=== PATIENT | female | born 1950 | race Caucasian/White ===

== ENCOUNTER 2023-05-11 21:28 | Inpatient (IN) | payer OTHER, SELFPAY ==
[2023-05-11 21:35] VITALS: BP 150/76; PULSE 66; RESP 18; TEMP 36.2; O2SAT 93
[2023-05-11 22:53] VITALS: BMI 29.7
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
[2023-05-12 07:27] LABS: Cholesterol 153 mg/dL (<200); HDL Cholesterol 25 mg/dL (>40); LDL Cholesterol Calculated 105 mg/dL (<100); Triglycerides 115 mg/dL (<150)
[2023-05-12 07:51] LABS: Estimated Average Glucose 123 mg/dL; Hemoglobin A1c % 5.9 % (<6.0)
[2023-05-12 10:25] VITALS: RESP 18
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
--- NOTE | 2023-05-12 14:37 | PC.NURSE ---
Desi declined to have her VS taken and to take scheduled morning Haldol. That medicine makes me hallucinate. Dr. Hoang notified that Desi declined to have her VS taken and declined Haldol.
[2023-05-12 17:00] LABS: Appearance Urine Clear; Color Urine Yellow; Glucose Urine UA Negative (Negative); Leukocyte Esterase Urine Moderate (2+) (Negative); Nitrite Urine Negative (Negative); Specific Gravity - Urine 1.015 (1.005-1.025); UMIC TRIGGER UACC YES; Urine Blood Negative (Negative); Urine Ketones Negative (Negative); Urine Protein Negative (Neg-Trace)
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
[2023-05-12 18:00] VITALS: RESP 18
[2023-05-12] MEDS: Clotrimazole 1 % Cream 15 GM TUBE 1 APPL TOPICAL (20:45)
[2023-05-12 21:42] LABS: Bacteria Urine None Seen (None Seen); Hyaline Casts Urine 0-2 /LPF (0-2); RBC Urine 0-2 /HPF (0-2); UACC Culture Trigger YES
[2023-05-13 08:33] VITALS: RESP 16
--- NOTE | 2023-05-13 14:06 | PC.NURSE ---
Desi declined morning medications and to have her VS taken, Dr. Hoang notified.
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
[2023-05-13 18:00] VITALS: BP 133/58; PULSE 73; RESP 18; TEMP 36.9; O2SAT 92
[2023-05-14 06:00] VITALS: BP 126/60; PULSE 65; RESP 20; TEMP 36.1; O2SAT 92
--- NOTE | 2023-05-14 10:45 | PC.NURSE ---
Guarditulio Barrios phone number: [phone]. [facility] [employer] Dipper: Mehdi Isidro phone number [phone].
--- NOTE | 2023-05-14 14:49 | HO.PSYCHPN ---
Subjective Subjective Date of Service: 05/14/23 Reason For Visit: Schizophrenia Subjective Notes: [facility] Order and Conditional Voluntary Interim History: The nursing staff reported the patient had being disorganized, stating that she had been poison it here. Today we received the role years order and we are going to put her on the back up IM if she does not compliance with her Haldol. On interview the patient remains guarded and psychotic and she is fully aware that she has a role years order. Mental Status Exam Mental Status Exam Patient Appearance: Appropriate Patient Orientation: Person and Situation Level of Consciousness: Awake and Appropriate Patient Behavior: Guarded and Passive Mood Description: Calm Affect Description: Withdrawn Patient Cognition Impaired: Yes Ability to Follow Directions: Good Speech Pattern: Impoverished Hallucinations: Auditory Delusions: Paranoid Ideation and Ideas of Reference Thought Process: Illogical, Distracted and Slowed Thinking Thought Content: positive for [place] and positive for Poverty of Content Judgement: Poor Diagnostics Vital Signs (24Hr): Vital Signs - 24 hr 05/13/23 18:00 05/14/23 06:00 Temperature 98.4 F 97.0 F Pulse Rate 73 65 Respiratory Rate 18 20 Blood Pressure 133/58 L 126/60 Pulse Oximetry 92 92 Oxygen Delivery Method Room Air Room Air BMI result Body Mass Index 29.7 Labs Labs: Laboratory Results - last 48 hr 05/12/23 16:46 Urine Color Yellow Urine Appearance Clear Urine pH 7.0 Ur Specific [place] 1.015 Urine Protein Negative Urine Glucose (UA) Negative Urine Ketones Negative Urine Blood Negative Urine Nitrite Negative Ur Leukocyte Esterase Moderate (2+) H Urine RBC 0-2 Urine WBC 6-10 H Ur Squamous Epith Cells 3-5 Urine Bacteria None Seen Hyaline Casts 0-2 Medications Medications Current Medications Acetaminophen (Acetaminophen 325 Mg Tablet) 650 mg PO Q6H PRN PRN Reason: Headache/Pain Mild Scale (1-3) Al Hydroxide/Mg Hydroxide (Magnesium Hydrox/Alum Hydrox 30 Ml Oral.Susp) 30 ml PO Q6H PRN PRN Reason: Heartburn/Nausea Clotrimazole (Clotrimazole 1 % Cream 15 Gm Tube) 1 appl TOPICAL BID JOSE GUADALUPE; Protocol Last Admin: 05/14/23 09:03 Dose: Not Given Haloperidol (Haloperidol 5 Mg Tablet) 5 mg PO Q4H PRN PRN Reason: agitation Haloperidol (Haloperidol 5 Mg Tablet) 5 mg PO BID [facility] Last Admin: 05/14/23 09:03 Dose: Not Given Hydrocortisone (Hydrocortisone 1 % Cream 28.35 Gm Tube) 1 appl TOPICAL BID PRN; Protocol PRN Reason: Rash Magnesium Hydroxide (Milk Of Magnesia 30 Ml Oral.Susp) 30 ml PO DAILY PRN PRN Reason: Constipation Trazodone HCl (Trazodone Hcl 25 Mg Halftab) 25 mg PO BEDTIME MRX1 PRN PRN Reason: Insomnia Allergies Allergies Allergy/AdvReac Type Severity Reaction Status Date / Time onion Allergy Unknown Unknown Verified 05/11/23 22:53 Assessment & Plan Assessment & Plan (1) Schizophrenia, chronic condition: Status: Acute Code(s): F20.9 - Schizophrenia, unspecified Plan Pt is a 72-year-old female with a PMH significant for?HTN, GERD, and schizophrenia who is admitted to [facility] for increased aggression after a non compliant her psychiatric medications. Patient lives at a assisted but has recently become disorganized with delusions and increased aggression after refusing to take her medications despite a [facility]ins order. Medical consult for admission H&P. Mood disorder Plan as per psychiatry Seborrheic dermatitis Patient with significant beefy red rash on chest and under breasts with scaly plaques, of unclear duration Patient states she has prescription for antifungal, but not on her med list Will start her on hydrocortisone 1% cream and clotrimazole 1% cream which should be applied to affected areas twice daily until symptoms resolve UTI UA from [facility] positive for UTI, though apparently not treated with antibiotics Pt not complaining of polyuria or dysuria Will get new UA Will hold off on antibiotics pending UA results If positive, start with Bactrim DS 1 tab bid x5 days, then follow cultures HTN Continue amlodipine GERD Continue PPI Plan 1. Gather collateral information. 2. We received a treatment over objection court order and we are going to put p.r.n. IM if the patient refused Haldol p.o.. 3. Reassessment results Reason for continued inpatient stay Substantial Risk for: inability to function, rapid decompensation and med/psych decompensation Time Spent With Patient Time: Total time managing care of this patient today ___20_ minutes.
[2023-05-14 18:00] VITALS: BP 141/66; PULSE 68; RESP 18; O2SAT 92
[2023-05-14] MEDS: Haloperidol Lactate 5 MG/ML VIAL IM (20:17)
[2023-05-15] MEDS: Haloperidol Lactate 5 MG/ML VIAL IM ×2 (08:39→21:36)
[2023-05-15 10:45] VITALS: BP 123/56; PULSE 56; RESP 18; TEMP 36.2; O2SAT 93
--- NOTE | 2023-05-15 16:21 | HO.PSYCHPN ---
Subjective Subjective Date of Service: 05/15/23 Reason For Visit: Schizophrenia Subjective Notes: Conditional Voluntary Interim History: The nursing staff reported the patient refused to take her Haldol and she needed to have IM backup as per court order. She had been flat not attend to groups poor hygiene. On interview the patient refused to engage she is aware that she has to be compliant with treatment as per court order. We will going to try to contact her ancillary staff. Mental Status Exam Mental Status Exam Patient Appearance: Unkempt Patient Orientation: Person Level of Consciousness: Awake Patient Behavior: Guarded and Passive Mood Description: Withdrawn Affect Description: Constricted Patient Cognition Impaired: Yes Ability to Follow Directions: Good Speech Pattern: Clear Hallucinations: Auditory Delusions: Paranoid Ideation Thought Process: Distracted Thought Content: positive for [place] and positive for Poverty of Content Judgement: Poor Diagnostics Vital Signs (24Hr): Vital Signs - 24 hr 05/14/23 18:00 05/15/23 10:45 Temperature 97.2 F Pulse Rate 68 56 Respiratory Rate 18 18 Blood Pressure 141/66 H 123/56 L Pulse Oximetry 92 93 Oxygen Delivery Method Room Air Room Air BMI result Body Mass Index 29.7 Medications Medications Current Medications Acetaminophen (Acetaminophen 325 Mg Tablet) 650 mg PO Q6H PRN PRN Reason: Headache/Pain Mild Scale (1-3) Al Hydroxide/Mg Hydroxide (Magnesium Hydrox/Alum Hydrox 30 Ml Oral.Susp) 30 ml PO Q6H PRN PRN Reason: Heartburn/Nausea Clotrimazole (Clotrimazole 1 % Cream 15 Gm Tube) 1 appl TOPICAL BID JOSE GUADALUPE; Protocol Last Admin: 05/15/23 08:14 Dose: Not Given Haloperidol (Haloperidol 5 Mg Tablet) 5 mg PO Q4H PRN PRN Reason: agitation Haloperidol (Haloperidol 5 Mg Tablet) 5 mg PO BID JOSE GUADALUPE Last Admin: 05/15/23 08:14 Dose: Not Given Haloperidol Lactate (Haloperidol Lactate 5 Mg/Ml Vial) 5 mg IM BID PRN PRN Reason: REFUSAL OF PO Last Admin: 05/15/23 08:39 Dose: 5 mg Hydrocortisone (Hydrocortisone 1 % Cream 28.35 Gm Tube) 1 appl TOPICAL BID PRN; Protocol PRN Reason: Rash Magnesium Hydroxide (Milk Of Magnesia 30 Ml Oral.Susp) 30 ml PO DAILY PRN PRN Reason: Constipation Trazodone HCl (Trazodone Hcl 25 Mg Halftab) 25 mg PO BEDTIME MRX1 PRN PRN Reason: Insomnia Allergies Allergies Allergy/AdvReac Type Severity Reaction Status Date / Time onion Allergy Unknown Unknown Verified 05/11/23 22:53 Assessment & Plan Assessment & Plan (1) Schizophrenia, chronic condition: Status: Acute Code(s): F20.9 - Schizophrenia, unspecified Plan Pt is a 72-year-old female with a PMH significant for?HTN, GERD, and schizophrenia who is admitted to [facility] for increased aggression after a non compliant her psychiatric medications. Patient lives at a residential but has recently become disorganized with delusions and increased aggression after refusing to take her medications despite a Riggins order. Medical consult for admission H&P. Mood disorder Plan as per psychiatry Seborrheic dermatitis Patient with significant beefy red rash on chest and under breasts with scaly plaques, of unclear duration Patient states she has prescription for antifungal, but not on her med list Will start her on hydrocortisone 1% cream and clotrimazole 1% cream which should be applied to affected areas twice daily until symptoms resolve UTI UA from [facility] positive for UTI, though apparently not treated with antibiotics Pt not complaining of polyuria or dysuria Will get new UA Will hold off on antibiotics pending UA results If positive, start with Bactrim DS 1 tab bid x5 days, then follow cultures HTN Continue amlodipine GERD Continue PPI Plan 1. Gather collateral information. 2. We received a treatment over objection court order and we are going to put p.r.n. IM if the patient refused Haldol p.o.. 3. Reassessment results Reason for continued inpatient stay Substantial Risk for: inability to function, rapid decompensation and med/psych decompensation Time Spent With Patient Time: Total time managing care of this patient today __20__ minutes.
[2023-05-15 18:00] VITALS: BP 139/75; PULSE 69; RESP 16; TEMP 35.7; O2SAT 94
[2023-05-16 08:03] VITALS: BP 121/56; PULSE 69; RESP 18; TEMP 36.3; O2SAT 98
[2023-05-16] MEDS: Haloperidol Lactate 5 MG/ML VIAL IM (09:09)
[2023-05-16] MEDS: Clotrimazole 1 % Cream 15 GM TUBE 1 APPL TOPICAL (09:11)
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
[2023-05-16 20:15] VITALS: BP 119/60; PULSE 60; RESP 16; TEMP 36.1; O2SAT 98
[2023-05-16] MEDS: HaloperidoL 5 MG TABLET PO (20:41)
[2023-05-17 07:00] VITALS: BMI 29.3
[2023-05-17 08:10] VITALS: PULSE 71; RESP 18; TEMP 35.9; O2SAT 93
[2023-05-17] MEDS: HaloperidoL 5 MG TABLET PO ×2 (08:35→20:03)
[2023-05-17] MEDS: Clotrimazole 1 % Cream 15 GM TUBE 1 APPL TOPICAL ×2 (08:35→20:03)
--- NOTE | 2023-05-17 11:24 | P.PNPSI_ITS ---
Subjective Subjective Date of Service: 05/17/23 Reason For Visit: Schizophrenia Subjective Notes: [facility] Order and Conditional Voluntary Interim History: The nursing staff reported the patient had been alert oriented x2, isolative she was compliant with medications and she slept well last night. On interview the patient denies new symptoms she states that she is going to continue taking her medication. Mental Status Exam Mental Status Exam Patient Appearance: Disheveled and Unkempt Patient Orientation: Person and Situation Level of Consciousness: Awake and Appropriate Patient Behavior: Guarded and Passive Mood Description: Withdrawn Affect Description: Constricted Patient Cognition Impaired: Yes Ability to Follow Directions: Good Speech Pattern: Clear Hallucinations: None Delusions: Paranoid Ideation Thought Process: Illogical and Distracted Thought Content: positive for [place] and positive for Circumstantial Judgement: Fair Diagnostics Vital Signs (24Hr): Vital Signs - 24 hr 05/16/23 20:15 05/17/23 08:10 Temperature 97 F 96.6 F L Pulse Rate 60 71 Respiratory Rate 16 18 Blood Pressure 119/60 Pulse Oximetry 98 93 Oxygen Delivery Method Room Air Room Air BMI result Body Mass Index 29.3 Medications Medications Current Medications Acetaminophen (Acetaminophen 325 Mg Tablet) 650 mg PO Q6H PRN PRN Reason: Headache/Pain Mild Scale (1-3) Al Hydroxide/Mg Hydroxide (Magnesium Hydrox/Alum Hydrox 30 Ml Oral.Susp) 30 ml PO Q6H PRN PRN Reason: Heartburn/Nausea Clotrimazole (Clotrimazole 1 % Cream 15 Gm Tube) 1 appl TOPICAL BID JOSE GUADALUPE; Protocol Last Admin: 05/17/23 08:35 Dose: 1 appl Haloperidol (Haloperidol 5 Mg Tablet) 5 mg PO Q4H PRN PRN Reason: agitation Haloperidol (Haloperidol 5 Mg Tablet) 5 mg PO BID JOSE GUADALUPE Last Admin: 05/17/23 08:35 Dose: 5 mg Haloperidol Lactate (Haloperidol Lactate 5 Mg/Ml Vial) 5 mg IM BID PRN PRN Reason: REFUSAL OF PO Last Admin: 05/16/23 09:09 Dose: 5 mg Hydrocortisone (Hydrocortisone 1 % Cream 28.35 Gm Tube) 1 appl TOPICAL BID PRN; Protocol PRN Reason: Rash Magnesium Hydroxide (Milk Of Magnesia 30 Ml Oral.Susp) 30 ml PO DAILY PRN PRN Reason: Constipation Trazodone HCl (Trazodone Hcl 25 Mg Halftab) 25 mg PO BEDTIME MRX1 PRN PRN Reason: Insomnia Allergies Allergies Allergy/AdvReac Type Severity Reaction Status Date / Time onion Allergy Unknown Unknown Verified 05/11/23 22:53 Assessment & Plan Assessment & Plan (1) Schizophrenia, chronic condition: Status: Acute Code(s): F20.9 - Schizophrenia, unspecified Plan Pt is a 72-year-old female with a PMH significant for?HTN, GERD, and schizophrenia who is admitted to [facility] for increased aggression after a non compliant her psychiatric medications. Patient lives at a long term but has recently become disorganized with delusions and increased aggression after refusing to take her medications despite a [facility]iggins order. Medical consult for admission H&P. Mood disorder Plan as per psychiatry Seborrheic dermatitis Patient with significant beefy red rash on chest and under breasts with scaly plaques, of unclear duration Patient states she has prescription for antifungal, but not on her med list Will start her on hydrocortisone 1% cream and clotrimazole 1% cream which should be applied to affected areas twice daily until symptoms resolve UTI UA from [facility] positive for UTI, though apparently not treated with antibiotics Pt not complaining of polyuria or dysuria Will get new UA Will hold off on antibiotics pending UA results If positive, start with Bactrim DS 1 tab bid x5 days, then follow cultures HTN Continue amlodipine GERD Continue PPI Plan 1. Gather collateral information. 2. We received a treatment over objection court order and we are going to put p.r.n. IM if the patient refused Haldol p.o.. 3. Reassessment results . 4. Latuda was offered but she refused it. We will continue with Haldol as prescribed Reason for continued inpatient stay Substantial Risk for: inability to function, rapid decompensation and med/psych decompensation Time Spent With Patient Time: Total time managing care of this patient today __20__ minutes.
[2023-05-17 19:35] VITALS: BP 144/70; PULSE 67; RESP 16; TEMP 36.2; O2SAT 95
[2023-05-18 07:53] VITALS: BP 108/56; PULSE 63; RESP 18; TEMP 36.1; O2SAT 95
[2023-05-18] MEDS: HaloperidoL 5 MG TABLET PO (08:49)
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
[2023-05-18 18:00] VITALS: RESP 16
[2023-05-18] MEDS: Haloperidol Lactate 5 MG/ML VIAL IM (21:55)
[2023-05-19 07:55] VITALS: BP 114/61; PULSE 51; RESP 16; TEMP 36.2; O2SAT 92
[2023-05-19] MEDS: Haloperidol Lactate 5 MG/ML VIAL IM ×2 (09:19→21:02)
[2023-05-19] MEDS: Hydrocortisone 1 % Cream 28.35 GM TUBE 1 APPL TOPICAL (11:58)
--- NOTE | 2023-05-19 14:40 | P.PNPSI_ITS ---
Subjective Subjective Date of Service: 05/19/23 Reason For Visit: Schizophrenia Subjective Notes: Conditional Voluntary Interim History: Pt in the room. She reports she is good. She denies SI/HI. She is guarded and asks this physician underwriter to leave her alone. Per nursing, pt at times irritable, yelling at staff and other pts. She is on gomes, taking haldol. Medication Compliance: Yes Review of Systems Review of Systems Red rash with scaly plaques on chest and under breasts Patient denies has no acute medical complaints at this time Mental Status Exam Mental Status Exam Narrative: General appearance: casual dress.. Fair hygiene.? Eye contact: poor. Musculoskeletal: Laying in bed. No PMA/PMR Manner/behavior: uncooperative and guarded irritable Speech:? Fluent, with normal rate, tone and volume. Language: No receptive or expressive language impairment? Mood: Angry Affect:Irritable Thought process/associations: Linear with no flight of ideas or loose associations.?? Thought content: Paranoid Hallucinations: No overt auditory, visual or other hallucinations Suicidality/self-destructive behavior: none reported? ? Homicidally/violence: none. reported. Prior history of physical aggression? Reliability: poor.? ? Judgment: poor.? ? Insight: poor Cognition: Alert and oriented to time, place and person.? Diagnostics Vital Signs (24Hr): Vital Signs - 24 hr 05/18/23 18:00 05/19/23 07:55 Temperature 97.2 F Pulse Rate 51 Respiratory Rate 16 16 Blood Pressure 114/61 Pulse Oximetry 92 Oxygen Delivery Method Room Air BMI result Body Mass Index 29.3 Medications Medications Current Medications Acetaminophen (Acetaminophen 325 Mg Tablet) 650 mg PO Q6H PRN PRN Reason: Headache/Pain Mild Scale (1-3) Al Hydroxide/Mg Hydroxide (Magnesium Hydrox/Alum Hydrox 30 Ml Oral.Susp) 30 ml PO Q6H PRN PRN Reason: Heartburn/Nausea Clotrimazole (Clotrimazole 1 % Cream 15 Gm Tube) 1 appl TOPICAL BID JOSE GUADALUPE; Protocol Last Admin: 05/19/23 09:31 Dose: Not Given Haloperidol (Haloperidol 5 Mg Tablet) 5 mg PO Q4H PRN PRN Reason: agitation Haloperidol (Haloperidol 5 Mg Tablet) 5 mg PO BID [facility] Last Admin: 05/19/23 10:59 Dose: Not Given Haloperidol Lactate (Haloperidol Lactate 5 Mg/Ml Vial) 5 mg IM BID PRN PRN Reason: REFUSAL OF PO Last Admin: 05/19/23 09:19 Dose: 5 mg Hydrocortisone (Hydrocortisone 1 % Cream 28.35 Gm Tube) 1 appl TOPICAL BID PRN; Protocol PRN Reason: Rash Last Admin: 05/19/23 11:58 Dose: 1 appl Magnesium Hydroxide (Milk Of Magnesia 30 Ml Oral.Susp) 30 ml PO DAILY PRN PRN Reason: Constipation Trazodone HCl (Trazodone Hcl 25 Mg Halftab) 25 mg PO BEDTIME MRX1 PRN PRN Reason: Insomnia Allergies Allergies Allergy/AdvReac Type Severity Reaction Status Date / Time onion Allergy Unknown Unknown Verified 05/11/23 22:53 Assessment & Plan Assessment & Plan (1) Schizophrenia, chronic condition: Status: Acute Code(s): F20.9 - Schizophrenia, unspecified Plan Pt is a 72-year-old female with a PMH significant for?HTN, GERD, and schizophrenia who is admitted to [facility] for increased aggression after a non compliant her psychiatric medications. Patient lives at a halfway but has recently become disorganized with delusions and increased aggression after refusing to take her medications despite a Gomes order. Medical consult for admission H&P. Mood disorder Plan as per psychiatry Seborrheic dermatitis Patient with significant beefy red rash on chest and under breasts with scaly plaques, of unclear duration Patient states she has prescription for antifungal, but not on her med list Will start her on hydrocortisone 1% cream and clotrimazole 1% cream which should be applied to affected areas twice daily until symptoms resolve UTI UA from [facility] positive for UTI, though apparently not treated with antibiotics Pt not complaining of polyuria or dysuria Will get new UA Will hold off on antibiotics pending UA results If positive, start with Bactrim DS 1 tab bid x5 days, then follow cultures HTN Continue amlodipine GERD Continue PPI Plan 05/19 continue tx. eliseo- sharonal, back up IM. Reason for continued inpatient stay Substantial Risk for: inability to function Time Spent With Patient Time: Total time managing care of this patient today ____ minutes.
[2023-05-19 19:54] VITALS: BP 109/54; PULSE 94; RESP 22; TEMP 36.1; O2SAT 92
[2023-05-20 07:40] VITALS: BP 165/79; PULSE 92; RESP 18; TEMP 36.1; O2SAT 95
[2023-05-20] MEDS: Haloperidol Lactate 5 MG/ML VIAL IM (08:43)
[2023-05-20] MEDS: Clotrimazole 1 % Cream 15 GM TUBE 1 APPL TOPICAL (08:44)
[2023-05-20] MEDS: Hydrocortisone 1 % Cream 28.35 GM TUBE 1 APPL TOPICAL (08:45)
--- NOTE | 2023-05-20 15:35 | P.PNPSI_ITS ---
Subjective Subjective Date of Service: 05/20/23 Reason For Visit: Schizophrenia Subjective Notes: Conditional Voluntary Interim History: Pt mostly in her room, not interacting with peers, and guarded with staff. She denies SI/HI. She is guarded again today and asks this remote mortgage underwriter to leave her alone. Per nursing, pt at times irritable, yelling at staff and other pts. She is on gomes, taking haldol. VS with SBP elavated 165 today. continue to monitor. Review of Systems Review of Systems Red rash with scaly plaques on chest and under breasts Patient denies has no acute medical complaints at this time Mental Status Exam Mental Status Exam Narrative: General appearance: casual dress.. Fair hygiene.? Eye contact: poor. Musculoskeletal: Laying in bed. No PMA/PMR Manner/behavior: uncooperative and guarded irritable Speech:? Fluent, with normal rate, tone and volume. Language: No receptive or expressive language impairment? Mood: Angry Affect:Irritable Thought process/associations: Linear with no flight of ideas or loose associations.?? Thought content: Paranoid Hallucinations: No overt auditory, visual or other hallucinations Suicidality/self-destructive behavior: none reported? ? Homicidally/violence: none. reported. Prior history of physical aggression? Reliability: poor.? ? Judgment: poor.? ? Insight: poor Cognition: Alert and oriented to time, place and person.? Diagnostics Vital Signs (24Hr): Vital Signs - 24 hr 05/19/23 19:54 05/20/23 07:40 Temperature 97.0 F 97 F Pulse Rate 94 92 Respiratory Rate 22 H 18 Blood Pressure 109/54 L 165/79 H Pulse Oximetry 92 95 Oxygen Delivery Method Room Air Room Air BMI result Body Mass Index 29.3 Medications Medications Current Medications Acetaminophen (Acetaminophen 325 Mg Tablet) 650 mg PO Q6H PRN PRN Reason: Headache/Pain Mild Scale (1-3) Al Hydroxide/Mg Hydroxide (Magnesium Hydrox/Alum Hydrox 30 Ml Oral.Susp) 30 ml PO Q6H PRN PRN Reason: Heartburn/Nausea Clotrimazole (Clotrimazole 1 % Cream 15 Gm Tube) 1 appl TOPICAL BID JOSE GUADALUPE; Protocol Last Admin: 05/20/23 08:44 Dose: 1 appl Haloperidol (Haloperidol 5 Mg Tablet) 5 mg PO Q4H PRN PRN Reason: agitation Haloperidol (Haloperidol 5 Mg Tablet) 5 mg PO BID JOSE GUADALUPE Last Admin: 05/20/23 10:33 Dose: Not Given Haloperidol Lactate (Haloperidol Lactate 5 Mg/Ml Vial) 5 mg IM BID PRN PRN Reason: REFUSAL OF PO Last Admin: 05/20/23 08:43 Dose: 5 mg Hydrocortisone (Hydrocortisone 1 % Cream 28.35 Gm Tube) 1 appl TOPICAL BID PRN; Protocol PRN Reason: Rash Last Admin: 05/20/23 08:45 Dose: 1 appl Magnesium Hydroxide (Milk Of Magnesia 30 Ml Oral.Susp) 30 ml PO DAILY PRN PRN Reason: Constipation Trazodone HCl (Trazodone Hcl 25 Mg Halftab) 25 mg PO BEDTIME MRX1 PRN PRN Reason: Insomnia Allergies Allergies Allergy/AdvReac Type Severity Reaction Status Date / Time onion Allergy Unknown Unknown Verified 05/11/23 22:53 Assessment & Plan Assessment & Plan (1) Schizophrenia, chronic condition: Status: Acute Code(s): F20.9 - Schizophrenia, unspecified Plan Pt is a 72-year-old female with a PMH significant for?HTN, GERD, and schizophrenia who is admitted to [facility] for increased aggression after a non compliant her psychiatric medications. Patient lives at a senior care but has recently become disorganized with delusions and increased aggression after refusing to take her medications despite a Gomes order. Medical consult for a dmission H&P. Mood disorder Plan as per psychiatry Seborrheic dermatitis Patient with significant beefy red rash on chest and under breasts with scaly plaques, of unclear duration Patient states she has prescription for antifungal, but not on her med list Will start her on hydrocortisone 1% cream and clotrimazole 1% cream which should be applied to affected areas twice daily until symptoms resolve UTI UA from [facility] positive for UTI, though apparently not treated with antibiotics Pt not complaining of polyuria or dysuria Will get new UA Will hold off on antibiotics pending UA results If positive, start with Bactrim DS 1 tab bid x5 days, then follow cultures HTN Continue amlodipine GERD Continue PPI Plan 05/19 continue tx. gomes- haldol, back up IM. 05/20 continue tx. Reason for continued inpatient stay Substantial Risk for: inability to function Time Spent With Patient Time: Total time managing care of this patient today ____ minutes.
[2023-05-20 20:00] VITALS: BP 134/61; PULSE 65; RESP 18; TEMP 36.3; O2SAT 95
[2023-05-20] MEDS: HaloperidoL 5 MG TABLET PO (20:12)
[2023-05-21 07:42] VITALS: BP 144/77; PULSE 81; RESP 18; TEMP 36.5; O2SAT 95
[2023-05-21] MEDS: HaloperidoL 5 MG TABLET PO (08:50)
[2023-05-21] MEDS: Hydrocortisone 1 % Cream 28.35 GM TUBE 1 APPL TOPICAL (08:50)
--- NOTE | 2023-05-21 14:00 | P.PNPSI_ITS ---
Subjective Subjective Date of Service: 05/21/23 Reason For Visit: Schizophrenia Subjective Notes: Conditional Voluntary Interim History: The nursing staff reported the patient refused her Haldol the last morning and he she receive an IM as per court order. She remains most of the time in her room, isolative, no recurrent disturbances. On interview the patient denies new symptoms she was minimally directive. Today I tried to contact Dr. Ace, her psychiatris,t and left a message. We will try to gather collateral information for prison, we need to know when she got her last Haldol Decanoate shot. Mental Status Exam Mental Status Exam Patient Appearance: Appropriate Patient Orientation: Person and Situation Level of Consciousness: Awake Patient Behavior: Guarded and Passive Mood Description: Withdrawn Affect Description: Constricted Patient Cognition Impaired: Yes Ability to Follow Directions: Good Speech Pattern: Clear Hallucinations: None Delusions: Paranoid Ideation Thought Process: Distracted Thought Content: positive for Art Judgement: Fair Diagnostics Vital Signs (24Hr): Vital Signs - 24 hr 05/20/23 20:00 05/21/23 07:42 Temperature 97.3 F 97.7 F Pulse Rate 65 81 Respiratory Rate 18 18 Blood Pressure 134/61 144/77 H Pulse Oximetry 95 95 Oxygen Delivery Method Room Air BMI result Body Mass Index 29.3 Medications Medications Current Medications Acetaminophen (Acetaminophen 325 Mg Tablet) 650 mg PO Q6H PRN PRN Reason: Headache/Pain Mild Scale (1-3) Al Hydroxide/Mg Hydroxide (Magnesium Hydrox/Alum Hydrox 30 Ml Oral.Susp) 30 ml PO Q6H PRN PRN Reason: Heartburn/Nausea Clotrimazole (Clotrimazole 1 % Cream 15 Gm Tube) 1 appl TOPICAL BID JOSE GUADALUPE; Protocol Last Admin: 05/21/23 08:51 Dose: Not Given Haloperidol (Haloperidol 5 Mg Tablet) 5 mg PO Q4H PRN PRN Reason: agitation Haloperidol (Haloperidol 5 Mg Tablet) 5 mg PO BID JOSE GUADALUPE Last Admin: 05/21/23 08:50 Dose: 5 mg Haloperidol Lactate (Haloperidol Lactate 5 Mg/Ml Vial) 5 mg IM BID PRN PRN Reason: REFUSAL OF PO Last Admin: 05/20/23 08:43 Dose: 5 mg Hydrocortisone (Hydrocortisone 1 % Cream 28.35 Gm Tube) 1 appl TOPICAL BID PRN; Protocol PRN Reason: Rash Last Admin: 05/21/23 08:50 Dose: 1 appl Magnesium Hydroxide (Milk Of Magnesia 30 Ml Oral.Susp) 30 ml PO DAILY PRN PRN Reason: Constipation Trazodone HCl (Trazodone Hcl 25 Mg Halftab) 25 mg PO BEDTIME MRX1 PRN PRN Reason: Insomnia Allergies Allergies Allergy/AdvReac Type Severity Reaction Status Date / Time onion Allergy Unknown Unknown Verified 05/11/23 22:53 Assessment & Plan Assessment & Plan (1) Schizophrenia, chronic condition: Status: Acute Code(s): F20.9 - Schizophrenia, unspecified Plan Pt is a 72-year-old female with a PMH significant for?HTN, GERD, and schizophrenia who is admitted to [facility] for increased aggression after a non compliant her psychiatric medications. Patient lives at a prison but has recently become disorganized with delusions and increased aggression after refusing to take her medications despite a Riggins order. Medical consult for admission H&P. Mood disorder Plan as per psychiatry Seborrheic dermatitis Patient with significant beefy red rash on chest and under breasts with scaly plaques, of unclear duration Patient states she has prescription for antifungal, but not on her med list Will start her on hydrocortisone 1% cream and clotrimazole 1% cream which should be applied to affected areas twice daily until symptoms resolve UTI UA from [facility] positive for UTI, though apparently not treated with antibiotics Pt not complaining of polyuria or dysuria Will get new UA Will hold off on antibiotics pending UA results If positive, start with Bactrim DS 1 tab bid x5 days, then follow cultures HTN Continue amlodipine GERD Continue PPI Plan 1. Gather collateral information, will try to contact the staff on the prison for further details on the last Haldol Decanoate. 2. Continue with medications as per court order. Reason for continued inpatient stay Substantial Risk for: inability to function, rapid decompensation and med/psych decompensation Time Spent With Patient Time: Total time managing care of this patient today __20__ minutes.
--- NOTE | 2023-05-21 14:49 | MHC.CLN ---
NUTRITION CONSULT FOR POOR PO. STAFF REPORTS THAT PATIENT TAKES MEALS TO ROOM BUT DOES NOT EAT. VISITED WITH PATIENT IN HER ROOM. WAS AWAKE BUT DID NOT ENGAGE IN CONVERSATION. ADDING ENSURE MAX TID (450 KCALS, 90 G PROTEIN) TO INCREASE NUTRITIONAL INTAKE. RD TO FOLLOW UP WEEKLY.
[2023-05-21 22:12] VITALS: BP 123/60; PULSE 62; RESP 18; TEMP 36.2; O2SAT 92
[2023-05-22] MEDS: HaloperidoL 5 MG TABLET PO ×3 (00:14→21:33)
[2023-05-22 10:30] VITALS: BP 153/70; PULSE 77; RESP 16; TEMP 36.3; O2SAT 95
--- NOTE | 2023-05-22 12:58 | HO.PSYCHPN ---
Subjective Subjective Date of Service: 05/22/23 Reason For Visit: Schizophrenia Subjective Notes: Conditional Voluntary Interim History: The nursing staff reported the patient had been on her bed most of the time. Yesterday the criminal justice social worker contact the [facility] and we are going to have a meeting with providers soon. He apparently she has her Haldol Decanoate on the 11/02 of every month and probably the last shot was on February 19. On interview the patient was minimally engageable in her bed. We ordered Haldol 100 mg IM Decanoate today Mental Status Exam Mental Status Exam Patient Appearance: Well Grooomed and Appropriate Patient Orientation: Person and Situation Level of Consciousness: Awake and Appropriate Patient Behavior: Guarded and Passive Mood Description: Withdrawn Affect Description: Constricted Patient Cognition Impaired: Yes Ability to Follow Directions: Good Speech Pattern: Clear Hallucinations: None Delusions: Paranoid Ideation and Ideas of Reference Thought Process: Distracted and Word Salad Thought Content: positive for [place], positive for Circumstantial and positive for Poverty of Content Judgement: Poor Diagnostics Vital Signs (24Hr): Vital Signs - 24 hr 05/21/23 22:12 05/22/23 10:30 Temperature 97.1 F 97.3 F Pulse Rate 62 77 Respiratory Rate 18 16 Blood Pressure 123/60 153/70 H Pulse Oximetry 92 95 Oxygen Delivery Method Room Air Room Air BMI result Body Mass Index 29.3 Medications Medications Current Medications Acetaminophen (Acetaminophen 325 Mg Tablet) 650 mg PO Q6H PRN PRN Reason: Headache/Pain Mild Scale (1-3) Al Hydroxide/Mg Hydroxide (Magnesium Hydrox/Alum Hydrox 30 Ml Oral.Susp) 30 ml PO Q6H PRN PRN Reason: Heartburn/Nausea Clotrimazole (Clotrimazole 1 % Cream 15 Gm Tube) 1 appl TOPICAL BID JOSE GUADALUPE; Protocol Last Admin: 05/22/23 08:49 Dose: Not Given Haloperidol (Haloperidol 5 Mg Tablet) 5 mg PO Q4H PRN PRN Reason: agitation Haloperidol (Haloperidol 5 Mg Tablet) 5 mg PO BID JOSE GUADALUPE Last Admin: 05/22/23 08:47 Dose: 5 mg Haloperidol Lactate (Haloperidol Lactate 5 Mg/Ml Vial) 5 mg IM BID PRN PRN Reason: REFUSAL OF PO Last Admin: 05/20/23 08:43 Dose: 5 mg Hydrocortisone (Hydrocortisone 1 % Cream 28.35 Gm Tube) 1 appl TOPICAL BID PRN; Protocol PRN Reason: Rash Last Admin: 05/21/23 08:50 Dose: 1 appl Magnesium Hydroxide (Milk Of Magnesia 30 Ml Oral.Susp) 30 ml PO DAILY PRN PRN Reason: Constipation Trazodone HCl (Trazodone Hcl 25 Mg Halftab) 25 mg PO BEDTIME MRX1 PRN PRN Reason: Insomnia Allergies Allergies Allergy/AdvReac Type Severity Reaction Status Date / Time onion Allergy Unknown Unknown Verified 05/11/23 22:53 Assessment & Plan Assessment & Plan (1) Schizophrenia, chronic condition: Status: Acute Code(s): F20.9 - Schizophrenia, unspecified Plan Pt is a 72-year-old female with a PMH significant for?HTN, GERD, and schizophrenia who is admitted to [facility] for increased aggression after a non compliant her psychiatric medications. Patient lives at a fdc but has recently become disorganized with delusions and increased aggression after refusing to take her medications despite a Riggins order. Medical consult for admission H&P. Mood disorder Plan as per psychiatry Seborrheic dermatitis Patient with significant beefy red rash on chest and under breasts with scaly plaques, of unclear duration Patient states she has prescription for antifungal, but not on her med list Will start her on hydrocortisone 1% cream and clotrimazole 1% cream which should be applied to affected areas twice daily until symptoms resolve UTI UA from [facility] positive for UTI, though apparently not treated with antibiotics Pt not complaining of polyuria or dysuria Will get new UA Will hold off on antibiotics pending UA results If positive, start with Bactrim DS 1 tab bid x5 days, then follow cultures HTN Continue amlodipine GERD Continue PPI Plan 1. Gather collateral information, will try to contact the staff on the fdc for further details on the last Haldol Decanoate. 2. Continue with medications as per court order. 3. Haldol Decanoate 100 mg on May 22 Reason for continued inpatient stay Substantial Risk for: inability to function, rapid decompensation and med/psych decompensation Time Spent With Patient Time: Total time managing care of this patient today __20__ minutes.
[2023-05-22 18:00] VITALS: BP 127/70; PULSE 68; RESP 18; TEMP 36.4; O2SAT 94
[2023-05-23] MEDS: HaloperidoL 5 MG TABLET PO ×2 (08:06→20:28)
[2023-05-23] MEDS: Clotrimazole 1 % Cream 15 GM TUBE 1 APPL TOPICAL ×2 (08:07→20:30)
--- NOTE | 2023-05-23 13:34 | P.PNPSI_ITS ---
Subjective Subjective Date of Service: 05/16/23 Reason For Visit: Schizophrenia Subjective Notes: Conditional Voluntary Interim History: The nursing staff reported the patient showered yesterday after a lot of encouragement. She had been isolative, most of the time in her room refused to engage in groups. She was agitated around her foot. On interview the patient was minimally interactive denies side effects. I encouraged her to trial a to the back again since the staff of care skilled nursing stated that she did very well with that. Mental Status Exam Mental Status Exam Patient Appearance: Appropriate Patient Orientation: Person and Situation Level of Consciousness: Awake Patient Behavior: Guarded and Passive Mood Description: Withdrawn Affect Description: Constricted Patient Cognition Impaired: Yes Ability to Follow Directions: Good Speech Pattern: Clear Hallucinations: None Delusions: Paranoid Ideation Thought Process: Distracted and Slowed Thinking Thought Content: positive for [place] and positive for Poverty of Content Judgement: Fair Diagnostics Vital Signs (24Hr): Vital Signs - 24 hr 05/22/23 18:00 Temperature 97.5 F Pulse Rate 68 Respiratory Rate 18 Blood Pressure 127/70 Pulse Oximetry 94 Oxygen Delivery Method Room Air BMI result Body Mass Index 29.3 Medications Medications Current Medications Acetaminophen (Acetaminophen 325 Mg Tablet) 650 mg PO Q6H PRN PRN Reason: Headache/Pain Mild Scale (1-3) Al Hydroxide/Mg Hydroxide (Magnesium Hydrox/Alum Hydrox 30 Ml Oral.Susp) 30 ml PO Q6H PRN PRN Reason: Heartburn/Nausea Clotrimazole (Clotrimazole 1 % Cream 15 Gm Tube) 1 appl TOPICAL BID JOSE GUADALUPE; Protocol Last Admin: 05/23/23 08:07 Dose: 1 appl Haloperidol (Haloperidol 5 Mg Tablet) 5 mg PO Q4H PRN PRN Reason: agitation Haloperidol (Haloperidol 5 Mg Tablet) 5 mg PO BID JOSE GUADALUPE Last Admin: 05/23/23 08:06 Dose: 5 mg Haloperidol Lactate (Haloperidol Lactate 5 Mg/Ml Vial) 5 mg IM BID PRN PRN Reason: REFUSAL OF PO Last Admin: 05/20/23 08:43 Dose: 5 mg Hydrocortisone (Hydrocortisone 1 % Cream 28.35 Gm Tube) 1 appl TOPICAL BID PRN; Protocol PRN Reason: Rash Last Admin: 05/21/23 08:50 Dose: 1 appl Magnesium Hydroxide (Milk Of Magnesia 30 Ml Oral.Susp) 30 ml PO DAILY PRN PRN Reason: Constipation Trazodone HCl (Trazodone Hcl 25 Mg Halftab) 25 mg PO BEDTIME MRX1 PRN PRN Reason: Insomnia Allergies Allergies Allergy/AdvReac Type Severity Reaction Status Date / Time onion Allergy Unknown Unknown Verified 05/11/23 22:53 Assessment & Plan Assessment & Plan (1) Schizophrenia, chronic condition: Status: Acute Code(s): F20.9 - Schizophrenia, unspecified Plan Pt is a 72-year-old female with a PMH significant for?HTN, GERD, and schizophrenia who is admitted to [facility] for increased aggression after a non compliant her psychiatric medications. Patient lives at a skilled nursing but has recently become disorganized with delusions and increased aggression after refusing to take her medications despite a Riggins order. Medical consult for admission H&P. Mood disorder Plan as per psychiatry Seborrheic dermatitis Patient with significant beefy red rash on chest and under breasts with scaly p laques, of unclear duration Patient states she has prescription for antifungal, but not on her med list Will start her on hydrocortisone 1% cream and clotrimazole 1% cream which should be applied to affected areas twice daily until symptoms resolve UTI UA from [facility] positive for UTI, though apparently not treated with antibiotics Pt not complaining of polyuria or dysuria Will get new UA Will hold off on antibiotics pending UA results If positive, start with Bactrim DS 1 tab bid x5 days, then follow cultures HTN Continue amlodipine GERD Continue PPI Plan 1. Gather collateral information, will try to contact the staff on the skilled nursing for further details on the last Haldol Decanoate. 2. Continue with medications as per court order. 3. Haldol Decanoate 100 mg on May 22 Reason for continued inpatient stay Substantial Risk for: inability to function, rapid decompensation and med/psych decompensation Time Spent With Patient Time: Total time managing care of this patient today _20___ minutes.
[2023-05-23 18:00] VITALS: BP 144/64; PULSE 63; RESP 18; TEMP 36.4; O2SAT 92
[2023-05-24 09:00] VITALS: BP 190/83; PULSE 87; RESP 20; TEMP 36.2; O2SAT 95
[2023-05-24] MEDS: HaloperidoL 5 MG TABLET PO ×2 (09:10→20:02)
[2023-05-24 10:00] VITALS: BP 167/83
--- NOTE | 2023-05-24 12:55 | P.PNPSI_ITS ---
Subjective Subjective Date of Service: 05/24/23 Reason For Visit: Schizophrenia Subjective Notes: Conditional Voluntary Interim History: The nursing staff reported the patient had been flat, guarded stating most of the time in her room. She has refused vital signs and she slept 5 hours. The staff has noticed that she had been self dialogue in her bed. The social science research assistant reported that we are going to schedule an appointment with his her caregivers of the jail next Sunday. On interview the patient denies new symptoms we are going to start Latuda 20 mg p.o. q.h.s. to target psychosis Mental Status Exam Mental Status Exam Patient Appearance: Appropriate Patient Orientation: Person and Situation Level of Consciousness: Awake Patient Behavior: Guarded and Passive Mood Description: Withdrawn Affect Description: Constricted Patient Cognition Impaired: Yes Ability to Follow Directions: Good Speech Pattern: Clear Hallucinations: None Delusions: Paranoid Ideation Thought Process: Distracted and Slowed Thinking Thought Content: positive for [place] and positive for Poverty of Content Judgement: Poor Diagnostics Vital Signs (24Hr): Vital Signs - 24 hr 05/23/23 18:00 05/24/23 09:00 Temperature 97.5 F 97.2 F Pulse Rate 63 87 Respiratory Rate 18 20 Blood Pressure 144/64 H 190/83 H Pulse Oximetry 92 95 Oxygen Delivery Method Room Air Room Air BMI result Body Mass Index 29.3 Medications Medications Current Medications Acetaminophen (Acetaminophen 325 Mg Tablet) 650 mg PO Q6H PRN PRN Reason: Headache/Pain Mild Scale (1-3) Al Hydroxide/Mg Hydroxide (Magnesium Hydrox/Alum Hydrox 30 Ml Oral.Susp) 30 ml PO Q6H PRN PRN Reason: Heartburn/Nausea Clotrimazole (Clotrimazole 1 % Cream 15 Gm Tube) 1 appl TOPICAL BID JOSE GUADALUPE; Protocol Last Admin: 05/24/23 09:10 Dose: 1 appl Haloperidol (Haloperidol 5 Mg Tablet) 5 mg PO Q4H PRN PRN Reason: agitation Haloperidol (Haloperidol 5 Mg Tablet) 5 mg PO BID JOSE GUADALUPE Last Admin: 05/24/23 09:10 Dose: 5 mg Haloperidol Lactate (Haloperidol Lactate 5 Mg/Ml Vial) 5 mg IM BID PRN PRN Reason: REFUSAL OF PO Last Admin: 05/20/23 08:43 Dose: 5 mg Hydrocortisone (Hydrocortisone 1 % Cream 28.35 Gm Tube) 1 appl TOPICAL BID PRN; Protocol PRN Reason: Rash Last Admin: 05/21/23 08:50 Dose: 1 appl Lurasidone HCl (Lurasidone Hcl 20 Mg Tablet) 20 mg PO BEDTIME JOSE GUADALUPE Magnesium Hydroxide (Milk Of Magnesia 30 Ml Oral.Susp) 30 ml PO DAILY PRN PRN Reason: Constipation Trazodone HCl (Trazodone Hcl 25 Mg Halftab) 25 mg PO BEDTIME MRX1 PRN PRN Reason: Insomnia Allergies Allergies Allergy/AdvReac Type Severity Reaction Status Date / Time onion Allergy Unknown Unknown Verified 05/11/23 22:53 Assessment & Plan Assessment & Plan (1) Schizophrenia, chronic condition: Status: Acute Code(s): F20.9 - Schizophrenia, unspecified Plan Pt is a 72-year-old female with a PMH significant for?HTN, GERD, and schizophrenia who is admitted to [facility] for increased aggression after a non compliant her psychiatric medications. Patient lives at a jail but has recently become disorganized with delusions and increased aggression after refusing to take her medications despite a Riggins order. Medical consult for admission H&P. Mood disorder Plan as per psychiatry Seborrheic dermatitis Patient with significant beefy red rash on chest and under breasts with scaly plaques, of unclear duration Patient states she has prescription for antifungal, but not on her med list Will start her on hydrocortisone 1% cream and clotrimazole 1% cream which should be applied to affected areas twice daily until symptoms resolve UTI UA from [facility] positive for UTI, though apparently not treated with antibiotics Pt not complaining of polyuria or dysuria Will get new UA Will hold off on antibiotics pending UA results If positive, start with Bactrim DS 1 tab bid x5 days, then follow cultures HTN Continue amlodipine GERD Continue PPI Plan 1. Gather collateral information, will try to contact the staff on the jail for further details on the last Haldol Decanoate. 2. Continue with medications as per court order. 3. Haldol Decanoate 100 mg on May 22 4. Latuda 20 mg p.o. q.h.s. on May 24 Reason for continued inpatient stay Substantial Risk for: inability to function, rapid decompensation and med/psych decompensation Time Spent With Patient Time: Total time managing care of this patient today _20___ minutes.
[2023-05-24] MEDS: Lurasidone HCl 20 MG TABLET PO (20:02)
[2023-05-25 07:55] VITALS: BP 138/67; PULSE 60; RESP 18; TEMP 35.7; O2SAT 93
[2023-05-25] MEDS: HaloperidoL 5 MG TABLET PO ×2 (09:27→20:17)
[2023-05-25] MEDS: Clotrimazole 1 % Cream 15 GM TUBE 1 APPL TOPICAL (09:28)
--- NOTE | 2023-05-25 13:00 | HO.PSYCHPN ---
Subjective Subjective Date of Service: 05/25/23 Reason For Visit: Schizophrenia Subjective Notes: Conditional Voluntary Interim History: The nursing staff reported the patient had been withdrawn, flat guarded most of the time in her room. He had been more irritable in the evening. She has not attended to any groups. On interview the patient denies new symptoms she looks blunted. Mental Status Exam Mental Status Exam Patient Appearance: Unkempt Patient Orientation: Person Level of Consciousness: Awake Patient Behavior: Guarded and Passive Mood Description: Withdrawn Affect Description: Blunted Patient Cognition Impaired: Yes Ability to Follow Directions: Fair Speech Pattern: Impoverished and Monotone Hallucinations: None Delusions: Paranoid Ideation Thought Process: Distracted Thought Content: positive for [place] and positive for Poverty of Content Judgement: Poor Diagnostics Vital Signs (24Hr): Vital Signs - 24 hr 05/25/23 07:55 Temperature 96.2 F L Pulse Rate 60 Respiratory Rate 18 Blood Pressure 138/67 Pulse Oximetry 93 Oxygen Delivery Method Room Air BMI result Body Mass Index 29.3 Medications Medications Current Medications Acetaminophen (Acetaminophen 325 Mg Tablet) 650 mg PO Q6H PRN PRN Reason: Headache/Pain Mild Scale (1-3) Al Hydroxide/Mg Hydroxide (Magnesium Hydrox/Alum Hydrox 30 Ml Oral.Susp) 30 ml PO Q6H PRN PRN Reason: Heartburn/Nausea Clotrimazole (Clotrimazole 1 % Cream 15 Gm Tube) 1 appl TOPICAL BID JOSE GUADALUPE; Protocol Last Admin: 05/25/23 09:28 Dose: 1 appl Haloperidol (Haloperidol 5 Mg Tablet) 5 mg PO Q4H PRN PRN Reason: agitation Haloperidol (Haloperidol 5 Mg Tablet) 5 mg PO BID JOSE GUADALUPE Last Admin: 05/25/23 09:27 Dose: 5 mg Haloperidol Lactate (Haloperidol Lactate 5 Mg/Ml Vial) 5 mg IM BID PRN PRN Reason: REFUSAL OF PO Last Admin: 05/20/23 08:43 Dose: 5 mg Hydrocortisone (Hydrocortisone 1 % Cream 28.35 Gm Tube) 1 appl TOPICAL BID PRN; Protocol PRN Reason: Rash Last Admin: 05/21/23 08:50 Dose: 1 appl Lurasidone HCl (Lurasidone Hcl 40 Mg Tablet) 40 mg PO BEDTIME JOSE GUADALUPE Magnesium Hydroxide (Milk Of Magnesia 30 Ml Oral.Susp) 30 ml PO DAILY PRN PRN Reason: Constipation Trazodone HCl (Trazodone Hcl 25 Mg Halftab) 25 mg PO BEDTIME MRX1 PRN PRN Reason: Insomnia Allergies Allergies Allergy/AdvReac Type Severity Reaction Status Date / Time onion Allergy Unknown Unknown Verified 05/11/23 22:53 Assessment & Plan Assessment & Plan (1) Schizophrenia, chronic condition: Status: Acute Code(s): F20.9 - Schizophrenia, unspecified Plan Pt is a 72-year-old female with a PMH significant for?HTN, GERD, and schizophrenia who is admitted to [facility] for increased aggression after a non compliant her psychiatric medications. Patient lives at a long term but has recently become disorganized with delusions and increased aggression after refusing to take her medications despite a [facility] order. Medical consult for admission H&P. Mood disorder Plan as per psychiatry Seborrheic dermatitis Patient with significant beefy red rash on chest and under breasts with scaly plaques, of unclear duration Patient states she has prescription for antifungal, but not on her med list Will start her on hydrocortisone 1% cream and clotrimazole 1% cream which should be applied to affected areas twice daily until symptoms resolve UTI UA from [facility] positive for UTI, though apparently not treated with antibiotics Pt not complaining of polyuria or dysuria Will get new UA Will hold off on antibiotics pending UA results If positive, start with Bactrim DS 1 tab bid x5 days, then follow cultures HTN Continue amlodipine GERD Continue PPI Plan 1. Gather collateral information, will try to contact the staff on the long term for further details on the last Haldol Decanoate. 2. Continue with medications as per court order. 3. Haldol Decanoate 100 mg on May 22 4. Latuda 20 mg p.o. q.h.s. on May 24. On May 25 we are increasing up to 40 mg p.o. q.h.s. Reason for continued inpatient stay Substantial Risk for: inability to function, rapid decompensation and med/psych decompensation Time Spent With Patient Time: Total time managing care of this patient today ____ minutes.
[2023-05-25 19:40] VITALS: BP 128/64; PULSE 70; RESP 18; TEMP 36.3; O2SAT 94
[2023-05-25] MEDS: Lurasidone HCl 40 MG TABLET PO (20:17)
[2023-05-26] MEDS: HaloperidoL 5 MG TABLET PO ×2 (08:40→20:43)
--- NOTE | 2023-05-26 08:49 | P.PNPSI_ITS ---
Subjective Subjective Date of Service: 05/26/23 Reason For Visit: Schizophrenia Interim History: Pt seen, discussed with the team. Pt, when approached, states that she is too exhaused to discuss her situation. If you go to the computer, it is all there and it is accurate. Read it and do what is needed to make my life better. Medication Compliance: Yes Side effects from medications: No Attending Groups: Intermittent Review of Systems Acute medical concerns: No Medical Review of Systems: unchanged Review of Systems Review of Systems Yes Unobtainable due to mental status Mental Status Exam Mental Status Exam Patient Appearance: Unkempt Patient Orientation: Person Level of Consciousness: Awake Patient Behavior: Guarded and Passive Mood Description: Withdrawn Affect Description: Blunted Patient Cognition Impaired: Yes Ability to Follow Directions: Fair Speech Pattern: Impoverished and Monotone Hallucinations: None Delusions: Paranoid Ideation Thought Process: Distracted Thought Content: positive for [place] and positive for Poverty of Content Judgement: Poor Diagnostics Vital Signs (24Hr): Vital Signs - 24 hr 05/25/23 19:40 Temperature 97.4 F Pulse Rate 70 Respiratory Rate 18 Blood Pressure 128/64 Pulse Oximetry 94 Oxygen Delivery Method Room Air BMI result Body Mass Index 29.3 Medications Medications Current Medications Acetaminophen (Acetaminophen 325 Mg Tablet) 650 mg PO Q6H PRN PRN Reason: Headache/Pain Mild Scale (1-3) Al Hydroxide/Mg Hydroxide (Magnesium Hydrox/Alum Hydrox 30 Ml Oral.Susp) 30 ml PO Q6H PRN PRN Reason: Heartburn/Nausea Clotrimazole (Clotrimazole 1 % Cream 15 Gm Tube) 1 appl TOPICAL BID JOSE GUADALUPE; Protocol Last Admin: 05/25/23 20:18 Dose: Not Given Haloperidol (Haloperidol 5 Mg Tablet) 5 mg PO Q4H PRN PRN Reason: agitation Haloperidol (Haloperidol 5 Mg Tablet) 5 mg PO BID JOSE GUADALUPE Last Admin: 05/26/23 08:40 Dose: 5 mg Haloperidol Lactate (Haloperidol Lactate 5 Mg/Ml Vial) 5 mg IM BID PRN PRN Reason: REFUSAL OF PO Last Admin: 05/20/23 08:43 Dose: 5 mg Hydrocortisone (Hydrocortisone 1 % Cream 28.35 Gm Tube) 1 appl TOPICAL BID PRN; Protocol PRN Reason: Rash Last Admin: 05/21/23 08:50 Dose: 1 appl Lurasidone HCl (Lurasidone Hcl 40 Mg Tablet) 40 mg PO BEDTIME JOSE GUADALUPE Last Admin: 05/25/23 20:17 Dose: 40 mg Magnesium Hydroxide (Milk Of Magnesia 30 Ml Oral.Susp) 30 ml PO DAILY PRN PRN Reason: Constipation Trazodone HCl (Trazodone Hcl 25 Mg Halftab) 25 mg PO BEDTIME MRX1 PRN PRN Reason: Insomnia Allergies Allergies Allergy/AdvReac Type Severity Reaction Status Date / Time onion Allergy Unknown Unknown Verified 05/11/23 22:53 Assessment & Plan Assessment & Plan (1) Schizophrenia, chronic condition: Status: Acute Code(s): F20.9 - Schizophrenia, unspecified Plan Pt is a 72-year-old female with a PMH significant for?HTN, GERD, and schizophrenia who is admitted to [facility] for increased aggression after a non compliant her psychiatric medications. Patient lives at a skilled nursing but has recently become disorganized with delusions and increased aggression after refusing to take her medications despite a [facility] order. Medical consult for admission H&P. Mood disorder Plan as per psychiatry Seborrheic dermatitis Patient with significant beefy red rash on chest and under breasts with scaly plaques, of unclear duration Patient states she has prescription for antifungal, but not on her med list Will start her on hydrocortisone 1% cream and clotrimazole 1% cream which should be applied to affected areas twice daily until symptoms resolve UTI UA from [facility] positive for UTI, though apparently not treated with antibiotics Pt not complaining of polyuria or dysuria Will get new UA Will hold off on antibiotics pending UA results If positive, start with Bactrim DS 1 tab bid x5 days, then follow cultures HTN Continue amlodipine GERD Continue PPI Plan 1. Gather collateral information, will try to contact the staff on the skilled nursing for further details on the last Haldol Decanoate. 2. Continue with medications as per court order. 3. Haldol Decanoate 100 mg on May 22 4. Latuda 20 mg p.o. q.h.s. on May 24. On May 25 we are increasing up to 40 mg p.o. q.h.s. 05/26/23 Continue current regime and plan of care. Informed Consent: does not understand Reason for continued inpatient stay Substantial Risk for: med/psych decompensation Time Spent With Patient Time: Total time managing care of this patient today ____ minutes.
[2023-05-26 19:35] VITALS: BP 138/65; PULSE 69; RESP 18; TEMP 36.7; O2SAT 98
[2023-05-26] MEDS: Lurasidone HCl 40 MG TABLET PO (20:43)
[2023-05-27 08:00] VITALS: BP 116/53; PULSE 66; TEMP 36.8; O2SAT 93
[2023-05-27] MEDS: HaloperidoL 5 MG TABLET PO ×2 (08:26→20:55)
--- NOTE | 2023-05-27 14:29 | HO.PSYCHPN ---
Subjective Subjective Date of Service: 05/27/23 Reason For Visit: Schizophrenia Interim History: Pt seen, reviewed with the team. Delusional in presentation today. Asks if we are at a library, pending a conference/meeting/dinner. Reality orientation attempted. Refers tw to the computer as she did yesterday. It will tell you all you need to know. Medication Compliance: Yes Side effects from medications: No Attending Groups: Intermittent Review of Systems Acute medical concerns: No Medical Review of Systems: unchanged Review of Systems Review of Systems Yes Unobtainable due to mental status Mental Status Exam Mental Status Exam Patient Appearance: Unkempt Patient Orientation: Person Level of Consciousness: Awake Patient Behavior: Guarded and Passive Mood Description: Withdrawn Affect Description: Blunted Patient Cognition Impaired: Yes Ability to Follow Directions: Fair Speech Pattern: Impoverished and Monotone Hallucinations: None Delusions: Paranoid Ideation Thought Process: Distracted Thought Content: positive for [place] and positive for Poverty of Content Judgement: Poor Diagnostics Vital Signs (24Hr): Vital Signs - 24 hr 05/26/23 19:35 05/27/23 08:00 Temperature 98.1 F 98.2 F Pulse Rate 69 66 Respiratory Rate 18 Blood Pressure 138/65 116/53 L Pulse Oximetry 98 93 Oxygen Delivery Method Room Air Room Air BMI result Body Mass Index 29.3 Medications Medications Current Medications Acetaminophen (Acetaminophen 325 Mg Tablet) 650 mg PO Q6H PRN PRN Reason: Headache/Pain Mild Scale (1-3) Al Hydroxide/Mg Hydroxide (Magnesium Hydrox/Alum Hydrox 30 Ml Oral.Susp) 30 ml PO Q6H PRN PRN Reason: Heartburn/Nausea Clotrimazole (Clotrimazole 1 % Cream 15 Gm Tube) 1 appl TOPICAL BID JOSE GUADALUPE; Protocol Last Admin: 05/27/23 12:08 Dose: Not Given Haloperidol (Haloperidol 5 Mg Tablet) 5 mg PO Q4H PRN PRN Reason: agitation Haloperidol (Haloperidol 5 Mg Tablet) 5 mg PO BID JOSE GUADALUPE Last Admin: 05/27/23 08:26 Dose: 5 mg Haloperidol Lactate (Haloperidol Lactate 5 Mg/Ml Vial) 5 mg IM BID PRN PRN Reason: REFUSAL OF PO Last Admin: 05/20/23 08:43 Dose: 5 mg Hydrocortisone (Hydrocortisone 1 % Cream 28.35 Gm Tube) 1 appl TOPICAL BID PRN; Protocol PRN Reason: Rash Last Admin: 05/21/23 08:50 Dose: 1 appl Lurasidone HCl (Lurasidone Hcl 40 Mg Tablet) 40 mg PO BEDTIME JOSE GUADALUPE Last Admin: 05/26/23 20:43 Dose: 40 mg Magnesium Hydroxide (Milk Of Magnesia 30 Ml Oral.Susp) 30 ml PO DAILY PRN PRN Reason: Constipation Trazodone HCl (Trazodone Hcl 25 Mg Halftab) 25 mg PO BEDTIME MRX1 PRN PRN Reason: Insomnia Allergies Allergies Allergy/AdvReac Type Severity Reaction Status Date / Time onion Allergy Unknown Unknown Verified 05/11/23 22:53 Assessment & Plan Assessment & Plan (1) Schizophrenia, chronic condition: Status: Acute Code(s): F20.9 - Schizophrenia, unspecified Plan Pt is a 72-year-old female with a PMH significant for?HTN, GERD, and schizophrenia who is admitted to [facility] for increased aggression after a non compliant her psychiatric medications. Patient lives [place] [facility] but has recently become disorganized with delusions and increased aggression after refusing to take her medications despite a [facility] order. Medical consult for admission H&P. Mood disorder Plan as per psychiatry Seborrheic dermatitis Patient with significant beefy red rash on chest and under breasts with scaly plaques, of unclear duration Patient states she has prescription for antifungal, but not on her med list Will start her on hydrocortisone 1% cream and clotrimazole 1% cream which should be applied to affected areas twice daily until symptoms resolve UTI UA from [facility] positive for UTI, though apparently not treated with antibiotics Pt not complaining of polyuria or dysuria Will get new UA Will hold off on antibiotics pending UA results If positive, start with Bactrim DS 1 tab bid x5 days, then follow cultures HTN Continue amlodipine GERD Continue PPI Plan 1. Gather collateral information, will try to [place] [facility] for further details on the last Haldol Decanoate. 2. Continue with medications as per court order. 3. Haldol Decanoate 100 mg on May 22 4. Latuda 20 mg p.o. q.h.s. on May 24. On May 25 we are increasing up to 40 mg p.o. q.h.s. 05/26/23 Continue current regime and plan of care. 05/27/23 Continue current regime and plan of care. Informed Consent: does not understand Reason for continued inpatient stay Substantial Risk for: rapid decompensation Time Spent With Patient Time: Total time managing care of this patient today ____ minutes.
[2023-05-27 18:00] VITALS: BP 185/68; PULSE 62; RESP 16; TEMP 35.9; O2SAT 94
[2023-05-28 08:10] VITALS: BP 130/59; PULSE 64; RESP 18; TEMP 36.4; O2SAT 93
[2023-05-28] MEDS: HaloperidoL 5 MG TABLET PO ×2 (08:49→21:55)
--- NOTE | 2023-05-28 12:35 | MHC.CLN ---
F/U CONTINUE ENSURE MAX TID. STAFF REPORTED THAT PATIENT LIKES TO HAVE SUPPLEMENT ON TRAY. OBSERVED AT LUNCH. LEFT LUNCH TABLE, THEN RETURNED AND DRANK SOME OF SUPPLEMENT. OVERALL APPEARS TO BE EATING BETTER. CONTINUE TO FOLLOW UP WEEKLY.
--- NOTE | 2023-05-28 13:39 | P.PNPSI_ITS ---
Subjective Subjective Date of Service: 05/28/23 Reason For Visit: Schizophrenia Subjective Notes: Conditional Voluntary Interim History: The nursing staff reported the patient slept overnight, she has refused Latuda last night. She remains most of the time on her bed, denies auditory hallucinations on interview but looks internally preoccupied. Today we had a family meeting over soon with the staff and apparently she did very well will add to the 60 mg. We are going to increase it up to 60 and encouraged to take it. Mental Status Exam Mental Status Exam Patient Appearance: Appropriate Patient Orientation: Person Level of Consciousness: Awake Patient Behavior: Guarded Mood Description: Withdrawn Affect Description: Constricted Patient Cognition Impaired: Yes Ability to Follow Directions: Good Speech Pattern: Clear Hallucinations: None Delusions: Paranoid Ideation and Ideas of Reference Thought Process: Evasive and Slowed Thinking Thought Content: positive for [place] and positive for Poverty of Content Judgement: Poor Diagnostics Vital Signs (24Hr): Vital Signs - 24 hr 05/27/23 18:00 05/28/23 08:10 Temperature 96.6 F L 97.5 F Pulse Rate 62 64 Respiratory Rate 16 18 Blood Pressure 185/68 H 130/59 L Pulse Oximetry 94 93 Oxygen Delivery Method Room Air Room Air BMI result Body Mass Index 29.3 Medications Medications Current Medications Acetaminophen (Acetaminophen 325 Mg Tablet) 650 mg PO Q6H PRN PRN Reason: Headache/Pain Mild Scale (1-3) Al Hydroxide/Mg Hydroxide (Magnesium Hydrox/Alum Hydrox 30 Ml Oral.Susp) 30 ml PO Q6H PRN PRN Reason: Heartburn/Nausea Clotrimazole (Clotrimazole 1 % Cream 15 Gm Tube) 1 appl TOPICAL BID JOSE GUADALUPE; Protocol Last Admin: 05/28/23 08:49 Dose: Not Given Haloperidol (Haloperidol 5 Mg Tablet) 5 mg PO Q4H PRN PRN Reason: agitation Haloperidol (Haloperidol 5 Mg Tablet) 5 mg PO BID JOSE GUADALUPE Last Admin: 05/28/23 08:49 Dose: 5 mg Haloperidol Lactate (Haloperidol Lactate 5 Mg/Ml Vial) 5 mg IM BID PRN PRN Reason: REFUSAL OF PO Last Admin: 05/20/23 08:43 Dose: 5 mg Hydrocortisone (Hydrocortisone 1 % Cream 28.35 Gm Tube) 1 appl TOPICAL BID PRN; Protocol PRN Reason: Rash Last Admin: 05/21/23 08:50 Dose: 1 appl Lurasidone HCl (Lurasidone Hcl 40 Mg Tablet) 40 mg PO BEDTIME JOSE GUADALUPE Last Admin: 05/27/23 20:56 Dose: Not Given Magnesium Hydroxide (Milk Of Magnesia 30 Ml Oral.Susp) 30 ml PO DAILY PRN PRN Reason: Constipation Trazodone HCl (Trazodone Hcl 25 Mg Halftab) 25 mg PO BEDTIME MRX1 PRN PRN Reason: Insomnia Allergies Allergies Allergy/AdvReac Type Severity Reaction Status Date / Time onion Allergy Unknown Unknown Verified 05/11/23 22:53 Assessment & Plan Assessment & Plan (1) Schizophrenia, chronic condition: Status: Acute Code(s): F20.9 - Schizophrenia, unspecified Plan Pt is a 72-year-old female with a PMH significant for?HTN, GERD, and schizophrenia who is admitted to [facility] for increased aggression after a non compliant her psychiatric medications. [facility] but has recently become disorganized with delusions and increased aggression after refusing to take her medications despite a [facility] order. Medical consult for admission H&P. Mood disorder Plan as per psychiatry Seborrheic dermatitis Patient with significant beefy red rash on chest and under breasts with scaly plaques, of unclear duration Patient states she has prescription for antifungal, but not on her med list Will start her on hydrocortisone 1% cream and clotrimazole 1% cream which should be applied to affected areas twice daily until symptoms resolve UTI UA from [facility] positive for UTI, though apparently not treated with antibiotics Pt not complaining of polyuria or dysuria Will get new UA Will hold off on antibiotics pending UA results If positive, start with Bactrim DS 1 tab bid x5 days, then follow cultures HTN Continue amlodipine GERD Continue PPI Plan 1. Gather collateral information, will try to contact the staff on the jail for further details on the last Haldol Decanoate. 2. Continue with medications as per court order. 3. Haldol Decanoate 100 mg on May 22 4. Latuda 20 mg p.o. q.h.s. on May 24. On May 25 we are increasing up to 40 mg p.o. q.h.s. on May 28 we are increasing up to 60 mg p.o. q.h.s. and encourage compliance. Reason for continued inpatient stay Substantial Risk for: inability to function, rapid decompensation and med/psych decompensation Time Spent With Patient Time: Total time managing care of this patient today __20__ minutes.
[2023-05-28 21:50] VITALS: BP 138/62; PULSE 60; RESP 16; TEMP 36.6
[2023-05-29 08:00] VITALS: BP 140/65; PULSE 56; RESP 16; TEMP 36; O2SAT 92
[2023-05-29] MEDS: Clotrimazole 1 % Cream 15 GM TUBE 1 APPL TOPICAL (08:53)
[2023-05-29] MEDS: HaloperidoL 5 MG TABLET PO ×2 (08:53→20:37)
--- NOTE | 2023-05-29 13:33 | P.PNPSI_ITS ---
Subjective Subjective Date of Service: 05/29/23 Reason For Visit: Schizophrenia Subjective Notes: [facility] Order and Conditional Voluntary Interim History: The nursing staff reported the patient had been in her room most of the time with poor appetite. She refused Latuda last night and she slept 8 hours. On interview the patient denies new symptoms still on her bed, we are going to try to convince her to take Latuda since historically has worked for her. Mental Status Exam Mental Status Exam Patient Appearance: Appropriate Patient Orientation: Person Level of Consciousness: Awake Patient Behavior: Guarded and Passive Mood Description: Withdrawn Affect Description: Blunted Patient Cognition Impaired: Yes Ability to Follow Directions: Good Speech Pattern: Clear Hallucinations: None Delusions: Paranoid Ideation Thought Process: Distracted and Evasive Thought Content: positive for [place] and positive for Thought Blocking Judgement: Poor Diagnostics Vital Signs (24Hr): Vital Signs - 24 hr 05/28/23 21:50 05/29/23 08:00 Temperature 97.9 F 96.8 F Pulse Rate 60 56 Respiratory Rate 16 16 Blood Pressure 138/62 140/65 H Pulse Oximetry 92 Oxygen Delivery Method Room Air BMI result Body Mass Index 29.3 Medications Medications Current Medications Acetaminophen (Acetaminophen 325 Mg Tablet) 650 mg PO Q6H PRN PRN Reason: Headache/Pain Mild Scale (1-3) Al Hydroxide/Mg Hydroxide (Magnesium Hydrox/Alum Hydrox 30 Ml Oral.Susp) 30 ml PO Q6H PRN PRN Reason: Heartburn/Nausea Clotrimazole (Clotrimazole 1 % Cream 15 Gm Tube) 1 appl TOPICAL BID JOSE GUADALUPE; Protocol Last Admin: 05/29/23 08:53 Dose: 1 appl Haloperidol (Haloperidol 5 Mg Tablet) 5 mg PO Q4H PRN PRN Reason: agitation Haloperidol (Haloperidol 5 Mg Tablet) 5 mg PO BID JOSE GUADALUPE Last Admin: 05/29/23 08:53 Dose: 5 mg Haloperidol Lactate (Haloperidol Lactate 5 Mg/Ml Vial) 5 mg IM BID PRN PRN Reason: REFUSAL OF PO Last Admin: 05/20/23 08:43 Dose: 5 mg Hydrocortisone (Hydrocortisone 1 % Cream 28.35 Gm Tube) 1 appl TOPICAL BID PRN; Protocol PRN Reason: Rash Last Admin: 05/21/23 08:50 Dose: 1 appl Lurasidone HCl (Lurasidone Hcl 20 Mg Tablet) 60 mg PO BEDTIME JSOE GUADALUPE Last Admin: 05/28/23 21:56 Dose: Not Given Magnesium Hydroxide (Milk Of Magnesia 30 Ml Oral.Susp) 30 ml PO DAILY PRN PRN Reason: Constipation Trazodone HCl (Trazodone Hcl 25 Mg Halftab) 25 mg PO BEDTIME MRX1 PRN PRN Reason: Insomnia Allergies Allergies Allergy/AdvReac Type Severity Reaction Status Date / Time onion Allergy Unknown Unknown Verified 05/11/23 22:53 Assessment & Plan Assessment & Plan (1) Schizophrenia, chronic condition: Status: Acute Code(s): F20.9 - Schizophrenia, unspecified Plan Pt is a 72-year-old female with a PMH significant for?HTN, GERD, and schizophrenia who is admitted to [facility] for increased aggression after a non compliant her psychiatric medications. Patient lives at a retirement but has recently become disorganized with delusions and increased aggression after refusing to take her medications despite a [facility] order. Medical consult for admission H&P. Mood disorder Plan as per psychiatry Seborrheic dermatitis Patient with significant beefy red rash on chest and under breasts with scaly plaques, of unclear duration Patient states she has prescription for antifungal, but not on her med list Will start her on hydrocortisone 1% cream and clotrimazole 1% cream which should be applied to affected areas twice daily until symptoms resolve UTI UA from [facility] positive for UTI, though apparently not treated with antibiotics Pt not complaining of polyuria or dysuria Will get new UA Will hold off on antibiotics pending UA results If positive, start with Bactrim DS 1 tab bid x5 days, then follow cultures HTN Continue amlodipine GERD Continue PPI Plan 1. Gather collateral information, will try to contact the staff on the retirement for further details on the last Haldol Decanoate. 2. Continue with medications as per court order. 3. Haldol Decanoate 100 mg on May 22 4. Latuda 20 mg p.o. q.h.s. on May 24. On May 25 we are increasing up to 40 mg p.o. q.h.s. on May 28 we are increasing up to 60 mg p.o. q.h.s. and encourage compliance. Reason for continued inpatient stay Substantial Risk for: inability to function, rapid decompensation and med/psych decompensation Time Spent With Patient Time: Total time managing care of this patient today __20__ minutes.
[2023-05-29 20:30] VITALS: BP 144/67; PULSE 56; RESP 18; TEMP 36.8; O2SAT 98
[2023-05-29] MEDS: Hydrocortisone 1 % Cream 28.35 GM TUBE 1 APPL TOPICAL (20:39)
[2023-05-30 08:00] VITALS: BP 113/57; PULSE 62; RESP 18; TEMP 35.7; O2SAT 91
[2023-05-30] MEDS: Clotrimazole 1 % Cream 15 GM TUBE 1 APPL TOPICAL (08:46)
[2023-05-30] MEDS: HaloperidoL 5 MG TABLET PO ×2 (08:47→21:15)
--- NOTE | 2023-05-30 10:59 | PC.NURSE ---
his sign writer hand asked the patient if I could leave a hat in the restroom so i could collect a clean catch urine.The patient looked at me and stated if she didn't have any burning on urination or frequency why did she need a test? I told her the doctor ordered it because she was sleeping more and agitated at times. She siad if I wanted to know why she was sleeping more, I should look in her chart and she named off a long list of diagnoses and told me to, Get out!
--- NOTE | 2023-05-30 11:55 | P.PNPSI_ITS ---
Subjective Subjective Date of Service: 05/30/23 Reason For Visit: Schizophrenia Subjective Notes: Riggins Order and Conditional Voluntary Interim History: The nursing staff reported the patient had been medication compliant but she has refused slept to the p.o.. She is remains most of the time in the room, no evidence of violent behavior. The social worker school reported that yesterday the staff from the longterm came and she refused to go and meet with her. The staff reported that she had been unpredictable and violent without any warning in the past. On interview the patient denies new symptoms, withdrawn, I encouraged her to continue taking but also at [facility] since historically has worked very well for her. Mental Status Exam Mental Status Exam Patient Appearance: Appropriate Patient Orientation: Person and Situation Level of Consciousness: Awake and Appropriate Patient Behavior: Guarded and Passive Mood Description: Withdrawn Affect Description: Constricted Patient Cognition Impaired: Yes Ability to Follow Directions: Good Speech Pattern: Clear Hallucinations: None Delusions: Paranoid Ideation Thought Process: Distracted and Evasive Thought Content: positive for [place] Judgement: Poor Diagnostics Vital Signs (24Hr): Vital Signs - 24 hr 05/29/23 20:30 05/30/23 08:00 Temperature 98.3 F 96.3 F L Pulse Rate 56 62 Respiratory Rate 18 18 Blood Pressure 144/67 H 113/57 L Pulse Oximetry 98 91 L Oxygen Delivery Method Room Air Room Air BMI result Body Mass Index 29.3 Medications Medications Current Medications Acetaminophen (Acetaminophen 325 Mg Tablet) 650 mg PO Q6H PRN PRN Reason: Headache/Pain Mild Scale (1-3) Al Hydroxide/Mg Hydroxide (Magnesium Hydrox/Alum Hydrox 30 Ml Oral.Susp) 30 ml PO Q6H PRN PRN Reason: Heartburn/Nausea Clotrimazole (Clotrimazole 1 % Cream 15 Gm Tube) 1 appl TOPICAL BID JOSE GUADALUPE; Protocol Last Admin: 05/30/23 08:46 Dose: 1 appl Haloperidol (Haloperidol 5 Mg Tablet) 5 mg PO Q4H PRN PRN Reason: agitation Haloperidol (Haloperidol 5 Mg Tablet) 5 mg PO BID JOSE GUADALUPE Last Admin: 05/30/23 08:47 Dose: 5 mg Haloperidol Lactate (Haloperidol Lactate 5 Mg/Ml Vial) 5 mg IM BID PRN PRN Reason: REFUSAL OF PO Last Admin: 05/20/23 08:43 Dose: 5 mg Hydrocortisone (Hydrocortisone 1 % Cream 28.35 Gm Tube) 1 appl TOPICAL BID PRN; Protocol PRN Reason: Rash Last Admin: 05/29/23 20:39 Dose: 1 appl Lurasidone HCl (Lurasidone Hcl 20 Mg Tablet) 60 mg PO BEDTIME JOSE GUADALUPE Last Admin: 05/29/23 20:37 Dose: Not Given Magnesium Hydroxide (Milk Of Magnesia 30 Ml Oral.Susp) 30 ml PO DAILY PRN PRN Reason: Constipation Trazodone HCl (Trazodone Hcl 25 Mg Halftab) 25 mg PO BEDTIME MRX1 PRN PRN Reason: Insomnia Allergies Allergies Allergy/AdvReac Type Severity Reaction Status Date / Time onion Allergy Unknown Unknown Verified 05/11/23 22:53 Assessment & Plan Assessment & Plan (1) Schizophrenia, chronic condition: Status: Acute Code(s): F20.9 - Schizophrenia, unspecified Plan Pt is a 72-year-old female with a PMH significant for?HTN, GERD, and schizophrenia who is admitted to [facility] for increased aggression after a non compliant her psychiatric medications. Patient lives at a longterm but has recently become disorganized with delusions and increased aggression after refusing to take her medications despite a Riggins order. Medical consult for admission H&P. Mood disorder Plan as per psychiatry Seborrheic dermatitis Patient with significant beefy red rash on chest and under breasts with scaly plaques, of unclear duration Patient states she has prescription for antifungal, but not on her med list Will start her on hydrocortisone 1% cream and clotrimazole 1% cream which should be applied to affected areas twice daily until symptoms resolve UTI UA from [facility] positive for UTI, though apparently not treated with antibiotics Pt not complaining of polyuria or dysuria Will get new UA Will hold off on antibiotics pending UA results If positive, start with Bactrim DS 1 tab bid x5 days, then follow cultures HTN Continue amlodipine GERD Continue PPI Plan 1. Gather collateral information, will try to contact the staff on the longterm for further details on the last Haldol Decanoate. 2. Continue with medications as per court order. 3. Haldol Decanoate 100 mg on May 22 4. Latuda 20 mg p.o. q.h.s. on May 24. On May 25 we are increasing up to 40 mg p.o. q.h.s. on May 28 we are increasing up to 60 mg p.o. q.h.s. and encourage compliance. Reason for continued inpatient stay Substantial Risk for: inability to function, rapid decompensation and med/psych decompensation Time Spent With Patient Time: Total time managing care of this patient today __20__ minutes.
--- NOTE | 2023-05-30 12:28 | PC.NURSE ---
The patient changed her mind about collecting the urine for U?A and C+S today. 60 cc clear yellow urine obtained via clean catch at 1225 and specimens sent to lab for testing.
[2023-05-30 12:39] LABS: Appearance Urine Clear; Color Urine Yellow; Glucose Urine UA Negative (Negative); Leukocyte Esterase Urine Moderate (2+) (Negative); Nitrite Urine Negative (Negative); PH 5.5 (5.0-9.0); Specific Gravity - Urine >= 1.030 (1.005-1.025); UMIC TRIGGER UACC YES; Urine Blood Negative (Negative); Urine Ketones Negative (Negative); Urine Protein Negative (Neg-Trace)
[2023-05-30 12:42] LABS: Bacteria Urine None Seen (None Seen); Hyaline Casts Urine 0-2 /LPF (0-2); RBC Urine 0-2 /HPF (0-2); UACC Culture Trigger YES
[2023-05-30 18:00] VITALS: BP 135/75; PULSE 61; RESP 18; TEMP 36.7; O2SAT 95
[2023-05-31 07:00] VITALS: BMI 29.2
[2023-05-31] MEDS: HaloperidoL 5 MG TABLET PO ×2 (09:03→21:22)
[2023-05-31 10:12] VITALS: RESP 16
--- NOTE | 2023-05-31 10:13 | PC.NURSE ---
Refused VS, Padilla aware.
--- NOTE | 2023-05-31 13:45 | P.PNPSI_ITS ---
Subjective Subjective Date of Service: 05/31/23 Reason For Visit: Schizophrenia Subjective Notes: Conditional Voluntary Interim History: The nursing staff reported the patient had been on her room most of the time, not participating in groups. Yesterday we order UA any came up positive waiting for the culture. She has taking only Haldol refused to take any other medications. On interview the patient refused to engage in conversations in her bed most of the time. Mental Status Exam Mental Status Exam Patient Appearance: Appropriate and Unkempt Patient Orientation: Person Level of Consciousness: Awake Patient Behavior: Guarded and Passive Mood Description: Withdrawn Affect Description: Blunted Patient Cognition Impaired: Yes Ability to Follow Directions: Good Speech Pattern: Clear Hallucinations: None Delusions: Paranoid Ideation Thought Process: Distracted, Evasive and Slowed Thinking Thought Content: positive for [place], positive for [place] and positive for Poverty of Content Judgement: Fair Diagnostics Vital Signs (24Hr): Vital Signs - 24 hr 05/30/23 18:00 05/31/23 10:12 Temperature 98.1 F Pulse Rate 61 Respiratory Rate 18 16 Blood Pressure 135/75 Pulse Oximetry 95 Oxygen Delivery Method Room Air BMI result Body Mass Index 29.2 Labs Labs: Laboratory Results - last 48 hr 05/30/23 12:25 Urine Color Yellow Urine Appearance Clear Urine pH 5.5 Ur Specific [place] >= 1.030 H Urine Protein Negative Urine Glucose (UA) Negative Urine Ketones Negative Urine Blood Negative Urine Nitrite Negative Ur Leukocyte Esterase Moderate (2+) H Urine RBC 0-2 Urine WBC 6-10 H Ur Squamous Epith Cells 3-5 Urine Bacteria None Seen Hyaline Casts 0-2 Medications Medications Current Medications Acetaminophen (Acetaminophen 325 Mg Tablet) 650 mg PO Q6H PRN PRN Reason: Headache/Pain Mild Scale (1-3) Al Hydroxide/Mg Hydroxide (Magnesium Hydrox/Alum Hydrox 30 Ml Oral.Susp) 30 ml PO Q6H PRN PRN Reason: Heartburn/Nausea Clotrimazole (Clotrimazole 1 % Cream 15 Gm Tube) 1 appl TOPICAL BID JOSE GUADALUPE; Protocol Last Admin: 05/31/23 09:03 Dose: Not Given Haloperidol (Haloperidol 5 Mg Tablet) 5 mg PO Q4H PRN PRN Reason: agitation Haloperidol (Haloperidol 5 Mg Tablet) 5 mg PO BID [facility] Last Admin: 05/31/23 09:03 Dose: 5 mg Haloperidol Lactate (Haloperidol Lactate 5 Mg/Ml Vial) 5 mg IM BID PRN PRN Reason: REFUSAL OF PO Last Admin: 05/20/23 08:43 Dose: 5 mg Hydrocortisone (Hydrocortisone 1 % Cream 28.35 Gm Tube) 1 appl TOPICAL BID PRN; Protocol PRN Reason: Rash Last Admin: 05/29/23 20:39 Dose: 1 appl Lurasidone HCl (Lurasidone Hcl 20 Mg Tablet) 60 mg PO BEDTIME JOSE GUADALUPE Last Admin: 05/30/23 21:16 Dose: Not Given Magnesium Hydroxide (Milk Of Magnesia 30 Ml Oral.Susp) 30 ml PO DAILY PRN PRN Reason: Constipation Trazodone HCl (Trazodone Hcl 25 Mg Halftab) 25 mg PO BEDTIME MRX1 PRN PRN Reason: Insomnia Allergies Allergies Allergy/AdvReac Type Severity Reaction Status Date / Time onion Allergy Unknown Unknown Verified 05/11/23 22:53 Assessment & Plan Assessment & Plan (1) Schizophrenia, chronic condition: Status: Acute Code(s): F20.9 - Schizophrenia, unspecified Plan Pt is a 72-year-old female with a PMH significant for?HTN, GERD, and schizophrenia who is admitted to [facility] for increased aggression after a non compliant her psychiatric medications. Patient lives at a detention but has recently become disorganized with delusions and increased aggression after refusing to take her medications despite a Riggins order. Medical consult for admission H&P. Mood disorder Plan as per psychiatry Seborrheic dermatitis Patient with significant beefy red rash on chest and under breasts with scaly plaques, of unclear duration Patient states she has prescription for antifungal, but not on her med list Will start her on hydrocortisone 1% cream and clotrimazole 1% cream which should be applied to affected areas twice daily until symptoms resolve UTI UA from [facility] positive for UTI, though apparently not treated with antibiotics Pt not complaining of polyuria or dysuria Will get new UA Will hold off on antibiotics pending UA results If positive, start with Bactrim DS 1 tab bid x5 days, then follow cultures HTN Continue amlodipine GERD Continue PPI Plan 1. Gather collateral information, will try to contact the staff on the detention for further details on the last Haldol Decanoate. 2. Continue with medications as per court order. 3. Haldol Decanoate 100 mg on May 22 4. Latuda 20 mg p.o. q.h.s. on May 24. On May 25 we are increasing up to 40 mg p.o. q.h.s. on May 28 we are increasing up to 60 mg p.o. q.h.s. and encourage compliance. Reason for continued inpatient stay Substantial Risk for: inability to function, rapid decompensation and med/psych decompensation Time Spent With Patient Time: Total time managing care of this patient today __20__ minutes.
[2023-05-31 18:00] VITALS: BP 130/62; PULSE 54; RESP 16; TEMP 36.4; O2SAT 92
[2023-06-01 06:00] VITALS: BP 123/62; PULSE 63; RESP 16; TEMP 35.9; O2SAT 98
--- NOTE | 2023-06-01 09:33 | P.PNPSI_ITS ---
Subjective Subjective Date of Service: 06/01/23 Reason For Visit: Schizophrenia Subjective Notes: Riggins Order and Conditional Voluntary Interim History: The nursing staff reported the patient slept 7 hours he has been isolative. She is medication compliant but she is refusing Latuda. Today I tried to expect about the use of Latuda but she does not want to take it. Mental Status Exam Mental Status Exam Patient Appearance: Unkempt Patient Orientation: Person and Situation Level of Consciousness: Awake and Appropriate Patient Behavior: Guarded and Passive Mood Description: Withdrawn Affect Description: Constricted Patient Cognition Impaired: Yes Ability to Follow Directions: Good Speech Pattern: Clear Hallucinations: None Delusions: Paranoid Ideation Thought Process: Distracted and Slowed Thinking Thought Content: positive for [place] and positive for Poverty of Content Judgement: Fair Diagnostics Vital Signs (24Hr): Vital Signs - 24 hr 05/31/23 10:12 05/31/23 18:00 06/01/23 06:00 Temperature 97.5 F 96.6 F L Pulse Rate 54 63 Respiratory Rate 16 16 16 Blood Pressure 130/62 123/62 Pulse Oximetry 92 98 Oxygen Delivery Method Room Air Room Air BMI result Body Mass Index 29.2 Labs Labs: Laboratory Results - last 48 hr 05/30/23 12:25 Urine Color Yellow Urine Appearance Clear Urine pH 5.5 Ur Specific [place] >= 1.030 H Urine Protein Negative Urine Glucose (UA) Negative Urine Ketones Negative Urine Blood Negative Urine Nitrite Negative Ur Leukocyte Esterase Moderate (2+) H Urine RBC 0-2 Urine WBC 6-10 H Ur Squamous Epith Cells 3-5 Urine Bacteria None Seen Hyaline Casts 0-2 Medications Medications Current Medications Acetaminophen (Acetaminophen 325 Mg Tablet) 650 mg PO Q6H PRN PRN Reason: Headache/Pain Mild Scale (1-3) Al Hydroxide/Mg Hydroxide (Magnesium Hydrox/Alum Hydrox 30 Ml Oral.Susp) 30 ml PO Q6H PRN PRN Reason: Heartburn/Nausea Clotrimazole (Clotrimazole 1 % Cream 15 Gm Tube) 1 appl TOPICAL BID [facility]; Protocol Last Admin: 05/31/23 22:20 Dose: Not Given Haloperidol (Haloperidol 5 Mg Tablet) 5 mg PO Q4H PRN PRN Reason: agitation Haloperidol (Haloperidol 5 Mg Tablet) 5 mg PO BID [facility] Last Admin: 05/31/23 21:22 Dose: 5 mg Haloperidol Lactate (Haloperidol Lactate 5 Mg/Ml Vial) 5 mg IM BID PRN PRN Reason: REFUSAL OF PO Last Admin: 05/20/23 08:43 Dose: 5 mg Hydrocortisone (Hydrocortisone 1 % Cream 28.35 Gm Tube) 1 appl TOPICAL BID PRN; Protocol PRN Reason: Rash Last Admin: 05/29/23 20:39 Dose: 1 appl Lurasidone HCl (Lurasidone Hcl 20 Mg Tablet) 60 mg PO BEDTIME JOSE GUADALUPE Last Admin: 05/31/23 22:20 Dose: Not Given Magnesium Hydroxide (Milk Of Magnesia 30 Ml Oral.Susp) 30 ml PO DAILY PRN PRN Reason: Constipation Trazodone HCl (Trazodone Hcl 25 Mg Halftab) 25 mg PO BEDTIME MRX1 PRN PRN Reason: Insomnia Allergies Allergies Allergy/AdvReac Type Severity Reaction Status Date / Time onion Allergy Unknown Unknown Verified 05/11/23 22:53 Assessment & Plan Assessment & Plan (1) Schizophrenia, chronic condition: Status: Acute Code(s): F20.9 - Schizophrenia, unspecified Plan Pt is a 72-year-old female with a PMH significant for?HTN, GERD, and schizophrenia who is admitted to [facility] for increased aggression after a non compliant her psychiatric medications. Patient lives at a snf but has recently become disorganized with delusions and increased aggression after refusing to take her medications despite a Riggins order. Medical consult for admission H&P. Mood disorder Plan as per psychiatry Seborrheic dermatitis Patient with significant beefy red rash on chest and under breasts with scaly plaques, of unclear duration Patient states she has prescription for antifungal, but not on her med list Will start her on hydrocortisone 1% cream and clotrimazole 1% cream which should be applied to affected areas twice daily until symptoms resolve UTI UA from [facility] positive for UTI, though apparently not treated with antibiotics Pt not complaining of polyuria or dysuria Will get new UA Will hold off on antibiotics pending UA results If positive, start with Bactrim DS 1 tab bid x5 days, then follow cultures HTN Continue amlodipine GERD Continue PPI Plan 1. Gather collateral information, will try to contact the staff on the snf for further details on the last Haldol Decanoate. 2. Continue with medications as per court order. 3. Haldol Decanoate 100 mg on May 22 4. Latuda 20 mg p.o. q.h.s. on May 24. On May 25 we are increasing up to 40 mg p.o. q.h.s. on May 28 we are increasing up to 60 mg p.o. q.h.s. and encourage compliance. Reason for continued inpatient stay Substantial Risk for: inability to function, rapid decompensation and med/psych decompensation Time Spent With Patient Time: Total time managing care of this patient today __20__ minutes.
[2023-06-01] MEDS: Clotrimazole 1 % Cream 15 GM TUBE 1 APPL TOPICAL (09:36)
[2023-06-01] MEDS: HaloperidoL 5 MG TABLET PO ×2 (09:36→20:59)
[2023-06-01 18:00] VITALS: BP 131/62; PULSE 54; RESP 16; TEMP 36.4; O2SAT 96
[2023-06-02 08:15] VITALS: BP 150/70; PULSE 59; RESP 18; TEMP 35.9; O2SAT 97
[2023-06-02] MEDS: Clotrimazole 1 % Cream 15 GM TUBE 1 APPL TOPICAL (09:01)
[2023-06-02] MEDS: HaloperidoL 5 MG TABLET PO ×2 (09:21→20:25)
--- NOTE | 2023-06-02 11:25 | HO.PSYCHPN ---
Subjective Subjective Date of Service: 06/02/23 Reason For Visit: Schizophrenia Subjective Notes: Conditional Voluntary Interim History: The nursing staff reported the patient has been isolative most of the time in her room. She had been out for meals. Today she was more talkative with me in denies new symptoms and she does not want to take any medications. Besides, the court order HIDA Mental Status Exam Mental Status Exam Patient Appearance: Well Grooomed and Appropriate Patient Orientation: Person and Situation Level of Consciousness: Awake and Appropriate Patient Behavior: Guarded and Passive Mood Description: Withdrawn Affect Description: Constricted Patient Cognition Impaired: Yes Ability to Follow Directions: Good Speech Pattern: Clear Hallucinations: None Delusions: Not Present Thought Process: Distracted Thought Content: positive for [place] and positive for Poverty of Content Judgement: Fair Diagnostics Vital Signs (24Hr): Vital Signs - 24 hr 06/01/23 18:00 06/02/23 08:15 Temperature 97.5 F 96.7 F L Pulse Rate 54 59 Respiratory Rate 16 18 Blood Pressure 131/62 150/70 H Pulse Oximetry 96 97 Oxygen Delivery Method Room Air Room Air BMI result Body Mass Index 29.2 Medications Medications Current Medications Acetaminophen (Acetaminophen 325 Mg Tablet) 650 mg PO Q6H PRN PRN Reason: Headache/Pain Mild Scale (1-3) Al Hydroxide/Mg Hydroxide (Magnesium Hydrox/Alum Hydrox 30 Ml Oral.Susp) 30 ml PO Q6H PRN PRN Reason: Heartburn/Nausea Clotrimazole (Clotrimazole 1 % Cream 15 Gm Tube) 1 appl TOPICAL BID JOSE GUADALUPE; Protocol Last Admin: 06/02/23 09:01 Dose: 1 appl Haloperidol (Haloperidol 5 Mg Tablet) 5 mg PO Q4H PRN PRN Reason: agitation Haloperidol (Haloperidol 5 Mg Tablet) 5 mg PO BID JOSE GUADALUPE Last Admin: 06/02/23 09:21 Dose: 5 mg Haloperidol Lactate (Haloperidol Lactate 5 Mg/Ml Vial) 5 mg IM BID PRN PRN Reason: REFUSAL OF PO Last Admin: 05/20/23 08:43 Dose: 5 mg Hydrocortisone (Hydrocortisone 1 % Cream 28.35 Gm Tube) 1 appl TOPICAL BID PRN; Protocol PRN Reason: Rash Last Admin: 05/29/23 20:39 Dose: 1 appl Lurasidone HCl (Lurasidone Hcl 20 Mg Tablet) 60 mg PO BEDTIME JOSE GUADALUPE Last Admin: 06/01/23 21:07 Dose: Not Given Magnesium Hydroxide (Milk Of Magnesia 30 Ml Oral.Susp) 30 ml PO DAILY PRN PRN Reason: Constipation Trazodone HCl (Trazodone Hcl 25 Mg Halftab) 25 mg PO BEDTIME MRX1 PRN PRN Reason: Insomnia Allergies Allergies Allergy/AdvReac Type Severity Reaction Status Date / Time onion Allergy Unknown Unknown Verified 05/11/23 22:53 Assessment & Plan Assessment & Plan (1) Schizophrenia, chronic condition: Status: Acute Code(s): F20.9 - Schizophrenia, unspecified Plan Pt is a 72-year-old female with a PMH significant for?HTN, GERD, and schizophrenia who is admitted to [facility] for increased aggression after a non compliant her psychiatric medications. Patient lives [place] [facility] [place] but has recently become disorganized with delusions and increased aggression after refusing to take her medications despite a Riggins order. Medical consult for admission H&P. Mood disorder Plan as per psychiatry Seborrheic dermatitis Patient with significant beefy red rash on chest and under breasts with scaly plaques, of unclear duration Patient states she has prescription for antifungal, but not on her med list Will start her on hydrocortisone 1% cream and clotrimazole 1% cream which should be applied to affected areas twice daily until symptoms resolve UTI UA from [facility] positive for UTI, though apparently not treated with antibiotics Pt not complaining of polyuria or dysuria Will get new UA Will hold off on antibiotics pending UA results If positive, start with Bactrim DS 1 tab bid x5 days, then follow cultures HTN Continue amlodipine GERD Continue PPI Plan 1. Gather collateral information, will try to contact [place] [facility] [place] for further details on the last Haldol Decanoate. 2. Continue with medications as per court order. 3. Haldol Decanoate 100 mg on May 22 4. Latuda 20 mg p.o. q.h.s. on May 24. On May 25 we are increasing up to 40 mg p.o. q.h.s. on May 28 we are increasing up to 60 mg p.o. q.h.s. and encourage compliance. Reason for continued inpatient stay Substantial Risk for: inability to function, rapid decompensation and med/psych decompensation Time Spent With Patient Time: Total time managing care of this patient today __20__ minutes.
[2023-06-02 18:00] VITALS: BP 119/54; PULSE 60; RESP 16; TEMP 36.1; O2SAT 96
[2023-06-03 08:10] VITALS: BP 108/56; PULSE 59; RESP 16; TEMP 36.2; O2SAT 90
[2023-06-03] MEDS: HaloperidoL 5 MG TABLET PO ×2 (08:42→21:06)
--- NOTE | 2023-06-03 11:11 | HO.PSYCHPN ---
Subjective Subjective Date of Service: 06/03/23 Reason For Visit: Schizophrenia Subjective Notes: Conditional Voluntary Interim History: The nursing staff reported the patient has been isolative, she to the Haldol p.o. after some encouragement last night. On interview the patient denies new symptoms looks slightly sedated after p.o. Haldol Mental Status Exam Mental Status Exam Patient Appearance: Well Grooomed and Appropriate Patient Orientation: Person and Situation Level of Consciousness: Awake and Appropriate Patient Behavior: Guarded and Passive Mood Description: Withdrawn Affect Description: Constricted Patient Cognition Impaired: Yes Ability to Follow Directions: Good Speech Pattern: Clear Hallucinations: None Delusions: Not Present Thought Process: Distracted and Evasive Thought Content: positive for [place] and positive for Poverty of Content Judgement: Poor Diagnostics Vital Signs (24Hr): Vital Signs - 24 hr 06/02/23 18:00 06/03/23 08:10 Temperature 97 F 97.1 F Pulse Rate 60 59 Respiratory Rate 16 16 Blood Pressure 119/54 L 108/56 L Pulse Oximetry 96 90 L Oxygen Delivery Method Room Air Room Air BMI result Body Mass Index 29.2 Medications Medications Current Medications Acetaminophen (Acetaminophen 325 Mg Tablet) 650 mg PO Q6H PRN PRN Reason: Headache/Pain Mild Scale (1-3) Al Hydroxide/Mg Hydroxide (Magnesium Hydrox/Alum Hydrox 30 Ml Oral.Susp) 30 ml PO Q6H PRN PRN Reason: Heartburn/Nausea Clotrimazole (Clotrimazole 1 % Cream 15 Gm Tube) 1 appl TOPICAL BID JOSE GUADALUPE; Protocol Last Admin: 06/03/23 09:06 Dose: Not Given Haloperidol (Haloperidol 5 Mg Tablet) 5 mg PO Q4H PRN PRN Reason: agitation Haloperidol (Haloperidol 5 Mg Tablet) 5 mg PO BID JOSE GUADALUPE Last Admin: 06/03/23 08:42 Dose: 5 mg Haloperidol Lactate (Haloperidol Lactate 5 Mg/Ml Vial) 5 mg IM BID PRN PRN Reason: REFUSAL OF PO Last Admin: 05/20/23 08:43 Dose: 5 mg Hydrocortisone (Hydrocortisone 1 % Cream 28.35 Gm Tube) 1 appl TOPICAL BID PRN; Protocol PRN Reason: Rash Last Admin: 05/29/23 20:39 Dose: 1 appl Lurasidone HCl (Lurasidone Hcl 20 Mg Tablet) 60 mg PO BEDTIME [facility] Last Admin: 06/02/23 20:28 Dose: Not Given Magnesium Hydroxide (Milk Of Magnesia 30 Ml Oral.Susp) 30 ml PO DAILY PRN PRN Reason: Constipation Trazodone HCl (Trazodone Hcl 25 Mg Halftab) 25 mg PO BEDTIME MRX1 PRN PRN Reason: Insomnia Allergies Allergies Allergy/AdvReac Type Severity Reaction Status Date / Time onion Allergy Unknown Unknown Verified 05/11/23 22:53 Assessment & Plan Assessment & Plan (1) Schizophrenia, chronic condition: Status: Acute Code(s): F20.9 - Schizophrenia, unspecified Plan Pt is a 72-year-old female with a PMH significant for?HTN, GERD, and schizophrenia who is admitted to [facility] for increased aggression after a non compliant her psychiatric medications. Patient lives at a intermediate but has recently become disorganized with delusions and increased aggression after refusing to take her medications despite a Riggins order. Medical consult for admission H&P. Mood disorder Plan as per psychiatry Seborrheic dermatitis Patient with significant beefy red rash on chest and under breasts with scaly plaques, of unclear duration Patient states she has prescription for antifungal, but not on her med list Will start her on hydrocortisone 1% cream and clotrimazole 1% cream which should be applied to affected areas twice daily until symptoms resolve UTI UA from [facility] positive for UTI, though apparently not treated with antibiotics Pt not complaining of polyuria or dysuria Will get new UA Will hold off on antibiotics pending UA results If positive, start with Bactrim DS 1 tab bid x5 days, then follow cultures HTN Continue amlodipine GERD Continue PPI Plan 1. Gather collateral information, will try to contact the staff on the intermediate for further details on the last Haldol Decanoate. 2. Continue with medications as per court order. 3. Haldol Decanoate 100 mg on May 22 4. Latuda 20 mg p.o. q.h.s. on May 24. On May 25 we are increasing up to 40 mg p.o. q.h.s. on May 28 we are increasing up to 60 mg p.o. q.h.s. and encourage compliance. Reason for continued inpatient stay Substantial Risk for: inability to function, rapid decompensation and med/psych decompensation Time Spent With Patient Time: Total time managing care of this patient today _20___ minutes.
[2023-06-04 08:00] VITALS: BP 148/67; PULSE 57; RESP 16; TEMP 36.1; O2SAT 92
[2023-06-04] MEDS: HaloperidoL 5 MG TABLET PO (08:53)
--- NOTE | 2023-06-04 14:59 | P.PNPSI_ITS ---
Subjective Subjective Date of Service: 06/04/23 Reason For Visit: Schizophrenia Subjective Notes: Riggins Order and Conditional Voluntary Interim History: The nursing staff reported the patient have outburst to oversew another peer. She had been flat withdrawn most of the time on her bed, she has not attend to any groups. On interview the patient refused to engage in stated that she is doing fine. We are going to increase the Haldol. Mental Status Exam Mental Status Exam Patient Appearance: Appropriate Patient Orientation: Person and Situation Level of Consciousness: Awake and Appropriate Patient Behavior: Appropriate and Cooperative Mood Description: Suspicious Affect Description: Constricted Patient Cognition Impaired: Yes Ability to Follow Directions: Good Speech Pattern: Clear Hallucinations: Auditory Delusions: Paranoid Ideation and Ideas of Reference Thought Process: Distracted and Slowed Thinking Thought Content: positive for [place] and positive for Poverty of Content Judgement: Poor Diagnostics Vital Signs (24Hr): Vital Signs - 24 hr 06/04/23 08:00 Temperature 97 F Pulse Rate 57 Respiratory Rate 16 Blood Pressure 148/67 H Pulse Oximetry 92 Oxygen Delivery Method Room Air BMI result Body Mass Index 29.2 Medications Medications Current Medications Acetaminophen (Acetaminophen 325 Mg Tablet) 650 mg PO Q6H PRN PRN Reason: Headache/Pain Mild Scale (1-3) Al Hydroxide/Mg Hydroxide (Magnesium Hydrox/Alum Hydrox 30 Ml Oral.Susp) 30 ml PO Q6H PRN PRN Reason: Heartburn/Nausea Clotrimazole (Clotrimazole 1 % Cream 15 Gm Tube) 1 appl TOPICAL BID JOSE GUADALUPE; Protocol Last Admin: 06/04/23 10:36 Dose: Not Given Haloperidol (Haloperidol 5 Mg Tablet) 5 mg PO Q4H PRN PRN Reason: agitation Haloperidol (Haloperidol 5 Mg Tablet) 10 mg PO BID JOSE GUADALUPE Haloperidol Lactate (Haloperidol Lactate 5 Mg/Ml Vial) 5 mg IM BID PRN PRN Reason: REFUSAL OF PO Last Admin: 05/20/23 08:43 Dose: 5 mg Hydrocortisone (Hydrocortisone 1 % Cream 28.35 Gm Tube) 1 appl TOPICAL BID PRN; Protocol PRN Reason: Rash Last Admin: 05/29/23 20:39 Dose: 1 appl Lurasidone HCl (Lurasidone Hcl 20 Mg Tablet) 60 mg PO BEDTIME JOSE GUADALUPE Last Admin: 06/03/23 21:07 Dose: Not Given Magnesium Hydroxide (Milk Of Magnesia 30 Ml Oral.Susp) 30 ml PO DAILY PRN PRN Reason: Constipation Trazodone HCl (Trazodone Hcl 25 Mg Halftab) 25 mg PO BEDTIME MRX1 PRN PRN Reason: Insomnia Allergies Allergies Allergy/AdvReac Type Severity Reaction Status Date / Time onion Allergy Unknown Unknown Verified 05/11/23 22:53 Assessment & Plan Assessment & Plan (1) Schizophrenia, chronic condition: Status: Acute Code(s): F20.9 - Schizophrenia, unspecified Plan Pt is a 72-year-old female with a PMH significant for?HTN, GERD, and schizophrenia who is admitted to [facility] for increased aggression after a non compliant her psychiatric medications. Patient lives at a halfway but has recently become disorganized with delusions and increased aggression after refusing to take her medications despite a Riggins order. Medical consult for admission H&P. Mood disorder Plan as per psychiatry Seborrheic dermatitis Patient with significant beefy red rash on chest and under breasts with scaly plaques, of unclear duration Patient states she has prescription for antifungal, but not on her med list Will start her on hydrocortisone 1% cream and clotrimazole 1% cream which should be applied to affected areas twice daily until symptoms resolve UTI UA from [facility] positive for UTI, though apparently not treated with antibiotics Pt not complaining of polyuria or dysuria Will get new UA Will hold off on antibiotics pending UA results If positive, start with Bactrim DS 1 tab bid x5 days, then follow cultures HTN Continue amlodipine GERD Continue PPI Plan 1. Gather collateral information, will try to contact the staff on the halfway for further details on the last Haldol Decanoate. 2. Continue with medications as per court order. 3. Haldol Decanoate 100 mg on May 22 4. Latuda 20 mg p.o. q.h.s. on May 24. On May 25 we are increasing up to 40 mg p.o. q.h.s. on May 28 we are increasing up to 60 mg p.o. q.h.s. and encourage compliance. 5. Increase Haldol up to 10 mg p.o. b.i.d. Reason for continued inpatient stay Substantial Risk for: inability to function, rapid decompensation and med/psych decompensation Time Spent With Patient Time: Total time managing care of this patient today __20__ minutes.
[2023-06-04 19:40] VITALS: BP 101/52; PULSE 66; RESP 18; O2SAT 97
[2023-06-04] MEDS: HaloperidoL 5 MG TABLET 10 MG PO (20:44)
[2023-06-05 06:00] VITALS: BP 119/66; PULSE 61; RESP 16; TEMP 36.1; O2SAT 93
[2023-06-05] MEDS: HaloperidoL 5 MG TABLET 10 MG PO ×2 (09:39→21:44)
--- NOTE | 2023-06-05 12:05 | HO.PSYCHPN ---
Subjective Subjective Date of Service: 06/05/23 Reason For Visit: Schizophrenia Subjective Notes: Riggins Order and Conditional Voluntary Interim History: The nursing staff reports the patient remains withdrawn, flat paranoid most of the time in her bed. She slept and she was seen responding to internal stimuli. On interview the patient refused to engage in stated that she is doing fine but looks internally preoccupied. Yesterday we crank up the dose of Haldol. She does not want to take Latuda Mental Status Exam Mental Status Exam Patient Appearance: Appropriate Patient Orientation: Person Level of Consciousness: Awake Patient Behavior: Guarded and Passive Mood Description: Withdrawn Affect Description: Blunted Patient Cognition Impaired: Yes Ability to Follow Directions: Fair Speech Pattern: Clear Hallucinations: Auditory Delusions: Paranoid Ideation Thought Process: Distracted Thought Content: positive for [place] and positive for Poverty of Content Judgement: Poor Diagnostics Vital Signs (24Hr): Vital Signs - 24 hr 06/04/23 19:40 06/05/23 06:00 Temperature 97 F Pulse Rate 66 61 Respiratory Rate 18 16 Blood Pressure 101/52 L 119/66 Pulse Oximetry 97 93 Oxygen Delivery Method Room Air Room Air BMI result Body Mass Index 29.2 Medications Medications Current Medications Acetaminophen (Acetaminophen 325 Mg Tablet) 650 mg PO Q6H PRN PRN Reason: Headache/Pain Mild Scale (1-3) Al Hydroxide/Mg Hydroxide (Magnesium Hydrox/Alum Hydrox 30 Ml Oral.Susp) 30 ml PO Q6H PRN PRN Reason: Heartburn/Nausea Clotrimazole (Clotrimazole 1 % Cream 15 Gm Tube) 1 appl TOPICAL BID JOSE GUADALUPE; Protocol Last Admin: 06/05/23 10:03 Dose: Not Given Haloperidol (Haloperidol 5 Mg Tablet) 5 mg PO Q4H PRN PRN Reason: agitation Haloperidol (Haloperidol 5 Mg Tablet) 10 mg PO BID JOSE GUADALUPE Last Admin: 06/05/23 09:39 Dose: 10 mg Haloperidol Lactate (Haloperidol Lactate 5 Mg/Ml Vial) 5 mg IM BID PRN PRN Reason: REFUSAL OF PO Last Admin: 05/20/23 08:43 Dose: 5 mg Hydrocortisone (Hydrocortisone 1 % Cream 28.35 Gm Tube) 1 appl TOPICAL BID PRN; Protocol PRN Reason: Rash Last Admin: 05/29/23 20:39 Dose: 1 appl Magnesium Hydroxide (Milk Of Magnesia 30 Ml Oral.Susp) 30 ml PO DAILY PRN PRN Reason: Constipation Trazodone HCl (Trazodone Hcl 25 Mg Halftab) 25 mg PO BEDTIME MRX1 PRN PRN Reason: Insomnia Allergies Allergies Allergy/AdvReac Type Severity Reaction Status Date / Time onion Allergy Unknown Unknown Verified 05/11/23 22:53 Assessment & Plan Assessment & Plan (1) Schizophrenia, chronic condition: Status: Acute Code(s): F20.9 - Schizophrenia, unspecified Plan Pt is a 72-year-old female with a PMH significant for?HTN, GERD, and schizophrenia who is admitted to [facility] for increased aggression after a non compliant her psychiatric medications. Patient lives at a half-way but has recently become disorganized with delusions and increased aggression after refusing to take her medications despite a Riggins order. Medical consult for admission H&P. Mood disorder Plan as per psychiatry Seborrheic dermatitis Patient with significant beefy red rash on chest and under breasts with scaly plaques, of unclear duration Patient states she has prescription for antifungal, but not on her med list Will start her on hydrocortisone 1% cream and clotrimazole 1% cream which should be applied to affected areas twice daily until symptoms resolve UTI UA from [facility] positive for UTI, though apparently not treated with antibiotics Pt not complaining of polyuria or dysuria Will get new UA Will hold off on antibiotics pending UA results If positive, start with Bactrim DS 1 tab bid x5 days, then follow cultures HTN Continue amlodipine GERD Continue PPI Plan 1. Gather collateral information, will try to contact the staff on the half-way for further details on the last Haldol Decanoate. 2. Continue with medications as per court order. 3. Haldol Decanoate 100 mg on May 22 4. Latuda 20 mg p.o. q.h.s. on May 24. On May 25 we are increasing up to 40 mg p.o. q.h.s. on May 28 we are increasing up to 60 mg p.o. q.h.s. and encourage compliance. 5. Increase Haldol up to 10 mg p.o. b.i.d. Reason for continued inpatient stay Substantial Risk for: inability to function, rapid decompensation and med/psych decompensation Time Spent With Patient Time: Total time managing care of this patient today __20__ minutes.
[2023-06-05 18:00] VITALS: BP 136/65; PULSE 61; RESP 18; TEMP 36.1; O2SAT 95
[2023-06-05] MEDS: Clotrimazole 1 % Cream 15 GM TUBE 1 APPL TOPICAL (21:46)
[2023-06-06] MEDS: HaloperidoL 5 MG TABLET 10 MG PO ×2 (09:17→20:07)
--- NOTE | 2023-06-06 15:46 | HO.PSYCHPN ---
Subjective Subjective Date of Service: 06/06/23 Reason For Visit: Schizophrenia Interim History: lying in bed. terse. no complaints or requests. per staff, no notable events or behaviors. Mental Status Exam Mental Status Exam Patient Appearance: Appropriate Patient Orientation: Person Level of Consciousness: Awake Patient Behavior: Guarded and Passive Mood Description: Withdrawn Affect Description: Blunted Patient Cognition Impaired: Yes Ability to Follow Directions: Fair Speech Pattern: Clear Hallucinations: Auditory Delusions: Paranoid Ideation Thought Process: Distracted Thought Content: positive for [place] and positive for Poverty of Content Judgement: Poor Diagnostics Vital Signs (24Hr): Vital Signs - 24 hr 06/05/23 18:00 Temperature 97.0 F Pulse Rate 61 Respiratory Rate 18 Blood Pressure 136/65 Pulse Oximetry 95 Oxygen Delivery Method Room Air BMI result Body Mass Index 29.2 Medications Medications Current Medications Acetaminophen (Acetaminophen 325 Mg Tablet) 650 mg PO Q6H PRN PRN Reason: Headache/Pain Mild Scale (1-3) Al Hydroxide/Mg Hydroxide (Magnesium Hydrox/Alum Hydrox 30 Ml Oral.Susp) 30 ml PO Q6H PRN PRN Reason: Heartburn/Nausea Clotrimazole (Clotrimazole 1 % Cream 15 Gm Tube) 1 appl TOPICAL BID JOSE GUADALUPE; Protocol Last Admin: 06/06/23 09:16 Dose: Not Given Haloperidol (Haloperidol 5 Mg Tablet) 5 mg PO Q4H PRN PRN Reason: agitation Haloperidol (Haloperidol 5 Mg Tablet) 10 mg PO BID JOSE GUADALUPE Last Admin: 06/06/23 09:17 Dose: 10 mg Haloperidol Lactate (Haloperidol Lactate 5 Mg/Ml Vial) 5 mg IM BID PRN PRN Reason: REFUSAL OF PO Last Admin: 05/20/23 08:43 Dose: 5 mg Hydrocortisone (Hydrocortisone 1 % Cream 28.35 Gm Tube) 1 appl TOPICAL BID PRN; Protocol PRN Reason: Rash Last Admin: 05/29/23 20:39 Dose: 1 appl Magnesium Hydroxide (Milk Of Magnesia 30 Ml Oral.Susp) 30 ml PO DAILY PRN PRN Reason: Constipation Trazodone HCl (Trazodone Hcl 25 Mg Halftab) 25 mg PO BEDTIME MRX1 PRN PRN Reason: Insomnia Allergies Allergies Allergy/AdvReac Type Severity Reaction Status Date / Time onion Allergy Unknown Unknown Verified 05/11/23 22:53 Assessment & Plan Assessment & Plan (1) Schizophrenia, chronic condition: Status: Acute Code(s): F20.9 - Schizophrenia, unspecified Plan Pt is a 72-year-old female with a PMH significant for?HTN, GERD, and schizophrenia who is admitted to [facility] for increased aggression after a non compliant her psychiatric medications. Patient lives at a long term but has recently become disorganized with delusions and increased aggression after refusing to take her medications despite a Riggins order. Medical consult for admission H&P. Mood disorder Plan as per psychiatry Seborrheic dermatitis Patient with significant beefy red rash on chest and under breasts with scaly plaques, of unclear duration Patient states she has prescription for antifungal, but not on her med list Will start her on hydrocortisone 1% cream and clotrimazole 1% cream which should be applied to affected areas twice daily until symptoms resolve UTI UA from [facility] positive for UTI, though apparently not treated with antibiotics Pt not complaining of polyuria or dysuria Will get new UA Will hold off on antibiotics pending UA results If positive, start with Bactrim DS 1 tab bid x5 days, then follow cultures HTN Continue amlodipine GERD Continue PPI Plan 1. Gather collateral information, will try to contact the staff on the long term for further details on the last Haldol Decanoate. 2. Continue with medications as per court order. 3. Haldol Decanoate 100 mg on May 22 4. Latuda 20 mg p.o. q.h.s. on May 24. On May 25 we are increasing up to 40 mg p.o. q.h.s. on May 28 we are increasing up to 60 mg p.o. q.h.s. and encourage compliance. 5. Increase Haldol up to 10 mg p.o. b.i.d. 06/06: continue current mgmt. terse, avoidant. not at baseline per RN report. Reason for continued inpatient stay Substantial Risk for: inability to function Time Spent With Patient Time: Total time managing care of this patient today ____ minutes.
[2023-06-06 18:00] VITALS: BP 135/68; PULSE 63; RESP 18; TEMP 37; O2SAT 92
[2023-06-07 07:55] VITALS: BP 132/63; PULSE 67; RESP 18; TEMP 35.8; O2SAT 93
[2023-06-07] MEDS: HaloperidoL 5 MG TABLET 10 MG PO ×2 (08:46→20:47)
[2023-06-07] MEDS: Clotrimazole 1 % Cream 15 GM TUBE 1 APPL TOPICAL (08:46)
--- NOTE | 2023-06-07 15:48 | HO.PSYCHPN ---
Subjective Subjective Date of Service: 06/07/23 Reason For Visit: Schizophrenia Subjective Notes: Conditional Voluntary Interim History: The nursing staff reported the patient was out of her room yesterday for sure. Of time and she had been paranoid elusive, accusing her roommate of still in her staff. She looks gels regarding the attention that the other patient had. On interview the patient refused to engage looks paranoid. We had increased Haldol recently. Mental Status Exam Mental Status Exam Patient Appearance: Appropriate Patient Orientation: Person and Situation Level of Consciousness: Awake and Appropriate Patient Behavior: Guarded and Passive Mood Description: Withdrawn Affect Description: Blunted Patient Cognition Impaired: Yes Ability to Follow Directions: Good Speech Pattern: Clear Hallucinations: Auditory Delusions: Paranoid Ideation and Ideas of Reference Thought Process: Distracted Thought Content: positive for [place] and positive for Poverty of Content Judgement: Poor Diagnostics Vital Signs (24Hr): Vital Signs - 24 hr 06/06/23 18:00 06/07/23 07:55 Temperature 98.6 F 96.4 F L Pulse Rate 63 67 Respiratory Rate 18 18 Blood Pressure 135/68 132/63 Pulse Oximetry 92 93 Oxygen Delivery Method Room Air Room Air BMI result Body Mass Index 29.2 Medications Medications Current Medications Acetaminophen (Acetaminophen 325 Mg Tablet) 650 mg PO Q6H PRN PRN Reason: Headache/Pain Mild Scale (1-3) Al Hydroxide/Mg Hydroxide (Magnesium Hydrox/Alum Hydrox 30 Ml Oral.Susp) 30 ml PO Q6H PRN PRN Reason: Heartburn/Nausea Clotrimazole (Clotrimazole 1 % Cream 15 Gm Tube) 1 appl TOPICAL BID JOSE GUADALUPE; Protocol Last Admin: 06/07/23 08:46 Dose: 1 appl Haloperidol (Haloperidol 5 Mg Tablet) 5 mg PO Q4H PRN PRN Reason: agitation Haloperidol (Haloperidol 5 Mg Tablet) 10 mg PO BID JOSE GUADALUPE Last Admin: 06/07/23 08:46 Dose: 10 mg Haloperidol Lactate (Haloperidol Lactate 5 Mg/Ml Vial) 5 mg IM BID PRN PRN Reason: REFUSAL OF PO Last Admin: 05/20/23 08:43 Dose: 5 mg Hydrocortisone (Hydrocortisone 1 % Cream 28.35 Gm Tube) 1 appl TOPICAL BID PRN; Protocol PRN Reason: Rash Last Admin: 05/29/23 20:39 Dose: 1 appl Magnesium Hydroxide (Milk Of Magnesia 30 Ml Oral.Susp) 30 ml PO DAILY PRN PRN Reason: Constipation Trazodone HCl (Trazodone Hcl 25 Mg Halftab) 25 mg PO BEDTIME MRX1 PRN PRN Reason: Insomnia Allergies Allergies Allergy/AdvReac Type Severity Reaction Status Date / Time onion Allergy Unknown Unknown Verified 05/11/23 22:53 Assessment & Plan Assessment & Plan (1) Schizophrenia, chronic condition: Status: Acute Code(s): F20.9 - Schizophrenia, unspecified Plan Pt is a 72-year-old female with a PMH significant for?HTN, GERD, and schizophrenia who is admitted to [facility] for increased aggression after a non compliant her psychiatric medications. Patient lives at a correction but has recently become disorganized with delusions and increased aggression after refusing to take her medications despite a Riggins order. Medical consult for admission H&P. Mood disorder Plan as per psychiatry Seborrheic dermatitis Patient with significant beefy red rash on chest and under breasts with scaly plaques, of unclear duration Patient states she has prescription for antifungal, but not on her med list Will start her on hydrocortisone 1% cream and clotrimazole 1% cream which should be applied to affected areas twice daily until symptoms resolve UTI UA from [facility] positive for UTI, though apparently not treated with antibiotics Pt not complaining of polyuria or dysuria Will get new UA Will hold off on antibiotics pending UA results If positive, start with Bactrim DS 1 tab bid x5 days, then follow cultures HTN Continue amlodipine GERD Continue PPI Plan 1. Gather collateral information, will try to contact the staff on the correction for further details on the last Haldol Decanoate. 2. Continue with medications as per court order. 3. Haldol Decanoate 100 mg on May 22 4. Latuda 20 mg p.o. q.h.s. on May 24. On May 25 we are increasing up to 40 mg p.o. q.h.s. on May 28 we are increasing up to 60 mg p.o. q.h.s. and encourage compliance but she has consistently refused this medication so we discontinued. 5. Increase Haldol up to 10 mg p.o. b.i.d. 6. We are contacting the staff of the correction to find out if she has ever taking Abilify. Reason for continued inpatient stay Substantial Risk for: inability to function, rapid decompensation and med/psych decompensation Time Spent With Patient Time: Total time managing care of this patient today __20__ minutes.
[2023-06-07 20:40] VITALS: BP 131/71; PULSE 55; RESP 18; TEMP 36.4; O2SAT 94
[2023-06-08 08:00] VITALS: BP 128/62; PULSE 60; RESP 16; TEMP 36.9; O2SAT 93
--- NOTE | 2023-06-08 08:30 | HO.PSYCHPN ---
Subjective Subjective Date of Service: 06/08/23 Reason For Visit: Schizophrenia Subjective Notes: Conditional Voluntary Interim History: The nursing staff reported the patient has been isolative most of the time in her room. She came out later on that day and she was minimally responsive. Compliant with treatment. On interview the patient denies new symptoms, we recently increased his Haldol for psychosis since she was seen responding to internal stimuli. Mental Status Exam Mental Status Exam Patient Appearance: Well Grooomed Patient Orientation: Person Level of Consciousness: Awake Patient Behavior: Guarded and Passive Mood Description: Withdrawn Affect Description: Constricted Patient Cognition Impaired: Yes Ability to Follow Directions: Good Speech Pattern: Clear Hallucinations: Auditory Delusions: Paranoid Ideation and Ideas of Reference Thought Process: Illogical, Distracted and Slowed Thinking Thought Content: positive for [place] and positive for Poverty of Content Judgement: Poor Diagnostics Vital Signs (24Hr): Vital Signs - 24 hr 06/07/23 20:40 06/08/23 08:00 Temperature 97.5 F 98.4 F Pulse Rate 55 60 Respiratory Rate 18 16 Blood Pressure 131/71 128/62 Pulse Oximetry 94 93 Oxygen Delivery Method Room Air Room Air BMI result Body Mass Index 29.2 Medications Medications Current Medications Acetaminophen (Acetaminophen 325 Mg Tablet) 650 mg PO Q6H PRN PRN Reason: Headache/Pain Mild Scale (1-3) Al Hydroxide/Mg Hydroxide (Magnesium Hydrox/Alum Hydrox 30 Ml Oral.Susp) 30 ml PO Q6H PRN PRN Reason: Heartburn/Nausea Clotrimazole (Clotrimazole 1 % Cream 15 Gm Tube) 1 appl TOPICAL BID JOSE GUADALUPE; Protocol Last Admin: 06/07/23 20:49 Dose: Not Given Haloperidol (Haloperidol 5 Mg Tablet) 5 mg PO Q4H PRN PRN Reason: agitation Haloperidol (Haloperidol 5 Mg Tablet) 10 mg PO BID JOSE GUADALUPE Last Admin: 06/07/23 20:47 Dose: 10 mg Haloperidol Lactate (Haloperidol Lactate 5 Mg/Ml Vial) 5 mg IM BID PRN PRN Reason: REFUSAL OF PO Last Admin: 05/20/23 08:43 Dose: 5 mg Hydrocortisone (Hydrocortisone 1 % Cream 28.35 Gm Tube) 1 appl TOPICAL BID PRN; Protocol PRN Reason: Rash Last Admin: 05/29/23 20:39 Dose: 1 appl Magnesium Hydroxide (Milk Of Magnesia 30 Ml Oral.Susp) 30 ml PO DAILY PRN PRN Reason: Constipation Trazodone HCl (Trazodone Hcl 25 Mg Halftab) 25 mg PO BEDTIME MRX1 PRN PRN Reason: Insomnia Allergies Allergies Allergy/AdvReac Type Severity Reaction Status Date / Time onion Allergy Unknown Unknown Verified 05/11/23 22:53 Assessment & Plan Assessment & Plan (1) Schizophrenia, chronic condition: Status: Acute Code(s): F20.9 - Schizophrenia, unspecified Plan Pt is a 72-year-old female with a PMH significant for?HTN, GERD, and schizophrenia who is admitted to [facility] for increased aggression after a non compliant her psychiatric medications. Patient lives at a residential but has recently become disorganized with delusions and increased aggression after refusing to take her medications despite a Riggins order. Medical consult for admission H&P. Mood disorder Plan as per psychiatry Seborrheic dermatitis Patient with significant beefy red rash on chest and under breasts with scaly plaques, of unclear duration Patient states she has prescription for antifungal, but not on her med list Will start her on hydrocortisone 1% cream and clotrimazole 1% cream which should be applied to affected areas twice daily until symptoms resolve UTI UA from [facility] positive for UTI, though apparently not treated with antibiotics Pt not complaining of polyuria or dysuria Will get new UA Will hold off on antibiotics pending UA results If positive, start with Bactrim DS 1 tab bid x5 days, then follow cultures HTN Continue amlodipine GERD Continue PPI Plan 1. Gather collateral information, will try to contact the staff on the residential for further details on the last Haldol Decanoate. 2. Continue with medications as per court order. 3. Haldol Decanoate 100 mg on May 22 4. Latuda 20 mg p.o. q.h.s. on May 24. On May 25 we are increasing up to 40 mg p.o. q.h.s. on May 28 we are increasing up to 60 mg p.o. q.h.s. and encourage compliance but she has consistently refused this medication so we discontinued. 5. Increase Haldol up to 10 mg p.o. b.i.d. 6. We are contacting the staff of the residential to find out if she has ever taking Abilify. Reason for continued inpatient stay Substantial Risk for: inability to function, rapid decompensation and med/psych decompensation Time Spent With Patient Time: Total time managing care of this patient today _20___ minutes.
[2023-06-08] MEDS: HaloperidoL 5 MG TABLET 10 MG PO ×2 (08:37→20:40)
[2023-06-08] MEDS: Clotrimazole 1 % Cream 15 GM TUBE 1 APPL TOPICAL (08:38)
[2023-06-08 18:00] VITALS: BP 117/58; PULSE 63; RESP 18; TEMP 36.6; O2SAT 94
[2023-06-09 06:00] VITALS: BP 120/80; PULSE 74; RESP 16; TEMP 35.6; O2SAT 94
--- NOTE | 2023-06-09 14:52 | P.PNPSI_ITS ---
Subjective Subjective Date of Service: 06/09/23 Reason For Visit: Schizophrenia Interim History: Met with patient; discussed with team Patient sitting in her tray eating small amounts of food. On approach patient wanted to tell functional tester typewriters that she is supposed to be on Arabella and not Haldol.; then that she does not need Librium. Then patient talk to herself a little bit. Gun Profiler tried to inquire further but then patient got frustrated said never mind: got up in walked away Staff reports patient mostly stays isolated in her room, lying in bed most of the day; eating small bits of food Mental Status Exam Mental Status Exam Patient Appearance: Well Grooomed Patient Orientation: Person Level of Consciousness: Awake Patient Behavior: Guarded Mood Description: Constricted Affect Description: Constricted Patient Cognition Impaired: Yes Ability to Follow Directions: Fair Speech Pattern: Clear Hallucinations: Auditory Delusions: Paranoid Ideation and Ideas of Reference Thought Process: Illogical, Distracted and Slowed Thinking Thought Content: positive for [place] and positive for Poverty of Content Judgement: Poor Diagnostics Vital Signs (24Hr): Vital Signs - 24 hr 06/08/23 18:00 06/09/23 06:00 Temperature 98 F 96.0 F L Pulse Rate 63 74 Respiratory Rate 18 16 Blood Pressure 117/58 L 120/80 Pulse Oximetry 94 94 Oxygen Delivery Method Room Air Room Air BMI result Body Mass Index 29.2 Medications Medications Current Medications Acetaminophen (Acetaminophen 325 Mg Tablet) 650 mg PO Q6H PRN PRN Reason: Headache/Pain Mild Scale (1-3) Al Hydroxide/Mg Hydroxide (Magnesium Hydrox/Alum Hydrox 30 Ml Oral.Susp) 30 ml PO Q6H PRN PRN Reason: Heartburn/Nausea Clotrimazole (Clotrimazole 1 % Cream 15 Gm Tube) 1 appl TOPICAL BID JOSE GUADALUPE; Protocol Last Admin: 06/09/23 11:23 Dose: Not Given Haloperidol (Haloperidol 5 Mg Tablet) 5 mg PO Q4H PRN PRN Reason: agitation Haloperidol (Haloperidol 5 Mg Tablet) 10 mg PO BID JOSE GUADALUPE Last Admin: 06/09/23 11:24 Dose: Not Given Haloperidol Lactate (Haloperidol Lactate 5 Mg/Ml Vial) 5 mg IM BID PRN PRN Reason: REFUSAL OF PO Last Admin: 05/20/23 08:43 Dose: 5 mg Hydrocortisone (Hydrocortisone 1 % Cream 28.35 Gm Tube) 1 appl TOPICAL BID PRN; Protocol PRN Reason: Rash Last Admin: 05/29/23 20:39 Dose: 1 appl Magnesium Hydroxide (Milk Of Magnesia 30 Ml Oral.Susp) 30 ml PO DAILY PRN PRN Reason: Constipation Trazodone HCl (Trazodone Hcl 25 Mg Halftab) 25 mg PO BEDTIME MRX1 PRN PRN Reason: Insomnia Allergies Allergies Allergy/AdvReac Type Severity Reaction Status Date / Time onion Allergy Unknown Unknown Verified 05/11/23 22:53 Assessment & Plan Assessment & Plan (1) Schizophrenia, chronic condition: Status: Acute Code(s): F20.9 - Schizophrenia, unspecified Plan Pt is a 72-year-old female with a PMH significant for?HTN, GERD, and schizophrenia who is admitted to [facility] for increased aggression after a non compliant her psychiatric medications. Patient lives [place] [facility] but has recently become disorganized with delusions and increased aggression after refusing to take her medications despite a [facility] order. Medical consult for admission H&P. 06/09 continue current treatment plan Plan 1. Gather collateral information, will try to contact the staff on the [place] [facility] for further details on the last Haldol Decanoate. 2. Continue with medications as per court order. 3. Haldol Decanoate 100 mg on May 22 4. Latuda 20 mg p.o. q.h.s. on May 24. On May 25 we are increasing up to 40 mg p.o. q.h.s. on May 28 we are increasing up to 60 mg p.o. q.h.s. and encourage compliance but she has consistently refused this medication so we discontinued. 5. Increase Haldol up to 10 mg p.o. b.i.d. 6. We are contacting the staff of the [place] [facility] to find out if she has ever taking Abilify. Seborrheic dermatitis Patient with significant beefy red rash on chest and under breasts with scaly plaques, of unclear duration Patient states she has prescription for antifungal, but not on her med list Will start her on hydrocortisone 1% cream and clotrimazole 1% cream which should be applied to affected areas twice daily until symptoms resolve UTI UA from [facility] positive for UTI, though apparently not treated with antibiotics Pt not complaining of polyuria or dysuria Will get new UA Will hold off on antibiotics pending UA results If positive, start with Bactrim DS 1 tab bid x5 days, then follow cultures HTN Continue amlodipine GERD Continue PPI Patient educated on: diagnosis and medication risk/benefits Informed Consent: does not understand Reason for continued inpatient stay Substantial Risk for: inability to function Time Spent With Patient Time: Total time managing care of this patient today ____ minutes.
[2023-06-09] MEDS: HaloperidoL 5 MG TABLET 10 MG PO ×2 (16:32→21:20)
[2023-06-09 18:00] VITALS: BP 126/58; PULSE 62; RESP 18; TEMP 36.2; O2SAT 93
[2023-06-10] MEDS: HaloperidoL 5 MG TABLET 10 MG PO ×2 (11:36→21:01)
--- NOTE | 2023-06-10 16:03 | P.PNPSI_ITS ---
Subjective Subjective Date of Service: 06/10/23 Reason For Visit: Schizophrenia Interim History: Met with patient; discussed with team pt lying in bed; she says i don't want to talk. She is not willing to engage. Staff reports pt remains isolative; says she runs out of her room, grabs dessert and then back to her room. Much self-dialouging; resistant to self care Mental Status Exam Mental Status Exam Patient Appearance: Unkempt Patient Orientation: Person Level of Consciousness: Awake Patient Behavior: Guarded Mood Description: Constricted Affect Description: Constricted Patient Cognition Impaired: Yes Ability to Follow Directions: Fair Speech Pattern: Clear Hallucinations: Auditory Delusions: Paranoid Ideation and Ideas of Reference Thought Process: Illogical, Distracted and Slowed Thinking Thought Content: positive for [place] and positive for Poverty of Content Judgement: Poor Diagnostics Vital Signs (24Hr): Vital Signs - 24 hr 06/09/23 18:00 Temperature 97.1 F Pulse Rate 62 Respiratory Rate 18 Blood Pressure 126/58 L Pulse Oximetry 93 Oxygen Delivery Method Room Air BMI result Body Mass Index 29.2 Medications Medications Current Medications Acetaminophen (Acetaminophen 325 Mg Tablet) 650 mg PO Q6H PRN PRN Reason: Headache/Pain Mild Scale (1-3) Al Hydroxide/Mg Hydroxide (Magnesium Hydrox/Alum Hydrox 30 Ml Oral.Susp) 30 ml PO Q6H PRN PRN Reason: Heartburn/Nausea Clotrimazole (Clotrimazole 1 % Cream 15 Gm Tube) 1 appl TOPICAL BID JOSE GUADALUPE; Protocol Last Admin: 06/10/23 10:01 Dose: Not Given Haloperidol (Haloperidol 5 Mg Tablet) 5 mg PO Q4H PRN PRN Reason: agitation Haloperidol (Haloperidol 5 Mg Tablet) 10 mg PO BID JOSE GUADALUPE Last Admin: 06/10/23 11:36 Dose: 10 mg Haloperidol Lactate (Haloperidol Lactate 5 Mg/Ml Vial) 5 mg IM BID PRN PRN Reason: REFUSAL OF PO Last Admin: 05/20/23 08:43 Dose: 5 mg Hydrocortisone (Hydrocortisone 1 % Cream 28.35 Gm Tube) 1 appl TOPICAL BID PRN; Protocol PRN Reason: Rash Last Admin: 05/29/23 20:39 Dose: 1 appl Magnesium Hydroxide (Milk Of Magnesia 30 Ml Oral.Susp) 30 ml PO DAILY PRN PRN Reason: Constipation Trazodone HCl (Trazodone Hcl 25 Mg Halftab) 25 mg PO BEDTIME MRX1 PRN PRN Reason: Insomnia Allergies Allergies Allergy/AdvReac Type Severity Reaction Status Date / Time onion Allergy Unknown Unknown Verified 05/11/23 22:53 Assessment & Plan Assessment & Plan (1) Schizophrenia, chronic condition: Status: Acute Code(s): F20.9 - Schizophrenia, unspecified Plan Pt is a 72-year-old female with a PMH significant for?HTN, GERD, and schizophrenia who is admitted to [facility] for increased aggression after a non compliant her psychiatric medications. Patient lives at a assisted but has recently become disorganized with delusions and increased aggression after refusing to take her medications despite a [facility]iggins order. Medical consult for admission H&P. 06/09 continue current treatment plan 06/10 continue current tx plan Plan 1. Gather collateral information, will try to contact the staff on the assisted for further details on the last Haldol Decanoate. 2. Continue with medications as per court order. 3. Haldol Decanoate 100 mg on May 22 4. Latuda 20 mg p.o. q.h.s. on May 24. On May 25 we are increasing up to 40 mg p.o. q.h.s. on May 28 we are increasing up to 60 mg p.o. q.h.s. and encourage compliance but she has consistently refused this medication so we discontinued. 5. Increase Haldol up to 10 mg p.o. b.i.d. 6. We are contacting the staff of the assisted to find out if she has ever taking Abilify. Seborrheic dermatitis Patient with significant beefy red rash on chest and under breasts with scaly plaques, of unclear duration Patient states she has prescription for antifungal, but not on her med list Will start her on hydrocortisone 1% cream and clotrimazole 1% cream which should be applied to affected areas twice daily until symptoms resolve UTI UA from [facility] positive for UTI, though apparently not treated with antibiotics Pt not complaining of polyuria or dysuria Will get new UA Will hold off on antibiotics pending UA results If positive, start with Bactrim DS 1 tab bid x5 days, then follow cultures HTN Continue amlodipine GERD Continue PPI Patient educated on: diagnosis Informed Consent: does not understand Reason for continued inpatient stay Substantial Risk for: inability to function Time Spent With Patient Time: Total time managing care of this patient today ____ minutes.
[2023-06-10 18:00] VITALS: BP 143/63; PULSE 53; RESP 17; TEMP 36.6; O2SAT 92
[2023-06-11 06:00] VITALS: BP 133/65; PULSE 60; RESP 16; TEMP 35.9; O2SAT 94
[2023-06-11] MEDS: HaloperidoL 5 MG TABLET 10 MG PO ×2 (08:37→20:24)
--- NOTE | 2023-06-11 11:56 | P.PNPSI_ITS ---
Subjective Subjective Date of Service: 06/11/23 Reason For Visit: Schizophrenia Subjective Notes: Riggins Order and Conditional Voluntary Interim History: The nursing staff reported the patient has been isolative, withdrawn, she was seen self dialogue in. She slept 7 hours. The staff has noticed that she has a little more interactive but still the elusive. On interview the patient denies new symptoms on her bed, not very engageable. Mental Status Exam Mental Status Exam Patient Appearance: Appropriate Patient Orientation: Person Level of Consciousness: Awake Patient Behavior: Guarded and Passive Mood Description: Calm Affect Description: Constricted Patient Cognition Impaired: Yes Ability to Follow Directions: Good Speech Pattern: Clear Hallucinations: None Delusions: Not Present Thought Process: Distracted and Linear Thought Content: positive for [place] and positive for Poverty of Content Judgement: Fair Diagnostics Vital Signs (24Hr): Vital Signs - 24 hr 06/10/23 18:00 06/11/23 06:00 Temperature 97.9 F 96.6 F L Pulse Rate 53 60 Respiratory Rate 17 16 Blood Pressure 143/63 H 133/65 Pulse Oximetry 92 94 Oxygen Delivery Method Room Air Room Air BMI result Body Mass Index 29.2 Medications Medications Current Medications Acetaminophen (Acetaminophen 325 Mg Tablet) 650 mg PO Q6H PRN PRN Reason: Headache/Pain Mild Scale (1-3) Al Hydroxide/Mg Hydroxide (Magnesium Hydrox/Alum Hydrox 30 Ml Oral.Susp) 30 ml PO Q6H PRN PRN Reason: Heartburn/Nausea Clotrimazole (Clotrimazole 1 % Cream 15 Gm Tube) 1 appl TOPICAL BID JOSE GUADALUPE; Protocol Last Admin: 06/11/23 08:59 Dose: Not Given Haloperidol (Haloperidol 5 Mg Tablet) 5 mg PO Q4H PRN PRN Reason: agitation Haloperidol (Haloperidol 5 Mg Tablet) 10 mg PO BID JOSE GUADALUPE Last Admin: 06/11/23 08:37 Dose: 10 mg Haloperidol Lactate (Haloperidol Lactate 5 Mg/Ml Vial) 5 mg IM BID PRN PRN Reason: REFUSAL OF PO Last Admin: 05/20/23 08:43 Dose: 5 mg Hydrocortisone (Hydrocortisone 1 % Cream 28.35 Gm Tube) 1 appl TOPICAL BID PRN; Protocol PRN Reason: Rash Last Admin: 05/29/23 20:39 Dose: 1 appl Magnesium Hydroxide (Milk Of Magnesia 30 Ml Oral.Susp) 30 ml PO DAILY PRN PRN Reason: Constipation Trazodone HCl (Trazodone Hcl 25 Mg Halftab) 25 mg PO BEDTIME MRX1 PRN PRN Reason: Insomnia Allergies Allergies Allergy/AdvReac Type Severity Reaction Status Date / Time onion Allergy Unknown Unknown Verified 05/11/23 22:53 Assessment & Plan Assessment & Plan (1) Schizophrenia, chronic condition: Status: Acute Code(s): F20.9 - Schizophrenia, unspecified Plan Pt is a 72-year-old female with a PMH significant for?HTN, GERD, and schizophrenia who is admitted to [facility] for increased aggression after a non compliant her psychiatric medications. [facility] but has recently become disorganized with delusions and increased aggression after refusing to take her medications despite a Riggins order. Medical consult for admission H&P. 06/09 continue current treatment plan 06/10 continue current tx plan Plan 1. Gather collateral information, will try to contact the staff on the prison for further details on the last Haldol Decanoate. 2. Continue with medications as per court order. 3. Haldol Decanoate 100 mg on May 22 4. Latuda 20 mg p.o. q.h.s. on May 24. On May 25 we are increasing up to 40 mg p.o. q.h.s. on May 28 we are increasing up to 60 mg p.o. q.h.s. and encourage compliance but she has consistently refused this medication so we discontinued. 5. Increase Haldol up to 10 mg p.o. b.i.d. 6. We are contacting the staff of the prison to find out if she has ever taking Abilify. Seborrheic dermatitis Patient with significant beefy red rash on chest and under breasts with scaly plaques, of unclear duration Patient states she has prescription for antifungal, but not on her med list Will start her on hydrocortisone 1% cream and clotrimazole 1% cream which should be applied to affected areas twice daily until symptoms resolve UTI UA from [facility] positive for UTI, though apparently not treated with antibiotics Pt not complaining of polyuria or dysuria Will get new UA Will hold off on antibiotics pending UA results If positive, start with Bactrim DS 1 tab bid x5 days, then follow cultures HTN Continue amlodipine GERD Continue PPI Reason for continued inpatient stay Substantial Risk for: inability to function, rapid decompensation and med/psych decompensation Time Spent With Patient Time: Total time managing care of this patient today __20__ minutes.
[2023-06-11 18:00] VITALS: RESP 16
[2023-06-12 08:50] LABS: COVID-19 Test Negative (Negative); IDNOW Serial# 08D9AD1C
[2023-06-12 09:11] VITALS: BP 142/73; PULSE 65; RESP 16; TEMP 36.2; O2SAT 92
[2023-06-12] MEDS: HaloperidoL 5 MG TABLET 10 MG PO ×2 (09:22→20:30)
[2023-06-12 18:00] VITALS: BP 133/61; PULSE 61; RESP 16; TEMP 36.8; O2SAT 92
--- NOTE | 2023-06-12 20:17 | HO.PSYCHPN ---
Subjective Subjective Date of Service: 06/11/23 Reason For Visit: Schizophrenia Subjective Notes: Riggins Order and Conditional Voluntary Interim History: Pt irritable with drawn isolated not engaging much Mental Status Exam Mental Status Exam Patient Appearance: Inappropriate Patient Orientation: Person Level of Consciousness: Awake Patient Behavior: Guarded, Suspicious and Anxious Mood Description: Calm Affect Description: Constricted Patient Cognition Impaired: Yes Ability to Follow Directions: Good Speech Pattern: Clear Hallucinations: None Delusions: Not Present Thought Process: Distracted and Linear Thought Content: positive for [place] and positive for Poverty of Content Judgement: Fair Diagnostics Vital Signs (24Hr): Vital Signs - 24 hr 06/12/23 09:11 Temperature 97.1 F Pulse Rate 65 Respiratory Rate 16 Blood Pressure 142/73 H Pulse Oximetry 92 Oxygen Delivery Method Room Air BMI result Body Mass Index 29.2 Labs Labs: Laboratory Results - last 48 hr 06/12/23 08:25 COVID-19 ([facility]) Negative COVID-19 Clin Com See Note Medications Medications Current Medications Acetaminophen (Acetaminophen 325 Mg Tablet) 650 mg PO Q6H PRN PRN Reason: Headache/Pain Mild Scale (1-3) Al Hydroxide/Mg Hydroxide (Magnesium Hydrox/Alum Hydrox 30 Ml Oral.Susp) 30 ml PO Q6H PRN PRN Reason: Heartburn/Nausea Clotrimazole (Clotrimazole 1 % Cream 15 Gm Tube) 1 appl TOPICAL BID JOSE GUADALUPE; Protocol Last Admin: 06/12/23 09:23 Dose: Not Given Haloperidol (Haloperidol 5 Mg Tablet) 5 mg PO Q4H PRN PRN Reason: agitation Haloperidol (Haloperidol 5 Mg Tablet) 10 mg PO BID JOSE GUADALUPE Last Admin: 06/12/23 09:22 Dose: 10 mg Haloperidol Lactate (Haloperidol Lactate 5 Mg/Ml Vial) 5 mg IM BID PRN PRN Reason: REFUSAL OF PO Last Admin: 05/20/23 08:43 Dose: 5 mg Hydrocortisone (Hydrocortisone 1 % Cream 28.35 Gm Tube) 1 appl TOPICAL BID PRN; Protocol PRN Reason: Rash Last Admin: 05/29/23 20:39 Dose: 1 appl Magnesium Hydroxide (Milk Of Magnesia 30 Ml Oral.Susp) 30 ml PO DAILY PRN PRN Reason: Constipation Trazodone HCl (Trazodone Hcl 25 Mg Halftab) 25 mg PO BEDTIME MRX1 PRN PRN Reason: Insomnia Allergies Allergies Allergy/AdvReac Type Severity Reaction Status Date / Time onion Allergy Unknown Unknown Verified 05/11/23 22:53 Assessment & Plan Assessment & Plan (1) Schizophrenia, chronic condition: Status: Acute Code(s): F20.9 - Schizophrenia, unspecified Plan Pt is a 72-year-old female with a PMH significant for?HTN, GERD, and schizophrenia who is admitted to [facility] for increased aggression after a non compliant her psychiatric medications. [facility] but has recently become disorganized with delusions and increased aggression after refusing to take her medications despite a [facility]iggins order. Medical consult for admission H&P. 06/09 continue current treatment plan 06/10 continue current tx plan Plan 1. Gather collateral information, will try to contact [facility] the [facility] for further details on the last Haldol Decanoate. 2. Continue with medications as per court order. 3. Haldol Decanoate 100 mg on May 22 4. Latuda 20 mg p.o. q.h.s. on May 24. On May 25 we are increasing up to 40 mg p.o. q.h.s. on May 28 we are increasing up to 60 mg p.o. q.h.s. and encourage compliance but she has consistently refused this medication so we discontinued. 5. Increase Haldol up to 10 mg p.o. b.i.d. 6. We are [facility] of the [facility] to find out if she has ever taking Abilify. 06/12/23 Restart latuda pt withdrawn depressed Seborrheic dermatitis Patient with significant beefy red rash on chest and under breasts with scaly plaques, of unclear duration Patient states she has prescription for antifungal, but not on her med list Will start her on hydrocortisone 1% cream and clotrimazole 1% cream which should be applied to affected areas twice daily until symptoms resolve UTI UA from [facility] positive for UTI, though apparently not treated with antibiotics Pt not complaining of polyuria or dysuria Will get new UA Will hold off on antibiotics pending UA results If positive, start with Bactrim DS 1 tab bid x5 days, then follow cultures HTN Continue amlodipine GERD Continue PPI Reason for continued inpatient stay Substantial Risk for: inability to function and rapid decompensation Time Spent With Patient Time: Total time managing care of this patient today ____ minutes.
--- NOTE | 2023-06-13 02:09 | PC.NURSE ---
pt awake and agitated. she states you are poisoning me with the haldol. i have a constitutional right to refuse the haldol. i can't even eat anything because you have poisoned my food. i don't care what the [facility] order says i'm not taking any more haldol. you are going to pay for this. god will make you pay. i suppose you will shoot me up with thorazine instead. pt reassured that her concerns will be noted and addressed on morning rounds. with reassurance she accepted a cup of gingerale and drank the soda. she states that i don't get it i have bone cancer and lung cancer.
[2023-06-13] MEDS: Lurasidone HCl 20 MG TABLET PO (09:01)
[2023-06-13] MEDS: HaloperidoL 5 MG TABLET 10 MG PO ×2 (09:01→20:25)
--- NOTE | 2023-06-13 12:15 | P.PNPSI_ITS ---
Subjective Subjective Date of Service: 06/13/23 Reason For Visit: Schizophrenia Subjective Notes: Conditional Voluntary Interim History: The nursing staff reported the patient had been internally preoccupied, she slept only 4 hours and she verbalized paranoid delusions stating that the food is poisoned at. Apparently she agreed to restart Latuda yesterday and she is going to tired I today. On interview the patient remains seclusive in her room. No changes in her mental status. Mental Status Exam Mental Status Exam Patient Appearance: Unkempt Patient Orientation: Person and Situation Level of Consciousness: Awake and Appropriate Patient Behavior: Guarded and Passive Mood Description: Withdrawn Affect Description: Blunted Patient Cognition Impaired: Yes Ability to Follow Directions: Fair Speech Pattern: Impoverished Hallucinations: None Delusions: Paranoid Ideation Thought Process: Distracted and Slowed Thinking Thought Content: positive for [place] and positive for Poverty of Content Judgement: Fair Diagnostics Vital Signs (24Hr): Vital Signs - 24 hr 06/12/23 18:00 Temperature 98.2 F Pulse Rate 61 Respiratory Rate 16 Blood Pressure 133/61 Pulse Oximetry 92 Oxygen Delivery Method Room Air BMI result Body Mass Index 29.2 Labs Labs: Laboratory Results - last 48 hr 06/12/23 08:25 COVID-19 ([facility]) Negative COVID-19 Clin Com See Note Medications Medications Current Medications Acetaminophen (Acetaminophen 325 Mg Tablet) 650 mg PO Q6H PRN PRN Reason: Headache/Pain Mild Scale (1-3) Al Hydroxide/Mg Hydroxide (Magnesium Hydrox/Alum Hydrox 30 Ml Oral.Susp) 30 ml PO Q6H PRN PRN Reason: Heartburn/Nausea Clotrimazole (Clotrimazole 1 % Cream 15 Gm Tube) 1 appl TOPICAL BID JOSE GUADALUPE; Protocol Last Admin: 06/13/23 09:04 Dose: Not Given Haloperidol (Haloperidol 5 Mg Tablet) 5 mg PO Q4H PRN PRN Reason: agitation Haloperidol (Haloperidol 5 Mg Tablet) 10 mg PO BID JOSE GUADALUPE Last Admin: 06/13/23 09:01 Dose: 10 mg Haloperidol Lactate (Haloperidol Lactate 5 Mg/Ml Vial) 5 mg IM BID PRN PRN Reason: REFUSAL OF PO Last Admin: 05/20/23 08:43 Dose: 5 mg Hydrocortisone (Hydrocortisone 1 % Cream 28.35 Gm Tube) 1 appl TOPICAL BID PRN; Protocol PRN Reason: Rash Last Admin: 05/29/23 20:39 Dose: 1 appl Lurasidone HCl (Lurasidone Hcl 20 Mg Tablet) 20 mg PO DAILY JOSE GUADALUPE Last Admin: 06/13/23 09:01 Dose: 20 mg Magnesium Hydroxide (Milk Of Magnesia 30 Ml Oral.Susp) 30 ml PO DAILY PRN PRN Reason: Constipation Trazodone HCl (Trazodone Hcl 25 Mg Halftab) 25 mg PO BEDTIME MRX1 PRN PRN Reason: Insomnia Allergies Allergies Allergy/AdvReac Type Severity Reaction Status Date / Time onion Allergy Unknown Unknown Verified 05/11/23 22:53 Assessment & Plan Assessment & Plan (1) Schizophrenia, chronic condition: Status: Acute Code(s): F20.9 - Schizophrenia, unspecified Plan Pt is a 72-year-old female with a PMH significant for?HTN, GERD, and schizophrenia who is admitted to [facility] for increased aggression after a non compliant her psychiatric medications. Patient lives at a retirement but has recently become disorganized with delusions and increased aggression after refusing to take her medications despite a Riggins order. Medical consult for admission H&P. 06/09 continue current treatment plan 06/10 continue current tx plan Plan 1. Gather collateral information, will try to contact the staff on the retirement for further details on the last Haldol Decanoate. 2. Continue with medications as per court order. 3. Haldol Decanoate 100 mg on May 22 4. Latuda 20 mg p.o. q.h.s. on May 24. On May 25 we are increasing up to 40 mg p.o. q.h.s. on May 28 we are increasing up to 60 mg p.o. q.h.s. and encourage compliance but she has consistently refused this medication so we discontinued. 5. Increase Haldol up to 10 mg p.o. b.i.d. 6. We are contacting the staff of the retirement to find out if she has ever taking Abilify. 06/12/23 Restart latuda pt withdrawn depressed Seborrheic dermatitis Patient with significant beefy red rash on chest and under breasts with scaly plaques, of unclear duration Patient states she has prescription for antifungal, but not on her med list Will start her on hydrocortisone 1% cream and clotrimazole 1% cream which should be applied to affected areas twice daily until symptoms resolve UTI UA from [facility] positive for UTI, though apparently not treated with antibiotics Pt not complaining of polyuria or dysuria Will get new UA Will hold off on antibiotics pending UA results If positive, start with Bactrim DS 1 tab bid x5 days, then follow cultures HTN Continue amlodipine GERD Continue PPI Reason for continued inpatient stay Substantial Risk for: inability to function, rapid decompensation and med/psych decompensation Time Spent With Patient Time: Total time managing care of this patient today _20___ minutes.
[2023-06-13 19:25] VITALS: BP 133/76; PULSE 72; RESP 18; TEMP 36.1; O2SAT 96
[2023-06-14 06:00] VITALS: BP 136/74; PULSE 74; RESP 18; TEMP 36.2; O2SAT 93
[2023-06-14 07:00] VITALS: BMI 29.1
[2023-06-14] MEDS: HaloperidoL 5 MG TABLET 10 MG PO ×2 (08:44→21:57)
[2023-06-14] MEDS: Lurasidone HCl 20 MG TABLET PO (08:44)
--- NOTE | 2023-06-14 15:14 | HO.PSYCHPN ---
Subjective Subjective Date of Service: 06/14/23 Reason For Visit: Schizophrenia Subjective Notes: Riggins Order and Conditional Voluntary Interim History: The nursing staff reported the patient had been self dialogue in isolative in her room, slept 7 hours. She has been medication compliant with Latuda. On interview the patient reports sporadic back pain and she requested ibuprofen. We will continue with 2 antipsychotics. Mental Status Exam Mental Status Exam Patient Appearance: Appropriate Patient Orientation: Person and Situation Level of Consciousness: Awake and Appropriate Patient Behavior: Guarded and Passive Mood Description: Withdrawn Affect Description: Constricted Patient Cognition Impaired: Yes Ability to Follow Directions: Good Speech Pattern: Clear Hallucinations: None Delusions: Paranoid Ideation Perceptual Disturbances: Hallucinations Thought Process: Distracted and Slowed Thinking Thought Content: positive for [place] and positive for Poverty of Content Judgement: Poor Diagnostics Vital Signs (24Hr): Vital Signs - 24 hr 06/13/23 19:25 06/14/23 06:00 Temperature 96.9 F 97.2 F Pulse Rate 72 74 Respiratory Rate 18 18 Blood Pressure 133/76 136/74 Pulse Oximetry 96 93 Oxygen Delivery Method Room Air Room Air BMI result Body Mass Index 29.2 Medications Medications Current Medications Acetaminophen (Acetaminophen 325 Mg Tablet) 650 mg PO Q6H PRN PRN Reason: Headache/Pain Mild Scale (1-3) Al Hydroxide/Mg Hydroxide (Magnesium Hydrox/Alum Hydrox 30 Ml Oral.Susp) 30 ml PO Q6H PRN PRN Reason: Heartburn/Nausea Clotrimazole (Clotrimazole 1 % Cream 15 Gm Tube) 1 appl TOPICAL BID JOSE GUADALUPE; Protocol Last Admin: 06/14/23 08:45 Dose: Not Given Haloperidol (Haloperidol 5 Mg Tablet) 5 mg PO Q4H PRN PRN Reason: agitation Haloperidol (Haloperidol 5 Mg Tablet) 10 mg PO BID JOSE GUADALUPE Last Admin: 06/14/23 08:44 Dose: 10 mg Haloperidol Lactate (Haloperidol Lactate 5 Mg/Ml Vial) 5 mg IM BID PRN PRN Reason: REFUSAL OF PO Last Admin: 05/20/23 08:43 Dose: 5 mg Hydrocortisone (Hydrocortisone 1 % Cream 28.35 Gm Tube) 1 appl TOPICAL BID PRN; Protocol PRN Reason: Rash Last Admin: 05/29/23 20:39 Dose: 1 appl Ibuprofen (Ibuprofen 400 Mg Tablet) 400 mg PO Q4H PRN PRN Reason: Pain, Mild (Pain Scale 1-3) Lurasidone HCl (Lurasidone Hcl 20 Mg Tablet) 20 mg PO DAILY JOSE GUADALUPE Last Admin: 06/14/23 08:44 Dose: 20 mg Magnesium Hydroxide (Milk Of Magnesia 30 Ml Oral.Susp) 30 ml PO DAILY PRN PRN Reason: Constipation Trazodone HCl (Trazodone Hcl 25 Mg Halftab) 25 mg PO BEDTIME MRX1 PRN PRN Reason: Insomnia Allergies Allergies Allergy/AdvReac Type Severity Reaction Status Date / Time onion Allergy Unknown Unknown Verified 05/11/23 22:53 Assessment & Plan Assessment & Plan (1) Schizophrenia, chronic condition: Status: Acute Code(s): F20.9 - Schizophrenia, unspecified Plan Pt is a 72-year-old female with a PMH significant for?HTN, GERD, and schizophrenia who is admitted to [facility] for increased aggression after a non compliant her psychiatric medications. Patient lives at a [place] [facility] but has recently become disorganized with delusions and increased aggression after refusing to take her medications despite a Riggins order. Medical consult for admission H&P. 06/09 continue current treatment plan 06/10 continue current tx plan Plan 1. Gather collateral information, will try to contact the staff on the [place] [facility] for further details on the last Haldol Decanoate. 2. Continue with medications as per court order. 3. Haldol Decanoate 100 mg on May 22 4. Latuda 20 mg p.o. q.h.s. on May 24. On May 25 we are increasing up to 40 mg p.o. q.h.s. on May 28 we are increasing up to 60 mg p.o. q.h.s. and encourage compliance but she has consistently refused this medication so we discontinued. 5. Increase Haldol up to 10 mg p.o. b.i.d. 6. We are contacting the staff of the [place] [facility] to find out if she has ever taking Abilify. 7. On June 12 the patient agreed to take like to the night 20 mg daily. Seborrheic dermatitis Patient with significant beefy red rash on chest and under breasts with scaly plaques, of unclear duration Patient states she has prescription for antifungal, but not on her med list Will start her on hydrocortisone 1% cream and clotrimazole 1% cream which should be applied to affected areas twice daily until symptoms resolve UTI UA from [facility] positive for UTI, though apparently not treated with antibiotics Pt not complaining of polyuria or dysuria Will get new UA Will hold off on antibiotics pending UA results If positive, start with Bactrim DS 1 tab bid x5 days, then follow cultures HTN Continue amlodipine GERD Continue PPI Reason for continued inpatient stay Substantial Risk for: inability to function, rapid decompensation and med/psych decompensation Time Spent With Patient Time: Total time managing care of this patient today ____ minutes.
[2023-06-15 06:00] VITALS: BP 134/63; PULSE 70; RESP 18; TEMP 36.7; O2SAT 92
[2023-06-15] MEDS: HaloperidoL 5 MG TABLET 10 MG PO ×2 (09:39→20:53)
[2023-06-15] MEDS: Lurasidone HCl 20 MG TABLET PO (09:39)
--- NOTE | 2023-06-15 20:27 | P.PNPSI_ITS ---
Subjective Subjective Date of Service: 06/15/23 Reason For Visit: Schizophrenia Subjective Notes: Riggins Order Interim History: Patient is somewhat withdrawn isolative irritable questions some improvement with Latuda Attending Groups: No Mental Status Exam Mental Status Exam Patient Appearance: Appropriate Patient Orientation: Person and Situation Level of Consciousness: Awake and Appropriate Patient Behavior: Guarded and Passive Mood Description: Withdrawn Affect Description: Constricted Patient Cognition Impaired: Yes Ability to Follow Directions: Good Speech Pattern: Clear Hallucinations: None Delusions: Paranoid Ideation Perceptual Disturbances: Hallucinations Thought Process: Distracted and Slowed Thinking Thought Content: positive for [place] and positive for Poverty of Content Judgement: Poor Diagnostics Vital Signs (24Hr): Vital Signs - 24 hr 06/15/23 06:00 Temperature 98.1 F Pulse Rate 70 Respiratory Rate 18 Blood Pressure 134/63 Pulse Oximetry 92 Oxygen Delivery Method Room Air BMI result Body Mass Index 29.1 Medications Medications Current Medications Acetaminophen (Acetaminophen 325 Mg Tablet) 650 mg PO Q6H PRN PRN Reason: Headache/Pain Mild Scale (1-3) Al Hydroxide/Mg Hydroxide (Magnesium Hydrox/Alum Hydrox 30 Ml Oral.Susp) 30 ml PO Q6H PRN PRN Reason: Heartburn/Nausea Clotrimazole (Clotrimazole 1 % Cream 15 Gm Tube) 1 appl TOPICAL BID JOSE GUADALUPE; Protocol Last Admin: 06/15/23 09:42 Dose: Not Given Haloperidol (Haloperidol 5 Mg Tablet) 5 mg PO Q4H PRN PRN Reason: agitation Haloperidol (Haloperidol 5 Mg Tablet) 10 mg PO BID JOSE GUADALUPE Last Admin: 06/15/23 09:39 Dose: 10 mg Haloperidol Lactate (Haloperidol Lactate 5 Mg/Ml Vial) 5 mg IM BID PRN PRN Reason: REFUSAL OF PO Last Admin: 05/20/23 08:43 Dose: 5 mg Hydrocortisone (Hydrocortisone 1 % Cream 28.35 Gm Tube) 1 appl TOPICAL BID PRN; Protocol PRN Reason: Rash Last Admin: 05/29/23 20:39 Dose: 1 appl Ibuprofen (Ibuprofen 400 Mg Tablet) 400 mg PO Q4H PRN PRN Reason: Pain, Mild (Pain Scale 1-3) Lurasidone HCl (Lurasidone Hcl 20 Mg Tablet) 20 mg PO DAILY JOSE GUADALUPE Last Admin: 06/15/23 09:39 Dose: 20 mg Magnesium Hydroxide (Milk Of Magnesia 30 Ml Oral.Susp) 30 ml PO DAILY PRN PRN Reason: Constipation Trazodone HCl (Trazodone Hcl 25 Mg Halftab) 25 mg PO BEDTIME MRX1 PRN PRN Reason: Insomnia Allergies Allergies Allergy/AdvReac Type Severity Reaction Status Date / Time onion Allergy Unknown Unknown Verified 05/11/23 22:53 Assessment & Plan Assessment & Plan (1) Schizophrenia, chronic condition: Status: Acute Code(s): F20.9 - Schizophrenia, unspecified Plan Pt is a 72-year-old female with a PMH significant for?HTN, GERD, and schizophrenia who is admitted to [facility] for increased aggression after a non compliant her psychiatric medications. Patient lives at a senior living but has recently become disorganized with delusions and increased aggression after refusing to take her medications despite a Riggins order. Medical consult for admission H&P. 06/09 continue current treatment plan 06/10 continue current tx plan Plan 1. Gather collateral information, will try to contact the staff on the senior living for further details on the last Haldol Decanoate. 2. Continue with medications as per court order. 3. Haldol Decanoate 100 mg on May 22 4. Latuda 20 mg p.o. q.h.s. on May 24. On May 25 we are increasing up to 40 mg p.o. q.h.s. on May 28 we are increasing up to 60 mg p.o. q.h.s. and encourage compliance but she has consistently refused this medication so we discontinued. 5. Increase Haldol up to 10 mg p.o. b.i.d. 6. We are contacting the staff of the senior living to find out if she has ever taking Abilify. 7. On June 12 the patient agreed to take like to the night 20 mg daily. 06/15/2023 Continue Latuda plan of care Reason for continued inpatient stay Substantial Risk for: inability to function, rapid decompensation and med/psych decompensation Time Spent With Patient Time: Total time managing care of this patient today ____ minutes.
[2023-06-16 08:53] VITALS: BP 144/68; PULSE 64; RESP 17; TEMP 36.3; O2SAT 92
[2023-06-16] MEDS: HaloperidoL 5 MG TABLET 10 MG PO ×2 (08:55→20:56)
[2023-06-16] MEDS: Lurasidone HCl 20 MG TABLET PO (08:55)
[2023-06-16 18:00] VITALS: BP 115/59; PULSE 62; RESP 16; TEMP 36; O2SAT 92
--- NOTE | 2023-06-16 21:21 | P.PNPSI_ITS ---
Subjective Subjective Date of Service: 06/16/23 Reason For Visit: Schizophrenia Interim History: Patient is withdrawn isolated paranoid question some mild improvement Mental Status Exam Mental Status Exam Patient Appearance: Appropriate Patient Orientation: Person and Situation Level of Consciousness: Awake and Appropriate Patient Behavior: Guarded and Passive Mood Description: Withdrawn Affect Description: Constricted Patient Cognition Impaired: Yes Ability to Follow Directions: Good Speech Pattern: Clear Hallucinations: None Delusions: Paranoid Ideation Perceptual Disturbances: Hallucinations Thought Process: Distracted and Slowed Thinking Thought Content: positive for [place] and positive for Poverty of Content Judgement: Poor Diagnostics Vital Signs (24Hr): Vital Signs - 24 hr 06/16/23 08:53 Temperature 97.4 F Pulse Rate 64 Respiratory Rate 17 Blood Pressure 144/68 H Pulse Oximetry 92 Oxygen Delivery Method Room Air BMI result Body Mass Index 29.1 Medications Medications Current Medications Acetaminophen (Acetaminophen 325 Mg Tablet) 650 mg PO Q6H PRN PRN Reason: Headache/Pain Mild Scale (1-3) Al Hydroxide/Mg Hydroxide (Magnesium Hydrox/Alum Hydrox 30 Ml Oral.Susp) 30 ml PO Q6H PRN PRN Reason: Heartburn/Nausea Clotrimazole (Clotrimazole 1 % Cream 15 Gm Tube) 1 appl TOPICAL BID JOSE GUADALUPE; Protocol Last Admin: 06/16/23 08:56 Dose: Not Given Haloperidol (Haloperidol 5 Mg Tablet) 5 mg PO Q4H PRN PRN Reason: agitation Haloperidol (Haloperidol 5 Mg Tablet) 10 mg PO BID ON LICENSE OF [facility] Last Admin: 06/16/23 20:56 Dose: 10 mg Haloperidol Lactate (Haloperidol Lactate 5 Mg/Ml Vial) 5 mg IM BID PRN PRN Reason: REFUSAL OF PO Last Admin: 05/20/23 08:43 Dose: 5 mg Hydrocortisone (Hydrocortisone 1 % Cream 28.35 Gm Tube) 1 appl TOPICAL BID PRN; Protocol PRN Reason: Rash Last Admin: 05/29/23 20:39 Dose: 1 appl Ibuprofen (Ibuprofen 400 Mg Tablet) 400 mg PO Q4H PRN PRN Reason: Pain, Mild (Pain Scale 1-3) Lurasidone HCl (Lurasidone Hcl 20 Mg Tablet) 20 mg PO DAILY ON LICENSE OF [facility] Last Admin: 06/16/23 08:55 Dose: 20 mg Magnesium Hydroxide (Milk Of Magnesia 30 Ml Oral.Susp) 30 ml PO DAILY PRN PRN Reason: Constipation Trazodone HCl (Trazodone Hcl 25 Mg Halftab) 25 mg PO BEDTIME MRX1 PRN PRN Reason: Insomnia Allergies Allergies Allergy/AdvReac Type Severity Reaction Status Date / Time onion Allergy Unknown Unknown Verified 05/11/23 22:53 Assessment & Plan Assessment & Plan (1) Schizophrenia, chronic condition: Status: Acute Code(s): F20.9 - Schizophrenia, unspecified Plan Pt is a 72-year-old female with a PMH significant for?HTN, GERD, and schizophrenia who is admitted to [facility] for increased aggression after a non compliant her psychiatric medications. [facility] but has recently become disorganized with delusions and increased aggression after refusing to take her medications despite a Riggins order. Medical consult for admission H&P. 06/09 continue current treatment plan 06/10 continue current tx plan Plan 1. Gather collateral information, will try to contact the staff on the correction for further details on the last Haldol Decanoate. 2. Continue with medications as per court order. 3. Haldol Decanoate 100 mg on May 22 4. Latuda 20 mg p.o. q.h.s. on May 24. On May 25 we are increasing up to 40 mg p.o. q.h.s. on May 28 we are increasing up to 60 mg p.o. q.h.s. and encourage compliance but she has consistently refused this medication so we discontinued. 5. Increase Haldol up to 10 mg p.o. b.i.d. 6. We are contacting the staff of the correction to find out if she has ever taking Abilify. 7. On June 12 the patient agreed to take like to the night 20 mg daily. 06/16/2023 Continue Latuda plan of care take me to lower Haldol Reason for continued inpatient stay Substantial Risk for: harm to self and rapid decompensation Time Spent With Patient Time: Total time managing care of this patient today ____ minutes.
[2023-06-17 06:00] VITALS: BP 139/67; PULSE 95; RESP 20; TEMP 36.4; O2SAT 92
[2023-06-17] MEDS: Lurasidone HCl 20 MG TABLET PO (08:24)
[2023-06-17] MEDS: HaloperidoL 5 MG TABLET 10 MG PO ×2 (08:24→20:20)
[2023-06-17 18:00] VITALS: RESP 16
--- NOTE | 2023-06-17 21:28 | P.PNPSI_ITS ---
Subjective Subjective Date of Service: 06/17/23 Reason For Visit: Schizophrenia Interim History: Patient with perhaps some improvement somewhat lethargic in isolated to her room Mental Status Exam Mental Status Exam Patient Appearance: Appropriate Patient Orientation: Person and Situation Level of Consciousness: Awake and Appropriate Patient Behavior: Guarded and Passive Mood Description: Withdrawn Affect Description: Constricted Patient Cognition Impaired: Yes Ability to Follow Directions: Good Speech Pattern: Clear Hallucinations: None Delusions: Paranoid Ideation Perceptual Disturbances: Hallucinations Thought Process: Distracted and Slowed Thinking Thought Content: positive for [place] and positive for Poverty of Content Judgement: Poor Diagnostics Vital Signs (24Hr): Vital Signs - 24 hr 06/17/23 06:00 Temperature 97.5 F Pulse Rate 95 Respiratory Rate 20 Blood Pressure 139/67 Pulse Oximetry 92 Oxygen Delivery Method Room Air BMI result Body Mass Index 29.1 Medications Medications Current Medications Acetaminophen (Acetaminophen 325 Mg Tablet) 650 mg PO Q6H PRN PRN Reason: Headache/Pain Mild Scale (1-3) Al Hydroxide/Mg Hydroxide (Magnesium Hydrox/Alum Hydrox 30 Ml Oral.Susp) 30 ml PO Q6H PRN PRN Reason: Heartburn/Nausea Clotrimazole (Clotrimazole 1 % Cream 15 Gm Tube) 1 appl TOPICAL BID JOS EGUADALUPE; Protocol Last Admin: 06/17/23 20:21 Dose: Not Given Haloperidol (Haloperidol 5 Mg Tablet) 5 mg PO Q4H PRN PRN Reason: agitation Haloperidol (Haloperidol 5 Mg Tablet) 10 mg PO BID JOSE GUADALUPE Last Admin: 06/17/23 20:20 Dose: 10 mg Haloperidol Lactate (Haloperidol Lactate 5 Mg/Ml Vial) 5 mg IM BID PRN PRN Reason: REFUSAL OF PO Last Admin: 05/20/23 08:43 Dose: 5 mg Hydrocortisone (Hydrocortisone 1 % Cream 28.35 Gm Tube) 1 appl TOPICAL BID PRN; Protocol PRN Reason: Rash Last Admin: 05/29/23 20:39 Dose: 1 appl Ibuprofen (Ibuprofen 400 Mg Tablet) 400 mg PO Q4H PRN PRN Reason: Pain, Mild (Pain Scale 1-3) Lurasidone HCl (Lurasidone Hcl 20 Mg Tablet) 20 mg PO DAILY JOSE GUADALUPE Last Admin: 06/17/23 08:24 Dose: 20 mg Magnesium Hydroxide (Milk Of Magnesia 30 Ml Oral.Susp) 30 ml PO DAILY PRN PRN Reason: Constipation Trazodone HCl (Trazodone Hcl 25 Mg Halftab) 25 mg PO BEDTIME MRX1 PRN PRN Reason: Insomnia Allergies Allergies Allergy/AdvReac Type Severity Reaction Status Date / Time onion Allergy Unknown Unknown Verified 05/11/23 22:53 Assessment & Plan Assessment & Plan (1) Schizophrenia, chronic condition: Status: Acute Code(s): F20.9 - Schizophrenia, unspecified Plan Pt is a 72-year-old female with a PMH significant for?HTN, GERD, and schizophrenia who is admitted to [facility] for increased aggression after a non compliant her psychiatric medications. Patient lives at a longterm but has recently become disorganized with delusions and increased aggression after refusing to take her medications despite a Riggins order. Medical consult for admission H&P. 06/09 continue current treatment plan 06/10 continue current tx plan Plan 1. Gather collateral information, will try to contact the staff on the longterm for further details on the last Haldol Decanoate. 2. Continue with medications as per court order. 3. Haldol Decanoate 100 mg on May 22 4. Latuda 20 mg p.o. q.h.s. on May 24. On May 25 we are increasing up to 40 mg p.o. q.h.s. on May 28 we are increasing up to 60 mg p.o. q.h.s. and encourage compliance but she has consistently refused this medication so we discontinued. 5. Increase Haldol up to 10 mg p.o. b.i.d. 6. We are contacting the staff of the longterm to find out if she has ever taking Abilify. 7. On June 12 the patient agreed to take like to the night 20 mg daily. 06/16/2023 Continue Latuda plan of care take me to lower Haldol Informed Consent: further education needed Reason for continued inpatient stay Substantial Risk for: harm to self and rapid decompensation Time Spent With Patient Time: Total time managing care of this patient today ____ minutes.
[2023-06-18 08:23] VITALS: BP 135/78; PULSE 89; RESP 18; TEMP 36.4; O2SAT 94
[2023-06-18] MEDS: Lurasidone HCl 20 MG TABLET PO (09:09)
[2023-06-18] MEDS: HaloperidoL 5 MG TABLET PO (09:09)
[2023-06-18] MEDS: Hydrocortisone 1 % Cream 28.35 GM TUBE 1 APPL TOPICAL (09:10)
[2023-06-18] MEDS: Clotrimazole 1 % Cream 15 GM TUBE 1 APPL TOPICAL (09:10)
[2023-06-18 18:00] VITALS: BP 143/68; PULSE 69; RESP 17; TEMP 36.3; O2SAT 93
[2023-06-18] MEDS: HaloperidoL 5 MG TABLET 10 MG PO (22:00)
[2023-06-19] MEDS: Clotrimazole 1 % Cream 15 GM TUBE 1 APPL TOPICAL ×2 (03:15→10:00)
[2023-06-19 08:00] VITALS: BP 128/80; PULSE 94; RESP 18; TEMP 36.2; O2SAT 92
[2023-06-19] MEDS: HaloperidoL 5 MG TABLET PO (09:59)
[2023-06-19] MEDS: Lurasidone HCl 20 MG TABLET PO (09:59)
--- NOTE | 2023-06-19 10:39 | HO.PSYCHPN ---
Subjective Subjective Date of Service: 06/19/23 Reason For Visit: Schizophrenia Subjective Notes: Conditional Voluntary Interim History: Pt in room. She reports not feeling well but also asking this ticket writer to please don't ask me questions, I don't want to talk. Pt denies physical concerns. She is taking medications as prescribed. No behavioral concerns.VS Stable. She was restless most of the night, slept about 4 hrs. Review of Systems Review of Systems Red rash with scaly plaques on chest and under breasts Patient denies has no acute medical complaints at this time Yes Unobtainable due to mental status Mental Status Exam Mental Status Exam Narrative: General appearance: casual dress.. Fair hygiene.? Eye contact: poor. Musculoskeletal: Laying in bed. No PMA/PMR Manner/behavior: uncooperative and guarded irritable Speech:? Fluent, with normal rate, tone and volume. Language: No receptive or expressive language impairment? Mood: Angry Affect:Irritable Thought process/associations: Linear with no flight of ideas or loose associations.?? Thought content: Paranoid Hallucinations: No overt auditory, visual or other hallucinations Suicidality/self-destructive behavior: none reported? ? Homicidally/violence: none. reported. Prior history of physical aggression? Reliability: poor.? ? Judgment: poor.? ? Insight: poor Cognition: Alert and oriented to time, place and person.? Diagnostics Vital Signs (24Hr): Vital Signs - 24 hr 06/18/23 18:00 Temperature 97.3 F Pulse Rate 69 Respiratory Rate 17 Blood Pressure 143/68 H Pulse Oximetry 93 Oxygen Delivery Method Room Air BMI result Body Mass Index 29.1 Medications Medications Current Medications Acetaminophen (Acetaminophen 325 Mg Tablet) 650 mg PO Q6H PRN PRN Reason: Headache/Pain Mild Scale (1-3) Al Hydroxide/Mg Hydroxide (Magnesium Hydrox/Alum Hydrox 30 Ml Oral.Susp) 30 ml PO Q6H PRN PRN Reason: Heartburn/Nausea Clotrimazole (Clotrimazole 1 % Cream 15 Gm Tube) 1 appl TOPICAL BID JOSE GUADALUPE; Protocol Last Admin: 06/19/23 10:00 Dose: 1 appl Haloperidol (Haloperidol 5 Mg Tablet) 5 mg PO Q4H PRN PRN Reason: agitation Haloperidol (Haloperidol 5 Mg Tablet) 10 mg PO BEDTIME JOSE GUADALUPE Last Admin: 06/18/23 22:00 Dose: 10 mg Haloperidol (Haloperidol 5 Mg Tablet) 5 mg PO DAILY [facility] Last Admin: 06/19/23 09:59 Dose: 5 mg Haloperidol Lactate (Haloperidol Lactate 5 Mg/Ml Vial) 5 mg IM BID PRN PRN Reason: REFUSAL OF PO Last Admin: 05/20/23 08:43 Dose: 5 mg Hydrocortisone (Hydrocortisone 1 % Cream 28.35 Gm Tube) 1 appl TOPICAL BID PRN; Protocol PRN Reason: Rash Last Admin: 06/18/23 09:10 Dose: 1 appl Ibuprofen (Ibuprofen 400 Mg Tablet) 400 mg PO Q4H PRN PRN Reason: Pain, Mild (Pain Scale 1-3) Lurasidone HCl (Lurasidone Hcl 20 Mg Tablet) 20 mg PO DAILY [facility] Last Admin: 06/19/23 09:59 Dose: 20 mg Magnesium Hydroxide (Milk Of Magnesia 30 Ml Oral.Susp) 30 ml PO DAILY PRN PRN Reason: Constipation Trazodone HCl (Trazodone Hcl 25 Mg Halftab) 25 mg PO BEDTIME MRX1 PRN PRN Reason: Insomnia Allergies Allergies Allergy/AdvReac Type Severity Reaction Status Date / Time onion Allergy Unknown Unknown Verified 05/11/23 22:53 Assessment & Plan Assessment & Plan (1) Schizophrenia, chronic condition: Status: Acute Code(s): F20.9 - Schizophrenia, unspecified Plan Pt is a 72-year-old female with a PMH significant for?HTN, GERD, and schizophrenia who is admitted to [facility] for increased aggression after a non compliant her psychiatric medications. Patient lives at a [facility] but has recently become disorganized with delusions and increased aggression after refusing to take her medications despite a Riggins order. Medical consult for admission H&P. 06/09 continue current treatment plan 06/10 continue current tx plan 06/19 continue tx. Plan 1. Gather collateral information, will try to contact the staff on the [facility] for further details on the last Haldol Decanoate. 2. Continue with medications as per court order. 3. Haldol Decanoate 100 mg on May 22 4. Latuda 20 mg p.o. q.h.s. on May 24. On May 25 we are increasing up to 40 mg p.o. q.h.s. on May 28 we are increasing up to 60 mg p.o. q.h.s. and encourage compliance but she has consistently refused this medication so we discontinued. 5. Increase Haldol up to 10 mg p.o. b.i.d. 6. We are contacting the staff of the [facility] to find out if she has ever taking Abilify. 7. On June 12 the patient agreed to take like to the night 20 mg daily. 06/16/2023 Continue Latuda plan of care take me to lower Haldol Reason for continued inpatient stay Substantial Risk for: inability to function Time Spent With Patient Time: Total time managing care of this patient today ____ minutes.
--- NOTE | 2023-06-19 11:07 | P.PNPSI_ITS ---
Subjective Subjective Date of Service: 06/18/23 Reason For Visit: Schizophrenia Interim History: Patient remains withdrawn internally preoccupied less irritable Haldol was lowered to 5 in the morning 10 at bedtime consider increase Latuda encourage with food Medication Compliance: Yes Mental Status Exam Mental Status Exam Patient Appearance: Appropriate Patient Orientation: Person and Situation Level of Consciousness: Awake and Appropriate Patient Behavior: Guarded and Passive Mood Description: Withdrawn Affect Description: Constricted Patient Cognition Impaired: Yes Ability to Follow Directions: Good Speech Pattern: Clear Hallucinations: None Delusions: Paranoid Ideation Perceptual Disturbances: Hallucinations Thought Process: Distracted and Slowed Thinking Thought Content: positive for [place] and positive for Poverty of Content Judgement: Poor Diagnostics Vital Signs (24Hr): Vital Signs - 24 hr 06/18/23 18:00 06/19/23 08:00 Temperature 97.3 F 97.1 F Pulse Rate 69 94 Respiratory Rate 17 18 Blood Pressure 143/68 H 128/80 Pulse Oximetry 93 92 Oxygen Delivery Method Room Air Room Air BMI result Body Mass Index 29.1 Medications Medications Current Medications Acetaminophen (Acetaminophen 325 Mg Tablet) 650 mg PO Q6H PRN PRN Reason: Headache/Pain Mild Scale (1-3) Al Hydroxide/Mg Hydroxide (Magnesium Hydrox/Alum Hydrox 30 Ml Oral.Susp) 30 ml PO Q6H PRN PRN Reason: Heartburn/Nausea Clotrimazole (Clotrimazole 1 % Cream 15 Gm Tube) 1 appl TOPICAL BID JOSE GUADALUPE; Protocol Last Admin: 06/19/23 10:00 Dose: 1 appl Haloperidol (Haloperidol 5 Mg Tablet) 5 mg PO Q4H PRN PRN Reason: agitation Haloperidol (Haloperidol 5 Mg Tablet) 10 mg PO BEDTIME JOSE GUADALUPE Last Admin: 06/18/23 22:00 Dose: 10 mg Haloperidol (Haloperidol 5 Mg Tablet) 5 mg PO DAILY JOSE GUADALUPE Last Admin: 06/19/23 09:59 Dose: 5 mg Haloperidol Lactate (Haloperidol Lactate 5 Mg/Ml Vial) 5 mg IM BID PRN PRN Reason: REFUSAL OF PO Last Admin: 05/20/23 08:43 Dose: 5 mg Hydrocortisone (Hydrocortisone 1 % Cream 28.35 Gm Tube) 1 appl TOPICAL BID PRN; Protocol PRN Reason: Rash Last Admin: 06/18/23 09:10 Dose: 1 appl Ibuprofen (Ibuprofen 400 Mg Tablet) 400 mg PO Q4H PRN PRN Reason: Pain, Mild (Pain Scale 1-3) Lurasidone HCl (Lurasidone Hcl 20 Mg Tablet) 20 mg PO DAILY JOSE GUADALUPE Last Admin: 06/19/23 09:59 Dose: 20 mg Magnesium Hydroxide (Milk Of Magnesia 30 Ml Oral.Susp) 30 ml PO DAILY PRN PRN Reason: Constipation Trazodone HCl (Trazodone Hcl 25 Mg Halftab) 25 mg PO BEDTIME MRX1 PRN PRN Reason: Insomnia Allergies Allergies Allergy/AdvReac Type Severity Reaction Status Date / Time onion Allergy Unknown Unknown Verified 05/11/23 22:53 Assessment & Plan Assessment & Plan (1) Schizophrenia, chronic condition: Status: Acute Code(s): F20.9 - Schizophrenia, unspecified Plan Pt is a 72-year-old female with a PMH significant for?HTN, GERD, and schizophrenia who is admitted to [facility] for increased aggression after a non compliant her psychiatric medications. Patient lives at a alf but has recently become disorganized with delusions and increased aggression after refusing to take her medications despite a [facility]ins order. Medical consult for admission H&P. 06/09 continue current treatment plan 06/10 continue current tx plan 06/19 continue tx. Plan 1. Gather collateral information, will try to contact the staff on the alf for further details on the last Haldol Decanoate. 2. Continue with medications as per court order. 3. Haldol Decanoate 100 mg on May 22 4. Latuda 20 mg p.o. q.h.s. on May 24. On May 25 we are increasing up to 40 mg p.o. q.h.s. on May 28 we are increasing up to 60 mg p.o. q.h.s. and encourage compliance but she has consistently refused this medication so we discontinued. 5. Increase Haldol up to 10 mg p.o. b.i.d. 6. We are contacting the staff of the alf to find out if she has ever taking Abilify. 7. On June 12 the patient agreed to take like to the night 20 mg daily. 06/16/2023 Continue Latuda plan of care take me to [place] 06/18/2023 Tolerating lowered Haldol in the morning continue 10 at bedtime consider increase Latuda 40 mg l Reason for continued inpatient stay Substantial Risk for: inability to function and rapid decompensation Time Spent With Patient Time: Total time managing care of this patient today ____ minutes.
[2023-06-19 18:00] VITALS: BP 116/57; PULSE 64; RESP 18; TEMP 36.2; O2SAT 94
[2023-06-19] MEDS: HaloperidoL 5 MG TABLET 10 MG PO (20:05)
[2023-06-20 08:00] VITALS: BP 159/72; PULSE 62; RESP 18; TEMP 36.6; O2SAT 92
[2023-06-20] MEDS: Lurasidone HCl 20 MG TABLET PO (08:25)
[2023-06-20] MEDS: HaloperidoL 5 MG TABLET PO (08:25)
[2023-06-20] MEDS: Clotrimazole 1 % Cream 15 GM TUBE 1 APPL TOPICAL ×2 (08:27→20:17)
--- NOTE | 2023-06-20 13:22 | P.PNPSI_ITS ---
Subjective Subjective Date of Service: 06/20/23 Reason For Visit: Schizophrenia Subjective Notes: [facility] Order and Conditional Voluntary Healthcare Proxy: Yes Guardianship: Yes Interim History: The nursing staff reported the patient had been suspicious but compliant with medication. She is now taking Latuda. On interview the patient reports that she is doing better physically but she looks internally preoccupied. Today her speech was brighter and spontaneous still, not at baseline. Mental Status Exam Mental Status Exam Patient Appearance: Appropriate (On hospital gowns) and Unkempt Patient Orientation: Person Level of Consciousness: Awake Patient Behavior: Guarded and Passive Mood Description: Withdrawn Affect Description: Constricted Patient Cognition Impaired: Yes Ability to Follow Directions: Good Speech Pattern: Clear Hallucinations: None Delusions: Paranoid Ideation Thought Process: Distracted and Slowed Thinking Thought Content: positive for [place], positive for Poverty of Content, positive for Thought Blocking and positive for Disorganized Judgement: Poor Diagnostics Vital Signs (24Hr): Vital Signs - 24 hr 06/19/23 18:00 06/20/23 08:00 Temperature 97.2 F 97.8 F Pulse Rate 64 62 Respiratory Rate 18 18 Blood Pressure 116/57 L 159/72 H Pulse Oximetry 94 92 Oxygen Delivery Method Room Air BMI result Body Mass Index 29.1 Medications Medications Current Medications Acetaminophen (Acetaminophen 325 Mg Tablet) 650 mg PO Q6H PRN PRN Reason: Headache/Pain Mild Scale (1-3) Al Hydroxide/Mg Hydroxide (Magnesium Hydrox/Alum Hydrox 30 Ml Oral.Susp) 30 ml PO Q6H PRN PRN Reason: Heartburn/Nausea Clotrimazole (Clotrimazole 1 % Cream 15 Gm Tube) 1 appl TOPICAL BID JOSE GUADALUPE; Protocol Last Admin: 06/20/23 08:27 Dose: 1 appl Haloperidol (Haloperidol 5 Mg Tablet) 5 mg PO Q4H PRN PRN Reason: agitation Haloperidol (Haloperidol 5 Mg Tablet) 10 mg PO BEDTIME JOSE GUADALUPE Last Admin: 06/19/23 20:05 Dose: 10 mg Haloperidol (Haloperidol 5 Mg Tablet) 5 mg PO DAILY JOSE GUADALUPE Last Admin: 06/20/23 08:25 Dose: 5 mg Haloperidol Lactate (Haloperidol Lactate 5 Mg/Ml Vial) 5 mg IM BID PRN PRN Reason: REFUSAL OF PO Last Admin: 05/20/23 08:43 Dose: 5 mg Hydrocortisone (Hydrocortisone 1 % Cream 28.35 Gm Tube) 1 appl TOPICAL BID PRN; Protocol PRN Reason: Rash Last Admin: 06/18/23 09:10 Dose: 1 appl Ibuprofen (Ibuprofen 400 Mg Tablet) 400 mg PO Q4H PRN PRN Reason: Pain, Mild (Pain Scale 1-3) Lurasidone HCl (Lurasidone Hcl 40 Mg Tablet) 40 mg PO DAILY JOSE GUADALUPE Magnesium Hydroxide (Milk Of Magnesia 30 Ml Oral.Susp) 30 ml PO DAILY PRN PRN Reason: Constipation Trazodone HCl (Trazodone Hcl 25 Mg Halftab) 25 mg PO BEDTIME MRX1 PRN PRN Reason: Insomnia Allergies Allergies Allergy/AdvReac Type Severity Reaction Status Date / Time onion Allergy Unknown Unknown Verified 05/11/23 22:53 Assessment & Plan Assessment & Plan (1) Schizophrenia, chronic condition: Status: Acute Code(s): F20.9 - Schizophrenia, unspecified Plan Pt is a 72-year-old female with a PMH significant for?HTN, GERD, and schizophrenia who is admitted to [facility] for increased aggression after a non compliant her psychiatric medications. Patient lives at a detention but has recently become disorganized with delusions and increased aggression after refusing to take her medications despite a [facility]iggins order. Medical consult for admission H&P. 06/09 continue current treatment plan 06/10 continue current tx plan 06/19 continue tx. Plan 1. Gather collateral information, will try to contact the staff on the detention for further details on the last Haldol Decanoate. 2. Continue with medications as per court order. 3. Haldol Decanoate 100 mg on May 22 4. Latuda 20 mg p.o. q.h.s. on May 24. On May 25 we are increasing up to 40 mg p.o. q.h.s. on May 28 we are increasing up to 60 mg p.o. q.h.s. and encourage compliance but she has consistently refused this medication so we discontinued. 5. Increase Haldol up to 10 mg p.o. b.i.d. 6. We are contacting the staff of the detention to find out if she has ever taking Abilify. 7. On June 12 the patient agreed to take like to the night 20 mg daily. We are increasing Latuda up to 40 mg on June 21. Reason for continued inpatient stay Substantial Risk for: inability to function, rapid decompensation and med/psych decompensation Time Spent With Patient Time: Total time managing care of this patient today _20___ minutes.
[2023-06-20 15:27] LABS: COVID-19 Test Negative (Negative); IDNOW Serial# 9DB6401D
[2023-06-20] MEDS: HaloperidoL 5 MG TABLET 10 MG PO (20:13)
[2023-06-21 07:00] VITALS: BMI 27.8
[2023-06-21 07:45] VITALS: BP 140/69; PULSE 70; RESP 18; TEMP 36.8; O2SAT 95
[2023-06-21] MEDS: Lurasidone HCl 40 MG TABLET PO (08:31)
[2023-06-21] MEDS: HaloperidoL 5 MG TABLET PO (08:31)
--- NOTE | 2023-06-21 09:21 | P.PNPSI_ITS ---
Subjective Subjective Date of Service: 06/21/23 Reason For Visit: Schizophrenia Subjective Notes: [facility]ins Order and Conditional Voluntary Interim History: The nursing staff reported the patient had been compliant with Latuda 40 today she slept well last night. On interview the patient denies new symptoms, isolative still psychotic. Mental Status Exam Mental Status Exam Patient Appearance: Appropriate Patient Orientation: Person Level of Consciousness: Awake Patient Behavior: Guarded and Passive Mood Description: Withdrawn Affect Description: Constricted Patient Cognition Impaired: Yes Ability to Follow Directions: Good Speech Pattern: Clear Hallucinations: Auditory Delusions: Paranoid Ideation and Ideas of Reference Thought Process: Illogical, Distracted and Slowed Thinking Thought Content: positive for [place] and positive for Poverty of Content Judgement: Poor Diagnostics Vital Signs (24Hr): Vital Signs - 24 hr 06/21/23 07:45 Temperature 98.2 F Pulse Rate 70 Respiratory Rate 18 Blood Pressure 140/69 H Pulse Oximetry 95 Oxygen Delivery Method Room Air BMI result Body Mass Index 29.1 Labs Labs: Laboratory Results - last 48 hr 06/20/23 15:00 COVID-19 ([facility]) Negative COVID-19 Clin Com See Note Medications Medications Current Medications Acetaminophen (Acetaminophen 325 Mg Tablet) 650 mg PO Q6H PRN PRN Reason: Headache/Pain Mild Scale (1-3) Al Hydroxide/Mg Hydroxide (Magnesium Hydrox/Alum Hydrox 30 Ml Oral.Susp) 30 ml PO Q6H PRN PRN Reason: Heartburn/Nausea Clotrimazole (Clotrimazole 1 % Cream 15 Gm Tube) 1 appl TOPICAL BID JOSE GUADALUPE; Protocol Last Admin: 06/20/23 20:17 Dose: 1 appl Haloperidol (Haloperidol 5 Mg Tablet) 5 mg PO Q4H PRN PRN Reason: agitation Haloperidol (Haloperidol 5 Mg Tablet) 10 mg PO BEDTIME JOSE GUADALUPE Last Admin: 06/20/23 20:13 Dose: 10 mg Haloperidol (Haloperidol 5 Mg Tablet) 5 mg PO DAILY JOSE GUADALUPE Last Admin: 06/21/23 08:31 Dose: 5 mg Haloperidol Lactate (Haloperidol Lactate 5 Mg/Ml Vial) 5 mg IM BID PRN PRN Reason: REFUSAL OF PO Last Admin: 05/20/23 08:43 Dose: 5 mg Hydrocortisone (Hydrocortisone 1 % Cream 28.35 Gm Tube) 1 appl TOPICAL BID PRN; Protocol PRN Reason: Rash Last Admin: 06/18/23 09:10 Dose: 1 appl Ibuprofen (Ibuprofen 400 Mg Tablet) 400 mg PO Q4H PRN PRN Reason: Pain, Mild (Pain Scale 1-3) Lurasidone HCl (Lurasidone Hcl 40 Mg Tablet) 40 mg PO DAILY JOSE GUADALUPE Last Admin: 06/21/23 08:31 Dose: 40 mg Magnesium Hydroxide (Milk Of Magnesia 30 Ml Oral.Susp) 30 ml PO DAILY PRN PRN Reason: Constipation Trazodone HCl (Trazodone Hcl 25 Mg Halftab) 25 mg PO BEDTIME MRX1 PRN PRN Reason: Insomnia Allergies Allergies Allergy/AdvReac Type Severity Reaction Status Date / Time onion Allergy Unknown Unknown Verified 05/11/23 22:53 Assessment & Plan Assessment & Plan (1) Schizophrenia, chronic condition: Status: Acute Code(s): F20.9 - Schizophrenia, unspecified Plan Pt is a 72-year-old female with a PMH significant for?HTN, GERD, and schizophrenia who is admitted to [facility] for increased aggression after a non compliant her psychiatric medications. Patient lives at a senior care but has recently become disorganized with delusions and increased aggression after refusing to take her medications despite a [facility]iggins order. Medical consult for admission H&P. 06/09 continue current treatment plan 06/10 continue current tx plan 06/19 continue tx. Plan 1. Gather collateral information, will try to contact the staff on the senior care for further details on the last Haldol Decanoate. 2. Continue with medications as per court order. 3. Haldol Decanoate 100 mg on May 22 4. Latuda 20 mg p.o. q.h.s. on May 24. On May 25 we are increasing up to 40 mg p.o. q.h.s. on May 28 we are increasing up to 60 mg p.o. q.h.s. and encourage compliance but she has consistently refused this medication so we discontinued. 5. Increase Haldol up to 10 mg p.o. b.i.d. 6. We are contacting the staff of the senior care to find out if she has ever taking Abilify. 7. On June 12 the patient agreed to take like to the night 20 mg daily. We are increasing Latuda up to 40 mg on June 21. Reason for continued inpatient stay Substantial Risk for: inability to function, rapid decompensation and med/psych decompensation Time Spent With Patient Time: Total time managing care of this patient today __20__ minutes.
[2023-06-21] MEDS: Clotrimazole 1 % Cream 15 GM TUBE 1 APPL TOPICAL ×2 (09:44→20:48)
[2023-06-21 19:30] VITALS: BP 144/76; PULSE 57; RESP 18; TEMP 36.4; O2SAT 96
[2023-06-21] MEDS: HaloperidoL 5 MG TABLET 10 MG PO (20:43)
[2023-06-22 07:55] VITALS: BP 127/64; PULSE 92; RESP 18; TEMP 36.6; O2SAT 98
[2023-06-22] MEDS: HaloperidoL 5 MG TABLET PO (08:43)
[2023-06-22] MEDS: Hydrocortisone 1 % Cream 28.35 GM TUBE 1 APPL TOPICAL (09:28)
[2023-06-22 10:18] LABS: COVID-19 Test Negative (Negative); IDNOW Serial# 9DB6401D
--- NOTE | 2023-06-22 12:29 | HO.PSYCHPN ---
Subjective Subjective Date of Service: 06/22/23 Reason For Visit: Schizophrenia Subjective Notes: [facility]ins Order and Conditional Voluntary Interim History: The nursing staff reported the patient had been compliant with treatment, no changes in her mental status. On interview the patient is slightly brighter, she reports sporadic auditory hallucinations. More engaged in conversation. No side effects with current treatment. Mental Status Exam Mental Status Exam Patient Appearance: Appropriate Patient Orientation: Person and Situation Level of Consciousness: Awake and Appropriate Patient Behavior: Guarded and Passive Mood Description: Withdrawn Affect Description: Constricted Patient Cognition Impaired: Yes Ability to Follow Directions: Good Speech Pattern: Clear Hallucinations: None Delusions: Paranoid Ideation Thought Process: Distracted and Slowed Thinking Thought Content: positive for [place] and positive for Poverty of Content Judgement: Poor Diagnostics Vital Signs (24Hr): Vital Signs - 24 hr 06/21/23 19:30 06/22/23 07:55 Temperature 97.5 F 97.9 F Pulse Rate 57 92 Respiratory Rate 18 18 Blood Pressure 144/76 H 127/64 Pulse Oximetry 96 98 Oxygen Delivery Method Room Air Room Air BMI result Body Mass Index 27.8 Labs Labs: Laboratory Results - last 48 hr 06/20/23 06/22/23 15:00 09:40 COVID-19 ([facility]) Negative Negative COVID-19 Clin Com See Note See Note Medications Medications Current Medications Acetaminophen (Acetaminophen 325 Mg Tablet) 650 mg PO Q6H PRN PRN Reason: Headache/Pain Mild Scale (1-3) Al Hydroxide/Mg Hydroxide (Magnesium Hydrox/Alum Hydrox 30 Ml Oral.Susp) 30 ml PO Q6H PRN PRN Reason: Heartburn/Nausea Clotrimazole (Clotrimazole 1 % Cream 15 Gm Tube) 1 appl TOPICAL BID JOSE GUADALUPE; Protocol Last Admin: 06/22/23 09:11 Dose: Not Given Haloperidol (Haloperidol 5 Mg Tablet) 5 mg PO Q4H PRN PRN Reason: agitation Haloperidol (Haloperidol 5 Mg Tablet) 10 mg PO BEDTIME JOSE GUADALUPE Last Admin: 06/21/23 20:43 Dose: 10 mg Haloperidol (Haloperidol 5 Mg Tablet) 5 mg PO DAILY JOSE GUADALUPE Last Admin: 06/22/23 08:43 Dose: 5 mg Haloperidol Lactate (Haloperidol Lactate 5 Mg/Ml Vial) 5 mg IM BID PRN PRN Reason: REFUSAL OF PO Last Admin: 05/20/23 08:43 Dose: 5 mg Hydrocortisone (Hydrocortisone 1 % Cream 28.35 Gm Tube) 1 appl TOPICAL BID PRN; Protocol PRN Reason: Rash Last Admin: 06/22/23 09:28 Dose: 1 appl Ibuprofen (Ibuprofen 400 Mg Tablet) 400 mg PO Q4H PRN PRN Reason: Pain, Mild (Pain Scale 1-3) Lurasidone HCl (Lurasidone Hcl 20 Mg Tablet) 60 mg PO DAILY JOSE GUADALUPE Last Admin: 06/22/23 09:18 Dose: Not Given Magnesium Hydroxide (Milk Of Magnesia 30 Ml Oral.Susp) 30 ml PO DAILY PRN PRN Reason: Constipation Trazodone HCl (Trazodone Hcl 25 Mg Halftab) 25 mg PO BEDTIME MRX1 PRN PRN Reason: Insomnia Allergies Allergies Allergy/AdvReac Type Severity Reaction Status Date / Time onion Allergy Unknown Unknown Verified 05/11/23 22:53 Assessment & Plan Assessment & Plan (1) Schizophrenia, chronic condition: Status: Acute Code(s): F20.9 - Schizophrenia, unspecified Plan Pt is a 72-year-old female with a PMH significant for?HTN, GERD, and schizophrenia who is admitted to [facility] for increased aggression after a non compliant her psychiatric medications. [facility] but has recently become disorganized with delusions and increased aggression after refusing to take her medications despite a [facility]iggins order. Medical consult for admission H&P. 06/09 continue current treatment plan 06/10 continue current tx plan 06/19 continue tx. Plan 1. Gather collateral information, will try to contact the staff on the [facility]iary for further details on the last Haldol Decanoate. 2. Continue with medications as per court order. 3. Haldol Decanoate 100 mg on May 22 4. Latuda 20 mg p.o. q.h.s. on May 24. On May 25 we are increasing up to 40 mg p.o. q.h.s. on May 28 we are increasing up to 60 mg p.o. q.h.s. and encourage compliance but she has consistently refused this medication so we discontinued. 5. Increase Haldol up to 10 mg p.o. b.i.d. 6. We are contacting the staff of the penitentiary to find out if she has ever taking Abilify. 7. On June 12 the patient agreed to take like to the night 20 mg daily. We are increasing Latuda up to 40 mg on June 21. On June 22 we increased Latuda up to 60 mg p.o. daily. Reason for continued inpatient stay Substantial Risk for: inability to function, rapid decompensation and med/psych decompensation Time Spent With Patient Time: Total time managing care of this patient today __20__ minutes.
--- NOTE | 2023-06-22 15:30 | PC.NURSE ---
Patient tested Covid negative today.
[2023-06-22 18:00] VITALS: RESP 16; TEMP 36.1
[2023-06-22] MEDS: HaloperidoL 5 MG TABLET 10 MG PO (20:36)
[2023-06-22] MEDS: Clotrimazole 1 % Cream 15 GM TUBE 1 APPL TOPICAL (20:37)
[2023-06-23 06:00] VITALS: PULSE 62; RESP 16; TEMP 36.4; O2SAT 94
--- NOTE | 2023-06-23 07:41 | HO.PSYCHPN ---
Subjective Subjective Date of Service: 06/23/23 Reason For Visit: Schizophrenia Subjective Notes: [facility]ins Order Healthcare Proxy: No Medical Problems Affecting Mental Status: No Interim History: I have amnesia when asked about last pm sleep though says she slept 5 hrs, also didn't want to repeat sys she already told nurse Nursing reports pt is isolative, self dialoguing in her room- believes there is poison in the water, though nursing reports she is eating and drinking ok - (has to have bottled water) Medication Compliance: Yes Side effects from medications: No Attending Groups: Intermittent Review of Systems Acute medical concerns: No Medical Review of Systems: unchanged Mental Status Exam Mental Status Exam Patient Appearance: Appropriate Patient Orientation: Person and Situation Level of Consciousness: Awake and Appropriate Patient Behavior: Guarded and Passive Mood Description: Withdrawn Affect Description: Constricted Patient Cognition Impaired: Yes Ability to Follow Directions: Good Speech Pattern: Clear Hallucinations: None Delusions: Paranoid Ideation Thought Process: Distracted and Slowed Thinking Thought Content: positive for [place] and positive for Poverty of Content Judgement: Poor Diagnostics Vital Signs (24Hr): Vital Signs - 24 hr 06/22/23 07:55 06/22/23 18:00 Temperature 97.9 F 97 F Pulse Rate 92 Respiratory Rate 18 16 Blood Pressure 127/64 Pulse Oximetry 98 Oxygen Delivery Method Room Air BMI result Body Mass Index 27.8 Labs Labs: Laboratory Results - last 48 hr 06/22/23 09:40 COVID-19 ([facility]) Negative COVID-19 Clin Com See Note EKG EKG: other (none on file will order) Medications Medications Current Medications Acetaminophen (Acetaminophen 325 Mg Tablet) 650 mg PO Q6H PRN PRN Reason: Headache/Pain Mild Scale (1-3) Al Hydroxide/Mg Hydroxide (Magnesium Hydrox/Alum Hydrox 30 Ml Oral.Susp) 30 ml PO Q6H PRN PRN Reason: Heartburn/Nausea Clotrimazole (Clotrimazole 1 % Cream 15 Gm Tube) 1 appl TOPICAL BID JOSE GUADALUPE; Protocol Last Admin: 06/22/23 20:37 Dose: 1 appl Haloperidol (Haloperidol 5 Mg Tablet) 5 mg PO Q4H PRN PRN Reason: agitation Haloperidol (Haloperidol 5 Mg Tablet) 10 mg PO BEDTIME JOSE GUADALUPE Last Admin: 06/22/23 20:36 Dose: 10 mg Haloperidol (Haloperidol 5 Mg Tablet) 5 mg PO DAILY JOSE GUADALUPE Last Admin: 06/22/23 08:43 Dose: 5 mg Haloperidol Lactate (Haloperidol Lactate 5 Mg/Ml Vial) 5 mg IM BID PRN PRN Reason: REFUSAL OF PO Last Admin: 05/20/23 08:43 Dose: 5 mg Hydrocortisone (Hydrocortisone 1 % Cream 28.35 Gm Tube) 1 appl TOPICAL BID PRN; Protocol PRN Reason: Rash Last Admin: 06/22/23 09:28 Dose: 1 appl Ibuprofen (Ibuprofen 400 Mg Tablet) 400 mg PO Q4H PRN PRN Reason: Pain, Mild (Pain Scale 1-3) Lurasidone HCl (Lurasidone Hcl 20 Mg Tablet) 60 mg PO DAILY JOSE GUADALUPE Last Admin: 06/22/23 09:18 Dose: Not Given Magnesium Hydroxide (Milk Of Magnesia 30 Ml Oral.Susp) 30 ml PO DAILY PRN PRN Reason: Constipation Trazodone HCl (Trazodone Hcl 25 Mg Halftab) 25 mg PO BEDTIME MRX1 PRN PRN Reason: Insomnia Allergies Allergies Allergy/AdvReac Type Severity Reaction Status Date / Time onion Allergy Unknown Unknown Verified 05/11/23 22:53 Assessment & Plan Assessment & Plan (1) Schizophrenia, chronic condition: Status: Acute Code(s): F20.9 - Schizophrenia, unspecified Plan Pt is a 72-year-old female with a PMH significant for?HTN, GERD, and schizophrenia who is admitted to [facility] for increased aggression after a non compliant her psychiatric medications. Patient lives [place] [facility] but has recently become disorganized with delusions and increased aggression after refusing to take her medications despite a Riggins order. Medical consult for admission H&P. 06/09 continue current treatment plan 06/10 continue current tx plan 06/19 continue tx. 06/23 CTP Plan 1. Gather collateral information, will try to contact the staff on the [place] [facility] for further details on the last Haldol Decanoate. 2. Continue with medications as per court order. 3. Haldol Decanoate 100 mg on May 22 4. Latuda 20 mg p.o. q.h.s. on May 24. On May 25 we are increasing up to 40 mg p.o. q.h.s. on May 28 we are increasing up to 60 mg p.o. q.h.s. and encourage compliance but she has consistently refused this medication so we discontinued. 5. Increase Haldol up to 10 mg p.o. b.i.d. 6. We are contacting the staff of the [place] [facility] to find out if she has ever taking Abilify. 7. On June 12 the patient agreed to take like to the night 20 mg daily. We are increasing Latuda up to 40 mg on June 21. On June 22 we increased Latuda up to 60 mg p.o. daily. Patient educated on: other Informed Consent: further education needed Reason for continued inpatient stay Substantial Risk for: inability to function and med/psych decompensation Time Spent With Patient Time: Total time managing care of this patient today ____ minutes.
[2023-06-23] MEDS: Lurasidone HCl 20 MG TABLET 60 MG PO (08:54)
[2023-06-23] MEDS: HaloperidoL 5 MG TABLET PO (08:55)
[2023-06-23 18:00] VITALS: PULSE 75; RESP 16; TEMP 36.4; O2SAT 92
[2023-06-23] MEDS: HaloperidoL 5 MG TABLET 10 MG PO (20:14)
[2023-06-24 06:00] VITALS: PULSE 64; RESP 18; TEMP 36.6; O2SAT 93
[2023-06-24] MEDS: HaloperidoL 5 MG TABLET PO (07:50)
[2023-06-24] MEDS: Lurasidone HCl 20 MG TABLET 60 MG PO (07:50)
[2023-06-24 08:32] LABS: COVID-19 Test Negative (Negative); IDNOW Serial# 08D9AD1C
--- NOTE | 2023-06-24 16:21 | P.PNPSI_ITS ---
Subjective Subjective Date of Service: 06/24/23 Reason For Visit: Schizophrenia Subjective Notes: Conditional Voluntary Interim History: Refused BP because she thinks it is somehow monitored electronically- Isolative- I ordered EKG but nursing pretty sure she will not cooperate- ONly intermittently coming out of room with outbursts- continue concerning poisoning Refused to speak with provider this am Medication Compliance: Yes Side effects from medications: No Attending Groups: No Review of Systems Acute medical concerns: No Medical Review of Systems: unchanged Mental Status Exam Mental Status Exam Patient Appearance: Fatigued and Disheveled Patient Orientation: Person and Situation Level of Consciousness: Drowsy and Inappropriate Patient Behavior: Resistive to Care, Uncooperative and Poor Eye Contact Mood Description: Suspicious and Withdrawn Affect Description: Blunted Patient Cognition Impaired: No Ability to Follow Directions: Poor Speech Pattern: Mumbled Delusions: Paranoid Ideation Depressive Symptoms: Increased Irritability Judgement: Poor Diagnostics Vital Signs (24Hr): Vital Signs - 24 hr 06/23/23 18:00 06/24/23 06:00 Temperature 97.5 F 97.9 F Pulse Rate 75 64 Respiratory Rate 16 18 Pulse Oximetry 92 93 Oxygen Delivery Method Room Air BMI result Body Mass Index 27.8 Labs Labs: Laboratory Results - last 48 hr 06/24/23 07:40 COVID-19 ([facility]) Negative COVID-19 Clin Com See Note Medications Medications Current Medications Acetaminophen (Acetaminophen 325 Mg Tablet) 650 mg PO Q6H PRN PRN Reason: Headache/Pain Mild Scale (1-3) Al Hydroxide/Mg Hydroxide (Magnesium Hydrox/Alum Hydrox 30 Ml Oral.Susp) 30 ml PO Q6H PRN PRN Reason: Heartburn/Nausea Clotrimazole (Clotrimazole 1 % Cream 15 Gm Tube) 1 appl TOPICAL BID [facility]SE [facility]; Protocol Last Admin: 06/24/23 08:19 Dose: Not Given Haloperidol (Haloperidol 5 Mg Tablet) 5 mg PO Q4H PRN PRN Reason: agitation Haloperidol (Haloperidol 5 Mg Tablet) 10 mg PO BEDTIME [facility] Last Admin: 06/23/23 20:14 Dose: 10 mg Haloperidol (Haloperidol 5 Mg Tablet) 5 mg PO DAILY [facility] Last Admin: 06/24/23 07:50 Dose: 5 mg Haloperidol Lactate (Haloperidol Lactate 5 Mg/Ml Vial) 5 mg IM BID PRN PRN Reason: REFUSAL OF PO Last Admin: 05/20/23 08:43 Dose: 5 mg Hydrocortisone (Hydrocortisone 1 % Cream 28.35 Gm Tube) 1 appl TOPICAL BID PRN; Protocol PRN Reason: Rash Last Admin: 06/22/23 09:28 Dose: 1 appl Ibuprofen (Ibuprofen 400 Mg Tablet) 400 mg PO Q4H PRN PRN Reason: Pain, Mild (Pain Scale 1-3) Lurasidone HCl (Lurasidone Hcl 20 Mg Tablet) 60 mg PO DAILY [facility] Last Admin: 06/24/23 07:50 Dose: 60 mg Magnesium Hydroxide (Milk Of Magnesia 30 Ml Oral.Susp) 30 ml PO DAILY PRN PRN Reason: Constipation Trazodone HCl (Trazodone Hcl 25 Mg Halftab) 25 mg PO BEDTIME MRX1 PRN PRN Reason: Insomnia Allergies Allergies Allergy/AdvReac Type Severity Reaction Status Date / Time onion Allergy Unknown Unknown Verified 05/11/23 22:53 Assessment & Plan Assessment & Plan (1) Schizophrenia, chronic condition: Status: Acute Code(s): F20.9 - Schizophrenia, unspecified Plan Pt is a 72-year-old female with a PMH significant for?HTN, GERD, and schizoph felix who is admitted to [facility] for increased aggression after a non compliant her psychiatric medications. Patient lives at a residential but has recently become disorganized with delusions and increased aggression after refusing to take her medications despite a [facility] order. Medical consult for admission H&P. 06/09 continue current treatment plan 06/10 continue current tx plan 06/19 continue tx. 06/23 CTP 06/24 doesn't seem to be getting better with dec haldol in [facility]- maybe inc ? haldol back up until [facility] has chance to build up. Plan 1. Gather collateral information, will try to contact the staff on the residential for further details on the last Haldol Decanoate. 2. Continue with medications as per court order. 3. Haldol Decanoate 100 mg on May 22 4. Latuda 20 mg p.o. q.h.s. on May 24. On May 25 we are increasing up to 40 mg p.o. q.h.s. on May 28 we are increasing up to 60 mg p.o. q.h.s. and encourage compliance but she has consistently refused this medication so we discontinued. 5. Increase Haldol up to 10 mg p.o. b.i.d. 6. We are contacting the staff of the residential to find out if she has ever taking Abilify. 7. On June 12 the patient agreed to take like to the night 20 mg daily. We are increasing Latuda up to 40 mg on June 21. On June 22 we increased Latuda up to 60 mg p.o. daily. Informed Consent: does not understand Reason for continued inpatient stay Substantial Risk for: rapid decompensation Time Spent With Patient Time: Total time managing care of this patient today ____ minutes.
[2023-06-24 17:42] VITALS: PULSE 66; RESP 16; TEMP 36.2; O2SAT 95
[2023-06-24] MEDS: HaloperidoL 5 MG TABLET 15 MG PO (20:31)
[2023-06-25] MEDS: Lurasidone HCl 20 MG TABLET 60 MG PO (07:45)
[2023-06-25] MEDS: HaloperidoL 5 MG TABLET PO (07:58)
--- NOTE | 2023-06-25 10:55 | P.PNPSI_ITS ---
Subjective Subjective Date of Service: 06/25/23 Reason For Visit: Schizophrenia Subjective Notes: Conditional Voluntary Medical Problems Affecting Mental Status: No Interim History: 72 yo with less irritability today- engaging in group - sensory OT social with peers , less annoyed by staff- ongoing paranoid ideation believes we can monitor her blood pressure through some electronics on the unit. Pt got 15mg haldol last pm instead of 10mg Medication Compliance: Yes Side effects from medications: No Attending Groups: Intermittent Review of Systems Acute medical concerns: No Medical Review of Systems: unchanged Mental Status Exam Mental Status Exam Narrative: dressed in kerry more engaged with provider, I have not much more to say after speaking to one staff person Patient Appearance: Unkempt Patient Orientation: Person, Place and Situation Level of Consciousness: Awake and Alert Mood Description: Calm Affect Description: Blunted Delusions: Paranoid Ideation Thought Content: positive for Intact and positive for Goal Oriented Judgement: Fair Diagnostics Vital Signs (24Hr): Vital Signs - 24 hr 06/24/23 17:42 Temperature 97.1 F Pulse Rate 66 Respiratory Rate 16 Pulse Oximetry 95 Oxygen Delivery Method Room Air BMI result Body Mass Index 27.8 Labs Labs: Laboratory Results - last 48 hr 06/24/23 07:40 COVID-19 ([facility]) Negative COVID-19 Clin Com See Note Medications Medications Current Medications Acetaminophen (Acetaminophen 325 Mg Tablet) 650 mg PO Q6H PRN PRN Reason: Headache/Pain Mild Scale (1-3) Al Hydroxide/Mg Hydroxide (Magnesium Hydrox/Alum Hydrox 30 Ml Oral.Susp) 30 ml PO Q6H PRN PRN Reason: Heartburn/Nausea Clotrimazole (Clotrimazole 1 % Cream 15 Gm Tube) 1 appl TOPICAL BID JOSE [facility]ALU[facility]; Protocol Last Admin: 06/25/23 07:58 Dose: Not Given Haloperidol (Haloperidol 5 Mg Tablet) 5 mg PO Q4H PRN PRN Reason: agitation Haloperidol (Haloperidol 5 Mg Tablet) 5 mg PO DAILY [facility] Last Admin: 06/25/23 07:58 Dose: 5 mg Haloperidol (Haloperidol 5 Mg Tablet) 15 mg PO BEDTIME JO[facility]ALU[facility] Last Admin: 06/24/23 20:31 Dose: 15 mg Haloperidol Lactate (Haloperidol Lactate 5 Mg/Ml Vial) 5 mg IM BID PRN PRN Reason: REFUSAL OF PO Last Admin: 05/20/23 08:43 Dose: 5 mg Hydrocortisone (Hydrocortisone 1 % Cream 28.35 Gm Tube) 1 appl TOPICAL BID PRN; Protocol PRN Reason: Rash Last Admin: 06/22/23 09:28 Dose: 1 appl Ibuprofen (Ibuprofen 400 Mg Tablet) 400 mg PO Q4H PRN PRN Reason: Pain, Mild (Pain Scale 1-3) Lurasidone HCl (Lurasidone Hcl 20 Mg Tablet) 60 mg PO DAILY [facility] Last Admin: 06/25/23 07:45 Dose: 60 mg Magnesium Hydroxide (Milk Of Magnesia 30 Ml Oral.Susp) 30 ml PO DAILY PRN PRN Reason: Constipation Trazodone HCl (Trazodone Hcl 25 Mg Halftab) 25 mg PO BEDTIME MRX1 PRN PRN Reason: Insomnia Allergies Allergies Allergy/AdvReac Type Severity Reaction Status Date / Time onion Allergy Unknown Unknown Verified 05/11/23 22:53 Assessment & Plan Assessment & Plan (1) Schizophrenia, chronic condition: Status: Acute Code(s): F20.9 - Schizophrenia, unspecified Plan Pt is a 72-year-old female with a PMH significant for?HTN, GERD, and schizophrenia who is admitted to [facility] for increased aggression after a non compliant her psychiatric medications. Patient lives at a assisted but has recently become disorganized with delusions and increased aggression after refusing to take her medications despite a [facility] order. Medical consult for admission H&P. 06/09 continue current treatment plan 06/10 continue current tx plan 06/19 continue tx. 06/23 CTP 06/24 doesn't seem to be getting better with dec haldol in [place]- maybe [place] ? haldol back up until [place] has chance to build up. 06/25/23 better with inc haldol to 15mg last pm ? or just further along on medications- CTP for another week continue haldol 15mg then dec back to 10mg Plan 1. Gather collateral information, will try to contact the staff on the assisted for further details on the last Haldol Decanoate. 2. Continue with medications as per court order. 3. Haldol Decanoate 100 mg on May 22 4. Latuda 20 mg p.o. q.h.s. on May 24. On May 25 we are increasing up to 40 mg p.o. q.h.s. on May 28 we are increasing up to 60 mg p.o. q.h.s. and encourage compliance but she has consistently refused this medication so we discontinued. 5. Increase Haldol up to 10 mg p.o. b.i.d. 6. We are contacting the staff of the assisted to find out if she has ever taking Abilify. 7. On June 12 the patient agreed to take like to the night 20 mg daily. We are increasing Latuda up to 40 mg on June 21. On June 22 we increased Latuda up to 60 mg p.o. daily. Patient educated on: medication risk/benefits Informed Consent: further education needed Reason for continued inpatient stay Substantial Risk for: rapid decompensation Time Spent With Patient Time: Total time managing care of this patient today ____ minutes.
[2023-06-25 18:00] VITALS: PULSE 56; RESP 18; TEMP 36.2; O2SAT 92
[2023-06-25] MEDS: HaloperidoL 5 MG TABLET 15 MG PO (20:17)
[2023-06-26] MEDS: HaloperidoL 5 MG TABLET PO (08:52)
[2023-06-26] MEDS: Lurasidone HCl 20 MG TABLET 60 MG PO (08:52)
--- NOTE | 2023-06-26 11:20 | HO.PSYCHPN ---
Subjective Subjective Date of Service: 06/26/23 Reason For Visit: Schizophrenia Subjective Notes: [facility]ins Order and Conditional Voluntary Interim History: The nursing staff reported that the patient is visible for meals, she is usually seclusive in her room. The nursing staff reported the patient had been compliant with treatment, she had been taking her Latuda 60 mg every day. On interview the patient denies new symptoms she looks internally preoccupied but much better. Mental Status Exam Mental Status Exam Patient Appearance: Appropriate Patient Orientation: Person Level of Consciousness: Awake Patient Behavior: Guarded and Passive Mood Description: Withdrawn Affect Description: Constricted Patient Cognition Impaired: Yes Ability to Follow Directions: Good Speech Pattern: Clear Hallucinations: None Delusions: Paranoid Ideation Thought Process: Distracted Thought Content: positive for [place] and positive for Poverty of Content Judgement: Poor Diagnostics Vital Signs (24Hr): Vital Signs - 24 hr 06/25/23 18:00 Temperature 97.2 F Pulse Rate 56 Respiratory Rate 18 Pulse Oximetry 92 Oxygen Delivery Method Room Air BMI result Body Mass Index 27.8 Medications Medications Current Medications Acetaminophen (Acetaminophen 325 Mg Tablet) 650 mg PO Q6H PRN PRN Reason: Headache/Pain Mild Scale (1-3) Al Hydroxide/Mg Hydroxide (Magnesium Hydrox/Alum Hydrox 30 Ml Oral.Susp) 30 ml PO Q6H PRN PRN Reason: Heartburn/Nausea Clotrimazole (Clotrimazole 1 % Cream 15 Gm Tube) 1 appl TOPICAL BID [facility]ADALU[facility]; Protocol Last Admin: 06/26/23 08:57 Dose: Not Given Haloperidol (Haloperidol 5 Mg Tablet) 5 mg PO Q4H PRN PRN Reason: agitation Haloperidol (Haloperidol 5 Mg Tablet) 5 mg PO DAILY [facility] Last Admin: 06/26/23 08:52 Dose: 5 mg Haloperidol (Haloperidol 5 Mg Tablet) 15 mg PO BEDTIME JO[facility] GUADALU[facility] Last Admin: 06/25/23 20:17 Dose: 15 mg Haloperidol Lactate (Haloperidol Lactate 5 Mg/Ml Vial) 5 mg IM BID PRN PRN Reason: REFUSAL OF PO Last Admin: 05/20/23 08:43 Dose: 5 mg Hydrocortisone (Hydrocortisone 1 % Cream 28.35 Gm Tube) 1 appl TOPICAL BID PRN; Protocol PRN Reason: Rash Last Admin: 06/22/23 09:28 Dose: 1 appl Ibuprofen (Ibuprofen 400 Mg Tablet) 400 mg PO Q4H PRN PRN Reason: Pain, Mild (Pain Scale 1-3) Lurasidone HCl (Lurasidone Hcl 20 Mg Tablet) 60 mg PO DAILY [facility]ALU[facility] Last Admin: 06/26/23 08:52 Dose: 60 mg Magnesium Hydroxide (Milk Of Magnesia 30 Ml Oral.Susp) 30 ml PO DAILY PRN PRN Reason: Constipation Trazodone HCl (Trazodone Hcl 25 Mg Halftab) 25 mg PO BEDTIME MRX1 PRN PRN Reason: Insomnia Allergies Allergies Allergy/AdvReac Type Severity Reaction Status Date / Time onion Allergy Unknown Unknown Verified 05/11/23 22:53 Assessment & Plan Assessment & Plan (1) Schizophrenia, chronic condition: Status: Acute Code(s): F20.9 - Schizophrenia, unspecified Plan Pt is a 72-year-old female with a PMH significant for?HTN, GERD, and schizophrenia who is admitted to [facility] for increased aggression after a non compliant her psychiatric medications. Patient lives at a nursing home but has recently become disorganized with delusions and increased aggression after refusing to take her medications despite a [facility] order. Medical consult for admission H&P. 06/09 continue current treatment plan 06/10 continue current tx plan 06/19 continue tx. 06/23 CTP 06/24 doesn't seem to be getting better with dec haldol in [place]- maybe inc ? haldol back up until [place] has chance to build up. 06/25/23 better with inc haldol to 15mg last pm ? or just further along on medications- CTP for another week continue haldol 15mg then dec back to 10mg Plan 1. Gather collateral information, will try to contact the staff on the nursing home for further details on the last Haldol Decanoate. 2. Continue with medications as per court order. 3. Haldol Decanoate 100 mg on May 22 4. Latuda 20 mg p.o. q.h.s. on May 24. On May 25 we are increasing up to 40 mg p.o. q.h.s. on May 28 we are increasing up to 60 mg p.o. q.h.s. and encourage compliance but she has consistently refused this medication so we discontinued. 5. Increase Haldol up to 10 mg p.o. b.i.d. 6. We are contacting the staff of the nursing home to find out if she has ever taking Abilify. 7. On June 12 the patient agreed to take like to the night 20 mg daily. We are increasing Latuda up to 40 mg on June 21. On June 22 we increased Latuda up to 60 mg p.o. daily. Reason for continued inpatient stay Substantial Risk for: inability to function, rapid decompensation and med/psych decompensation Time Spent With Patient Time: Total time managing care of this patient today __20__ minutes.
[2023-06-26 18:00] VITALS: RESP 16
[2023-06-26] MEDS: HaloperidoL 5 MG TABLET 15 MG PO (20:57)
[2023-06-27 00:58] LABS: COVID-19 Test Negative (Negative); IDNOW Serial# 08D9AD1C
[2023-06-27 08:10] VITALS: PULSE 50; RESP 18; TEMP 35.8; O2SAT 93
[2023-06-27] MEDS: HaloperidoL 5 MG TABLET PO (08:56)
[2023-06-27] MEDS: Lurasidone HCl 20 MG TABLET 60 MG PO (08:56)
--- NOTE | 2023-06-27 14:23 | HO.PSYCHPN ---
Subjective Subjective Date of Service: 06/27/23 Reason For Visit: Schizophrenia Subjective Notes: Conditional Voluntary Interim History: The nursing staff reported the patient remains most of the time in her room, with some the delusive thinking such as that people can read her mind. She is currently COVID negative. Today on rounds the oncology social worker reported she tried to contact the staff on the retirement so they come visit her and reassess her. On interview the patient denies new symptoms compliant with Latuda and Haldol, chronically psychotic but safe. Mental Status Exam Mental Status Exam Patient Appearance: Appropriate Patient Orientation: Person Level of Consciousness: Awake Patient Behavior: Guarded and Passive Mood Description: Withdrawn Affect Description: Constricted Patient Cognition Impaired: Yes Ability to Follow Directions: Good Speech Pattern: Clear Hallucinations: None Delusions: Ideas of Reference and Bizarre Thought Process: Distracted and Slowed Thinking Thought Content: positive for [place] and positive for Poverty of Content Judgement: Poor Diagnostics Vital Signs (24Hr): Vital Signs - 24 hr 06/26/23 18:00 06/27/23 08:10 Temperature 96.5 F L Pulse Rate 50 Respiratory Rate 16 18 Pulse Oximetry 93 Oxygen Delivery Method Room Air BMI result Body Mass Index 27.8 Labs Labs: Laboratory Results - last 48 hr 06/26/23 09:20 COVID-19 ([facility]) Negative COVID-19 Clin Com See Note Medications Medications Current Medications Acetaminophen (Acetaminophen 325 Mg Tablet) 650 mg PO Q6H PRN PRN Reason: Headache/Pain Mild Scale (1-3) Al Hydroxide/Mg Hydroxide (Magnesium Hydrox/Alum Hydrox 30 Ml Oral.Susp) 30 ml PO Q6H PRN PRN Reason: Heartburn/Nausea Clotrimazole (Clotrimazole 1 % Cream 15 Gm Tube) 1 appl TOPICAL BID [facility]; Protocol Last Admin: 06/27/23 08:59 Dose: Not Given Haloperidol (Haloperidol 5 Mg Tablet) 5 mg PO Q4H PRN PRN Reason: agitation Haloperidol (Haloperidol 5 Mg Tablet) 5 mg PO DAILY [facility] Last Admin: 06/27/23 08:56 Dose: 5 mg Haloperidol (Haloperidol 5 Mg Tablet) 15 mg PO BEDTIME [facility] Last Admin: 06/26/23 20:57 Dose: 15 mg Haloperidol Lactate (Haloperidol Lactate 5 Mg/Ml Vial) 5 mg IM BID PRN PRN Reason: REFUSAL OF PO Last Admin: 05/20/23 08:43 Dose: 5 mg Hydrocortisone (Hydrocortisone 1 % Cream 28.35 Gm Tube) 1 appl TOPICAL BID PRN; Protocol PRN Reason: Rash Last Admin: 06/22/23 09:28 Dose: 1 appl Ibuprofen (Ibuprofen 400 Mg Tablet) 400 mg PO Q4H PRN PRN Reason: Pain, Mild (Pain Scale 1-3) Lurasidone HCl (Lurasidone Hcl 20 Mg Tablet) 60 mg PO DAILY [facility]ALU[facility] Last Admin: 06/27/23 08:56 Dose: 60 mg Magnesium Hydroxide (Milk Of Magnesia 30 Ml Oral.Susp) 30 ml PO DAILY PRN PRN Reason: Constipation Trazodone HCl (Trazodone Hcl 25 Mg Halftab) 25 mg PO BEDTIME MRX1 PRN PRN Reason: Insomnia Allergies Allergies Allergy/AdvReac Type Severity Reaction Status Date / Time onion Allergy Unknown Unknown Verified 05/11/23 22:53 Assessment & Plan Assessment & Plan (1) Schizophrenia, chronic condition: Status: Acute Code(s): F20.9 - Schizophrenia, unspecified Plan Pt is a 72-year-old female with a PMH significant for?HTN, GERD, and schizophrenia who is admitted to [facility] for increased aggression after a non compliant her psychiatric medications. Patient lives at a retirement but has recently become disorganized with delusions and increased aggression after refusing to take her medications despite a [facility] order. Medical consult for admission H&P. 06/09 continue current treatment plan 06/10 continue current tx plan 06/19 continue tx. 06/23 CTP 06/24 doesn't seem to be getting better with dec haldol in [place]- maybe [place] ? haldol back up until [place] has chance to build up. 06/25/23 better with inc haldol to 15mg last pm ? or just further along on medications- CTP for another week continue haldol 15mg then dec back to 10mg Plan 1. Gather collateral information, will try to contact the staff on the retirement for further details on the last Haldol Decanoate. 2. Continue with medications as per court order. 3. Haldol Decanoate 100 mg on May 22 4. Latuda 20 mg p.o. q.h.s. on May 24. On May 25 we are increasing up to 40 mg p.o. q.h.s. on May 28 we are increasing up to 60 mg p.o. q.h.s. and encourage compliance but she has consistently refused this medication so we discontinued. 5. Increase Haldol up to 10 mg p.o. b.i.d. 6. We are contacting the staff of the retirement to find out if she has ever taking Abilify. 7. On June 12 the patient agreed to take like to the night 20 mg daily. We are increasing Latuda up to 40 mg on June 21. On June 22 we increased Latuda up to 60 mg p.o. daily. Reason for continued inpatient stay Substantial Risk for: inability to function, rapid decompensation and med/psych decompensation Time Spent With Patient Time: Total time managing care of this patient today __20__ minutes.
[2023-06-27 18:00] VITALS: PULSE 61; RESP 18; TEMP 35.9; O2SAT 93
[2023-06-27] MEDS: HaloperidoL 5 MG TABLET 15 MG PO (22:02)
[2023-06-28 08:20] VITALS: PULSE 55; RESP 16; TEMP 36.3; O2SAT 95
[2023-06-28] MEDS: Lurasidone HCl 20 MG TABLET 60 MG PO (08:43)
[2023-06-28] MEDS: HaloperidoL 5 MG TABLET PO (08:45)
--- NOTE | 2023-06-28 13:27 | HO.PSYCHPN ---
Subjective Subjective Date of Service: 06/28/23 Reason For Visit: Schizophrenia Subjective Notes: Riggins Order and Conditional Voluntary Interim History: The nursing staff reported the patient slept 8 hours he has been fully compliant with treatment. The social media content manager reported that she had been a little more active since Latuda was started the staff will meet her next Sunday. On interview the patient denies new symptoms, pleasant cooperative Mental Status Exam Mental Status Exam Patient Appearance: Appropriate Patient Orientation: Person and Situation Level of Consciousness: Awake and Appropriate Patient Behavior: Guarded and Passive Mood Description: Withdrawn Affect Description: Constricted Patient Cognition Impaired: Yes Ability to Follow Directions: Good Speech Pattern: Clear Hallucinations: None Delusions: Paranoid Ideation Thought Process: Distracted Thought Content: positive for [place] and positive for Poverty of Content Judgement: Fair Diagnostics Vital Signs (24Hr): Vital Signs - 24 hr 06/27/23 18:00 06/28/23 08:20 Temperature 96.7 F L 97.3 F Pulse Rate 61 55 Respiratory Rate 18 16 Pulse Oximetry 93 95 Oxygen Delivery Method Room Air Room Air BMI result Body Mass Index 27.8 Labs Labs: Laboratory Results - last 48 hr 06/26/23 09:20 COVID-19 ([facility]) Negative COVID-19 Clin Com See Note Medications Medications Current Medications Acetaminophen (Acetaminophen 325 Mg Tablet) 650 mg PO Q6H PRN PRN Reason: Headache/Pain Mild Scale (1-3) Al Hydroxide/Mg Hydroxide (Magnesium Hydrox/Alum Hydrox 30 Ml Oral.Susp) 30 ml PO Q6H PRN PRN Reason: Heartburn/Nausea Clotrimazole (Clotrimazole 1 % Cream 15 Gm Tube) 1 appl TOPICAL BID JOSE GUADALUPE; Protocol Last Admin: 06/28/23 08:46 Dose: Not Given Haloperidol (Haloperidol 5 Mg Tablet) 5 mg PO Q4H PRN PRN Reason: agitation Haloperidol (Haloperidol 5 Mg Tablet) 5 mg PO DAILY JOSE GUADALUPE Last Admin: 06/28/23 08:45 Dose: 5 mg Haloperidol (Haloperidol 5 Mg Tablet) 15 mg PO BEDTIME JOSE GUADALUPE Last Admin: 06/27/23 22:02 Dose: 15 mg Haloperidol Lactate (Haloperidol Lactate 5 Mg/Ml Vial) 5 mg IM BID PRN PRN Reason: REFUSAL OF PO Last Admin: 05/20/23 08:43 Dose: 5 mg Hydrocortisone (Hydrocortisone 1 % Cream 28.35 Gm Tube) 1 appl TOPICAL BID PRN; Protocol PRN Reason: Rash Last Admin: 06/22/23 09:28 Dose: 1 appl Ibuprofen (Ibuprofen 400 Mg Tablet) 400 mg PO Q4H PRN PRN Reason: Pain, Mild (Pain Scale 1-3) Lurasidone HCl (Lurasidone Hcl 20 Mg Tablet) 60 mg PO DAILY JOSE GUADALUPE Last Admin: 06/28/23 08:43 Dose: 60 mg Magnesium Hydroxide (Milk Of Magnesia 30 Ml Oral.Susp) 30 ml PO DAILY PRN PRN Reason: Constipation Trazodone HCl (Trazodone Hcl 25 Mg Halftab) 25 mg PO BEDTIME MRX1 PRN PRN Reason: Insomnia Allergies Allergies Allergy/AdvReac Type Severity Reaction Status Date / Time onion Allergy Unknown Unknown Verified 05/11/23 22:53 Assessment & Plan Assessment & Plan (1) Schizophrenia, chronic condition: Status: Acute Code(s): F20.9 - Schizophrenia, unspecified Plan Pt is a 72-year-old female with a PMH significant for?HTN, GERD, and schizophrenia who is admitted to [facility] for increased aggression after a non compliant her psychiatric medications. Patient lives at a snf but has recently become disorganized with delusions and increased aggression after refusing to take her medications despite a Riggins order. Medical consult for admission H&P. 06/09 continue current treatment plan 06/10 continue current tx plan 06/19 continue tx. 06/23 CTP 06/24 doesn't seem to be getting better with dec haldol in latuda- maybe inc ? haldol back up until latuda has chance to build up. 06/25/23 better with inc haldol to 15mg last pm ? or just further along on medications- CTP for another week continue haldol 15mg then dec back to 10mg Plan 1. Gather collateral information, will try to contact the staff on the snf for further details on the last Haldol Decanoate. 2. Continue with medications as per court order. 3. Haldol Decanoate 100 mg on May 22 4. Latuda 20 mg p.o. q.h.s. on May 24. On May 25 we are increasing up to 40 mg p.o. q.h.s. on May 28 we are increasing up to 60 mg p.o. q.h.s. and encourage compliance but she has consistently refused this medication so we discontinued. 5. Increase Haldol up to 10 mg p.o. b.i.d. 6. We are contacting the staff of the snf to find out if she has ever taking Abilify. 7. On June 12 the patient agreed to take like to the night 20 mg daily. We are increasing Latuda up to 40 mg on June 21. On June 22 we increased Latuda up to 60 mg p.o. daily. Reason for continued inpatient stay Substantial Risk for: inability to function, rapid decompensation and med/psych decompensation Time Spent With Patient Time: Total time managing care of this patient today __20__ minutes.
[2023-06-28 18:00] VITALS: PULSE 64; TEMP 36.2; O2SAT 94
[2023-06-28] MEDS: HaloperidoL 5 MG TABLET 15 MG PO (21:10)
[2023-06-29] MEDS: Lurasidone HCl 20 MG TABLET 60 MG PO (08:29)
[2023-06-29] MEDS: HaloperidoL 5 MG TABLET PO (08:29)
--- NOTE | 2023-06-29 08:56 | HO.PSYCHPN ---
Subjective Subjective Date of Service: 06/29/23 Reason For Visit: Schizophrenia Subjective Notes: Riggins Order and Conditional Voluntary Interim History: The nursing staff reported the patient had been in her room most of the time, she was compliant with her treatment. The occupational therapist reported that she went to groups only for 5 minutes went back. The social media project manager reported that the [facility] staff will visit her next Sunday and assess her to discuss the possibility of discharge planning. On interview the patient reports no new symptoms looks internally preoccupied, we are going to increase Latuda up to 80 mg p.o. daily. Mental Status Exam Mental Status Exam Patient Appearance: Appropriate Patient Orientation: Person Level of Consciousness: Awake Patient Behavior: Guarded and Passive Mood Description: Withdrawn Affect Description: Constricted Patient Cognition Impaired: Yes Ability to Follow Directions: Good Speech Pattern: Clear Hallucinations: None Delusions: Paranoid Ideation and Ideas of Reference Thought Process: Distracted and Slowed Thinking Thought Content: positive for [place] and positive for Circumstantial Judgement: Poor Diagnostics Vital Signs (24Hr): Vital Signs - 24 hr 06/28/23 18:00 Temperature 97.1 F Pulse Rate 64 Pulse Oximetry 94 Oxygen Delivery Method Room Air BMI result Body Mass Index 27.8 Medications Medications Current Medications Acetaminophen (Acetaminophen 325 Mg Tablet) 650 mg PO Q6H PRN PRN Reason: Headache/Pain Mild Scale (1-3) Al Hydroxide/Mg Hydroxide (Magnesium Hydrox/Alum Hydrox 30 Ml Oral.Susp) 30 ml PO Q6H PRN PRN Reason: Heartburn/Nausea Clotrimazole (Clotrimazole 1 % Cream 15 Gm Tube) 1 appl TOPICAL BID JOSE GUADALUPE; Protocol Last Admin: 06/29/23 08:32 Dose: Not Given Haloperidol (Haloperidol 5 Mg Tablet) 5 mg PO Q4H PRN PRN Reason: agitation Haloperidol (Haloperidol 5 Mg Tablet) 5 mg PO DAILY JOSE GUADALUPE Last Admin: 06/29/23 08:29 Dose: 5 mg Haloperidol (Haloperidol 5 Mg Tablet) 15 mg PO BEDTIME JOSE GUADALUPE Last Admin: 06/28/23 21:10 Dose: 15 mg Haloperidol Lactate (Haloperidol Lactate 5 Mg/Ml Vial) 5 mg IM BID PRN PRN Reason: REFUSAL OF PO Last Admin: 05/20/23 08:43 Dose: 5 mg Hydrocortisone (Hydrocortisone 1 % Cream 28.35 Gm Tube) 1 appl TOPICAL BID PRN; Protocol PRN Reason: Rash Last Admin: 06/22/23 09:28 Dose: 1 appl Ibuprofen (Ibuprofen 400 Mg Tablet) 400 mg PO Q4H PRN PRN Reason: Pain, Mild (Pain Scale 1-3) Lurasidone HCl (Lurasidone Hcl 80 Mg Tablet) 80 mg PO DAILY JOSE GUADALUPE Magnesium Hydroxide (Milk Of Magnesia 30 Ml Oral.Susp) 30 ml PO DAILY PRN PRN Reason: Constipation Trazodone HCl (Trazodone Hcl 25 Mg Halftab) 25 mg PO BEDTIME MRX1 PRN PRN Reason: Insomnia Allergies Allergies Allergy/AdvReac Type Severity Reaction Status Date / Time onion Allergy Unknown Unknown Verified 05/11/23 22:53 Assessment & Plan Assessment & Plan (1) Schizophrenia, chronic condition: Status: Acute Code(s): F20.9 - Schizophrenia, unspecified Plan Pt is a 72-year-old female with a PMH significant for?HTN, GERD, and schizophrenia who is admitted to [facility] for increased aggression after a non compliant her psychiatric medications. Patient lives at a [facility] but has recently become disorganized with delusions and increased aggression after refusing to take her medications despite a Riggins order. Medical consult for admission H&P. 06/09 continue current treatment plan 06/10 continue current tx plan 06/19 continue tx. 06/23 CTP 06/24 doesn't seem to be getting better with dec haldol in latuda- maybe inc ? haldol back up until latuda has chance to build up. 06/25/23 better with inc haldol to 15mg last pm ? or just further along on medications- CTP for another week continue haldol 15mg then dec back to 10mg Plan 1. Gather collateral information, will try to contact the staff on the [facility] for further details on the last Haldol Decanoate. 2. Continue with medications as per court order. 3. Haldol Decanoate 100 mg on May 22 4. Latuda 20 mg p.o. q.h.s. on May 24. On May 25 we are increasing up to 40 mg p.o. q.h.s. on May 28 we are increasing up to 60 mg p.o. q.h.s. and encourage compliance but she has consistently refused this medication so we discontinued. 5. Increase Haldol up to 10 mg p.o. b.i.d. 6. We are contacting the staff of the [facility] to find out if she has ever taking Abilify. 7. On June 12 the patient agreed to take like to the night 20 mg daily. We are increasing Latuda up to 40 mg on June 21. On June 22 we increased Latuda up to 60 mg p.o. daily. On June 29 we increase Latuda up to 80 mg p.o. daily Reason for continued inpatient stay Substantial Risk for: inability to function, rapid decompensation and med/psych decompensation Time Spent With Patient Time: Total time managing care of this patient today __20__ minutes.
[2023-06-29 18:00] VITALS: PULSE 78; RESP 16; O2SAT 92
[2023-06-29] MEDS: HaloperidoL 5 MG TABLET 15 MG PO (20:40)
[2023-06-30] MEDS: HaloperidoL 5 MG TABLET PO (08:51)
--- NOTE | 2023-06-30 12:32 | HO.PSYCHPN ---
Subjective Subjective Date of Service: 06/30/23 Reason For Visit: Schizophrenia Subjective Notes: Conditional Voluntary Medical Problems Affecting Mental Status: No Interim History: Met with patient. Discussed with Nursing. Chart reviewed. Overall has been very paranoid. With music writer she was extremely suspicious and asked music writer not to come into her room. Contemplated for a while, then stated she did not want to speak with music writer and would not engage. Has been accepting medications. Medication Compliance: Yes Side effects from medications: No Attending Groups: No Review of Systems Acute medical concerns: No Review of Systems Review of Systems Yes Unobtainable due to mental status Mental Status Exam Mental Status Exam Narrative: In room. Hospital clothing. Poor self-care. Very paranoid and suspicious. Would not engage in interview. Diagnostics Vital Signs (24Hr): Vital Signs - 24 hr 06/29/23 18:00 Pulse Rate 78 Respiratory Rate 16 Pulse Oximetry 92 Oxygen Delivery Method Room Air BMI result Body Mass Index 27.8 Medications Medications Current Medications Acetaminophen (Acetaminophen 325 Mg Tablet) 650 mg PO Q6H PRN PRN Reason: Headache/Pain Mild Scale (1-3) Al Hydroxide/Mg Hydroxide (Magnesium Hydrox/Alum Hydrox 30 Ml Oral.Susp) 30 ml PO Q6H PRN PRN Reason: Heartburn/Nausea Clotrimazole (Clotrimazole 1 % Cream 15 Gm Tube) 1 appl TOPICAL BID JOSE GUADALUPE; Protocol Last Admin: 06/30/23 10:02 Dose: Not Given Haloperidol (Haloperidol 5 Mg Tablet) 5 mg PO Q4H PRN PRN Reason: agitation Haloperidol (Haloperidol 5 Mg Tablet) 5 mg PO DAILY [facility] Last Admin: 06/30/23 08:51 Dose: 5 mg Haloperidol (Haloperidol 5 Mg Tablet) 15 mg PO BEDTIME JOSE GUADALUPE Last Admin: 06/29/23 20:40 Dose: 15 mg Haloperidol Lactate (Haloperidol Lactate 5 Mg/Ml Vial) 5 mg IM BID PRN PRN Reason: REFUSAL OF PO Last Admin: 05/20/23 08:43 Dose: 5 mg Hydrocortisone (Hydrocortisone 1 % Cream 28.35 Gm Tube) 1 appl TOPICAL BID PRN; Protocol PRN Reason: Rash Last Admin: 06/22/23 09:28 Dose: 1 appl Ibuprofen (Ibuprofen 400 Mg Tablet) 400 mg PO Q4H PRN PRN Reason: Pain, Mild (Pain Scale 1-3) Lurasidone HCl (Lurasidone Hcl 80 Mg Tablet) 80 mg PO DAILY JOSE GUADALUPE Last Admin: 06/30/23 08:51 Dose: 80 mg Magnesium Hydroxide (Milk Of Magnesia 30 Ml Oral.Susp) 30 ml PO DAILY PRN PRN Reason: Constipation Trazodone HCl (Trazodone Hcl 25 Mg Halftab) 25 mg PO BEDTIME MRX1 PRN PRN Reason: Insomnia Allergies Allergies Allergy/AdvReac Type Severity Reaction Status Date / Time onion Allergy Unknown Unknown Verified 05/11/23 22:53 Assessment & Plan Assessment & Plan (1) Schizophrenia, chronic condition: Status: Acute Code(s): F20.9 - Schizophrenia, unspecified Plan Pt is a 72-year-old female with a PMH significant for?HTN, GERD, and schizophrenia who is admitted to [facility] for increased aggression after a non compliant her psychiatric medications. [facility] but has recently become disorganized with delusions and increased aggression after refusing to take her medications despite a Riggins order. Medical consult for admission H&P. 06/09 continue current treatment plan 06/10 continue current tx plan 06/19 continue tx. 06/23 CTP 06/24 doesn't seem to be getting better with dec haldol in latuda- maybe inc ? haldol back up until latuda has chance to build up. 06/25/23 better with inc haldol to 15mg last pm ? or just further along on medications- CTP for another week continue haldol 15mg then dec back to 10mg Plan 06/30/2023: No changes to current treatment plan 1. Gather collateral information, will try to contact the staff [facility] the [facility] for further details on the last Haldol Decanoate. 2. Continue with medications as per court order. 3. Haldol Decanoate 100 mg on May 22 4. Latuda 20 mg p.o. q.h.s. on May 24. On May 25 we are increasing up to 40 mg p.o. q.h.s. on May 28 we are increasing up to 60 mg p.o. q.h.s. and encourage compliance but she has consistently refused this medication so we discontinued. 5. Increase Haldol up to 10 mg p.o. b.i.d. 6. We are contacting the staff of the penitentiary to find out if she has ever taking Abilify. 7. On June 12 the patient agreed to take like to the night 20 mg daily. We are increasing Latuda up to 40 mg on June 21. On June 22 we increased Latuda up to 60 mg p.o. daily. On June 29 we increase Latuda up to 80 mg p.o. daily Reason for continued inpatient stay Substantial Risk for: inability to function Time Spent With Patient Time: Total time managing care of this patient today ____ minutes.
[2023-06-30 18:00] VITALS: PULSE 62; RESP 16; O2SAT 94
[2023-06-30] MEDS: HaloperidoL 5 MG TABLET 15 MG PO (20:20)
[2023-07-01] MEDS: HaloperidoL 5 MG TABLET PO (08:44)
--- NOTE | 2023-07-01 10:29 | HO.PSYCHPN ---
Subjective Subjective Date of Service: 07/01/23 Reason For Visit: Schizophrenia Interim History: Met with patient. Discussed with Nursing. Chart reviewed. Overall has been very paranoid. With marine underwriter she was extremely suspicious and yelled marine underwriter not to come into her room. Also did the same with environmental staff. Has been accepting medications. Medication Compliance: Yes Side effects from medications: No Attending Groups: No Review of Systems Acute medical concerns: No Review of Systems Review of Systems Yes Unobtainable due to mental status Mental Status Exam Mental Status Exam Narrative: In room. Hospital clothing. Poor self-care. Very paranoid and suspicious. Would not engage in interview. Diagnostics Vital Signs (24Hr): Vital Signs - 24 hr 06/30/23 18:00 Pulse Rate 62 Respiratory Rate 16 Pulse Oximetry 94 Oxygen Delivery Method Room Air BMI result Body Mass Index 27.8 Medications Medications Current Medications Acetaminophen (Acetaminophen 325 Mg Tablet) 650 mg PO Q6H PRN PRN Reason: Headache/Pain Mild Scale (1-3) Al Hydroxide/Mg Hydroxide (Magnesium Hydrox/Alum Hydrox 30 Ml Oral.Susp) 30 ml PO Q6H PRN PRN Reason: Heartburn/Nausea Clotrimazole (Clotrimazole 1 % Cream 15 Gm Tube) 1 appl TOPICAL BID JOSE GUADALUPE; Protocol Last Admin: 07/01/23 08:47 Dose: Not Given Haloperidol (Haloperidol 5 Mg Tablet) 5 mg PO Q4H PRN PRN Reason: agitation Haloperidol (Haloperidol 5 Mg Tablet) 5 mg PO DAILY [facility] Last Admin: 07/01/23 08:44 Dose: 5 mg Haloperidol (Haloperidol 5 Mg Tablet) 15 mg PO BEDTIME [facility] Last Admin: 06/30/23 20:20 Dose: 15 mg Haloperidol Lactate (Haloperidol Lactate 5 Mg/Ml Vial) 5 mg IM BID PRN PRN Reason: REFUSAL OF PO Last Admin: 05/20/23 08:43 Dose: 5 mg Hydrocortisone (Hydrocortisone 1 % Cream 28.35 Gm Tube) 1 appl TOPICAL BID PRN; Protocol PRN Reason: Rash Last Admin: 06/22/23 09:28 Dose: 1 appl Ibuprofen (Ibuprofen 400 Mg Tablet) 400 mg PO Q4H PRN PRN Reason: Pain, Mild (Pain Scale 1-3) Lurasidone HCl (Lurasidone Hcl 80 Mg Tablet) 80 mg PO DAILY [facility] Last Admin: 07/01/23 08:45 Dose: 80 mg Magnesium Hydroxide (Milk Of Magnesia 30 Ml Oral.Susp) 30 ml PO DAILY PRN PRN Reason: Constipation Trazodone HCl (Trazodone Hcl 25 Mg Halftab) 25 mg PO BEDTIME MRX1 PRN PRN Reason: Insomnia Allergies Allergies Allergy/AdvReac Type Severity Reaction Status Date / Time onion Allergy Unknown Unknown Verified 05/11/23 22:53 Assessment & Plan Assessment & Plan (1) Schizophrenia, chronic condition: Status: Acute Code(s): F20.9 - Schizophrenia, unspecified Plan Pt is a 72-year-old female with a PMH significant for?HTN, GERD, and schizophrenia who is admitted to [facility] for increased aggression after a non compliant her psychiatric medications. Patient lives at a half[facility]way but has recently become disorganized with delusions and increased aggression after refusing to take her medications despite a Riggins order. Medical consult for admission H&P. 06/09 continue current treatment plan 06/10 continue current tx plan 06/19 continue tx. 06/23 CTP 06/24 doesn't seem to be getting better with dec haldol in latuda- maybe inc ? haldol back up until latuda has chance to build up. 06/25/23 better with inc haldol to 15mg last pm ? or just further along on medications- CTP for another week continue haldol 15mg then dec back to 10mg Plan 06/30/2023: No changes to current treatment plan 07/01/2023: No changes to current 1. Gather collateral information, will try to contact the staff on the half-way for further details on the last Haldol Decanoate. 2. Continue with medications as per court order. 3. Haldol Decanoate 100 mg on May 22 4. Latuda 20 mg p.o. q.h.s. on May 24. On May 25 we are increasing up to 40 mg p.o. q.h.s. on May 28 we are increasing up to 60 mg p.o. q.h.s. and encourage compliance but she has consistently refused this medication so we discontinued. 5. Increase Haldol up to 10 mg p.o. b.i.d. 6. We are contacting the staff of the [facility]-way to find out if she has ever taking Abilify. 7. On June 12 the patient agreed to take like to the night 20 mg daily. We are increasing Latuda up to 40 mg on June 21. On June 22 we increased Latuda up to 60 mg p.o. daily. On June 29 we increase Latuda up to 80 mg p.o. daily Reason for continued inpatient stay Substantial Risk for: inability to function Time Spent With Patient Time: Total time managing care of this patient today ____ minutes.
[2023-07-01 18:00] VITALS: PULSE 62; RESP 16; TEMP 36.1; O2SAT 94
[2023-07-01] MEDS: HaloperidoL 5 MG TABLET 15 MG PO (21:04)
[2023-07-02 06:00] VITALS: PULSE 53; RESP 16; TEMP 36.5; O2SAT 92
[2023-07-02] MEDS: HaloperidoL 5 MG TABLET PO (10:40)
--- NOTE | 2023-07-02 13:46 | HO.PSYCHPN ---
Subjective Subjective Date of Service: 07/02/23 Reason For Visit: Schizophrenia Subjective Notes: Riggins Order and Conditional Voluntary Interim History: The nursing staff reported the patient slept 7 or 8 hours, she reported auditory hallucinations stating that her is yelling at her. The addiction social worker reported that staff will come to see her soon. On interview the patient remains delusional but easily redirectable. Mental Status Exam Mental Status Exam Patient Appearance: Appropriate Patient Orientation: Person and Situation Level of Consciousness: Awake and Appropriate Patient Behavior: Guarded and Passive Mood Description: Withdrawn Affect Description: Constricted Patient Cognition Impaired: Yes Ability to Follow Directions: Good Speech Pattern: Clear Hallucinations: Auditory Delusions: Paranoid Ideation Thought Process: Distracted Thought Content: positive for [place] and positive for Circumstantial Judgement: Fair Diagnostics Vital Signs (24Hr): Vital Signs - 24 hr 07/01/23 18:00 07/02/23 06:00 Temperature 96.9 F 97.7 F Pulse Rate 62 53 Respiratory Rate 16 16 Pulse Oximetry 94 92 Oxygen Delivery Method Room Air Room Air BMI result Body Mass Index 27.8 Medications Medications Current Medications Acetaminophen (Acetaminophen 325 Mg Tablet) 650 mg PO Q6H PRN PRN Reason: Headache/Pain Mild Scale (1-3) Al Hydroxide/Mg Hydroxide (Magnesium Hydrox/Alum Hydrox 30 Ml Oral.Susp) 30 ml PO Q6H PRN PRN Reason: Heartburn/Nausea Clotrimazole (Clotrimazole 1 % Cream 15 Gm Tube) 1 appl TOPICAL BID JOSE GUADALUPE; Protocol Last Admin: 07/02/23 10:40 Dose: Not Given Haloperidol (Haloperidol 5 Mg Tablet) 5 mg PO Q4H PRN PRN Reason: agitation Haloperidol (Haloperidol 5 Mg Tablet) 5 mg PO DAILY JOSE GUADALUPE Last Admin: 07/02/23 10:40 Dose: 5 mg Haloperidol (Haloperidol 5 Mg Tablet) 15 mg PO BEDTIME JOSE GUADALUPE Last Admin: 07/01/23 21:04 Dose: 15 mg Haloperidol Lactate (Haloperidol Lactate 5 Mg/Ml Vial) 5 mg IM BID PRN PRN Reason: REFUSAL OF PO Last Admin: 05/20/23 08:43 Dose: 5 mg Hydrocortisone (Hydrocortisone 1 % Cream 28.35 Gm Tube) 1 appl TOPICAL BID PRN; Protocol PRN Reason: Rash Last Admin: 06/22/23 09:28 Dose: 1 appl Ibuprofen (Ibuprofen 400 Mg Tablet) 400 mg PO Q4H PRN PRN Reason: Pain, Mild (Pain Scale 1-3) Lurasidone HCl (Lurasidone Hcl 80 Mg Tablet) 80 mg PO DAILY JOSE GUADALUPE Last Admin: 07/02/23 10:40 Dose: 80 mg Magnesium Hydroxide (Milk Of Magnesia 30 Ml Oral.Susp) 30 ml PO DAILY PRN PRN Reason: Constipation Trazodone HCl (Trazodone Hcl 25 Mg Halftab) 25 mg PO BEDTIME MRX1 PRN PRN Reason: Insomnia Allergies Allergies Allergy/AdvReac Type Severity Reaction Status Date / Time onion Allergy Unknown Unknown Verified 05/11/23 22:53 Assessment & Plan Assessment & Plan (1) Schizophrenia, chronic condition: Status: Acute Code(s): F20.9 - Schizophrenia, unspecified Plan Pt is a 72-year-old female with a PMH significant for?HTN, GERD, and schizophrenia who is admitted to [facility] for increased aggression after a non compliant her psychiatric medications. Patient [facility] a detention but has recently become disorganized with delusions and increased aggression after refusing to take her medications despite a Riggins order. Medical consult for admission H&P. 06/09 continue current treatment plan 06/10 continue current tx plan 06/19 continue tx. 06/23 CTP 06/24 doesn't seem to be getting better with dec haldol in latuda- maybe inc ? haldol back up until latuda has chance to build up. 06/25/23 better with inc haldol to 15mg last pm ? or just further along on medications- CTP for another week continue haldol 15mg then dec back to 10mg Plan 06/30/2023: No changes to current treatment plan 07/01/2023: No changes to current 1. Gather collateral information, will try to contact the staff on the detention for further details on the last Haldol Decanoate. 2. Continue with medications as per court order. 3. Haldol Decanoate 100 mg on May 22 4. Latuda 20 mg p.o. q.h.s. on May 24. On May 25 we are increasing up to 40 mg p.o. q.h.s. on May 28 we are increasing up to 60 mg p.o. q.h.s. and encourage compliance but she has consistently refused this medication so we discontinued. 5. Increase Haldol up to 10 mg p.o. b.i.d. 6. We are contacting the staff of the detention to find out if she has ever taking Abilify. 7. On June 12 the patient agreed to take like to the night 20 mg daily. We are increasing Latuda up to 40 mg on June 21. On June 22 we increased Latuda up to 60 mg p.o. daily. On June 29 we increase Latuda up to 80 mg p.o. daily Reason for continued inpatient stay Substantial Risk for: inability to function, rapid decompensation and med/psych decompensation Time Spent With Patient Time: Total time managing care of this patient today __20__ minutes.
[2023-07-02 18:00] VITALS: PULSE 59; RESP 16; TEMP 36.2; O2SAT 92
[2023-07-02] MEDS: HaloperidoL 5 MG TABLET 15 MG PO (20:48)
[2023-07-03 09:00] VITALS: PULSE 52; RESP 16; TEMP 36.5; O2SAT 92
[2023-07-03] MEDS: HaloperidoL 5 MG TABLET PO (09:58)
[2023-07-03] MEDS: Lurasidone HCl 80 MG TABLET PO (09:58)
--- NOTE | 2023-07-03 10:56 | HO.PSYCHPN ---
Subjective Subjective Date of Service: 07/03/23 Reason For Visit: Schizophrenia Subjective Notes: Conditional Voluntary Interim History: The nursing staff reported the patient slept well last night, she had been compliant with treatment she remains most of the time seclusive. The child welfare social worker could contact the staff of the snf and they will come up to visit her to discuss discharge planning. On interview the patient denies new symptoms still selectively mute at times, but overall she looks more alert and awake. Mental Status Exam Mental Status Exam Patient Appearance: Appropriate Patient Orientation: Person and Situation Level of Consciousness: Awake and Appropriate Patient Behavior: Guarded and Passive Mood Description: Calm Affect Description: Constricted Patient Cognition Impaired: Yes Ability to Follow Directions: Good Speech Pattern: Clear Hallucinations: None Delusions: Not Present Thought Process: Distracted and Slowed Thinking Thought Content: positive for [place] and positive for Poverty of Content Judgement: Poor Diagnostics Vital Signs (24Hr): Vital Signs - 24 hr 07/02/23 18:00 07/03/23 09:00 Temperature 97.1 F 97.7 F Pulse Rate 59 52 Respiratory Rate 16 16 Pulse Oximetry 92 92 Oxygen Delivery Method Room Air Room Air BMI result Body Mass Index 27.8 Medications Medications Current Medications Acetaminophen (Acetaminophen 325 Mg Tablet) 650 mg PO Q6H PRN PRN Reason: Headache/Pain Mild Scale (1-3) Al Hydroxide/Mg Hydroxide (Magnesium Hydrox/Alum Hydrox 30 Ml Oral.Susp) 30 ml PO Q6H PRN PRN Reason: Heartburn/Nausea Clotrimazole (Clotrimazole 1 % Cream 15 Gm Tube) 1 appl TOPICAL BID JOSE GUADALUPE; Protocol Last Admin: 07/03/23 09:59 Dose: Not Given Haloperidol (Haloperidol 5 Mg Tablet) 5 mg PO Q4H PRN PRN Reason: agitation Haloperidol (Haloperidol 5 Mg Tablet) 5 mg PO DAILY JOSE GUADALUPE Last Admin: 07/03/23 09:58 Dose: 5 mg Haloperidol (Haloperidol 5 Mg Tablet) 15 mg PO BEDTIME JOSE GUADALUPE Last Admin: 07/02/23 20:48 Dose: 15 mg Haloperidol Lactate (Haloperidol Lactate 5 Mg/Ml Vial) 5 mg IM BID PRN PRN Reason: REFUSAL OF PO Last Admin: 05/20/23 08:43 Dose: 5 mg Hydrocortisone (Hydrocortisone 1 % Cream 28.35 Gm Tube) 1 appl TOPICAL BID PRN; Protocol PRN Reason: Rash Last Admin: 06/22/23 09:28 Dose: 1 appl Ibuprofen (Ibuprofen 400 Mg Tablet) 400 mg PO Q4H PRN PRN Reason: Pain, Mild (Pain Scale 1-3) Lurasidone HCl (Lurasidone Hcl 80 Mg Tablet) 80 mg PO DAILY JOSE GUADALUPE Last Admin: 07/03/23 09:58 Dose: 80 mg Magnesium Hydroxide (Milk Of Magnesia 30 Ml Oral.Susp) 30 ml PO DAILY PRN PRN Reason: Constipation Trazodone HCl (Trazodone Hcl 25 Mg Halftab) 25 mg PO BEDTIME MRX1 PRN PRN Reason: Insomnia Allergies Allergies Allergy/AdvReac Type Severity Reaction Status Date / Time onion Allergy Unknown Unknown Verified 05/11/23 22:53 Assessment & Plan Assessment & Plan (1) Schizophrenia, chronic condition: Status: Acute Code(s): F20.9 - Schizophrenia, unspecified Plan Pt is a 72-year-old female with a PMH significant for?HTN, GERD, and schizophrenia who is admitted to [facility] for increased aggression after a non compliant her psychiatric medications. Patient lives at a snf but has recently become disorganized with delusions and increased aggression after refusing to take her medications despite a Riggins order. Medical consult for admission H&P. 06/09 continue current treatment plan 06/10 continue current tx plan 06/19 continue tx. 06/23 CTP 06/24 doesn't seem to be getting better with dec haldol in [place]- maybe inc ? haldol back up until latuda has chance to build up. 06/25/23 better with inc haldol to 15mg last pm ? or just further along on medications- CTP for another week continue haldol 15mg then dec back to 10mg Plan 06/30/2023: No changes to current treatment plan 07/01/2023: No changes to current 1. Gather collateral information, will try to contact the staff on the snf for further details on the last Haldol Decanoate. 2. Continue with medications as per court order. 3. Haldol Decanoate 100 mg on May 22 4. Latuda 20 mg p.o. q.h.s. on May 24. On May 25 we are increasing up to 40 mg p.o. q.h.s. on May 28 we are increasing up to 60 mg p.o. q.h.s. and encourage compliance but she has consistently refused this medication so we discontinued. 5. Increase Haldol up to 10 mg p.o. b.i.d. 6. We are contacting the staff of the snf to find out if she has ever taking Abilify. 7. On June 12 the patient agreed to take like to the night 20 mg daily. We are increasing Latuda up to 40 mg on June 21. On June 22 we increased Latuda up to 60 mg p.o. daily. On June 29 we increase Latuda up to 80 mg p.o. daily Reason for continued inpatient stay Substantial Risk for: inability to function, rapid decompensation and med/psych decompensation Time Spent With Patient Time: Total time managing care of this patient today __20__ minutes.
[2023-07-03 18:51] VITALS: PULSE 73; RESP 18; TEMP 36.3; O2SAT 94
[2023-07-03] MEDS: HaloperidoL 5 MG TABLET 15 MG PO (21:34)
[2023-07-04] MEDS: Lurasidone HCl 80 MG TABLET PO (08:42)
[2023-07-04] MEDS: HaloperidoL 5 MG TABLET PO (08:42)
[2023-07-04 08:49] VITALS: PULSE 61; RESP 18; TEMP 35.9; O2SAT 92
--- NOTE | 2023-07-04 09:00 | P.PNPSI_ITS ---
Subjective Subjective Date of Service: 07/04/23 Reason For Visit: Schizophrenia Subjective Notes: Riggins Order and Conditional Voluntary Interim History: The nursing staff reported the patient slept well, no changes in her mental status. On interview the patient complained of back pain but she refused any intervention at this point. Today her senior care staff will come to visit her at 14:00. We will start discussing discharge planning. Mental Status Exam Mental Status Exam Patient Appearance: Appropriate Patient Orientation: Person Level of Consciousness: Awake Patient Behavior: Guarded and Passive Mood Description: Withdrawn Affect Description: Constricted Patient Cognition Impaired: Yes Ability to Follow Directions: Good Speech Pattern: Clear Hallucinations: None Delusions: Paranoid Ideation Thought Process: Distracted and Slowed Thinking Thought Content: positive for [place] and positive for Poverty of Content Judgement: Fair Diagnostics Vital Signs (24Hr): Vital Signs - 24 hr 07/03/23 18:51 07/04/23 08:49 Temperature 97.4 F 96.7 F L Pulse Rate 73 61 Respiratory Rate 18 18 Pulse Oximetry 94 92 Oxygen Delivery Method Room Air Room Air BMI result Body Mass Index 27.8 Medications Medications Current Medications Acetaminophen (Acetaminophen 325 Mg Tablet) 650 mg PO Q6H PRN PRN Reason: Headache/Pain Mild Scale (1-3) Al Hydroxide/Mg Hydroxide (Magnesium Hydrox/Alum Hydrox 30 Ml Oral.Susp) 30 ml PO Q6H PRN PRN Reason: Heartburn/Nausea Clotrimazole (Clotrimazole 1 % Cream 15 Gm Tube) 1 appl TOPICAL BID JOSE GUADALUPE; Protocol Last Admin: 07/04/23 08:49 Dose: Not Given Haloperidol (Haloperidol 5 Mg Tablet) 5 mg PO Q4H PRN PRN Reason: agitation Haloperidol (Haloperidol 5 Mg Tablet) 5 mg PO DAILY JOSE GUADALUPE Last Admin: 07/04/23 08:42 Dose: 5 mg Haloperidol (Haloperidol 5 Mg Tablet) 15 mg PO BEDTIME JOSE GUADALUPE Last Admin: 07/03/23 21:34 Dose: 15 mg Haloperidol Lactate (Haloperidol Lactate 5 Mg/Ml Vial) 5 mg IM BID PRN PRN Reason: REFUSAL OF PO Last Admin: 05/20/23 08:43 Dose: 5 mg Hydrocortisone (Hydrocortisone 1 % Cream 28.35 Gm Tube) 1 appl TOPICAL BID PRN; Protocol PRN Reason: Rash Last Admin: 06/22/23 09:28 Dose: 1 appl Ibuprofen (Ibuprofen 400 Mg Tablet) 400 mg PO Q4H PRN PRN Reason: Pain, Mild (Pain Scale 1-3) Lurasidone HCl (Lurasidone Hcl 80 Mg Tablet) 80 mg PO DAILY JOSE GUADALUPE Last Admin: 07/04/23 08:42 Dose: 80 mg Magnesium Hydroxide (Milk Of Magnesia 30 Ml Oral.Susp) 30 ml PO DAILY PRN PRN Reason: Constipation Trazodone HCl (Trazodone Hcl 25 Mg Halftab) 25 mg PO BEDTIME MRX1 PRN PRN Reason: Insomnia Allergies Allergies Allergy/AdvReac Type Severity Reaction Status Date / Time onion Allergy Unknown Unknown Verified 05/11/23 22:53 Assessment & Plan Assessment & Plan (1) Schizophrenia, chronic condition: Status: Acute Code(s): F20.9 - Schizophrenia, unspecified Plan Pt is a 72-year-old female with a PMH significant for?HTN, GERD, and schizophrenia who is admitted to [facility] for increased aggression after a non compliant her psychiatric medications. Patient lives at a senior care but has recently become disorganized with delusions and increased aggression after refusing to take her medications despite a Riggins order. Medical consult for admission H&P. 06/09 continue current treatment plan 06/10 continue current tx plan 06/19 continue tx. 06/23 CTP 06/24 doesn't seem to be getting better with dec haldol in [place]- maybe inc ? haldol back up until latuda has chance to build up. 06/25/23 better with inc haldol to 15mg last pm ? or just further along on medications- CTP for another week continue haldol 15mg then dec back to 10mg Plan 06/30/2023: No changes to current treatment plan 07/01/2023: No changes to current 1. Gather collateral information, will try to contact the staff on the senior care for further details on the last Haldol Decanoate. 2. Continue with medications as per court order. 3. Haldol Decanoate 100 mg on May 22 4. Latuda 20 mg p.o. q.h.s. on May 24. On May 25 we are increasing up to 40 mg p.o. q.h.s. on May 28 we are increasing up to 60 mg p.o. q.h.s. and encourage compliance but she has consistently refused this medication so we discontinued. 5. Increase Haldol up to 10 mg p.o. b.i.d. 6. We are contacting the staff of the senior care to find out if she has ever taking Abilify. 7. On June 12 the patient agreed to take like to the night 20 mg daily. We are increasing Latuda up to 40 mg on June 21. On June 22 we increased Latuda up to 60 mg p.o. daily. On June 29 we increase Latuda up to 80 mg p.o. daily Reason for continued inpatient stay Substantial Risk for: inability to function, rapid decompensation and med/psych decompensation Time Spent With Patient Time: Total time managing care of this patient today __20__ minutes.
[2023-07-04] MEDS: HaloperidoL 5 MG TABLET 15 MG PO (20:49)
[2023-07-05 08:44] LABS: MANUAL DIFF FLAG NO
[2023-07-05 08:48] LABS: Basophils Percent Auto 0.2 % (0-2); Eosinophils Absolute Auto 0.1 X10*3/uL (0.0-0.4); Eosinophils Percent Auto 1.4 % (0-4); Hemoglobin 14.5 g/dl (12.0-16.0); Imm Gran Abs Auto 0.01 X10*3/uL (0.00-0.03); Imm Gran Pct Auto 0.2 % (0.0-0.4); Lymphocytes Absolute Auto 1.4 X10*3/uL (1.2-4.9); Mean Corpuscular HGB Conc 33.7 g/dl (31.0-35.0); Mean Corpuscular Hemoglobin 31.9 pg (27.0-33.0); Mean Corpuscular Volume 94.5 fL (80.0-98.0); Monocytes Absolute Auto 0.5 X10*3/uL (0.1-1.2); Neutrophils Absolute Auto 2.9 x10*3/uL (2.0-8.3); Neutrophils Percent Auto 59.2 % (45-73); Red Blood Count 4.55 X10*6/uL (4.20-5.50); Red Cell Distribution Width 13.6 % (11.0-16.0); White Blood Count 4.9 X10*3/uL (4.8-10.8)
[2023-07-05 08:53] LABS: Estimated Average Glucose 120 mg/dL; Hemoglobin A1C 150.4391 umol/L; Hemoglobin A1c % 5.8 % (<6.0)
[2023-07-05 09:09] LABS: Alanine Aminotransferase 38 U/L (0-31); Albumin Level 3.1 g/dL (3.5-5.0); Alkaline Phosphatase 59 U/L (39-117); Anion Gap 11 (12-20); Aspartate Amino Transferase 40 U/L (5-31); Bilirubin Direct 0.2 mg/dL (0.0-0.5); Bilirubin Total 0.5 mg/dL (0.0-1.0); Blood Urea Nitrogen 16 mg/dL (9-16); Calcium 8.8 mg/dL (8.4-10.2); Carbon Dioxide 24 mmol/L (22-29); Chloride 110 mmol/L (96-108); Creatinine Clr Calc Pharmacy 70.4; Estimated Glomerular Filt Rate > 60; Glucose Random 198 mg/dL (60-115); Mean Platelet Volume 11.7 fL (9.4-12.3); Platelet Count 61 X10*3/uL (160-400); Potassium 4.2 mmol/L (3.3-5.1); Sodium 141 mmol/L (135-145)
[2023-07-05] MEDS: HaloperidoL 5 MG TABLET PO (10:01)
[2023-07-05] MEDS: Lurasidone HCl 40 MG TABLET 120 MG PO (10:01)
--- NOTE | 2023-07-05 13:56 | P.PNPSI_ITS ---
Subjective Subjective Date of Service: 07/05/23 Reason For Visit: Schizophrenia Subjective Notes: Riggins Order and Conditional Voluntary Interim History: Nursing staff reports the patient remains most of the time seclusive paranoid in her room. She refused to have vital signs yesterday. She had been compliant with medication. Yesterday we have a meeting with the nephrology social worker and her staff of the home who knows her from before, apparently she is always seclusive and delusional and she wants to be isolative. Today we discussed options and she stated that she is having cancer even though that her blood per came back normal. We are increasing Latuda up to 120 mg p.o. daily. According to the court order we can go up to 160 mg Mental Status Exam Mental Status Exam Patient Appearance: Unkempt Patient Orientation: Person Level of Consciousness: Awake Patient Behavior: Guarded and Passive Mood Description: Withdrawn Affect Description: Constricted Patient Cognition Impaired: Yes Ability to Follow Directions: Good Speech Pattern: Clear Hallucinations: None Delusions: Paranoid Ideation and Ideas of Reference Thought Process: Distracted and Slowed Thinking Thought Content: positive for [place] and positive for Poverty of Content Judgement: Poor Diagnostics Vital Signs (24Hr): BMI result Body Mass Index 27.8 Labs 07/05/23 08:20 07/05/23 08:20 Labs: Laboratory Results - last 48 hr 07/05/23 08:20 WBC 4.9 RBC 4.55 Hgb 14.5 Hct 43.0 MCV 94.5 MCH 31.9 MCHC 33.7 RDW 13.6 Plt Count 61 L MPV 11.7 Immature Gran % (Auto) 0.2 Neut % (Auto) 59.2 Lymph % (Auto) 28.0 [place] % (Auto) 11.0 Eos % (Auto) 1.4 Baso % (Auto) 0.2 Lymph # (Auto) 1.4 [place] # (Auto) 0.5 Eos # (Auto) 0.1 Baso # (Auto) 0.0 Abs Immat Gran (auto) 0.01 Absolute Neuts (auto) 2.9 Absolute Nucleated RBC 0.000 Nucleated RBC % (auto) 0.0 Sodium 141 Potassium 4.2 Chloride 110 H Carbon Dioxide 24 Anion Gap 11 L BUN 16 Creatinine 0.73 Estim Creat Clear Calc 70.4 Estimated GFR > 60 Random Glucose 198 H Estimat Average Glucose 120 Hemoglobin A1c % 5.8 Calcium 8.8 Total Bilirubin 0.5 Direct Bilirubin 0.2 AST 40 H ALT 38 H Alkaline Phosphatase 59 Total Protein 6.0 L Albumin 3.1 L Medications Medications Current Medications Acetaminophen (Acetaminophen 325 Mg Tablet) 650 mg PO Q6H PRN PRN Reason: Headache/Pain Mild Scale (1-3) Al Hydroxide/Mg Hydroxide (Magnesium Hydrox/Alum Hydrox 30 Ml Oral.Susp) 30 ml PO Q6H PRN PRN Reason: Heartburn/Nausea Clotrimazole (Clotrimazole 1 % Cream 15 Gm Tube) 1 appl TOPICAL BID JOSE GUADALUPE; Protocol Last Admin: 07/05/23 10:04 Dose: Not Given Haloperidol (Haloperidol 5 Mg Tablet) 5 mg PO Q4H PRN PRN Reason: agitation Haloperidol (Haloperidol 5 Mg Tablet) 5 mg PO DAILY [facility] Last Admin: 07/05/23 10:01 Dose: 5 mg Haloperidol (Haloperidol 5 Mg Tablet) 15 mg PO BEDTIME JOSE GUADALUPE Last Admin: 07/04/23 20:49 Dose: 15 mg Haloperidol Lactate (Haloperidol Lactate 5 Mg/Ml Vial) 5 mg IM BID PRN PRN Reason: REFUSAL OF PO Last Admin: 05/20/23 08:43 Dose: 5 mg Hydrocortisone (Hydrocortisone 1 % Cream 28.35 Gm Tube) 1 appl TOPICAL BID PRN; Protocol PRN Reason: Rash Last Admin: 06/22/23 09:28 Dose: 1 appl Ibuprofen (Ibuprofen 400 Mg Tablet) 400 mg PO Q4H PRN PRN Reason: Pain, Mild (Pain Scale 1-3) Lurasidone HCl (Lurasidone Hcl 40 Mg Tablet) 120 mg PO DAILY [facility] Last Admin: 07/05/23 10:01 Dose: 120 mg Magnesium Hydroxide (Milk Of Magnesia 30 Ml Oral.Susp) 30 ml PO DAILY PRN PRN Reason: Constipation Trazodone HCl (Trazodone Hcl 25 Mg Halftab) 25 mg PO BEDTIME MRX1 PRN PRN Reason: Insomnia Allergies Allergies Allergy/AdvReac Type Severity Reaction Status Date / Time onion Allergy Unknown Unknown Verified 05/11/23 22:53 Assessment & Plan Assessment & Plan (1) Schizophrenia, chronic condition: Status: Acute Code(s): F20.9 - Schizophrenia, unspecified Plan Pt is a 72-year-old female with a PMH significant for?HTN, GERD, and schizophrenia who is admitted to [facility] for increased aggression after a non compliant her psychiatric medications. Patient lives at a care home but has recently become disorganized with delusions and increased aggression after refusing to take her medications despite a Riggins order. Medical consult for admission H&P. 06/09 continue current treatment plan 06/10 continue current tx plan 06/19 continue tx. 06/23 CTP 06/24 doesn't seem to be getting better with dec haldol in [place]- maybe inc ? haldol back up until latuda has chance to build up. 06/25/23 better with inc haldol to 15mg last pm ? or just further along on medications- CTP for another week continue haldol 15mg then dec back to 10mg Plan 06/30/2023: No changes to current treatment plan 07/01/2023: No changes to current 1. Gather collateral information, will try to contact the staff on the care home for further details on the last Haldol Decanoate. 2. Continue with medications as per court order. 3. Haldol Decanoate 100 mg on May 22 4. Latuda 20 mg p.o. q.h.s. on May 24. On May 25 we are increasing up to 40 mg p.o. q.h.s. on May 28 we are increasing up to 60 mg p.o. q.h.s. and encourage compliance but she has consistently refused this medication so we discontinued. 5. Increase Haldol up to 10 mg p.o. b.i.d. 6. We are contacting the staff of the care home to find out if she has ever taking Abilify. 7. On June 12 the patient agreed to take like to the night 20 mg daily. We are increasing Latuda up to 40 mg on June 21. On June 22 we increased Latuda up to 60 mg p.o. daily. On June 29 we increase Latuda up to 80 mg p.o. daily. On July 05 we increased Latuda up to 120 mg p.o. daily. Reason for continued inpatient stay Substantial Risk for: inability to function, rapid decompensation and med/psych decompensation Time Spent With Patient Time: Total time managing care of this patient today __20__ minutes.
[2023-07-05] MEDS: HaloperidoL 5 MG TABLET 15 MG PO (20:19)
[2023-07-05 21:01] VITALS: BP 162/72; PULSE 58; RESP 17; TEMP 36.1; O2SAT 93
[2023-07-06 08:21] VITALS: PULSE 69; RESP 18; TEMP 35.8; O2SAT 94
[2023-07-06] MEDS: Lurasidone HCl 40 MG TABLET 120 MG PO (08:22)
[2023-07-06] MEDS: HaloperidoL 5 MG TABLET PO (08:22)
[2023-07-06 11:08] LABS: COVID-19 Test Negative (Negative); IDNOW Serial# 152EDE1D
--- NOTE | 2023-07-06 11:37 | HO.PSYCHPN ---
Subjective Subjective Date of Service: 07/06/23 Reason For Visit: Schizophrenia Subjective Notes: Riggins Order and Conditional Voluntary Interim History: The nursing staff reported the patient had been compliant with treatment, the staff has noticed that she is responding to internal stimuli at times. She was compliant with Latuda 120 mg today. On interview the patient was in the common area watching TV and stated that she wanted to go to groups but she feels that they were talking about her. She looks with a brighter range of affect currently. Still paranoid. Mental Status Exam Mental Status Exam Patient Appearance: Appropriate Patient Orientation: Person and Situation Level of Consciousness: Awake Patient Behavior: Guarded and Passive Mood Description: Withdrawn Affect Description: Constricted Patient Cognition Impaired: Yes Ability to Follow Directions: Good Speech Pattern: Clear Hallucinations: Auditory Delusions: Paranoid Ideation and Ideas of Reference Thought Process: Distracted and Slowed Thinking Thought Content: positive for [place] and positive for Poverty of Content Judgement: Poor Diagnostics Vital Signs (24Hr): Vital Signs - 24 hr 07/05/23 21:01 07/06/23 08:21 Temperature 96.9 F 96.4 F L Pulse Rate 58 69 Respiratory Rate 17 18 Blood Pressure 162/72 H Pulse Oximetry 93 94 Oxygen Delivery Method Room Air Room Air BMI result Body Mass Index 27.8 Labs 07/05/23 08:20 07/05/23 08:20 Labs: Laboratory Results - last 48 hr 07/05/23 07/06/23 08:20 10:27 WBC 4.9 RBC 4.55 Hgb 14.5 Hct 43.0 MCV 94.5 MCH 31.9 MCHC 33.7 RDW 13.6 Plt Count 61 L MPV 11.7 Immature Gran % (Auto) 0.2 Neut % (Auto) 59.2 Lymph % (Auto) 28.0 [place] % (Auto) 11.0 Eos % (Auto) 1.4 Baso % (Auto) 0.2 Lymph # (Auto) 1.4 [place] # (Auto) 0.5 Eos # (Auto) 0.1 Baso # (Auto) 0.0 Abs Immat Gran (auto) 0.01 Absolute Neuts (auto) 2.9 Absolute Nucleated RBC 0.000 Nucleated RBC % (auto) 0.0 Sodium 141 Potassium 4.2 Chloride 110 H Carbon Dioxide 24 Anion Gap 11 L BUN 16 Creatinine 0.73 Estim Creat Clear Calc 70.4 Estimated GFR > 60 Random Glucose 198 H Estimat Average Glucose 120 Hemoglobin A1c % 5.8 Calcium 8.8 Total Bilirubin 0.5 Direct Bilirubin 0.2 AST 40 H ALT 38 H Alkaline Phosphatase 59 Total Protein 6.0 L Albumin 3.1 L COVID-19 ([facility]) Negative COVID-19 Clin Com See Note Medications Medications Current Medications Acetaminophen (Acetaminophen 325 Mg Tablet) 650 mg PO Q6H PRN PRN Reason: Headache/Pain Mild Scale (1-3) Al Hydroxide/Mg Hydroxide (Magnesium Hydrox/Alum Hydrox 30 Ml Oral.Susp) 30 ml PO Q6H PRN PRN Reason: Heartburn/Nausea Clotrimazole (Clotrimazole 1 % Cream 15 Gm Tube) 1 appl TOPICAL BID JOSE GUADALUPE; Protocol Last Admin: 07/06/23 08:24 Dose: Not Given Haloperidol (Haloperidol 5 Mg Tablet) 5 mg PO Q4H PRN PRN Reason: agitation Haloperidol (Haloperidol 5 Mg Tablet) 5 mg PO DAILY [facility] Last Admin: 07/06/23 08:22 Dose: 5 mg Haloperidol (Haloperidol 5 Mg Tablet) 15 mg PO BEDTIME JOSE GUADALUPE Last Admin: 07/05/23 20:19 Dose: 15 mg Haloperidol Lactate (Haloperidol Lactate 5 Mg/Ml Vial) 5 mg IM BID PRN PRN Reason: REFUSAL OF PO Last Admin: 05/20/23 08:43 Dose: 5 mg Hydrocortisone (Hydrocortisone 1 % Cream 28.35 Gm Tube) 1 appl TOPICAL BID PRN; Protocol PRN Reason: Rash Last Admin: 06/22/23 09:28 Dose: 1 appl Ibuprofen (Ibuprofen 400 Mg Tablet) 400 mg PO Q4H PRN PRN Reason: Pain, Mild (Pain Scale 1-3) Lurasidone HCl (Lurasidone Hcl 40 Mg Tablet) 120 mg PO DAILY [facility] Last Admin: 07/06/23 08:22 Dose: 120 mg Magnesium Hydroxide (Milk Of Magnesia 30 Ml Oral.Susp) 30 ml PO DAILY PRN PRN Reason: Constipation Trazodone HCl (Trazodone Hcl 25 Mg Halftab) 25 mg PO BEDTIME MRX1 PRN PRN Reason: Insomnia Allergies Allergies Allergy/AdvReac Type Severity Reaction Status Date / Time onion Allergy Unknown Unknown Verified 05/11/23 22:53 Assessment & Plan Assessment & Plan (1) Schizophrenia, chronic condition: Status: Acute Code(s): F20.9 - Schizophrenia, unspecified Plan Pt is a 72-year-old female with a PMH significant for?HTN, GERD, and schizophrenia who is admitted to [facility] for increased aggression after a non compliant her psychiatric medications. Patient lives at a fdc but has recently become disorganized with delusions and increased aggression after refusing to take her medications despite a Riggins order. Medical consult for admission H&P. 06/09 continue current treatment plan 06/10 continue current tx plan 06/19 continue tx. 06/23 CTP 06/24 doesn't seem to be getting better with dec haldol in [place]- maybe inc ? haldol back up until latuda has chance to build up. 06/25/23 better with inc haldol to 15mg last pm ? or just further along on medications- CTP for another week continue haldol 15mg then dec back to 10mg Plan 06/30/2023: No changes to current treatment plan 07/01/2023: No changes to current 1. Gather collateral information, will try to contact the staff on the fdc for further details on the last Haldol Decanoate. 2. Continue with medications as per court order. 3. Haldol Decanoate 100 mg on May 22 4. Latuda 20 mg p.o. q.h.s. on May 24. On May 25 we are increasing up to 40 mg p.o. q.h.s. on May 28 we are increasing up to 60 mg p.o. q.h.s. and encourage compliance but she has consistently refused this medication so we discontinued. 5. Increase Haldol up to 10 mg p.o. b.i.d. 6. We are contacting the staff of the fdc to find out if she has ever taking Abilify. 7. On June 12 the patient agreed to take like to the night 20 mg daily. We are increasing Latuda up to 40 mg on June 21. On June 22 we increased Latuda up to 60 mg p.o. daily. On June 29 we increase Latuda up to 80 mg p.o. daily. On July 05 we increased Latuda up to 120 mg p.o. daily. Reason for continued inpatient stay Substantial Risk for: inability to function, rapid decompensation and med/psych decompensation Time Spent With Patient Time: Total time managing care of this patient today __20__ minutes.
[2023-07-06 18:00] VITALS: PULSE 60; RESP 16; TEMP 36.1; O2SAT 92
[2023-07-06] MEDS: HaloperidoL 5 MG TABLET 15 MG PO (20:54)
[2023-07-07 06:00] VITALS: BP 155/72; PULSE 60; RESP 16; TEMP 35.9; O2SAT 94
--- NOTE | 2023-07-07 08:51 | P.PNPSI_ITS ---
Subjective Subjective Date of Service: 07/07/23 Reason For Visit: Schizophrenia Subjective Notes: Riggins Order and Conditional Voluntary Interim History: The nursing staff reported she was awake in her bed and she slept 5 hours, she remains internally preoccupied but more awake and alert with a slightly brighter affect. On interview the patient denies new symptoms, no side-effects with Latuda 120 mg daily Mental Status Exam Mental Status Exam Patient Appearance: Appropriate Patient Orientation: Person and Situation Level of Consciousness: Awake Patient Behavior: Guarded and Passive Mood Description: Withdrawn Affect Description: Constricted Patient Cognition Impaired: Yes Ability to Follow Directions: Good Speech Pattern: Clear Hallucinations: None Delusions: Paranoid Ideation Thought Process: Distracted and Slowed Thinking Thought Content: positive for [place] and positive for Poverty of Content Judgement: Poor Diagnostics Vital Signs (24Hr): Vital Signs - 24 hr 07/06/23 18:00 Temperature 96.9 F Pulse Rate 60 Respiratory Rate 16 Pulse Oximetry 92 Oxygen Delivery Method Room Air BMI result Body Mass Index 27.8 Labs 07/05/23 08:20 07/05/23 08:20 Labs: Laboratory Results - last 48 hr 07/05/23 07/06/23 08:20 10:27 WBC 4.9 RBC 4.55 Hgb 14.5 Hct 43.0 MCV 94.5 MCH 31.9 MCHC 33.7 RDW 13.6 Plt Count 61 L MPV 11.7 Immature Gran % (Auto) 0.2 Neut % (Auto) 59.2 Lymph % (Auto) 28.0 [place] % (Auto) 11.0 Eos % (Auto) 1.4 Baso % (Auto) 0.2 Lymph # (Auto) 1.4 [place] # (Auto) 0.5 Eos # (Auto) 0.1 Baso # (Auto) 0.0 Abs Immat Gran (auto) 0.01 Absolute Neuts (auto) 2.9 Absolute Nucleated RBC 0.000 Nucleated RBC % (auto) 0.0 Sodium 141 Potassium 4.2 Chloride 110 H Carbon Dioxide 24 Anion Gap 11 L BUN 16 Creatinine 0.73 Estim Creat Clear Calc 70.4 Estimated GFR > 60 Random Glucose 198 H Estimat Average Glucose 120 Hemoglobin A1c % 5.8 Calcium 8.8 Total Bilirubin 0.5 Direct Bilirubin 0.2 AST 40 H ALT 38 H Alkaline Phosphatase 59 Total Protein 6.0 L Albumin 3.1 L COVID-19 ([facility]) Negative COVID-19 Clin Com See Note Medications Medications Current Medications Acetaminophen (Acetaminophen 325 Mg Tablet) 650 mg PO Q6H PRN PRN Reason: Headache/Pain Mild Scale (1-3) Al Hydroxide/Mg Hydroxide (Magnesium Hydrox/Alum Hydrox 30 Ml Oral.Susp) 30 ml PO Q6H PRN PRN Reason: Heartburn/Nausea Clotrimazole (Clotrimazole 1 % Cream 15 Gm Tube) 1 appl TOPICAL BID [facility]; Protocol Last Admin: 07/06/23 20:54 Dose: Not Given Haloperidol (Haloperidol 5 Mg Tablet) 5 mg PO Q4H PRN PRN Reason: agitation Haloperidol (Haloperidol 5 Mg Tablet) 5 mg PO DAILY [facility] Last Admin: 07/06/23 08:22 Dose: 5 mg Haloperidol (Haloperidol 5 Mg Tablet) 15 mg PO BEDTIME [facility] Last Admin: 07/06/23 20:54 Dose: 15 mg Haloperidol Lactate (Haloperidol Lactate 5 Mg/Ml Vial) 5 mg IM BID PRN PRN Reason: REFUSAL OF PO Last Admin: 05/20/23 08:43 Dose: 5 mg Hydrocortisone (Hydrocortisone 1 % Cream 28.35 Gm Tube) 1 appl TOPICAL BID PRN; Protocol PRN Reason: Rash Last Admin: 06/22/23 09:28 Dose: 1 appl Ibuprofen (Ibuprofen 400 Mg Tablet) 400 mg PO Q4H PRN PRN Reason: Pain, Mild (Pain Scale 1-3) Lurasidone HCl (Lurasidone Hcl 40 Mg Tablet) 120 mg PO DAILY [facility] Last Admin: 07/06/23 08:22 Dose: 120 mg Magnesium Hydroxide (Milk Of Magnesia 30 Ml Oral.Susp) 30 ml PO DAILY PRN PRN Reason: Constipation Trazodone HCl (Trazodone Hcl 25 Mg Halftab) 25 mg PO BEDTIME MRX1 PRN PRN Reason: Insomnia Allergies Allergies Allergy/AdvReac Type Severity Reaction Status Date / Time onion Allergy Unknown Unknown Verified 05/11/23 22:53 Assessment & Plan Assessment & Plan (1) Schizophrenia, chronic condition: Status: Acute Code(s): F20.9 - Schizophrenia, unspecified Plan Pt is a 72-year-old female with a PMH significant for?HTN, GERD, and schizophrenia who is admitted to [facility] for increased aggression after a non compliant her psychiatric medications. Patient lives at a halfway but has recently become disorganized with delusions and increased aggression after refusing to take her medications despite a Riggins order. Medical consult for admission H&P. 06/09 continue current treatment plan 06/10 continue current tx plan 06/19 continue tx. 06/23 CTP 06/24 doesn't seem to be getting better with dec haldol in [place]- maybe inc ? haldol back up until latuda has chance to build up. 06/25/23 better with inc haldol to 15mg last pm ? or just further along on medications- CTP for another week continue haldol 15mg then dec back to 10mg Plan 06/30/2023: No changes to current treatment plan 07/01/2023: No changes to current 1. Gather collateral information, will try to contact the staff on the halfway for further details on the last Haldol Decanoate. 2. Continue with medications as per court order. 3. Haldol Decanoate 100 mg on May 22 4. Latuda 20 mg p.o. q.h.s. on May 24. On May 25 we are increasing up to 40 mg p.o. q.h.s. on May 28 we are increasing up to 60 mg p.o. q.h.s. and encourage compliance but she has consistently refused this medication so we discontinued. 5. Increase Haldol up to 10 mg p.o. b.i.d. 6. We are contacting the staff of the halfway to find out if she has ever taking Abilify. 7. On June 12 the patient agreed to take like to the night 20 mg daily. We are increasing Latuda up to 40 mg on June 21. On June 22 we increased Latuda up to 60 mg p.o. daily. On June 29 we increase Latuda up to 80 mg p.o. daily. On July 05 we increased Latuda up to 120 mg p.o. daily. Reason for continued inpatient stay Substantial Risk for: inability to function, rapid decompensation and med/psych decompensation Time Spent With Patient Time: Total time managing care of this patient today __20__ minutes.
[2023-07-07] MEDS: Lurasidone HCl 40 MG TABLET 120 MG PO (10:33)
[2023-07-07] MEDS: HaloperidoL 5 MG TABLET PO (10:33)
[2023-07-07 18:00] VITALS: PULSE 54; TEMP 35.8; O2SAT 94
[2023-07-07] MEDS: HaloperidoL 5 MG TABLET 15 MG PO (20:30)
[2023-07-08 06:00] VITALS: BP 164/72; PULSE 62; RESP 18; TEMP 36.2; O2SAT 92
--- NOTE | 2023-07-08 09:29 | HO.PSYCHPN ---
Subjective Subjective Date of Service: 07/08/23 Reason For Visit: Schizophrenia Subjective Notes: Riggins Order and Conditional Voluntary Interim History: The nursing staff reported the patient have shown a brighter affect still paranoid but more easily redirectable. On interview the patient denies new symptoms she looks a little more sociable. Mental Status Exam Mental Status Exam Patient Appearance: Appropriate Patient Orientation: Person Level of Consciousness: Awake Patient Behavior: Guarded and Passive Mood Description: Withdrawn Affect Description: Constricted Patient Cognition Impaired: Yes Ability to Follow Directions: Good Speech Pattern: Clear Hallucinations: Auditory Delusions: Paranoid Ideation Thought Process: Distracted and Slowed Thinking Thought Content: positive for [place] and positive for Poverty of Content Judgement: Poor Diagnostics Vital Signs (24Hr): Vital Signs - 24 hr 07/07/23 18:00 07/08/23 06:00 Temperature 96.5 F L 97.1 F Pulse Rate 54 62 Respiratory Rate 18 Blood Pressure 164/72 H Pulse Oximetry 94 92 Oxygen Delivery Method Room Air Room Air BMI result Body Mass Index 27.8 Labs 07/05/23 08:20 07/05/23 08:20 Labs: Laboratory Results - last 48 hr 07/06/23 10:27 COVID-19 ([facility]) Negative COVID-19 Clin Com See Note Medications Medications Current Medications Acetaminophen (Acetaminophen 325 Mg Tablet) 650 mg PO Q6H PRN PRN Reason: Headache/Pain Mild Scale (1-3) Al Hydroxide/Mg Hydroxide (Magnesium Hydrox/Alum Hydrox 30 Ml Oral.Susp) 30 ml PO Q6H PRN PRN Reason: Heartburn/Nausea Clotrimazole (Clotrimazole 1 % Cream 15 Gm Tube) 1 appl TOPICAL BID [facility]; Protocol Last Admin: 07/07/23 20:33 Dose: Not Given Haloperidol (Haloperidol 5 Mg Tablet) 5 mg PO Q4H PRN PRN Reason: agitation Haloperidol (Haloperidol 5 Mg Tablet) 5 mg PO DAILY [facility] Last Admin: 07/07/23 10:33 Dose: 5 mg Haloperidol (Haloperidol 5 Mg Tablet) 15 mg PO BEDTIME [facility] Last Admin: 07/07/23 20:30 Dose: 15 mg Haloperidol Lactate (Haloperidol Lactate 5 Mg/Ml Vial) 5 mg IM BID PRN PRN Reason: REFUSAL OF PO Last Admin: 05/20/23 08:43 Dose: 5 mg Hydrocortisone (Hydrocortisone 1 % Cream 28.35 Gm Tube) 1 appl TOPICAL BID PRN; Protocol PRN Reason: Rash Last Admin: 06/22/23 09:28 Dose: 1 appl Ibuprofen (Ibuprofen 400 Mg Tablet) 400 mg PO Q4H PRN PRN Reason: Pain, Mild (Pain Scale 1-3) Lurasidone HCl (Lurasidone Hcl 40 Mg Tablet) 120 mg PO DAILY [facility] Last Admin: 07/07/23 10:33 Dose: 120 mg Magnesium Hydroxide (Milk Of Magnesia 30 Ml Oral.Susp) 30 ml PO DAILY PRN PRN Reason: Constipation Trazodone HCl (Trazodone Hcl 25 Mg Halftab) 25 mg PO BEDTIME MRX1 PRN PRN Reason: Insomnia Allergies Allergies Allergy/AdvReac Type Severity Reaction Status Date / Time onion Allergy Unknown Unknown Verified 05/11/23 22:53 Assessment & Plan Assessment & Plan (1) Schizophrenia, chronic condition: Status: Acute Code(s): F20.9 - Schizophrenia, unspecified Plan Pt is a 72-year-old female with a PMH significant for?HTN, GERD, and schizophrenia who is admitted to [facility] for increased aggression after a non compliant her psychiatric medications. Patient lives at a residential but has recently become disorganized with delusions and increased aggression after refusing to take her medications despite a Riggins order. Medical consult for admission H&P. 06/09 continue current treatment plan 06/10 continue current tx plan 06/19 continue tx. 06/23 CTP 06/24 doesn't seem to be getting better with dec haldol in [place]- maybe inc ? haldol back up until latuda has chance to build up. 06/25/23 better with inc haldol to 15mg last pm ? or just further along on medications- CTP for another week continue haldol 15mg then dec back to 10mg Plan 06/30/2023: No changes to current treatment plan 07/01/2023: No changes to current 1. Gather collateral information, will try to contact the staff on the residential for further details on the last Haldol Decanoate. 2. Continue with medications as per court order. 3. Haldol Decanoate 100 mg on May 22 4. Latuda 20 mg p.o. q.h.s. on May 24. On May 25 we are increasing up to 40 mg p.o. q.h.s. on May 28 we are increasing up to 60 mg p.o. q.h.s. and encourage compliance but she has consistently refused this medication so we discontinued. 5. Increase Haldol up to 10 mg p.o. b.i.d. 6. We are contacting the staff of the residential to find out if she has ever taking Abilify. 7. On June 12 the patient agreed to take like to the night 20 mg daily. We are increasing Latuda up to 40 mg on June 21. On June 22 we increased Latuda up to 60 mg p.o. daily. On June 29 we increase Latuda up to 80 mg p.o. daily. On July 05 we increased Latuda up to 120 mg p.o. daily. Reason for continued inpatient stay Substantial Risk for: inability to function, rapid decompensation and med/psych decompensation Time Spent With Patient Time: Total time managing care of this patient today __20__ minutes.
[2023-07-08] MEDS: Clotrimazole 1 % Cream 15 GM TUBE 1 APPL TOPICAL (09:32)
[2023-07-08] MEDS: HaloperidoL 5 MG TABLET PO (09:33)
[2023-07-08] MEDS: Lurasidone HCl 40 MG TABLET 120 MG PO (09:33)
[2023-07-08 18:00] VITALS: BP 148/65; PULSE 63; RESP 16; TEMP 36.9; O2SAT 92
[2023-07-08] MEDS: HaloperidoL 5 MG TABLET 15 MG PO (20:32)
[2023-07-09 08:00] VITALS: BP 144/70; PULSE 62; RESP 18; TEMP 36.8; O2SAT 93
[2023-07-09] MEDS: Lurasidone HCl 40 MG TABLET 120 MG PO (09:49)
[2023-07-09] MEDS: HaloperidoL 5 MG TABLET PO (09:50)
[2023-07-09 11:10] LABS: COVID-19 Test Negative (Negative); IDNOW Serial# 08D9AD1C
--- NOTE | 2023-07-09 14:41 | P.PNPSI_ITS ---
Subjective Subjective Date of Service: 07/09/23 Reason For Visit: Schizophrenia Subjective Notes: Riggins Order and Conditional Voluntary Interim History: The nursing staff reported the patient had been isolative but the staff has noticed also that she is more out in the milieu. On interview the patient denies new symptoms, still chronically paranoid but with a brighter affect. Mental Status Exam Mental Status Exam Patient Appearance: Appropriate Patient Orientation: Person and Situation Level of Consciousness: Awake and Restless Patient Behavior: Guarded and Passive Mood Description: Withdrawn Affect Description: Constricted Patient Cognition Impaired: Yes Ability to Follow Directions: Good Speech Pattern: Clear Hallucinations: Auditory Delusions: Paranoid Ideation and Ideas of Reference Thought Process: Distracted and Slowed Thinking Thought Content: positive for [place] and positive for Poverty of Content Judgement: Fair Diagnostics Vital Signs (24Hr): Vital Signs - 24 hr 07/08/23 18:00 07/09/23 08:00 Temperature 98.5 F 98.2 F Pulse Rate 63 62 Respiratory Rate 16 18 Blood Pressure 148/65 H 144/70 H Pulse Oximetry 92 93 Oxygen Delivery Method Room Air Room Air BMI result Body Mass Index 27.8 Labs 07/05/23 08:20 07/05/23 08:20 Labs: Laboratory Results - last 48 hr 07/09/23 10:50 COVID-19 ([facility]) Negative COVID-19 Clin Com See Note Medications Medications Current Medications Acetaminophen (Acetaminophen 325 Mg Tablet) 650 mg PO Q6H PRN PRN Reason: Headache/Pain Mild Scale (1-3) Al Hydroxide/Mg Hydroxide (Magnesium Hydrox/Alum Hydrox 30 Ml Oral.Susp) 30 ml PO Q6H PRN PRN Reason: Heartburn/Nausea Clotrimazole (Clotrimazole 1 % Cream 15 Gm Tube) 1 appl TOPICAL BID [facility]; Protocol Last Admin: 07/09/23 09:50 Dose: Not Given Haloperidol (Haloperidol 5 Mg Tablet) 5 mg PO Q4H PRN PRN Reason: agitation Haloperidol (Haloperidol 5 Mg Tablet) 5 mg PO DAILY [facility] Last Admin: 07/09/23 09:50 Dose: 5 mg Haloperidol (Haloperidol 5 Mg Tablet) 15 mg PO BEDTIME [facility] Last Admin: 07/08/23 20:32 Dose: 15 mg Haloperidol Lactate (Haloperidol Lactate 5 Mg/Ml Vial) 5 mg IM BID PRN PRN Reason: REFUSAL OF PO Last Admin: 05/20/23 08:43 Dose: 5 mg Hydrocortisone (Hydrocortisone 1 % Cream 28.35 Gm Tube) 1 appl TOPICAL BID PRN; Protocol PRN Reason: Rash Last Admin: 06/22/23 09:28 Dose: 1 appl Ibuprofen (Ibuprofen 400 Mg Tablet) 400 mg PO Q4H PRN PRN Reason: Pain, Mild (Pain Scale 1-3) Lurasidone HCl (Lurasidone Hcl 40 Mg Tablet) 120 mg PO DAILY [facility] Last Admin: 07/09/23 09:49 Dose: 120 mg Magnesium Hydroxide (Milk Of Magnesia 30 Ml Oral.Susp) 30 ml PO DAILY PRN PRN Reason: Constipation Trazodone HCl (Trazodone Hcl 25 Mg Halftab) 25 mg PO BEDTIME MRX1 PRN PRN Reason: Insomnia Allergies Allergies Allergy/AdvReac Type Severity Reaction Status Date / Time onion Allergy Unknown Unknown Verified 05/11/23 22:53 Assessment & Plan Assessment & Plan (1) Schizophrenia, chronic condition: Status: Acute Code(s): F20.9 - Schizophrenia, unspecified Plan Pt is a 72-year-old female with a PMH significant for?HTN, GERD, and schizophrenia who is admitted to [facility] for increased aggression after a non compliant her psychiatric medications. Patient lives at a long term but has recently become disorganized with delusions and increased aggression after refusing to take her medications despite a Riggins order. Medical consult for admission H&P. 06/09 continue current treatment plan 06/10 continue current tx plan 06/19 continue tx. 06/23 CTP 06/24 doesn't seem to be getting better with dec haldol in [place]- maybe inc ? haldol back up until latuda has chance to build up. 06/25/23 better with inc haldol to 15mg last pm ? or just further along on medications- CTP for another week continue haldol 15mg then dec back to 10mg Plan 06/30/2023: No changes to current treatment plan 07/01/2023: No changes to current 1. Gather collateral information, will try to contact the staff on the long term for further details on the last Haldol Decanoate. 2. Continue with medications as per court order. 3. Haldol Decanoate 100 mg on May 22 4. Latuda 20 mg p.o. q.h.s. on May 24. On May 25 we are increasing up to 40 mg p.o. q.h.s. on May 28 we are increasing up to 60 mg p.o. q.h.s. and encourage compliance but she has consistently refused this medication so we discontinued. 5. Increase Haldol up to 10 mg p.o. b.i.d. 6. We are contacting the staff of the long term to find out if she has ever taking Abilify. 7. On June 12 the patient agreed to take like to the night 20 mg daily. We are increasing Latuda up to 40 mg on June 21. On June 22 we increased Latuda up to 60 mg p.o. daily. On June 29 we increase Latuda up to 80 mg p.o. daily. On July 05 we increased Latuda up to 120 mg p.o. daily. Reason for continued inpatient stay Substantial Risk for: inability to function, rapid decompensation and med/psych decompensation Time Spent With Patient Time: Total time managing care of this patient today __20__ minutes.
[2023-07-09 20:41] VITALS: BP 145/73; PULSE 66; RESP 18; TEMP 36.4; O2SAT 94
[2023-07-09] MEDS: HaloperidoL 5 MG TABLET 15 MG PO (20:44)
--- NOTE | 2023-07-10 00:10 | PC.NURSE ---
Assumed care of patient 07/09 at 19:00. See shift assessments and EMAR for full details. Handoff report given to oncoming RN 23:00.
[2023-07-10 08:00] VITALS: BP 142/68; PULSE 64; RESP 18; TEMP 36.6; O2SAT 94
--- NOTE | 2023-07-10 08:22 | HO.PSYCHPN ---
Subjective Subjective Date of Service: 07/10/23 Reason For Visit: Schizophrenia Subjective Notes: Riggins Order and Conditional Voluntary Interim History: The nursing staff reported the patient had been suspicious isolative in her room, she slept 5 hours. On interview the patient denies new symptoms she looks better, with a brighter affect. Mental Status Exam Mental Status Exam Patient Appearance: Appropriate (On hospital gowns) Patient Orientation: Person and Situation Level of Consciousness: Awake and Appropriate Patient Behavior: Guarded and Passive Mood Description: Suspicious and Constricted Affect Description: Constricted Patient Cognition Impaired: Yes Ability to Follow Directions: Good Speech Pattern: Clear Hallucinations: None Delusions: Paranoid Ideation Thought Process: Distracted and Slowed Thinking Thought Content: positive for [place] and positive for Poverty of Content Judgement: Poor Diagnostics Vital Signs (24Hr): Vital Signs - 24 hr 07/09/23 20:41 Temperature 97.5 F Pulse Rate 66 Respiratory Rate 18 Blood Pressure 145/73 H Pulse Oximetry 94 Oxygen Delivery Method Room Air BMI result Body Mass Index 27.8 Labs 07/05/23 08:20 07/05/23 08:20 Labs: Laboratory Results - last 48 hr 07/09/23 10:50 COVID-19 ([facility]) Negative COVID-19 Clin Com See Note Medications Medications Current Medications Acetaminophen (Acetaminophen 325 Mg Tablet) 650 mg PO Q6H PRN PRN Reason: Headache/Pain Mild Scale (1-3) Al Hydroxide/Mg Hydroxide (Magnesium Hydrox/Alum Hydrox 30 Ml Oral.Susp) 30 ml PO Q6H PRN PRN Reason: Heartburn/Nausea Clotrimazole (Clotrimazole 1 % Cream 15 Gm Tube) 1 appl TOPICAL BID [facility]; Protocol Last Admin: 07/09/23 20:45 Dose: Not Given Haloperidol (Haloperidol 5 Mg Tablet) 5 mg PO Q4H PRN PRN Reason: agitation Haloperidol (Haloperidol 5 Mg Tablet) 5 mg PO DAILY [facility] Last Admin: 07/09/23 09:50 Dose: 5 mg Haloperidol (Haloperidol 5 Mg Tablet) 15 mg PO BEDTIME [facility] Last Admin: 07/09/23 20:44 Dose: 15 mg Haloperidol Lactate (Haloperidol Lactate 5 Mg/Ml Vial) 5 mg IM BID PRN PRN Reason: REFUSAL OF PO Last Admin: 05/20/23 08:43 Dose: 5 mg Hydrocortisone (Hydrocortisone 1 % Cream 28.35 Gm Tube) 1 appl TOPICAL BID PRN; Protocol PRN Reason: Rash Last Admin: 06/22/23 09:28 Dose: 1 appl Ibuprofen (Ibuprofen 400 Mg Tablet) 400 mg PO Q4H PRN PRN Reason: Pain, Mild (Pain Scale 1-3) Lurasidone HCl (Lurasidone Hcl 40 Mg Tablet) 120 mg PO DAILY [facility] Last Admin: 07/09/23 09:49 Dose: 120 mg Magnesium Hydroxide (Milk Of Magnesia 30 Ml Oral.Susp) 30 ml PO DAILY PRN PRN Reason: Constipation Trazodone HCl (Trazodone Hcl 25 Mg Halftab) 25 mg PO BEDTIME MRX1 PRN PRN Reason: Insomnia Allergies Allergies Allergy/AdvReac Type Severity Reaction Status Date / Time onion Allergy Unknown Unknown Verified 05/11/23 22:53 Assessment & Plan Assessment & Plan (1) Schizophrenia, chronic condition: Status: Acute Code(s): F20.9 - Schizophrenia, unspecified Plan Pt is a 72-year-old female with a PMH significant for?HTN, GERD, and schizophrenia who is admitted to [facility] for increased aggression after a non compliant her psychiatric medications. Patient lives at a detention but has recently become disorganized with delusions and increased aggression after refusing to take her medications despite a Riggins order. Medical consult for admission H&P. 06/09 continue current treatment plan 06/10 continue current tx plan 06/19 continue tx. 06/23 CTP 06/24 doesn't seem to be getting better with dec haldol in [place]- maybe inc ? haldol back up until latuda has chance to build up. 06/25/23 better with inc haldol to 15mg last pm ? or just further along on medications- CTP for another week continue haldol 15mg then dec back to 10mg Plan 06/30/2023: No changes to current treatment plan 07/01/2023: No changes to current 1. Gather collateral information, will try to contact the staff on the detention for further details on the last Haldol Decanoate. 2. Continue with medications as per court order. 3. Haldol Decanoate 100 mg on May 22 4. Latuda 20 mg p.o. q.h.s. on May 24. On May 25 we are increasing up to 40 mg p.o. q.h.s. on May 28 we are increasing up to 60 mg p.o. q.h.s. and encourage compliance but she has consistently refused this medication so we discontinued. 5. Increase Haldol up to 10 mg p.o. b.i.d. 6. We are contacting the staff of the detention to find out if she has ever taking Abilify. 7. On June 12 the patient agreed to take like to the night 20 mg daily. We are increasing Latuda up to 40 mg on June 21. On June 22 we increased Latuda up to 60 mg p.o. daily. On June 29 we increase Latuda up to 80 mg p.o. daily. On July 05 we increased Latuda up to 120 mg p.o. daily. Reason for continued inpatient stay Substantial Risk for: inability to function, rapid decompensation and med/psych decompensation Time Spent With Patient Time: Total time managing care of this patient today __20__ minutes.
[2023-07-10] MEDS: Lurasidone HCl 40 MG TABLET 120 MG PO (08:57)
[2023-07-10] MEDS: HaloperidoL 5 MG TABLET PO (08:57)
[2023-07-10 10:35] LABS: COVID-19 Test Negative (Negative); IDNOW Serial# 9DB6401D
[2023-07-10 20:05] VITALS: BP 121/58; PULSE 56; RESP 17; TEMP 36.5; O2SAT 92
[2023-07-10] MEDS: HaloperidoL 5 MG TABLET 15 MG PO (21:05)
[2023-07-11 07:50] VITALS: BP 132/62; PULSE 60; RESP 18; TEMP 36.8; O2SAT 93
[2023-07-11] MEDS: Lurasidone HCl 40 MG TABLET 120 MG PO (09:50)
[2023-07-11] MEDS: HaloperidoL 5 MG TABLET PO (09:51)
--- NOTE | 2023-07-11 13:40 | P.PNPSI_ITS ---
Subjective Subjective Date of Service: 07/11/23 Reason For Visit: Schizophrenia Subjective Notes: Conditional Voluntary Interim History: The nursing staff reported the patient has been isolative withdrawn, she is taking her medications but still paranoid. On interview the patient denies new symptoms, still internally preoccupied but with a brighter range of affect. OT reported that she went for the whole group today.l Mental Status Exam Mental Status Exam Patient Appearance: Appropriate Patient Orientation: Person Level of Consciousness: Awake and Appropriate Patient Behavior: Guarded and Passive Mood Description: Withdrawn Affect Description: Constricted Patient Cognition Impaired: Yes Ability to Follow Directions: Good Speech Pattern: Clear Hallucinations: None Delusions: Thought Insert/Delete Thought Process: Distracted Thought Content: positive for [place] and positive for Poverty of Content Judgement: Poor Diagnostics Vital Signs (24Hr): Vital Signs - 24 hr 07/10/23 20:05 07/11/23 07:50 Temperature 97.7 F 98.2 F Pulse Rate 56 60 Respiratory Rate 17 18 Blood Pressure 121/58 L 132/62 Pulse Oximetry 92 93 Oxygen Delivery Method Room Air BMI result Body Mass Index 27.8 Labs 07/05/23 08:20 07/05/23 08:20 Labs: Laboratory Results - last 48 hr 07/10/23 10:09 COVID-19 ([facility]) Negative COVID-19 Clin Com See Note Medications Medications Current Medications Acetaminophen (Acetaminophen 325 Mg Tablet) 650 mg PO Q6H PRN PRN Reason: Headache/Pain Mild Scale (1-3) Al Hydroxide/Mg Hydroxide (Magnesium Hydrox/Alum Hydrox 30 Ml Oral.Susp) 30 ml PO Q6H PRN PRN Reason: Heartburn/Nausea Clotrimazole (Clotrimazole 1 % Cream 15 Gm Tube) 1 appl TOPICAL BID JOSE GUADALUPE; Protocol Last Admin: 07/11/23 09:52 Dose: Not Given Haloperidol (Haloperidol 5 Mg Tablet) 5 mg PO Q4H PRN PRN Reason: agitation Haloperidol (Haloperidol 5 Mg Tablet) 5 mg PO DAILY [facility] Last Admin: 07/11/23 09:51 Dose: 5 mg Haloperidol (Haloperidol 5 Mg Tablet) 15 mg PO BEDTIME JOSE GUADALUPE Last Admin: 07/10/23 21:05 Dose: 15 mg Haloperidol Lactate (Haloperidol Lactate 5 Mg/Ml Vial) 5 mg IM BID PRN PRN Reason: REFUSAL OF PO Last Admin: 05/20/23 08:43 Dose: 5 mg Hydrocortisone (Hydrocortisone 1 % Cream 28.35 Gm Tube) 1 appl TOPICAL BID PRN; Protocol PRN Reason: Rash Last Admin: 06/22/23 09:28 Dose: 1 appl Ibuprofen (Ibuprofen 400 Mg Tablet) 400 mg PO Q4H PRN PRN Reason: Pain, Mild (Pain Scale 1-3) Lurasidone HCl (Lurasidone Hcl 40 Mg Tablet) 120 mg PO DAILY JOSE GUADALUPE Last Admin: 07/11/23 09:50 Dose: 120 mg Magnesium Hydroxide (Milk Of Magnesia 30 Ml Oral.Susp) 30 ml PO DAILY PRN PRN Reason: Constipation Trazodone HCl (Trazodone Hcl 25 Mg Halftab) 25 mg PO BEDTIME MRX1 PRN PRN Reason: Insomnia Allergies Allergies Allergy/AdvReac Type Severity Reaction Status Date / Time onion Allergy Unknown Unknown Verified 05/11/23 22:53 Assessment & Plan Assessment & Plan (1) Schizophrenia, chronic condition: Status: Acute Code(s): F20.9 - Schizophrenia, unspecified Plan Pt is a 72-year-old female with a PMH significant for?HTN, GERD, and schizophrenia who is admitted to [facility] for increased aggression after a non compliant her psychiatric medications. [facility] but has recently become disorganized with delusions and increased aggression after refusing to take her medications despite a [facility] order. Medical consult for admission H&P. 06/09 continue current treatment plan 06/10 continue current tx plan 06/19 continue tx. 06/23 CTP 06/24 doesn't seem to be getting better with dec haldol in [place]- maybe inc ? haldol back up until [place] has chance to build up. 06/25/23 better with inc haldol to 15mg last pm ? or just further along on medications- CTP for another week continue haldol 15mg then dec back to 10mg Plan 06/30/2023: No changes to current treatment plan 07/01/2023: No changes to current 1. Gather collateral information, will try to contact the staff [facility] the [facility] for further details on the last Haldol Decanoate. 2. Continue with medications as per court order. 3. Haldol Decanoate 100 mg on May 22 4. Latuda 20 mg p.o. q.h.s. on May 24. On May 25 we are increasing up to 40 mg p.o. q.h.s. on May 28 we are increasing up to 60 mg p.o. q.h.s. and encourage compliance but she has consistently refused this medication so we discontinued. 5. Increase Haldol up to 10 mg p.o. b.i.d. 6. We are contacting the staff of the penitentiary to find out if she has ever taking Abilify. 7. On June 12 the patient agreed to take like to the night 20 mg daily. We are increasing Latuda up to 40 mg on June 21. On June 22 we increased Latuda up to 60 mg p.o. daily. On June 29 we increase Latuda up to 80 mg p.o. daily. On July 05 we increased Latuda up to 120 mg p.o. daily. Reason for continued inpatient stay Substantial Risk for: inability to function, rapid decompensation and med/psych decompensation Time Spent With Patient Time: Total time managing care of this patient today __20__ minutes.
[2023-07-11 19:48] VITALS: BP 141/65; PULSE 55; RESP 16; TEMP 36.1; O2SAT 93
[2023-07-11] MEDS: HaloperidoL 5 MG TABLET 15 MG PO (20:37)
[2023-07-12 06:00] VITALS: BP 136/72; PULSE 56; RESP 18; TEMP 36.1; O2SAT 93
[2023-07-12] MEDS: Lurasidone HCl 40 MG TABLET 120 MG PO (08:58)
[2023-07-12] MEDS: HaloperidoL 5 MG TABLET PO (08:58)
[2023-07-12] MEDS: Clotrimazole 1 % Cream 15 GM TUBE 1 APPL TOPICAL (09:00)
[2023-07-12 10:51] LABS: COVID-19 Test Negative (Negative); IDNOW Serial# 152EDE1D
--- NOTE | 2023-07-12 13:57 | HO.PSYCHPN ---
Subjective Subjective Date of Service: 07/12/23 Reason For Visit: Schizophrenia Subjective Notes: Conditional Voluntary Interim History: The nursing staff reported the patient has been isolative in her room but yesterday she one-to-one group and tolerated fairly well. On interview the patient denies new symptoms affect is slightly brighter but still constricted. Mental Status Exam Mental Status Exam Patient Appearance: Appropriate Patient Orientation: Person and Situation Level of Consciousness: Awake and Appropriate Patient Behavior: Guarded and Passive Mood Description: Withdrawn Affect Description: Constricted Patient Cognition Impaired: Yes Ability to Follow Directions: Good Speech Pattern: Clear Hallucinations: None Delusions: Paranoid Ideation Thought Process: Distracted and Slowed Thinking Thought Content: positive for [place] and positive for Poverty of Content Judgement: Poor Diagnostics Vital Signs (24Hr): Vital Signs - 24 hr 07/11/23 19:48 07/12/23 06:00 Temperature 97 F 97 F Pulse Rate 55 56 Respiratory Rate 16 18 Blood Pressure 141/65 H 136/72 Pulse Oximetry 93 93 Oxygen Delivery Method Room Air Room Air BMI result Body Mass Index 27.8 Labs 07/05/23 08:20 07/05/23 08:20 Labs: Laboratory Results - last 48 hr 07/12/23 10:15 COVID-19 ([facility]) Negative COVID-19 Clin Com See Note Medications Medications Current Medications Acetaminophen (Acetaminophen 325 Mg Tablet) 650 mg PO Q6H PRN PRN Reason: Headache/Pain Mild Scale (1-3) Al Hydroxide/Mg Hydroxide (Magnesium Hydrox/Alum Hydrox 30 Ml Oral.Susp) 30 ml PO Q6H PRN PRN Reason: Heartburn/Nausea Clotrimazole (Clotrimazole 1 % Cream 15 Gm Tube) 1 appl TOPICAL BID JOSE GUADALUPE; Protocol Last Admin: 07/12/23 09:00 Dose: 1 appl Haloperidol (Haloperidol 5 Mg Tablet) 5 mg PO Q4H PRN PRN Reason: agitation Haloperidol (Haloperidol 5 Mg Tablet) 5 mg PO DAILY JOSE GUADALUPE Last Admin: 07/12/23 08:58 Dose: 5 mg Haloperidol (Haloperidol 5 Mg Tablet) 15 mg PO BEDTIME JOSE GUADALUPE Last Admin: 07/11/23 20:37 Dose: 15 mg Haloperidol Lactate (Haloperidol Lactate 5 Mg/Ml Vial) 5 mg IM BID PRN PRN Reason: REFUSAL OF PO Last Admin: 05/20/23 08:43 Dose: 5 mg Hydrocortisone (Hydrocortisone 1 % Cream 28.35 Gm Tube) 1 appl TOPICAL BID PRN; Protocol PRN Reason: Rash Last Admin: 06/22/23 09:28 Dose: 1 appl Ibuprofen (Ibuprofen 400 Mg Tablet) 400 mg PO Q4H PRN PRN Reason: Pain, Mild (Pain Scale 1-3) Lurasidone HCl (Lurasidone Hcl 40 Mg Tablet) 120 mg PO DAILY JOSE GUADALUPE Last Admin: 07/12/23 08:58 Dose: 120 mg Magnesium Hydroxide (Milk Of Magnesia 30 Ml Oral.Susp) 30 ml PO DAILY PRN PRN Reason: Constipation Trazodone HCl (Trazodone Hcl 25 Mg Halftab) 25 mg PO BEDTIME MRX1 PRN PRN Reason: Insomnia Allergies Allergies Allergy/AdvReac Type Severity Reaction Status Date / Time onion Allergy Unknown Unknown Verified 05/11/23 22:53 Assessment & Plan Assessment & Plan (1) Schizophrenia, chronic condition: Status: Acute Code(s): F20.9 - Schizophrenia, unspecified Plan Pt is a 72-year-old female with a PMH significant for?HTN, GERD, and schizophrenia who is admitted to [facility] for increased aggression after a non compliant her psychiatric medications. Patient lives at a [facility] but has recently become disorganized with delusions and increased aggression after refusing to take her medications despite a [facility] order. Medical consult for admission H&P. 06/09 continue current treatment plan 06/10 continue current tx plan 06/19 continue tx. 06/23 CTP 06/24 doesn't seem to be getting better with dec haldol in [place]- maybe inc ? haldol back up until [place] has chance to build up. 06/25/23 better with inc haldol to 15mg last pm ? or just further along on medications- CTP for another week continue haldol 15mg then dec back to 10mg Plan 06/30/2023: No changes to current treatment plan 07/01/2023: No changes to current 1. Gather collateral information, will try to contact the staff on the [facility] for further details on the last Haldol Decanoate. 2. Continue with medications as per court order. 3. Haldol Decanoate 100 mg on May 22 4. Latuda 20 mg p.o. q.h.s. on May 24. On May 25 we are increasing up to 40 mg p.o. q.h.s. on May 28 we are increasing up to 60 mg p.o. q.h.s. and encourage compliance but she has consistently refused this medication so we discontinued. 5. Increase Haldol up to 10 mg p.o. b.i.d. 6. We are contacting the staff of the [facility] to find out if she has ever taking Abilify. 7. On June 12 the patient agreed to take like to the night 20 mg daily. We are increasing Latuda up to 40 mg on June 21. On June 22 we increased Latuda up to 60 mg p.o. daily. On June 29 we increase Latuda up to 80 mg p.o. daily. On July 05 we increased Latuda up to 120 mg p.o. daily. Reason for continued inpatient stay Substantial Risk for: inability to function, rapid decompensation and med/psych decompensation Time Spent With Patient Time: Total time managing care of this patient today __20__ minutes.
[2023-07-12] MEDS: HaloperidoL 5 MG TABLET 15 MG PO (20:36)
[2023-07-12 20:52] VITALS: BP 141/65; PULSE 82; RESP 18; TEMP 36.1; O2SAT 93
[2023-07-13 06:00] VITALS: BP 136/63; PULSE 56; RESP 16; TEMP 36.6; O2SAT 95
[2023-07-13] MEDS: Lurasidone HCl 40 MG TABLET 120 MG PO (08:17)
[2023-07-13] MEDS: HaloperidoL 5 MG TABLET PO (08:17)
--- NOTE | 2023-07-13 10:17 | P.PNPSI_ITS ---
Subjective Subjective Date of Service: 07/13/23 Reason For Visit: Schizophrenia Subjective Notes: Conditional Voluntary Interim History: Pt slept through the night. Pt reports she is feeling tired, but has been trying to go to one of the OT groups, which she reports she enjoys. She presents as less paranoia and guarded towards staff and peers. She does report number of somatic concerns which seems to be part of her delusional system. Pt reports she has skin cancer, leukemia, RA...goes on as to say I'm very sick, always been. Review of Systems Review of Systems Red rash with scaly plaques on chest and under breasts Patient denies has no acute medical complaints at this time Yes Unobtainable due to mental status Mental Status Exam Mental Status Exam Patient Appearance: Appropriate Patient Orientation: Person and Situation Level of Consciousness: Awake and Appropriate Patient Behavior: Guarded and Passive Mood Description: Withdrawn Affect Description: Constricted Patient Cognition Impaired: Yes Ability to Follow Directions: Good Speech Pattern: Clear Diagnostics Vital Signs (24Hr): Vital Signs - 24 hr 07/12/23 20:52 07/13/23 06:00 Temperature 97 F 97.8 F Pulse Rate 82 56 Respiratory Rate 18 16 Blood Pressure 141/65 H 136/63 Pulse Oximetry 93 95 Oxygen Delivery Method Room Air Room Air BMI result Body Mass Index 27.8 Labs 07/05/23 08:20 07/05/23 08:20 Labs: Laboratory Results - last 48 hr 07/12/23 10:15 COVID-19 ([facility]) Negative COVID-19 Clin Com See Note Medications Medications Current Medications Acetaminophen (Acetaminophen 325 Mg Tablet) 650 mg PO Q6H PRN PRN Reason: Headache/Pain Mild Scale (1-3) Al Hydroxide/Mg Hydroxide (Magnesium Hydrox/Alum Hydrox 30 Ml Oral.Susp) 30 ml PO Q6H PRN PRN Reason: Heartburn/Nausea Clotrimazole (Clotrimazole 1 % Cream 15 Gm Tube) 1 appl TOPICAL BID JOSE GUADALUPE; Protocol Last Admin: 07/13/23 08:17 Dose: Not Given Haloperidol (Haloperidol 5 Mg Tablet) 5 mg PO Q4H PRN PRN Reason: agitation Haloperidol (Haloperidol 5 Mg Tablet) 5 mg PO DAILY JOSE GUADALUPE Last Admin: 07/13/23 08:17 Dose: 5 mg Haloperidol (Haloperidol 5 Mg Tablet) 15 mg PO BEDTIME JOSE GUADALUPE Last Admin: 07/12/23 20:36 Dose: 15 mg Haloperidol Lactate (Haloperidol Lactate 5 Mg/Ml Vial) 5 mg IM BID PRN PRN Reason: REFUSAL OF PO Last Admin: 05/20/23 08:43 Dose: 5 mg Hydrocortisone (Hydrocortisone 1 % Cream 28.35 Gm Tube) 1 appl TOPICAL BID PRN; Protocol PRN Reason: Rash Last Admin: 06/22/23 09:28 Dose: 1 appl Ibuprofen (Ibuprofen 400 Mg Tablet) 400 mg PO Q4H PRN PRN Reason: Pain, Mild (Pain Scale 1-3) Lurasidone HCl (Lurasidone Hcl 40 Mg Tablet) 120 mg PO DAILY JOSE GUADALUPE Last Admin: 07/13/23 08:17 Dose: 120 mg Magnesium Hydroxide (Milk Of Magnesia 30 Ml Oral.Susp) 30 ml PO DAILY PRN PRN Reason: Constipation Trazodone HCl (Trazodone Hcl 25 Mg Halftab) 25 mg PO BEDTIME MRX1 PRN PRN Reason: Insomnia Allergies Allergies Allergy/AdvReac Type Severity Reaction Status Date / Time onion Allergy Unknown Unknown Verified 05/11/23 22:53 Assessment & Plan Assessment & Plan (1) Schizophrenia, chronic condition: Status: Acute Code(s): F20.9 - Schizophrenia, unspecified Plan Pt is a 72-year-old female with a PMH significant for?HTN, GERD, and schizophrenia who is admitted to [facility] for increased aggression after a non compliant her psychiatric medications. Patient lives at a [facility] but has recently become disorganized with delusions and increased aggression after refusing to take her medications despite a [facility] order. Medical consult for admission H&P. 06/09 continue current treatment plan 06/10 continue current tx plan 06/19 continue tx. 06/23 CTP 06/24 doesn't seem to be getting better with dec haldol in [place]- maybe inc ? haldol back up until [place] has chance to build up. 06/25/23 better with inc haldol to 15mg last pm ? or just further along on medications- CTP for another week continue haldol 15mg then dec back to 10mg Plan 06/30/2023: No changes to current treatment plan 07/01/2023: No changes to current 07/13/23- continue tx. 1. Gather collateral information, will try to contact the staff on the [facility] for further details on the last Haldol Decanoate. 2. Continue with medications as per court order. 3. Haldol Decanoate 100 mg on May 22 4. Latuda 20 mg p.o. q.h.s. on May 24. On May 25 we are increasing up to 40 mg p.o. q.h.s. on May 28 we are increasing up to 60 mg p.o. q.h.s. and encourage compliance but she has consistently refused this medication so we discontinued. 5. Increase Haldol up to 10 mg p.o. b.i.d. 6. We are contacting the staff of the [facility] to find out if she has ever taking Abilify. 7. On June 12 the patient agreed to take like to the night 20 mg daily. We are increasing Latuda up to 40 mg on June 21. On June 22 we increased [place] up to 60 mg p.o. daily. On June 29 we increase Latuda up to 80 mg p.o. daily. On July 05 we increased Latuda up to 120 mg p.o. daily. Reason for continued inpatient stay Substantial Risk for: inability to function Time Spent With Patient Time: Total time managing care of this patient today ____ minutes.
[2023-07-13 20:09] VITALS: BP 148/72; PULSE 54; RESP 18; TEMP 36.4; O2SAT 94
[2023-07-13] MEDS: HaloperidoL 5 MG TABLET 15 MG PO (20:33)
[2023-07-14] MEDS: HaloperidoL 5 MG TABLET PO (08:28)
[2023-07-14] MEDS: Lurasidone HCl 40 MG TABLET 120 MG PO (08:28)
--- NOTE | 2023-07-14 17:13 | HO.PSYCHPN ---
Subjective Subjective Date of Service: 07/14/23 Reason For Visit: Schizophrenia Interim History: Met with patient; discussed with team; reviewed chart Patient in her room most of the day, lying in bed, coming out for meals but otherwise withdrawn. Made delusional comments saying she is leaking amniotic fluid. Refusing vitals but taking medication. Says she is so-so. Mental Status Exam Mental Status Exam Patient Appearance: Appropriate Patient Orientation: Person and Situation Level of Consciousness: Awake and Appropriate Patient Behavior: Guarded and Passive Mood Description: Withdrawn Affect Description: Constricted Patient Cognition Impaired: Yes Ability to Follow Directions: Good Speech Pattern: Clear Thought Process: Goal Oriented Thought Content: positive for Poverty of Content Judgement and Insight: impaired Diagnostics Vital Signs (24Hr): Vital Signs - 24 hr 07/13/23 20:09 Temperature 97.6 F Pulse Rate 54 Respiratory Rate 18 Blood Pressure 148/72 H Pulse Oximetry 94 Oxygen Delivery Method Room Air BMI result Body Mass Index 27.8 Labs 07/05/23 08:20 07/05/23 08:20 Medications Medications Current Medications Acetaminophen (Acetaminophen 325 Mg Tablet) 650 mg PO Q6H PRN PRN Reason: Headache/Pain Mild Scale (1-3) Al Hydroxide/Mg Hydroxide (Magnesium Hydrox/Alum Hydrox 30 Ml Oral.Susp) 30 ml PO Q6H PRN PRN Reason: Heartburn/Nausea Clotrimazole (Clotrimazole 1 % Cream 15 Gm Tube) 1 appl TOPICAL BID JOSE GUADALUPE; Protocol Last Admin: 07/14/23 08:31 Dose: Not Given Haloperidol (Haloperidol 5 Mg Tablet) 5 mg PO Q4H PRN PRN Reason: agitation Haloperidol (Haloperidol 5 Mg Tablet) 5 mg PO DAILY JOSE GUADALUPE Last Admin: 07/14/23 08:28 Dose: 5 mg Haloperidol (Haloperidol 5 Mg Tablet) 15 mg PO BEDTIME JOSE GUADALUPE Last Admin: 07/13/23 20:33 Dose: 15 mg Haloperidol Lactate (Haloperidol Lactate 5 Mg/Ml Vial) 5 mg IM BID PRN PRN Reason: REFUSAL OF PO Last Admin: 05/20/23 08:43 Dose: 5 mg Hydrocortisone (Hydrocortisone 1 % Cream 28.35 Gm Tube) 1 appl TOPICAL BID PRN; Protocol PRN Reason: Rash Last Admin: 06/22/23 09:28 Dose: 1 appl Ibuprofen (Ibuprofen 400 Mg Tablet) 400 mg PO Q4H PRN PRN Reason: Pain, Mild (Pain Scale 1-3) Lurasidone HCl (Lurasidone Hcl 40 Mg Tablet) 120 mg PO DAILY JOSE GUADALUPE Last Admin: 07/14/23 08:28 Dose: 120 mg Magnesium Hydroxide (Milk Of Magnesia 30 Ml Oral.Susp) 30 ml PO DAILY PRN PRN Reason: Constipation Trazodone HCl (Trazodone Hcl 25 Mg Halftab) 25 mg PO BEDTIME MRX1 PRN PRN Reason: Insomnia Allergies Allergies Allergy/AdvReac Type Severity Reaction Status Date / Time onion Allergy Unknown Unknown Verified 05/11/23 22:53 Assessment & Plan Assessment & Plan (1) Schizophrenia, chronic condition: Status: Acute Code(s): F20.9 - Schizophrenia, unspecified Plan Pt is a 72-year-old female with a PMH significant for?HTN, GERD, and schizophrenia who is admitted to [facility] for increased aggression after a non compliant her psychiatric medications. Patient lives at a care home but has recently become disorganized with delusions and increased aggression after refusing to take her medications despite a [facility] order. Medical consult for admission H&P. 06/09 continue current treatment plan 06/10 continue current tx plan 06/19 continue tx. 06/23 CTP 06/24 doesn't seem to be getting better with dec haldol in [place]- maybe inc ? haldol back up until [place] has chance to build up. 06/25/23 better with inc haldol to 15mg last pm ? or just further along on medications- CTP for another week continue haldol 15mg then dec back to 10mg Plan 06/30/2023: No changes to current treatment plan 07/01/2023: No changes to current 07/13/23- continue tx. 07/14 continue tx plan 1. Gather collateral information, will try to contact the staff on the care home for further details on the last Haldol Decanoate. 2. Continue with medications as per court order. 3. Haldol Decanoate 100 mg on May 22 4. Latuda 20 mg p.o. q.h.s. on May 24. On May 25 we are increasing up to 40 mg p.o. q.h.s. on May 28 we are increasing up to 60 mg p.o. q.h.s. and encourage compliance but she has consistently refused this medication so we discontinued. 5. Increase Haldol up to 10 mg p.o. b.i.d. 6. We are contacting the staff of the care home to find out if she has ever taking Abilify. 7. On June 12 the patient agreed to take like to the night 20 mg daily. We are increasing Latuda up to 40 mg on June 21. On June 22 we increased Latuda up to 60 mg p.o. daily. On June 29 we increase Latuda up to 80 mg p.o. daily. On July 05 we increased Latuda up to 120 mg p.o. daily. Reason for continued inpatient stay Substantial Risk for: inability to function Time Spent With Patient Time: Total time managing care of this patient today ____ minutes.
[2023-07-14 20:26] VITALS: BP 164/74; PULSE 58; RESP 16; TEMP 36.2; O2SAT 93
[2023-07-14] MEDS: HaloperidoL 5 MG TABLET 15 MG PO (20:28)
[2023-07-15] MEDS: HaloperidoL 5 MG TABLET PO (08:50)
[2023-07-15] MEDS: Lurasidone HCl 40 MG TABLET 120 MG PO (08:50)
[2023-07-15 08:53] VITALS: BP 124/94; PULSE 68; RESP 17; TEMP 36.4; O2SAT 93
[2023-07-15 18:00] VITALS: BP 134/69; PULSE 60; RESP 16; TEMP 36.2; O2SAT 93
[2023-07-15] MEDS: HaloperidoL 5 MG TABLET 15 MG PO (20:38)
--- NOTE | 2023-07-15 23:53 | HO.PSYCHPN ---
Subjective Subjective Date of Service: 07/15/23 Reason For Visit: Schizophrenia Interim History: Met with patient; discussed with team; No change in presentation, mostly room throughout the day other than coming out for meals. No complaints and no requests Mental Status Exam Mental Status Exam Patient Appearance: Appropriate Patient Orientation: Person and Situation Level of Consciousness: Awake and Appropriate Patient Behavior: Guarded and Passive Mood Description: Withdrawn Affect Description: Constricted Patient Cognition Impaired: Yes Ability to Follow Directions: Good Speech Pattern: Clear Thought Process: Goal Oriented Thought Content: positive for Poverty of Content Judgement and Insight: impaired Diagnostics Vital Signs (24Hr): Vital Signs - 24 hr 07/15/23 08:53 07/15/23 18:00 Temperature 97.5 F 97.2 F Pulse Rate 68 60 Respiratory Rate 17 16 Blood Pressure 124/94 H 134/69 Pulse Oximetry 93 93 Oxygen Delivery Method Room Air Room Air BMI result Body Mass Index 27.8 Labs 07/05/23 08:20 07/05/23 08:20 Medications Medications Current Medications Acetaminophen (Acetaminophen 325 Mg Tablet) 650 mg PO Q6H PRN PRN Reason: Headache/Pain Mild Scale (1-3) Al Hydroxide/Mg Hydroxide (Magnesium Hydrox/Alum Hydrox 30 Ml Oral.Susp) 30 ml PO Q6H PRN PRN Reason: Heartburn/Nausea Clotrimazole (Clotrimazole 1 % Cream 15 Gm Tube) 1 appl TOPICAL BID [facility]; Protocol Last Admin: 07/15/23 20:39 Dose: Not Given Haloperidol (Haloperidol 5 Mg Tablet) 5 mg PO Q4H PRN PRN Reason: agitation Haloperidol (Haloperidol 5 Mg Tablet) 5 mg PO DAILY [facility] Last Admin: 07/15/23 08:50 Dose: 5 mg Haloperidol (Haloperidol 5 Mg Tablet) 15 mg PO BEDTIME [facility] Last Admin: 07/15/23 20:38 Dose: 15 mg Haloperidol Lactate (Haloperidol Lactate 5 Mg/Ml Vial) 5 mg IM BID PRN PRN Reason: REFUSAL OF PO Last Admin: 05/20/23 08:43 Dose: 5 mg Hydrocortisone (Hydrocortisone 1 % Cream 28.35 Gm Tube) 1 appl TOPICAL BID PRN; Protocol PRN Reason: Rash Last Admin: 06/22/23 09:28 Dose: 1 appl Ibuprofen (Ibuprofen 400 Mg Tablet) 400 mg PO Q4H PRN PRN Reason: Pain, Mild (Pain Scale 1-3) Lurasidone HCl (Lurasidone Hcl 40 Mg Tablet) 120 mg PO DAILY [facility] Last Admin: 07/15/23 08:50 Dose: 120 mg Magnesium Hydroxide (Milk Of Magnesia 30 Ml Oral.Susp) 30 ml PO DAILY PRN PRN Reason: Constipation Trazodone HCl (Trazodone Hcl 25 Mg Halftab) 25 mg PO BEDTIME MRX1 PRN PRN Reason: Insomnia Allergies Allergies Allergy/AdvReac Type Severity Reaction Status Date / Time onion Allergy Unknown Unknown Verified 05/11/23 22:53 Assessment & Plan Assessment & Plan (1) Schizophrenia, chronic condition: Status: Acute Code(s): F20.9 - Schizophrenia, unspecified Plan Pt is a 72-year-old female with a PMH significant for?HTN, GERD, and schizophrenia who is admitted to [facility] for increased aggression after a non compliant her psychiatric medications. Patient lives at a [facility]pc but has recently become disorganized with delusions and increased aggression after refusing to take her medications despite a [facility] order. Medical consult for admission H&P. 06/09 continue current treatment plan 06/10 continue current tx plan 06/19 continue tx. 06/23 CTP 06/24 doesn't seem to be getting better with dec haldol in [place]- maybe inc ? haldol back up until [place] has chance to build up. 06/25/23 better with inc haldol to 15mg last pm ? or just further along on medications- CTP for another week continue haldol 15mg then dec back to 10mg Plan 06/30/2023: No changes to current treatment plan 07/01/2023: No changes to current 07/13/23- continue tx. 07/14 continue tx plan 07/15 continue tx plan 1. Gather collateral information, will try to contact the staff on the [facility] for further details on the last Haldol Decanoate. 2. Continue with medications as per court order. 3. Haldol Decanoate 100 mg on May 22 4. Latuda 20 mg p.o. q.h.s. on May 24. On May 25 we are increasing up to 40 mg p.o. q.h.s. on May 28 we are increasing up to 60 mg p.o. q.h.s. and encourage compliance but she has consistently refused this medication so we discontinued. 5. Increase Haldol up to 10 mg p.o. b.i.d. 6. We are contacting the staff of the [facility] to find out if she has ever taking Abilify. 7. On June 12 the patient agreed to take like to the night 20 mg daily. We are increasing Latuda up to 40 mg on June 21. On June 22 we increased Latuda up to 60 mg p.o. daily. On June 29 we increase Latuda up to 80 mg p.o. daily. On July 05 we increased Latuda up to 120 mg p.o. daily. Reason for continued inpatient stay Substantial Risk for: inability to function Time Spent With Patient Time: Total time managing care of this patient today ____ minutes.
[2023-07-16] MEDS: HaloperidoL 5 MG TABLET PO (08:59)
[2023-07-16] MEDS: Lurasidone HCl 40 MG TABLET 120 MG PO (08:59)
[2023-07-16 12:10] LABS: COVID-19 Test Negative (Negative); IDNOW Serial# 55D5AD1C
--- NOTE | 2023-07-16 13:36 | HO.PSYCHPN ---
Subjective Subjective Date of Service: 07/16/23 Reason For Visit: Schizophrenia Subjective Notes: [facility] Order and Conditional Voluntary Interim History: Nursing staff reported the patient had been isolative most the time in her bed, she slept 6 hours compliant with treatment. On interview the patient denies new symptoms she looks internally preoccupied and paranoid but easily redirectable. Mental Status Exam Mental Status Exam Patient Appearance: Appropriate (On hospital gowns) Patient Orientation: Person and Situation Level of Consciousness: Awake and Appropriate Patient Behavior: Guarded and Passive Mood Description: Withdrawn Affect Description: Constricted Patient Cognition Impaired: Yes Ability to Follow Directions: Good Speech Pattern: Clear Hallucinations: Auditory Delusions: Ideas of Reference Thought Process: Illogical, Distracted and Evasive Thought Content: positive for [place] and positive for Poverty of Content Judgement: Poor Diagnostics Vital Signs (24Hr): Vital Signs - 24 hr 07/15/23 18:00 Temperature 97.2 F Pulse Rate 60 Respiratory Rate 16 Blood Pressure 134/69 Pulse Oximetry 93 Oxygen Delivery Method Room Air BMI result Body Mass Index 27.8 Labs 07/05/23 08:20 07/05/23 08:20 Labs: Laboratory Results - last 48 hr 07/16/23 10:46 COVID-19 ([facility]) Negative COVID-19 Clin Com See Note Medications Medications Current Medications Acetaminophen (Acetaminophen 325 Mg Tablet) 650 mg PO Q6H PRN PRN Reason: Headache/Pain Mild Scale (1-3) Al Hydroxide/Mg Hydroxide (Magnesium Hydrox/Alum Hydrox 30 Ml Oral.Susp) 30 ml PO Q6H PRN PRN Reason: Heartburn/Nausea Clotrimazole (Clotrimazole 1 % Cream 15 Gm Tube) 1 appl TOPICAL BID [facility]; Protocol Last Admin: 07/16/23 08:59 Dose: Not Given Haloperidol (Haloperidol 5 Mg Tablet) 5 mg PO Q4H PRN PRN Reason: agitation Haloperidol (Haloperidol 5 Mg Tablet) 5 mg PO DAILY [facility] Last Admin: 07/16/23 08:59 Dose: 5 mg Haloperidol (Haloperidol 5 Mg Tablet) 15 mg PO BEDTIME [facility] Last Admin: 07/15/23 20:38 Dose: 15 mg Haloperidol Lactate (Haloperidol Lactate 5 Mg/Ml Vial) 5 mg IM BID PRN PRN Reason: REFUSAL OF PO Last Admin: 05/20/23 08:43 Dose: 5 mg Hydrocortisone (Hydrocortisone 1 % Cream 28.35 Gm Tube) 1 appl TOPICAL BID PRN; Protocol PRN Reason: Rash Last Admin: 06/22/23 09:28 Dose: 1 appl Ibuprofen (Ibuprofen 400 Mg Tablet) 400 mg PO Q4H PRN PRN Reason: Pain, Mild (Pain Scale 1-3) Lurasidone HCl (Lurasidone Hcl 40 Mg Tablet) 120 mg PO DAILY [facility] Last Admin: 07/16/23 08:59 Dose: 120 mg Magnesium Hydroxide (Milk Of Magnesia 30 Ml Oral.Susp) 30 ml PO DAILY PRN PRN Reason: Constipation Trazodone HCl (Trazodone Hcl 25 Mg Halftab) 25 mg PO BEDTIME MRX1 PRN PRN Reason: Insomnia Allergies Allergies Allergy/AdvReac Type Severity Reaction Status Date / Time onion Allergy Unknown Unknown Verified 05/11/23 22:53 Assessment & Plan Assessment & Plan (1) Schizophrenia, chronic condition: Status: Acute Code(s): F20.9 - Schizophrenia, unspecified Plan Pt is a 72-year-old female with a PMH significant for?HTN, GERD, and schizophrenia who is admitted to [facility] for increased aggression after a non compliant her psychiatric medications. Patient lives at a [facility] but has recently become disorganized with delusions and increased aggression after refusing to take her medications despite a [facility] order. Medical consult for admission H&P. 06/09 continue current treatment plan 06/10 continue current tx plan 06/19 continue tx. 06/23 CTP 06/24 doesn't seem to be getting better with dec haldol in [place]- maybe inc ? haldol back up until [place] has chance to build up. 06/25/23 better with inc haldol to 15mg last pm ? or just further along on medications- CTP for another week continue haldol 15mg then dec back to 10mg Plan 06/30/2023: No changes to current treatment plan 07/01/2023: No changes to current 07/13/23- continue tx. 07/14 continue tx plan 07/15 continue tx plan 1. Gather collateral information, will try to contact the staff on the [facility] for further details on the last Haldol Decanoate. 2. Continue with medications as per court order. 3. Haldol Decanoate 100 mg on May 22 4. Latuda 20 mg p.o. q.h.s. on May 24. On May 25 we are increasing up to 40 mg p.o. q.h.s. on May 28 we are increasing up to 60 mg p.o. q.h.s. and encourage compliance but she has consistently refused this medication so we discontinued. 5. Increase Haldol up to 10 mg p.o. b.i.d. 6. We are contacting the staff of the [facility] to find out if she has ever taking Abilify. 7. On June 12 the patient agreed to take like to the night 20 mg daily. We are increasing Latuda up to 40 mg on June 21. On June 22 we increased Latuda up to 60 mg p.o. daily. On June 29 we increase Latuda up to 80 mg p.o. daily. On July 05 we increased Latuda up to 120 mg p.o. daily. Reason for continued inpatient stay Substantial Risk for: inability to function, rapid decompensation and med/psych decompensation Time Spent With Patient Time: Total time managing care of this patient today __20__ minutes.
[2023-07-16] MEDS: HaloperidoL 5 MG TABLET 15 MG PO (20:10)
[2023-07-17] MEDS: Haloperidol Decanoate 50 MG/ML VIAL 200 MG IM (11:42)
[2023-07-17] MEDS: Lurasidone HCl 40 MG TABLET 120 MG PO (11:43)
[2023-07-17] MEDS: HaloperidoL 5 MG TABLET PO (11:43)
--- NOTE | 2023-07-17 13:34 | HO.PSYCHPN ---
Subjective Subjective Date of Service: 07/17/23 Reason For Visit: Schizophrenia Subjective Notes: [facility] Order and Conditional Voluntary Interim History: The nursing staff reported the patient had been in her room most of the time she did not attend to any groups yesterday she slept 6 hours. Today we order Haldol take 200 mg to start cross taper her from p.o. to IM and initially she refused but she was reminded of the court order and she took it. On interview the patient remains internally preoccupied, slightly hypoactive but easily redirectable. Most likely at baseline. Mental Status Exam Mental Status Exam Patient Appearance: Appropriate Patient Orientation: Person and Situation Level of Consciousness: Awake Patient Behavior: Guarded and Passive Mood Description: Withdrawn Affect Description: Constricted Patient Cognition Impaired: Yes Ability to Follow Directions: Good Speech Pattern: Clear Hallucinations: Auditory Delusions: Paranoid Ideation and Ideas of Reference Thought Process: Illogical and Distracted Thought Content: positive for [place] and positive for Poverty of Content Judgement: Fair Diagnostics Vital Signs (24Hr): BMI result Body Mass Index 27.8 Labs 07/05/23 08:20 07/05/23 08:20 Labs: Laboratory Results - last 48 hr 07/16/23 10:46 COVID-19 ([facility]) Negative COVID-19 Clin Com See Note Medications Medications Current Medications Acetaminophen (Acetaminophen 325 Mg Tablet) 650 mg PO Q6H PRN PRN Reason: Headache/Pain Mild Scale (1-3) Al Hydroxide/Mg Hydroxide (Magnesium Hydrox/Alum Hydrox 30 Ml Oral.Susp) 30 ml PO Q6H PRN PRN Reason: Heartburn/Nausea Clotrimazole (Clotrimazole 1 % Cream 15 Gm Tube) 1 appl TOPICAL BID [facility]; Protocol Last Admin: 07/17/23 11:43 Dose: Not Given Haloperidol (Haloperidol 5 Mg Tablet) 5 mg PO Q4H PRN PRN Reason: agitation Haloperidol (Haloperidol 5 Mg Tablet) 5 mg PO DAILY [facility] Last Admin: 07/17/23 11:43 Dose: 5 mg Haloperidol (Haloperidol 5 Mg Tablet) 15 mg PO BEDTIME [facility] Last Admin: 07/16/23 20:10 Dose: 15 mg Haloperidol Decanoate (Haloperidol Decanoate 50 Mg/Ml Vial) 200 mg IM Q28D [facility] Last Admin: 07/17/23 11:42 Dose: 200 mg Haloperidol Lactate (Haloperidol Lactate 5 Mg/Ml Vial) 5 mg IM BID PRN PRN Reason: REFUSAL OF PO Last Admin: 05/20/23 08:43 Dose: 5 mg Hydrocortisone (Hydrocortisone 1 % Cream 28.35 Gm Tube) 1 appl TOPICAL BID PRN; Protocol PRN Reason: Rash Last Admin: 06/22/23 09:28 Dose: 1 appl Ibuprofen (Ibuprofen 400 Mg Tablet) 400 mg PO Q4H PRN PRN Reason: Pain, Mild (Pain Scale 1-3) Lurasidone HCl (Lurasidone Hcl 40 Mg Tablet) 120 mg PO DAILY [facility] Last Admin: 07/17/23 11:43 Dose: 120 mg Magnesium Hydroxide (Milk Of Magnesia 30 Ml Oral.Susp) 30 ml PO DAILY PRN PRN Reason: Constipation Trazodone HCl (Trazodone Hcl 25 Mg Halftab) 25 mg PO BEDTIME MRX1 PRN PRN Reason: Insomnia Allergies Allergies Allergy/AdvReac Type Severity Reaction Status Date / Time onion Allergy Unknown Unknown Verified 05/11/23 22:53 Assessment & Plan Assessment & Plan (1) Schizophrenia, chronic condition: Status: Acute Code(s): F20.9 - Schizophrenia, unspecified Plan Pt is a 72-year-old female with a PMH significant for?HTN, GERD, and schizophrenia who is admitted to [facility] for increased aggression after a non compliant her psychiatric medications. Patient lives at a residential but has recently become disorganized with delusions and increased aggression after refusing to take her medications despite a [facility] order. Medical consult for admission H&P. 06/09 continue current treatment plan 06/10 continue current tx plan 06/19 continue tx. 06/23 CTP 06/24 doesn't seem to be getting better with dec haldol in [place]- maybe inc ? haldol back up until [place] has chance to build up. 06/25/23 better with inc haldol to 15mg last pm ? or just further along on medications- CTP for another week continue haldol 15mg then dec back to 10mg Plan 06/30/2023: No changes to current treatment plan 07/01/2023: No changes to current 07/13/23- continue tx. 07/14 continue tx plan 07/15 continue tx plan 1. Gather collateral information, will try to contact the staff on the residential for further details on the last Haldol Decanoate. 2. Continue with medications as per court order. 3. Haldol Decanoate 100 mg on May 22 4. Latuda 20 mg p.o. q.h.s. on May 24. On May 25 we are increasing up to 40 mg p.o. q.h.s. on May 28 we are increasing up to 60 mg p.o. q.h.s. and encourage compliance but she has consistently refused this medication so we discontinued. 5. Increase Haldol up to 10 mg p.o. b.i.d. later it has changed to 5 mg in the morning and 15 at night. 6. We are contacting the staff of the residential to find out if she has ever taking Abilify. 7. On June 12 the patient agreed to take like to the night 20 mg daily. We are increasing Latuda up to 40 mg on June 21. On June 22 we increased Latuda up to 60 mg p.o. daily. On June 29 we increase Latuda up to 80 mg p.o. daily. On July 05 we increased Latuda up to 120 mg p.o. daily. 8. Haldol Decanoate 200 mg IM on July 14 3q28 days. Reason for continued inpatient stay Substantial Risk for: inability to function, rapid decompensation and med/psych decompensation Time Spent With Patient Time: Total time managing care of this patient today __20__ minutes.
[2023-07-17] MEDS: HaloperidoL 5 MG TABLET 15 MG PO (20:47)
[2023-07-17 20:48] VITALS: BP 121/59; PULSE 57; RESP 18; TEMP 35.9; O2SAT 93
[2023-07-17] MEDS: Clotrimazole 1 % Cream 15 GM TUBE 1 APPL TOPICAL (20:48)
--- NOTE | 2023-07-18 08:43 | PC.NURSE ---
LOOMIS administered 07/17/23. L deltoid.
[2023-07-18] MEDS: Lurasidone HCl 40 MG TABLET 120 MG PO (09:55)
[2023-07-18] MEDS: HaloperidoL 5 MG TABLET PO (09:55)
[2023-07-18 10:33] LABS: COVID-19 Test Negative (Negative); IDNOW Serial# 9DB6401D
--- NOTE | 2023-07-18 11:52 | P.PNPSI_ITS ---
Subjective Subjective Date of Service: 07/18/23 Reason For Visit: Schizophrenia Subjective Notes: Conditional Voluntary Interim History: The nursing staff reported the patient had been isolative in her room no changes in her mental status. She needs reassurance on taking her medications. On interview the patient denies new symptoms she looks internally preoccupied we are going to increase Latuda up to 160 mg daily tomorrow. This is the maximum dose as per her court order. Mental Status Exam Mental Status Exam Patient Appearance: Appropriate Patient Orientation: Person Level of Consciousness: Awake Patient Behavior: Guarded and Passive Mood Description: Withdrawn Affect Description: Blunted Patient Cognition Impaired: Yes Ability to Follow Directions: Good Speech Pattern: Clear Hallucinations: Auditory Delusions: Paranoid Ideation and Ideas of Reference Thought Process: Distracted and Slowed Thinking Thought Content: positive for [place] and positive for Poverty of Content Judgement: Poor Diagnostics Vital Signs (24Hr): Vital Signs - 24 hr 07/17/23 20:48 Temperature 96.7 F L Pulse Rate 57 Respiratory Rate 18 Blood Pressure 121/59 L Pulse Oximetry 93 Oxygen Delivery Method Room Air BMI result Body Mass Index 27.8 Labs 07/05/23 08:20 07/05/23 08:20 Labs: Laboratory Results - last 48 hr 07/16/23 07/18/23 10:46 10:00 COVID-19 ([facility]) Negative Negative COVID-19 Clin Com See Note See Note Medications Medications Current Medications Al Hydroxide/Mg Hydroxide (Magnesium Hydrox/Alum Hydrox 30 Ml Oral.Susp) 30 ml PO Q6H PRN PRN Reason: Heartburn/Nausea Clotrimazole (Clotrimazole 1 % Cream 15 Gm Tube) 1 appl TOPICAL BID [facility]; Protocol Last Admin: 07/18/23 09:56 Dose: Not Given Haloperidol (Haloperidol 5 Mg Tablet) 5 mg PO Q4H PRN PRN Reason: agitation Haloperidol (Haloperidol 5 Mg Tablet) 5 mg PO DAILY [facility] Last Admin: 07/18/23 09:55 Dose: 5 mg Haloperidol (Haloperidol 5 Mg Tablet) 15 mg PO BEDTIME [facility] Last Admin: 07/17/23 20:47 Dose: 15 mg Haloperidol Decanoate (Haloperidol Decanoate 50 Mg/Ml Vial) 200 mg IM Q28D [facility] Last Admin: 07/17/23 11:42 Dose: 200 mg Haloperidol Lactate (Haloperidol Lactate 5 Mg/Ml Vial) 5 mg IM BID PRN PRN Reason: REFUSAL OF PO Last Admin: 05/20/23 08:43 Dose: 5 mg Hydrocortisone (Hydrocortisone 1 % Cream 28.35 Gm Tube) 1 appl TOPICAL BID PRN; Protocol PRN Reason: Rash Last Admin: 06/22/23 09:28 Dose: 1 appl Ibuprofen (Ibuprofen 400 Mg Tablet) 400 mg PO Q4H PRN PRN Reason: Pain, Mild (Pain Scale 1-3) Lurasidone HCl (Lurasidone Hcl 80 Mg Tablet) 160 mg PO DAILY [facility] Magnesium Hydroxide (Milk Of Magnesia 30 Ml Oral.Susp) 30 ml PO DAILY PRN PRN Reason: Constipation Trazodone HCl (Trazodone Hcl 25 Mg Halftab) 25 mg PO BEDTIME MRX1 PRN PRN Reason: Insomnia Allergies Allergies Allergy/AdvReac Type Severity Reaction Status Date / Time onion Allergy Unknown Unknown Verified 05/11/23 22:53 Assessment & Plan Assessment & Plan (1) Schizophrenia, chronic condition: Status: Acute Code(s): F20.9 - Schizophrenia, unspecified Plan Pt is a 72-year-old female with a PMH significant for?HTN, GERD, and schizophrenia who is admitted to [facility] for increased aggression after a non compliant her psychiatric medications. Patient lives at a [facility] but has recently become disorganized with delusions and increased aggression after refusing to take her medications despite a [facility]ins order. Medical consult for admission H&P. 06/09 continue current treatment plan 06/10 continue current tx plan 06/19 continue tx. 06/23 CTP 06/24 doesn't seem to be getting better with dec haldol in [place]- maybe inc ? haldol back up until [place] has chance to build up. 06/25/23 better with inc haldol to 15mg last pm ? or just further along on medications- CTP for another week continue haldol 15mg then dec back to 10mg Plan 06/30/2023: No changes to current treatment plan 07/01/2023: No changes to current 07/13/23- continue tx. 07/14 continue tx plan 07/15 continue tx plan 1. Gather collateral information, will try to contact the staff on the [facility] for further details on the last Haldol Decanoate. 2. Continue with medications as per court order. 3. Haldol Decanoate 100 mg on May 22 4. Latuda 20 mg p.o. q.h.s. on May 24. On May 25 we are increasing up to 40 mg p.o. q.h.s. on May 28 we are increasing up to 60 mg p.o. q.h.s. and encourage compliance but she has consistently refused this medication so we discontinued. 5. Increase Haldol up to 10 mg p.o. b.i.d. later it has changed to 5 mg in the morning and 15 at night. 6. We are contacting the staff of the [facility] to find out if she has ever taking Abilify. 7. On June 12 the patient agreed to take like to the night 20 mg daily. We are increasing Latuda up to 40 mg on June 21. On June 22 we increased Latuda up to 60 mg p.o. daily. On June 29 we increase Latuda up to 80 mg p.o. daily. On July 05 we increased Latuda up to 120 mg p.o. daily. On July 18 we increased up to 160 mg p.o. daily, maximum dose as per the court order 8. Haldol Decanoate 200 mg IM on July 14 3q28 days. Reason for continued inpatient stay Substantial Risk for: inability to function, rapid decompensation and med/psych decompensation Time Spent With Patient Time: Total time managing care of this patient today _20___ minutes.
[2023-07-18 18:00] VITALS: BP 142/76; PULSE 67; RESP 16; TEMP 36.1; O2SAT 91
[2023-07-18] MEDS: HaloperidoL 5 MG TABLET 15 MG PO (20:17)
[2023-07-18] MEDS: Clotrimazole 1 % Cream 15 GM TUBE 1 APPL TOPICAL (20:17)
[2023-07-19 08:30] VITALS: BP 136/60; PULSE 62; RESP 17; TEMP 35.9; O2SAT 92
[2023-07-19] MEDS: Lurasidone HCl 80 MG TABLET 160 MG PO (08:59)
[2023-07-19] MEDS: HaloperidoL 5 MG TABLET PO (08:59)
[2023-07-19] MEDS: Clotrimazole 1 % Cream 15 GM TUBE 1 APPL TOPICAL ×2 (09:02→20:30)
--- NOTE | 2023-07-19 16:14 | P.PNPSI_ITS ---
Subjective Subjective Date of Service: 07/19/23 Reason For Visit: Schizophrenia Subjective Notes: Conditional Voluntary Interim History: The nursing staff reported the patient was compliant with treatment, seclusive and nonsensical at times. Yesterday last night she was upset since she could not left have open the door with a trash can. Today on interview the patient denies new symptoms looks internally preoccupied, we have increased Latuda. Mental Status Exam Mental Status Exam Patient Appearance: Appropriate Patient Orientation: Person and Situation Level of Consciousness: Awake and Appropriate Patient Behavior: Guarded and Passive Mood Description: Withdrawn Affect Description: Blunted Patient Cognition Impaired: Yes Ability to Follow Directions: Good Speech Pattern: Clear Hallucinations: Auditory Delusions: Paranoid Ideation Thought Process: Incoherent, Distracted and Slowed Thinking Thought Content: positive for [place], positive for Poverty of Content and positive for Loose Associations Judgement: Poor Diagnostics Vital Signs (24Hr): Vital Signs - 24 hr 07/18/23 18:00 07/19/23 08:30 Temperature 97 F 96.6 F L Pulse Rate 67 62 Respiratory Rate 16 17 Blood Pressure 142/76 H 136/60 Pulse Oximetry 91 L 92 Oxygen Delivery Method Room Air Room Air BMI result Body Mass Index 27.8 Labs 07/05/23 08:20 07/05/23 08:20 Labs: Laboratory Results - last 48 hr 07/18/23 10:00 COVID-19 ([facility]) Negative COVID-19 Clin Com See Note Medications Medications Current Medications Al Hydroxide/Mg Hydroxide (Magnesium Hydrox/Alum Hydrox 30 Ml Oral.Susp) 30 ml PO Q6H PRN PRN Reason: Heartburn/Nausea Clotrimazole (Clotrimazole 1 % Cream 15 Gm Tube) 1 appl TOPICAL BID COUNTS INCLUDE 234 BEDS AT THE [facility]; Protocol Last Admin: 07/19/23 09:02 Dose: 1 appl Haloperidol (Haloperidol 5 Mg Tablet) 5 mg PO Q4H PRN PRN Reason: agitation Haloperidol (Haloperidol 5 Mg Tablet) 5 mg PO DAILY COUNTS INCLUDE 234 BEDS AT THE [facility] Last Admin: 07/19/23 08:59 Dose: 5 mg Haloperidol (Haloperidol 5 Mg Tablet) 15 mg PO BEDTIME COUNTS INCLUDE 234 BEDS AT THE [facility] Last Admin: 07/18/23 20:17 Dose: 15 mg Haloperidol Decanoate (Haloperidol Decanoate 50 Mg/Ml Vial) 200 mg IM Q28D COUNTS INCLUDE 234 BEDS AT THE [facility] Last Admin: 07/17/23 11:42 Dose: 200 mg Haloperidol Lactate (Haloperidol Lactate 5 Mg/Ml Vial) 5 mg IM BID PRN PRN Reason: REFUSAL OF PO Last Admin: 05/20/23 08:43 Dose: 5 mg Hydrocortisone (Hydrocortisone 1 % Cream 28.35 Gm Tube) 1 appl TOPICAL BID PRN; Protocol PRN Reason: Rash Last Admin: 06/22/23 09:28 Dose: 1 appl Ibuprofen (Ibuprofen 400 Mg Tablet) 400 mg PO Q4H PRN PRN Reason: Pain, Mild (Pain Scale 1-3) Lurasidone HCl (Lurasidone Hcl 80 Mg Tablet) 160 mg PO DAILY [facility] Last Admin: 07/19/23 08:59 Dose: 160 mg Magnesium Hydroxide (Milk Of Magnesia 30 Ml Oral.Susp) 30 ml PO DAILY PRN PRN Reason: Constipation Trazodone HCl (Trazodone Hcl 25 Mg Halftab) 25 mg PO BEDTIME MRX1 PRN PRN Reason: Insomnia Allergies Allergies Allergy/AdvReac Type Severity Reaction Status Date / Time onion Allergy Unknown Unknown Verified 05/11/23 22:53 Assessment & Plan Assessment & Plan (1) Schizophrenia, chronic condition: Status: Acute Code(s): F20.9 - Schizophrenia, unspecified Plan Pt is a 72-year-old female with a PMH significant for?HTN, GERD, and schizophrenia who is admitted to [facility] for increased aggression after a non compliant her psychiatric medications. Patient lives at a halfway but has recently become disorganized with delusions and increased aggression after refusing to take her medications despite a [facility] order. Medical consult for admission H&P. 06/09 continue current treatment plan 06/10 continue current tx plan 06/19 continue tx. 06/23 CTP 06/24 doesn't seem to be getting better with dec haldol in [place]- maybe inc ? haldol back up until latuda has chance to build up. 06/25/23 better with inc haldol to 15mg last pm ? or just further along on medications- CTP for another week continue haldol 15mg then dec back to 10mg Plan 06/30/2023: No changes to current treatment plan 07/01/2023: No changes to current 07/13/23- continue tx. 07/14 continue tx plan 07/15 continue tx plan 1. Gather collateral information, will try to contact the staff on the halfway for further details on the last Haldol Decanoate. 2. Continue with medications as per court order. 3. Haldol Decanoate 100 mg on May 22 4. Latuda 20 mg p.o. q.h.s. on May 24. On May 25 we are increasing up to 40 mg p.o. q.h.s. on May 28 we are increasing up to 60 mg p.o. q.h.s. and encourage compliance but she has consistently refused this medication so we discontinued. 5. Increase Haldol up to 10 mg p.o. b.i.d. later it has changed to 5 mg in the morning and 15 at night. 6. We are contacting the staff of the halfway to find out if she has ever taking Abilify. 7. On June 12 the patient agreed to take like to the night 20 mg daily. We are increasing Latuda up to 40 mg on June 21. On June 22 we increased Latuda up to 60 mg p.o. daily. On June 29 we increase Latuda up to 80 mg p.o. daily. On July 05 we increased Latuda up to 120 mg p.o. daily. On July 18 we increased up to 160 mg p.o. daily, maximum dose as per the court order 8. Haldol Decanoate 200 mg IM on July 14 3q28 days. Reason for continued inpatient stay Substantial Risk for: inability to function, rapid decompensation and med/psych decompensation Time Spent With Patient Time: Total time managing care of this patient today __20__ minutes.
[2023-07-19 19:53] VITALS: BP 131/70; PULSE 60; RESP 16; TEMP 36; O2SAT 92
[2023-07-19] MEDS: HaloperidoL 5 MG TABLET 15 MG PO (20:30)
[2023-07-20 06:00] VITALS: BP 156/68; PULSE 59; RESP 17; TEMP 36.2; O2SAT 93
[2023-07-20] MEDS: Lurasidone HCl 80 MG TABLET 160 MG PO (08:10)
[2023-07-20] MEDS: HaloperidoL 5 MG TABLET PO (08:11)
[2023-07-20] MEDS: Clotrimazole 1 % Cream 15 GM TUBE 1 APPL TOPICAL (08:16)
--- NOTE | 2023-07-20 12:37 | HO.PSYCHPN ---
Subjective Subjective Date of Service: 07/20/23 Reason For Visit: Schizophrenia Subjective Notes: Conditional Voluntary Interim History: The nursing staff reported no changes in her mental status, she slept 7 hours. She is accepting cream for her fungal infection in the skin. On interview the patient denies new symptoms, compliant with treatment Mental Status Exam Mental Status Exam Patient Appearance: Appropriate Patient Orientation: Person and Situation Level of Consciousness: Awake and Appropriate Patient Behavior: Guarded and Passive Mood Description: Withdrawn Affect Description: Blunted Patient Cognition Impaired: Yes Ability to Follow Directions: Good Speech Pattern: Clear Hallucinations: Auditory Delusions: Paranoid Ideation Thought Process: Distracted and Slowed Thinking Thought Content: positive for [place] and positive for Poverty of Content Judgement: Fair Diagnostics Vital Signs (24Hr): Vital Signs - 24 hr 07/19/23 19:53 07/20/23 06:00 Temperature 96.8 F 97.1 F Pulse Rate 60 59 Respiratory Rate 16 17 Blood Pressure 131/70 156/68 H Pulse Oximetry 92 93 Oxygen Delivery Method Room Air Room Air BMI result Body Mass Index 27.8 Labs 07/05/23 08:20 07/05/23 08:20 Medications Medications Current Medications Al Hydroxide/Mg Hydroxide (Magnesium Hydrox/Alum Hydrox 30 Ml Oral.Susp) 30 ml PO Q6H PRN PRN Reason: Heartburn/Nausea Clotrimazole (Clotrimazole 1 % Cream 15 Gm Tube) 1 appl TOPICAL BID [facility]; Protocol Last Admin: 07/20/23 08:16 Dose: 1 appl Haloperidol (Haloperidol 5 Mg Tablet) 5 mg PO Q4H PRN PRN Reason: agitation Haloperidol (Haloperidol 5 Mg Tablet) 5 mg PO DAILY [facility] Last Admin: 07/20/23 08:11 Dose: 5 mg Haloperidol (Haloperidol 5 Mg Tablet) 15 mg PO BEDTIME [facility] Last Admin: 07/19/23 20:30 Dose: 15 mg Haloperidol Decanoate (Haloperidol Decanoate 50 Mg/Ml Vial) 200 mg IM Q28D [facility] Last Admin: 07/17/23 11:42 Dose: 200 mg Haloperidol Lactate (Haloperidol Lactate 5 Mg/Ml Vial) 5 mg IM BID PRN PRN Reason: REFUSAL OF PO Last Admin: 05/20/23 08:43 Dose: 5 mg Hydrocortisone (Hydrocortisone 1 % Cream 28.35 Gm Tube) 1 appl TOPICAL BID PRN; Protocol PRN Reason: Rash Last Admin: 06/22/23 09:28 Dose: 1 appl Ibuprofen (Ibuprofen 400 Mg Tablet) 400 mg PO Q4H PRN PRN Reason: Pain, Mild (Pain Scale 1-3) Lurasidone HCl (Lurasidone Hcl 80 Mg Tablet) 160 mg PO DAILY [facility] Last Admin: 07/20/23 08:10 Dose: 160 mg Magnesium Hydroxide (Milk Of Magnesia 30 Ml Oral.Susp) 30 ml PO DAILY PRN PRN Reason: Constipation Trazodone HCl (Trazodone Hcl 25 Mg Halftab) 25 mg PO BEDTIME MRX1 PRN PRN Reason: Insomnia Allergies Allergies Allergy/AdvReac Type Severity Reaction Status Date / Time onion Allergy Unknown Unknown Verified 05/11/23 22:53 Assessment & Plan Assessment & Plan (1) Schizophrenia, chronic condition: Status: Acute Code(s): F20.9 - Schizophrenia, unspecified Plan Pt is a 72-year-old female with a PMH significant for?HTN, GERD, and schizophrenia who is admitted to [facility] for increased aggression after a non compliant her psychiatric medications. Patient lives at a assisted but has recently become disorganized with delusions and increased aggression after refusing to take her medications despite a [facility] order. Medical consult for admission H&P. 06/09 continue current treatment plan 06/10 continue current tx plan 06/19 continue tx. 06/23 CTP 06/24 doesn't seem to be getting better with dec haldol in [place]- maybe inc ? haldol back up until latuda has chance to build up. 06/25/23 better with inc haldol to 15mg last pm ? or just further along on medications- CTP for another week continue haldol 15mg then dec back to 10mg Plan 06/30/2023: No changes to current treatment plan 07/01/2023: No changes to current 07/13/23- continue tx. 07/14 continue tx plan 07/15 continue tx plan 1. Gather collateral information, will try to contact the staff on the assisted for further details on the last Haldol Decanoate. 2. Continue with medications as per court order. 3. Haldol Decanoate 100 mg on May 22 4. Latuda 20 mg p.o. q.h.s. on May 24. On May 25 we are increasing up to 40 mg p.o. q.h.s. on May 28 we are increasing up to 60 mg p.o. q.h.s. and encourage compliance but she has consistently refused this medication so we discontinued. 5. Increase Haldol up to 10 mg p.o. b.i.d. later it has changed to 5 mg in the morning and 15 at night. 6. We are contacting the staff of the assisted to find out if she has ever taking Abilify. 7. On June 12 the patient agreed to take like to the night 20 mg daily. We are increasing Latuda up to 40 mg on June 21. On June 22 we increased Latuda up to 60 mg p.o. daily. On June 29 we increase Latuda up to 80 mg p.o. daily. On July 05 we increased Latuda up to 120 mg p.o. daily. On July 18 we increased up to 160 mg p.o. daily, maximum dose as per the court order 8. Haldol Decanoate 200 mg IM on July 14 3q28 days. Reason for continued inpatient stay Substantial Risk for: inability to function, rapid decompensation and med/psych decompensation Time Spent With Patient Time: Total time managing care of this patient today __20__ minutes.
[2023-07-20 18:00] VITALS: PULSE 67; RESP 16; TEMP 36.3; O2SAT 94
[2023-07-20] MEDS: HaloperidoL 5 MG TABLET 15 MG PO (20:17)
[2023-07-21] MEDS: Lurasidone HCl 80 MG TABLET 160 MG PO (10:54)
[2023-07-21] MEDS: HaloperidoL 5 MG TABLET PO (10:55)
--- NOTE | 2023-07-21 17:48 | P.PNPSI_ITS ---
Subjective Subjective Date of Service: 07/21/23 Reason For Visit: Schizophrenia Interim History: The nursing staff reported no changes in her mental status, she slept 7 hours. Patient with poor hygiene. Room has urine odor and patient sleeping on mattress without sheets. She is accepting cream for her fungal infection in the skin. On interview the patient denies new symptoms, compliant with treatment Review of Systems Review of Systems Red rash with scaly plaques on chest and under breasts Patient denies has no acute medical complaints at this time Yes Unobtainable due to mental status Mental Status Exam Mental Status Exam Narrative: In room. Hospital clothing. Poor self-care. Very paranoid and suspicious. Would not engage in interview. Patient Appearance: Appropriate Patient Orientation: Person and Situation Level of Consciousness: Awake and Appropriate Patient Behavior: Guarded and Passive Mood Description: Withdrawn Affect Description: Blunted Patient Cognition Impaired: Yes Ability to Follow Directions: Good Speech Pattern: Clear Diagnostics Vital Signs (24Hr): Vital Signs - 24 hr 07/20/23 18:00 Temperature 97.4 F Pulse Rate 67 Respiratory Rate 16 Pulse Oximetry 94 Oxygen Delivery Method Room Air BMI result Body Mass Index 27.8 Labs 07/05/23 08:20 07/05/23 08:20 Medications Medications Current Medications Al Hydroxide/Mg Hydroxide (Magnesium Hydrox/Alum Hydrox 30 Ml Oral.Susp) 30 ml PO Q6H PRN PRN Reason: Heartburn/Nausea Clotrimazole (Clotrimazole 1 % Cream 15 Gm Tube) 1 appl TOPICAL BID [facility]; Protocol Last Admin: 07/21/23 10:55 Dose: Not Given Haloperidol (Haloperidol 5 Mg Tablet) 5 mg PO Q4H PRN PRN Reason: agitation Haloperidol (Haloperidol 5 Mg Tablet) 5 mg PO DAILY [facility] Last Admin: 07/21/23 10:55 Dose: 5 mg Haloperidol (Haloperidol 5 Mg Tablet) 15 mg PO BEDTIME [facility] Last Admin: 07/20/23 20:17 Dose: 15 mg Haloperidol Decanoate (Haloperidol Decanoate 50 Mg/Ml Vial) 200 mg IM Q28D [facility] Last Admin: 07/17/23 11:42 Dose: 200 mg Haloperidol Lactate (Haloperidol Lactate 5 Mg/Ml Vial) 5 mg IM BID PRN PRN Reason: REFUSAL OF PO Last Admin: 05/20/23 08:43 Dose: 5 mg Hydrocortisone (Hydrocortisone 1 % Cream 28.35 Gm Tube) 1 appl TOPICAL BID PRN; Protocol PRN Reason: Rash Last Admin: 06/22/23 09:28 Dose: 1 appl Ibuprofen (Ibuprofen 400 Mg Tablet) 400 mg PO Q4H PRN PRN Reason: Pain, Mild (Pain Scale 1-3) Lurasidone HCl (Lurasidone Hcl 80 Mg Tablet) 160 mg PO DAILY [facility] Last Admin: 07/21/23 10:54 Dose: 160 mg Magnesium Hydroxide (Milk Of Magnesia 30 Ml Oral.Susp) 30 ml PO DAILY PRN PRN Reason: Constipation Trazodone HCl (Trazodone Hcl 25 Mg Halftab) 25 mg PO BEDTIME MRX1 PRN PRN Reason: Insomnia Allergies Allergies Allergy/AdvReac Type Severity Reaction Status Date / Time onion Allergy Unknown Unknown Verified 05/11/23 22:53 Assessment & Plan Assessment & Plan (1) Schizophrenia, chronic condition: Status: Acute Code(s): F20.9 - Schizophrenia, unspecified Plan Pt is a 72-year-old female with a PMH significant for?HTN, GERD, and schizophrenia who is admitted to [facility] for increased aggression after a non compliant her psychiatric medications. Patient lives at a [facility] but has recently become disorganized with delusions and increased aggression after refusing to take her medications despite a [facility] order. Medical consult for admission H&P. 06/09 continue current treatment plan 06/10 continue current tx plan 06/19 continue tx. 06/23 CTP 06/24 doesn't seem to be getting better with dec haldol in [place]- maybe inc ? haldol back up until latuda has chance to build up. 06/25/23 better with inc haldol to 15mg last pm ? or just further along on medications- CTP for another week continue haldol 15mg then dec back to 10mg Plan 06/30/2023: No changes to current treatment plan 07/01/2023: No changes to current 07/13/23- continue tx. 07/14 continue tx plan 07/15 continue tx plan 07/21: Continue current management and treatment plan. 1. Gather collateral information, will try to contact the staff on the [facility] for further details on the last Haldol Decanoate. 2. Continue with medications as per court order. 3. Haldol Decanoate 100 mg on May 22 4. Latuda 20 mg p.o. q.h.s. on May 24. On May 25 we are increasing up to 40 mg p.o. q.h.s. on May 28 we are increasing up to 60 mg p.o. q.h.s. and encourage compliance but she has consistently refused this medication so we discontinued. 5. Increase Haldol up to 10 mg p.o. b.i.d. later it has changed to 5 mg in the morning and 15 at night. 6. We are contacting the staff of the [facility] to find out if she has ever taking Abilify. 7. On June 12 the patient agreed to take like to the night 20 mg daily. We are increasing Latuda up to 40 mg on June 21. On June 22 we increased Latuda up to 60 mg p.o. daily. On June 29 we increase Latuda up to 80 mg p.o. daily. On July 05 we increased Latuda up to 120 mg p.o. daily. On July 18 we increased up to 160 mg p.o. daily, maximum dose as per the court order 8. Haldol Decanoate 200 mg IM on July 14 3q28 days. Reason for continued inpatient stay Substantial Risk for: inability to function and rapid decompensation Time Spent With Patient Time: Total time managing care of this patient today ____ minutes.
[2023-07-21 18:00] VITALS: PULSE 58; RESP 16; TEMP 36.1; O2SAT 93
[2023-07-21] MEDS: HaloperidoL 5 MG TABLET 15 MG PO (20:36)
[2023-07-22 06:00] VITALS: BP 149/83; PULSE 69; RESP 92; TEMP 36.5; O2SAT 92
[2023-07-22] MEDS: Lurasidone HCl 80 MG TABLET 160 MG PO (09:05)
[2023-07-22] MEDS: HaloperidoL 5 MG TABLET PO (09:05)
--- NOTE | 2023-07-22 16:54 | HO.PSYCHPN ---
Subjective Subjective Date of Service: 07/22/23 Reason For Visit: Schizophrenia Interim History: The nursing staff reported no changes in her mental status, she slept 7 hours. Upon entry to room was noted to be quietly self dialoguing. Pleasant on interaction. Says my feelings are improving. also happy she lost 5lbs. Compliant with treatment Review of Systems Review of Systems Red rash with scaly plaques on chest and under breasts Patient denies has no acute medical complaints at this time Yes Unobtainable due to mental status Mental Status Exam Mental Status Exam Narrative: In room. Hospital clothing. Poor self-care. Very paranoid and suspicious. Would not engage in interview. Patient Appearance: Appropriate Patient Orientation: Person and Situation Level of Consciousness: Awake and Appropriate Patient Behavior: Guarded and Passive Mood Description: Withdrawn Affect Description: Blunted Patient Cognition Impaired: Yes Ability to Follow Directions: Good Speech Pattern: Clear Diagnostics Vital Signs (24Hr): Vital Signs - 24 hr 07/21/23 18:00 07/22/23 06:00 Temperature 96.9 F 97.7 F Pulse Rate 58 69 Respiratory Rate 16 92 H Blood Pressure 149/83 H Pulse Oximetry 93 92 Oxygen Delivery Method Room Air Room Air BMI result Body Mass Index 27.8 Labs 07/05/23 08:20 07/05/23 08:20 Medications Medications Current Medications Al Hydroxide/Mg Hydroxide (Magnesium Hydrox/Alum Hydrox 30 Ml Oral.Susp) 30 ml PO Q6H PRN PRN Reason: Heartburn/Nausea Clotrimazole (Clotrimazole 1 % Cream 15 Gm Tube) 1 appl TOPICAL BID [facility]; Protocol Last Admin: 07/22/23 09:05 Dose: Not Given Haloperidol (Haloperidol 5 Mg Tablet) 5 mg PO Q4H PRN PRN Reason: agitation Haloperidol (Haloperidol 5 Mg Tablet) 5 mg PO DAILY [facility] Last Admin: 07/22/23 09:05 Dose: 5 mg Haloperidol (Haloperidol 5 Mg Tablet) 15 mg PO BEDTIME [facility] Last Admin: 07/21/23 20:36 Dose: 15 mg Haloperidol Decanoate (Haloperidol Decanoate 50 Mg/Ml Vial) 200 mg IM Q28D [facility] Last Admin: 07/17/23 11:42 Dose: 200 mg Haloperidol Lactate (Haloperidol Lactate 5 Mg/Ml Vial) 5 mg IM BID PRN PRN Reason: REFUSAL OF PO Last Admin: 05/20/23 08:43 Dose: 5 mg Hydrocortisone (Hydrocortisone 1 % Cream 28.35 Gm Tube) 1 appl TOPICAL BID PRN; Protocol PRN Reason: Rash Last Admin: 06/22/23 09:28 Dose: 1 appl Ibuprofen (Ibuprofen 400 Mg Tablet) 400 mg PO Q4H PRN PRN Reason: Pain, Mild (Pain Scale 1-3) Lurasidone HCl (Lurasidone Hcl 80 Mg Tablet) 160 mg PO DAILY [facility] Last Admin: 07/22/23 09:05 Dose: 160 mg Magnesium Hydroxide (Milk Of Magnesia 30 Ml Oral.Susp) 30 ml PO DAILY PRN PRN Reason: Constipation Trazodone HCl (Trazodone Hcl 25 Mg Halftab) 25 mg PO BEDTIME MRX1 PRN PRN Reason: Insomnia Allergies Allergies Allergy/AdvReac Type Severity Reaction Status Date / Time onion Allergy Unknown Unknown Verified 05/11/23 22:53 Assessment & Plan Assessment & Plan (1) Schizophrenia, chronic condition: Status: Acute Code(s): F20.9 - Schizophrenia, unspecified Plan Pt is a 72-year-old female with a PMH significant for?HTN, GERD, and schizophrenia who is admitted to [facility] for increased aggression after a non compliant her psychiatric medications. Patient lives at a [facility] but has recently become disorganized with delusions and increased aggression after refusing to take her medications despite a [facility] order. Medical consult for admission H&P. 06/09 continue current treatment plan 06/10 continue current tx plan 06/19 continue tx. 06/23 CTP 06/24 doesn't seem to be getting better with dec haldol in [place]- maybe inc ? haldol back up until [facility] has chance to build up. 06/25/23 better with inc haldol to 15mg last pm ? or just further along on medications- CTP for another week continue haldol 15mg then dec back to 10mg Plan 06/30/2023: No changes to current treatment plan 07/01/2023: No changes to current 07/13/23- continue tx. 07/14 continue tx plan 07/15 continue tx plan 07/21: Continue current management and treatment plan. 07/22: Continue current management and treatment plan. 1. Gather collateral information, will try to contact the staff on the [facility] for further details on the last Haldol Decanoate. 2. Continue with medications as per court order. 3. Haldol Decanoate 100 mg on May 22 4. Latuda 20 mg p.o. q.h.s. on May 24. On May 25 we are increasing up to 40 mg p.o. q.h.s. on May 28 we are increasing up to 60 mg p.o. q.h.s. and encourage compliance but she has consistently refused this medication so we discontinued. 5. Increase Haldol up to 10 mg p.o. b.i.d. later it has changed to 5 mg in the morning and 15 at night. 6. We are contacting the staff of the [facility] to find out if she has ever taking Abilify. 7. On June 12 the patient agreed to take like to the night 20 mg daily. We are increasing Latuda up to 40 mg on June 21. On June 22 we increased Latuda up to 60 mg p.o. daily. On June 29 we increase Latuda up to 80 mg p.o. daily. On July 05 we increased Latuda up to 120 mg p.o. daily. On July 18 we increased up to 160 mg p.o. daily, maximum dose as per the court order 8. Haldol Decanoate 200 mg IM on July 14 3q28 days. Reason for continued inpatient stay Substantial Risk for: inability to function and rapid decompensation Time Spent With Patient Time: Total time managing care of this patient today ____ minutes.
[2023-07-22 18:00] VITALS: BP 145/68; PULSE 64; RESP 17; TEMP 36.4; O2SAT 92
[2023-07-22] MEDS: HaloperidoL 5 MG TABLET 15 MG PO (20:25)
[2023-07-22] MEDS: Clotrimazole 1 % Cream 15 GM TUBE 1 APPL TOPICAL (20:25)
[2023-07-23] MEDS: HaloperidoL 5 MG TABLET PO (09:49)
[2023-07-23] MEDS: Lurasidone HCl 80 MG TABLET 160 MG PO (09:49)
--- NOTE | 2023-07-23 14:11 | HO.PSYCHPN ---
Subjective Subjective Date of Service: 07/23/23 Reason For Visit: Schizophrenia Subjective Notes: Conditional Voluntary Interim History: The nursing staff reported the patient had been out of her room minimally. She reported to the staff that she had mood swings and she is a little paranoid, more self aware of her symptoms. Fully compliant with treatment. On interview the patient reports that she was out for groups for only 5 minutes and she came back. At this moment she is in the maximum dose of Haldol and Latuda. Mental Status Exam Mental Status Exam Patient Appearance: Appropriate (On hospital gowns) Patient Orientation: Person Level of Consciousness: Awake Patient Behavior: Guarded and Passive Mood Description: Withdrawn Affect Description: Constricted Patient Cognition Impaired: Yes Ability to Follow Directions: Good Speech Pattern: Clear Hallucinations: Auditory Delusions: Paranoid Ideation and Ideas of Reference Thought Process: Distracted and Slowed Thinking Thought Content: positive for Poverty of Content and positive for Tangential Judgement: Fair Diagnostics Vital Signs (24Hr): Vital Signs - 24 hr 07/22/23 18:00 Temperature 97.5 F Pulse Rate 64 Respiratory Rate 17 Blood Pressure 145/68 H Pulse Oximetry 92 Oxygen Delivery Method Room Air BMI result Body Mass Index 27.8 Labs 07/05/23 08:20 07/05/23 08:20 Medications Medications Current Medications Al Hydroxide/Mg Hydroxide (Magnesium Hydrox/Alum Hydrox 30 Ml Oral.Susp) 30 ml PO Q6H PRN PRN Reason: Heartburn/Nausea Clotrimazole (Clotrimazole 1 % Cream 15 Gm Tube) 1 appl TOPICAL BID [facility]; Protocol Last Admin: 07/23/23 09:49 Dose: Not Given Haloperidol (Haloperidol 5 Mg Tablet) 5 mg PO Q4H PRN PRN Reason: agitation Haloperidol (Haloperidol 5 Mg Tablet) 5 mg PO DAILY [facility] Last Admin: 07/23/23 09:49 Dose: 5 mg Haloperidol (Haloperidol 5 Mg Tablet) 15 mg PO BEDTIME [facility] Last Admin: 07/22/23 20:25 Dose: 15 mg Haloperidol Decanoate (Haloperidol Decanoate 50 Mg/Ml Vial) 200 mg IM Q28D [facility] Last Admin: 07/17/23 11:42 Dose: 200 mg Haloperidol Lactate (Haloperidol Lactate 5 Mg/Ml Vial) 5 mg IM BID PRN PRN Reason: REFUSAL OF PO Last Admin: 05/20/23 08:43 Dose: 5 mg Hydrocortisone (Hydrocortisone 1 % Cream 28.35 Gm Tube) 1 appl TOPICAL BID PRN; Protocol PRN Reason: Rash Last Admin: 06/22/23 09:28 Dose: 1 appl Ibuprofen (Ibuprofen 400 Mg Tablet) 400 mg PO Q4H PRN PRN Reason: Pain, Mild (Pain Scale 1-3) Lurasidone HCl (Lurasidone Hcl 80 Mg Tablet) 160 mg PO DAILY [facility] Last Admin: 07/23/23 09:49 Dose: 160 mg Magnesium Hydroxide (Milk Of Magnesia 30 Ml Oral.Susp) 30 ml PO DAILY PRN PRN Reason: Constipation Trazodone HCl (Trazodone Hcl 25 Mg Halftab) 25 mg PO BEDTIME MRX1 PRN PRN Reason: Insomnia Allergies Allergies Allergy/AdvReac Type Severity Reaction Status Date / Time onion Allergy Unknown Unknown Verified 05/11/23 22:53 Assessment & Plan Assessment & Plan (1) Schizophrenia, chronic condition: Status: Acute Code(s): F20.9 - Schizophrenia, unspecified Plan Pt is a 72-year-old female with a PMH significant for?HTN, GERD, and schizophrenia who is admitted to [facility] for increased aggression after a non compliant her psychiatric medications. [facility] a prison but has recently become disorganized with delusions and increased aggression after refusing to take her medications despite a Riggins order. Medical consult for admission H&P. 06/09 continue current treatment plan 06/10 continue current tx plan 06/19 continue tx. 06/23 CTP 06/24 doesn't seem to be getting better with dec haldol in [place]- maybe inc ? haldol back up until [facility] has chance to build up. 06/25/23 better with inc haldol to 15mg last pm ? or just further along on medications- CTP for another week continue haldol 15mg then dec back to 10mg Plan 06/30/2023: No changes to current treatment plan 07/01/2023: No changes to current 07/13/23- continue tx. 07/14 continue tx plan 07/15 continue tx plan 07/21: Continue current management and treatment plan. 07/22: Continue current management and treatment plan. 1. Gather collateral information, will try to contact the staff on the prison for further details on the last Haldol Decanoate. 2. Continue with medications as per court order. 3. Haldol Decanoate 100 mg on May 22 4. Latuda 20 mg p.o. q.h.s. on May 24. On May 25 we are increasing up to 40 mg p.o. q.h.s. on May 28 we are increasing up to 60 mg p.o. q.h.s. and encourage compliance but she has consistently refused this medication so we discontinued. 5. Increase Haldol up to 10 mg p.o. b.i.d. later it has changed to 5 mg in the morning and 15 at night. 6. We are contacting the staff of the prison to find out if she has ever taking Abilify. 7. On June 12 the patient agreed to take like to the night 20 mg daily. We are increasing Latuda up to 40 mg on June 21. On June 22 we increased Latuda up to 60 mg p.o. daily. On June 29 we increase Latuda up to 80 mg p.o. daily. On July 05 we increased Latuda up to 120 mg p.o. daily. On July 18 we increased up to 160 mg p.o. daily, maximum dose as per the court order 8. Haldol Decanoate 200 mg IM on July 14 3q28 days. Reason for continued inpatient stay Substantial Risk for: inability to function, rapid decompensation and med/psych decompensation Time Spent With Patient Time: Total time managing care of this patient today __20__ minutes.
[2023-07-23 18:00] VITALS: BP 114/55; PULSE 74; RESP 16; TEMP 35.7; O2SAT 96
[2023-07-23] MEDS: Clotrimazole 1 % Cream 15 GM TUBE 1 APPL TOPICAL (20:38)
[2023-07-23] MEDS: HaloperidoL 5 MG TABLET 15 MG PO (20:42)
[2023-07-24 09:00] VITALS: BP 142/78; PULSE 72; RESP 16; TEMP 36.7; O2SAT 92
[2023-07-24] MEDS: HaloperidoL 5 MG TABLET PO (09:36)
[2023-07-24] MEDS: Lurasidone HCl 80 MG TABLET 160 MG PO (09:36)
--- NOTE | 2023-07-24 11:08 | HO.PSYCHPN ---
Subjective Subjective Date of Service: 07/24/23 Reason For Visit: Schizophrenia Subjective Notes: Riggins Order and Conditional Voluntary Interim History: The nursing staff reported that she was seen self dialogue in. She slept 7 hours and her mood remains flat. She is only out in the milieu for meals. On interview the patient denies new symptoms she had slightly brighter affect, encourage her to participate in groups. Mental Status Exam Mental Status Exam Patient Appearance: Appropriate (On hospital gowns) and Unkempt Patient Orientation: Person Level of Consciousness: Alert Patient Behavior: Guarded and Passive Mood Description: Withdrawn Affect Description: Constricted Patient Cognition Impaired: Yes Ability to Follow Directions: Fair Speech Pattern: Clear Hallucinations: Auditory Delusions: Paranoid Ideation and Ideas of Reference Thought Process: Illogical and Slowed Thinking Thought Content: positive for Loose Associations and positive for Thought Blocking Judgement: Poor Diagnostics Vital Signs (24Hr): Vital Signs - 24 hr 07/23/23 18:00 07/24/23 09:00 Temperature 96.3 F L 98.0 F Pulse Rate 74 72 Respiratory Rate 16 16 Blood Pressure 114/55 L 142/78 H Pulse Oximetry 96 92 Oxygen Delivery Method Room Air Room Air BMI result Body Mass Index 27.8 Labs 07/05/23 08:20 07/05/23 08:20 Medications Medications Current Medications Al Hydroxide/Mg Hydroxide (Magnesium Hydrox/Alum Hydrox 30 Ml Oral.Susp) 30 ml PO Q6H PRN PRN Reason: Heartburn/Nausea Clotrimazole (Clotrimazole 1 % Cream 15 Gm Tube) 1 appl TOPICAL BID [facility]; Protocol Last Admin: 07/24/23 09:36 Dose: Not Given Haloperidol (Haloperidol 5 Mg Tablet) 5 mg PO Q4H PRN PRN Reason: agitation Haloperidol (Haloperidol 5 Mg Tablet) 5 mg PO DAILY [facility] Last Admin: 07/24/23 09:36 Dose: 5 mg Haloperidol (Haloperidol 5 Mg Tablet) 15 mg PO BEDTIME [facility] Last Admin: 07/23/23 20:42 Dose: 15 mg Haloperidol Decanoate (Haloperidol Decanoate 50 Mg/Ml Vial) 200 mg IM Q28D [facility] Last Admin: 07/17/23 11:42 Dose: 200 mg Haloperidol Lactate (Haloperidol Lactate 5 Mg/Ml Vial) 5 mg IM BID PRN PRN Reason: REFUSAL OF PO Last Admin: 05/20/23 08:43 Dose: 5 mg Hydrocortisone (Hydrocortisone 1 % Cream 28.35 Gm Tube) 1 appl TOPICAL BID PRN; Protocol PRN Reason: Rash Last Admin: 06/22/23 09:28 Dose: 1 appl Ibuprofen (Ibuprofen 400 Mg Tablet) 400 mg PO Q4H PRN PRN Reason: Pain, Mild (Pain Scale 1-3) Lurasidone HCl (Lurasidone Hcl 80 Mg Tablet) 160 mg PO DAILY [facility] Last Admin: 07/24/23 09:36 Dose: 160 mg Magnesium Hydroxide (Milk Of Magnesia 30 Ml Oral.Susp) 30 ml PO DAILY PRN PRN Reason: Constipation Trazodone HCl (Trazodone Hcl 25 Mg Halftab) 25 mg PO BEDTIME MRX1 PRN PRN Reason: Insomnia Allergies Allergies Allergy/AdvReac Type Severity Reaction Status Date / Time onion Allergy Unknown Unknown Verified 05/11/23 22:53 Assessment & Plan Assessment & Plan (1) Schizophrenia, chronic condition: Status: Acute Code(s): F20.9 - Schizophrenia, unspecified Plan Pt is a 72-year-old female with a PMH significant for?HTN, GERD, and schizophrenia who is admitted to [facility] for increased aggression after a non compliant her psychiatric medications. [facility] but has recently become disorganized with delusions and increased aggression after refusing to take her medications despite a Riggins order. Medical consult for admission H&P. 06/09 continue current treatment plan 06/10 continue current tx plan 06/19 continue tx. 06/23 CTP 06/24 doesn't seem to be getting better with dec haldol in [place]- maybe inc ? haldol back up until [facility] has chance to build up. 06/25/23 better with inc haldol to 15mg last pm ? or just further along on medications- CTP for another week continue haldol 15mg then dec back to 10mg Plan 06/30/2023: No changes to current treatment plan 07/01/2023: No changes to current 07/13/23- continue tx. 07/14 continue tx plan 07/15 continue tx plan 07/21: Continue current management and treatment plan. 07/22: Continue current management and treatment plan. 1. Gather collateral information, will try to contact the staff on the [facility] for further details on the last Haldol Decanoate. 2. Continue with medications as per court order. 3. Haldol Decanoate 100 mg on May 22 4. Latuda 20 mg p.o. q.h.s. on May 24. On May 25 we are increasing up to 40 mg p.o. q.h.s. on May 28 we are increasing up to 60 mg p.o. q.h.s. and encourage compliance but she has consistently refused this medication so we discontinued. 5. Increase Haldol up to 10 mg p.o. b.i.d. later it has changed to 5 mg in the morning and 15 at night. 6. We are contacting the staff of the [facility] to find out if she has ever taking Abilify. 7. On June 12 the patient agreed to take like to the night 20 mg daily. We are increasing Latuda up to 40 mg on June 21. On June 22 we increased Latuda up to 60 mg p.o. daily. On June 29 we increase Latuda up to 80 mg p.o. daily. On July 05 we increased Latuda up to 120 mg p.o. daily. On July 18 we increased up to 160 mg p.o. daily, maximum dose as per the court order 8. Haldol Decanoate 200 mg IM on July 14 3q28 days. Reason for continued inpatient stay Substantial Risk for: inability to function, rapid decompensation and med/psych decompensation Time Spent With Patient Time: Total time managing care of this patient today __20__ minutes.
[2023-07-24 18:00] VITALS: BP 143/68; PULSE 61; RESP 16; TEMP 36.6; O2SAT 93
[2023-07-24] MEDS: HaloperidoL 5 MG TABLET 15 MG PO (21:40)
[2023-07-25 06:00] VITALS: BP 136/79; PULSE 88; RESP 18; TEMP 36.4; O2SAT 93
[2023-07-25] MEDS: Lurasidone HCl 80 MG TABLET 160 MG PO (08:56)
[2023-07-25] MEDS: HaloperidoL 5 MG TABLET PO (08:59)
[2023-07-25] MEDS: Clotrimazole 1 % Cream 15 GM TUBE 1 APPL TOPICAL (09:36)
--- NOTE | 2023-07-25 12:43 | HO.PSYCHPN ---
Subjective Subjective Date of Service: 07/25/23 Reason For Visit: Schizophrenia Subjective Notes: Conditional Voluntary Interim History: The nursing staff reported no changes in her mental status she remains seclusive in her room. She slept 8 hours she was been quiet. She did not attend to any groups yesterday. On interview the patient denies new symptoms she looks disheveled and apparently this is her baseline. Mental Status Exam Mental Status Exam Patient Appearance: Appropriate Patient Orientation: Person and Situation Level of Consciousness: Awake Patient Behavior: Guarded, Passive and Suspicious Mood Description: Constricted Affect Description: Calm Patient Cognition Impaired: Yes Ability to Follow Directions: Good Speech Pattern: Clear Hallucinations: None Delusions: Paranoid Ideation and Ideas of Reference Thought Process: Distracted and Slowed Thinking Thought Content: positive for Poverty of Content, positive for Loose Associations and positive for Thought Blocking Judgement: Poor Diagnostics Vital Signs (24Hr): Vital Signs - 24 hr 07/24/23 18:00 07/25/23 06:00 Temperature 97.8 F 97.5 F Pulse Rate 61 88 Respiratory Rate 16 18 Blood Pressure 143/68 H 136/79 Pulse Oximetry 93 93 Oxygen Delivery Method Room Air Room Air BMI result Body Mass Index 27.8 Labs 07/05/23 08:20 07/05/23 08:20 Medications Medications Current Medications Al Hydroxide/Mg Hydroxide (Magnesium Hydrox/Alum Hydrox 30 Ml Oral.Susp) 30 ml PO Q6H PRN PRN Reason: Heartburn/Nausea Clotrimazole (Clotrimazole 1 % Cream 15 Gm Tube) 1 appl TOPICAL BID [facility]; Protocol Last Admin: 07/25/23 09:36 Dose: 1 appl Haloperidol (Haloperidol 5 Mg Tablet) 5 mg PO Q4H PRN PRN Reason: agitation Haloperidol (Haloperidol 5 Mg Tablet) 5 mg PO DAILY [facility] Last Admin: 07/25/23 08:59 Dose: 5 mg Haloperidol (Haloperidol 5 Mg Tablet) 15 mg PO BEDTIME [facility] Last Admin: 07/24/23 21:40 Dose: 15 mg Haloperidol Decanoate (Haloperidol Decanoate 50 Mg/Ml Vial) 200 mg IM Q28D [facility] Last Admin: 07/17/23 11:42 Dose: 200 mg Haloperidol Lactate (Haloperidol Lactate 5 Mg/Ml Vial) 5 mg IM BID PRN PRN Reason: REFUSAL OF PO Last Admin: 05/20/23 08:43 Dose: 5 mg Hydrocortisone (Hydrocortisone 1 % Cream 28.35 Gm Tube) 1 appl TOPICAL BID PRN; Protocol PRN Reason: Rash Last Admin: 06/22/23 09:28 Dose: 1 appl Ibuprofen (Ibuprofen 400 Mg Tablet) 400 mg PO Q4H PRN PRN Reason: Pain, Mild (Pain Scale 1-3) Lurasidone HCl (Lurasidone Hcl 80 Mg Tablet) 160 mg PO DAILY [facility] Last Admin: 07/25/23 08:56 Dose: 160 mg Magnesium Hydroxide (Milk Of Magnesia 30 Ml Oral.Susp) 30 ml PO DAILY PRN PRN Reason: Constipation Trazodone HCl (Trazodone Hcl 25 Mg Halftab) 25 mg PO BEDTIME MRX1 PRN PRN Reason: Insomnia Allergies Allergies Allergy/AdvReac Type Severity Reaction Status Date / Time onion Allergy Unknown Unknown Verified 05/11/23 22:53 Assessment & Plan Assessment & Plan (1) Schizophrenia, chronic condition: Status: Acute Code(s): F20.9 - Schizophrenia, unspecified Plan Pt is a 72-year-old female with a PMH significant for?HTN, GERD, and schizophrenia who is admitted to [facility] for increased aggression after a non compliant her psychiatric medications. Patient lives at a [facility] but has recently become disorganized with delusions and increased aggression after refusing to take her medications despite a Riggins order. Medical consult for admission H&P. 06/09 continue current treatment plan 06/10 continue current tx plan 06/19 continue tx. 06/23 CTP 06/24 doesn't seem to be getting better with dec haldol in [place]- maybe inc ? haldol back up until [facility] has chance to build up. 06/25/23 better with inc haldol to 15mg last pm ? or just further along on medications- CTP for another week continue haldol 15mg then dec back to 10mg Plan 06/30/2023: No changes to current treatment plan 07/01/2023: No changes to current 07/13/23- continue tx. 07/14 continue tx plan 07/15 continue tx plan 07/21: Continue current management and treatment plan. 07/22: Continue current management and treatment plan. 1. Gather collateral information, will try to contact the staff on the [facility] for further details on the last Haldol Decanoate. 2. Continue with medications as per court order. 3. Haldol Decanoate 100 mg on May 22 4. Latuda 20 mg p.o. q.h.s. on May 24. On May 25 we are increasing up to 40 mg p.o. q.h.s. on May 28 we are increasing up to 60 mg p.o. q.h.s. and encourage compliance but she has consistently refused this medication so we discontinued. 5. Increase Haldol up to 10 mg p.o. b.i.d. later it has changed to 5 mg in the morning and 15 at night. 6. We are contacting the staff of the [facility] to find out if she has ever taking Abilify. 7. On June 12 the patient agreed to take like to the night 20 mg daily. We are increasing Latuda up to 40 mg on June 21. On June 22 we increased [place]uda up to 60 mg p.o. daily. On June 29 we increase Latuda up to 80 mg p.o. daily. On July 05 we increased Latuda up to 120 mg p.o. daily. On July 18 we increased up to 160 mg p.o. daily, maximum dose as per the court order 8. Haldol Decanoate 200 mg IM on July 14 3q28 days. Reason for continued inpatient stay Substantial Risk for: inability to function, rapid decompensation and med/psych decompensation Time Spent With Patient Time: Total time managing care of this patient today __20__ minutes.
[2023-07-25 18:00] VITALS: BP 128/63; PULSE 65; RESP 16; TEMP 36.3; O2SAT 95
[2023-07-25] MEDS: HaloperidoL 5 MG TABLET 15 MG PO (20:28)
[2023-07-26 07:00] VITALS: BMI 28.5
[2023-07-26] MEDS: Lurasidone HCl 80 MG TABLET 160 MG PO (12:52)
[2023-07-26] MEDS: HaloperidoL 5 MG TABLET PO (12:53)
--- NOTE | 2023-07-26 14:49 | HO.PSYCHPN ---
Subjective Subjective Date of Service: 07/26/23 Reason For Visit: Schizophrenia Subjective Notes: Riggins Order and Conditional Voluntary Guardianship: Yes Interim History: The nursing staff reported the patient has been isolative, she come out only for meals and she had been eating well. Today she had a shower but still she is mostly seclusive no new changes in her mental status. No evidence of EPS. Mental Status Exam Mental Status Exam Patient Appearance: Appropriate (On hospital gowns) Patient Orientation: Person and Situation Level of Consciousness: Awake and Appropriate Patient Behavior: Guarded and Passive Mood Description: Withdrawn Affect Description: Constricted Patient Cognition Impaired: Yes Ability to Follow Directions: Good Speech Pattern: Clear Hallucinations: Auditory Delusions: Paranoid Ideation and Ideas of Reference Thought Process: Distracted and Slowed Thinking Thought Content: positive for [place] and positive for Circumstantial Judgement: Poor Diagnostics Vital Signs (24Hr): Vital Signs - 24 hr 07/25/23 18:00 Temperature 97.4 F Pulse Rate 65 Respiratory Rate 16 Blood Pressure 128/63 Pulse Oximetry 95 Oxygen Delivery Method Room Air BMI result Body Mass Index 28.5 Labs 07/05/23 08:20 07/05/23 08:20 Medications Medications Current Medications Al Hydroxide/Mg Hydroxide (Magnesium Hydrox/Alum Hydrox 30 Ml Oral.Susp) 30 ml PO Q6H PRN PRN Reason: Heartburn/Nausea Clotrimazole (Clotrimazole 1 % Cream 15 Gm Tube) 1 appl TOPICAL BID [facility]; Protocol Last Admin: 07/26/23 12:53 Dose: Not Given Haloperidol (Haloperidol 5 Mg Tablet) 5 mg PO Q4H PRN PRN Reason: agitation Haloperidol (Haloperidol 5 Mg Tablet) 5 mg PO DAILY [facility] Last Admin: 07/26/23 12:53 Dose: 5 mg Haloperidol (Haloperidol 5 Mg Tablet) 15 mg PO BEDTIME [facility] Last Admin: 07/25/23 20:28 Dose: 15 mg Haloperidol Decanoate (Haloperidol Decanoate 50 Mg/Ml Vial) 200 mg IM Q28D [facility] Last Admin: 07/17/23 11:42 Dose: 200 mg Haloperidol Lactate (Haloperidol Lactate 5 Mg/Ml Vial) 5 mg IM BID PRN PRN Reason: REFUSAL OF PO Last Admin: 05/20/23 08:43 Dose: 5 mg Hydrocortisone (Hydrocortisone 1 % Cream 28.35 Gm Tube) 1 appl TOPICAL BID PRN; Protocol PRN Reason: Rash Last Admin: 06/22/23 09:28 Dose: 1 appl Ibuprofen (Ibuprofen 400 Mg Tablet) 400 mg PO Q4H PRN PRN Reason: Pain, Mild (Pain Scale 1-3) Lurasidone HCl (Lurasidone Hcl 80 Mg Tablet) 160 mg PO DAILY [facility] Last Admin: 07/26/23 12:52 Dose: 160 mg Magnesium Hydroxide (Milk Of Magnesia 30 Ml Oral.Susp) 30 ml PO DAILY PRN PRN Reason: Constipation Trazodone HCl (Trazodone Hcl 25 Mg Halftab) 25 mg PO BEDTIME MRX1 PRN PRN Reason: Insomnia Allergies Allergies Allergy/AdvReac Type Severity Reaction Status Date / Time onion Allergy Unknown Unknown Verified 05/11/23 22:53 Assessment & Plan Assessment & Plan (1) Schizophrenia, chronic condition: Status: Acute Code(s): F20.9 - Schizophrenia, unspecified Plan Pt is a 72-year-old female with a PMH significant for?HTN, GERD, and schizophrenia who is admitted to [facility] for increased aggression after a non compliant her psychiatric medications. Patient lives at a [facility] but has recently become disorganized with delusions and increased aggression after refusing to take her medications despite a Riggins order. Medical consult for admission H&P. 06/09 continue current treatment plan 06/10 continue current tx plan 06/19 continue tx. 06/23 CTP 06/24 doesn't seem to be getting better with dec haldol in [place]- maybe inc ? haldol back up until [place] has chance to build up. 06/25/23 better with inc haldol to 15mg last pm ? or just further along on medications- CTP for another week continue haldol 15mg then dec back to 10mg Plan 06/30/2023: No changes to current treatment plan 07/01/2023: No changes to current 07/13/23- continue tx. 07/14 continue tx plan 07/15 continue tx plan 07/21: Continue current management and treatment plan. 07/22: Continue current management and treatment plan. 1. Gather collateral information, will try to contact the staff on the [facility] for further details on the last Haldol Decanoate. 2. Continue with medications as per court order. 3. Haldol Decanoate 100 mg on May 22 4. Latuda 20 mg p.o. q.h.s. on May 24. On May 25 we are increasing up to 40 mg p.o. q.h.s. on May 28 we are increasing up to 60 mg p.o. q.h.s. and encourage compliance but she has consistently refused this medication so we discontinued. 5. Increase Haldol up to 10 mg p.o. b.i.d. later it has changed to 5 mg in the morning and 15 at night. 6. We are contacting the staff of the [facility] to find out if she has ever taking Abilify. 7. On June 12 the patient agreed to take like to the night 20 mg daily. We are increasing Latuda up to 40 mg on June 21. On June 22 we increased [place] up to 60 mg p.o. daily. On June 29 we increase [place] up to 80 mg p.o. daily. On July 05 we increased [place] up to 120 mg p.o. daily. On July 18 we increased up to 160 mg p.o. daily, maximum dose as per the court order 8. Haldol Decanoate 200 mg IM on July 14 3q28 days. Reason for continued inpatient stay Substantial Risk for: inability to function, rapid decompensation and med/psych decompensation Time Spent With Patient Time: Total time managing care of this patient today _20___ minutes.
[2023-07-26 19:40] VITALS: BP 129/65; PULSE 58; RESP 18; TEMP 36.7; O2SAT 92
[2023-07-26] MEDS: HaloperidoL 5 MG TABLET 15 MG PO (21:00)
[2023-07-27] MEDS: HaloperidoL 5 MG TABLET PO (08:39)
[2023-07-27] MEDS: Lurasidone HCl 80 MG TABLET 160 MG PO (08:39)
--- NOTE | 2023-07-27 08:41 | P.PNPSI_ITS ---
Subjective Subjective Date of Service: 07/27/23 Reason For Visit: Schizophrenia Subjective Notes: Conditional Voluntary Interim History: Pt slept most of the night. He tells this ticket writer that her somatic conditions have been resolved (in the past with more over somatic delusions of having cancer and other illnesses she has not been dx with). However, she states she has custodial side effects from those conditions and has to live here in an older adult unit. Pt guarded when discussing return to , stating that that does not exist, that it will take 7 years to be rebuild and in the meantime she will live here in the hospital. Review of Systems Review of Systems Red rash with scaly plaques on chest and under breasts Patient denies has no acute medical complaints at this time Yes Unobtainable due to mental status Mental Status Exam Mental Status Exam Patient Appearance: Appropriate (On hospital gowns) Patient Orientation: Person and Situation Level of Consciousness: Awake and Appropriate Patient Behavior: Guarded and Passive Mood Description: Withdrawn Affect Description: Constricted Patient Cognition Impaired: Yes Ability to Follow Directions: Good Speech Pattern: Clear Diagnostics Vital Signs (24Hr): Vital Signs - 24 hr 07/26/23 19:40 Temperature 98.0 F Pulse Rate 58 Respiratory Rate 18 Blood Pressure 129/65 Pulse Oximetry 92 Oxygen Delivery Method Room Air BMI result Body Mass Index 28.5 Labs 07/05/23 08:20 07/05/23 08:20 Medications Medications Current Medications Al Hydroxide/Mg Hydroxide (Magnesium Hydrox/Alum Hydrox 30 Ml Oral.Susp) 30 ml PO Q6H PRN PRN Reason: Heartburn/Nausea Clotrimazole (Clotrimazole 1 % Cream 15 Gm Tube) 1 appl TOPICAL BID [facility]; Protocol Last Admin: 07/26/23 20:25 Dose: Not Given Haloperidol (Haloperidol 5 Mg Tablet) 5 mg PO Q4H PRN PRN Reason: agitation Haloperidol (Haloperidol 5 Mg Tablet) 5 mg PO DAILY [facility] Last Admin: 07/26/23 12:53 Dose: 5 mg Haloperidol (Haloperidol 5 Mg Tablet) 15 mg PO BEDTIME [facility] Last Admin: 07/26/23 21:00 Dose: 15 mg Haloperidol Decanoate (Haloperidol Decanoate 50 Mg/Ml Vial) 200 mg IM Q28D [facility] Last Admin: 07/17/23 11:42 Dose: 200 mg Haloperidol Lactate (Haloperidol Lactate 5 Mg/Ml Vial) 5 mg IM BID PRN PRN Reason: REFUSAL OF PO Last Admin: 05/20/23 08:43 Dose: 5 mg Hydrocortisone (Hydrocortisone 1 % Cream 28.35 Gm Tube) 1 appl TOPICAL BID PRN; Protocol PRN Reason: Rash Last Admin: 06/22/23 09:28 Dose: 1 appl Ibuprofen (Ibuprofen 400 Mg Tablet) 400 mg PO Q4H PRN PRN Reason: Pain, Mild (Pain Scale 1-3) Lurasidone HCl (Lurasidone Hcl 80 Mg Tablet) 160 mg PO DAILY [facility] Last Admin: 07/26/23 12:52 Dose: 160 mg Magnesium Hydroxide (Milk Of Magnesia 30 Ml Oral.Susp) 30 ml PO DAILY PRN PRN Reason: Constipation Trazodone HCl (Trazodone Hcl 25 Mg Halftab) 25 mg PO BEDTIME MRX1 PRN PRN Reason: Insomnia Allergies Allergies Allergy/AdvReac Type Severity Reaction Status Date / Time onion Allergy Unknown Unknown Verified 05/11/23 22:53 Assessment & Plan Assessment & Plan (1) Schizophrenia, chronic condition: Status: Acute Code(s): F20.9 - Schizophrenia, unspecified Plan Pt is a 72-year-old female with a PMH significant for?HTN, GERD, and schizophrenia who is admitted to [facility] for increased aggression after a non compliant her psychiatric medications. Patient lives [place] but has recently become disorganized with delusions and increased aggression after refusing to take her medications despite a Riggins order. Medical consult for admission H&P. 06/09 continue current treatment plan 06/10 continue current tx plan 06/19 continue tx. 06/23 CTP 06/24 doesn't seem to be getting better with dec haldol in [place]- maybe inc ? haldol back up until latuda has chance to build up. 06/25/23 better with inc haldol to 15mg last pm ? or just further along on medications- CTP for another week continue haldol 15mg then dec back to 10mg Plan 06/30/2023: No changes to current treatment plan 07/01/2023: No changes to current 07/13/23- continue tx. 07/14 continue tx plan 07/15 continue tx plan 07/21: Continue current management and treatment plan. 07/22: Continue current management and treatment plan. 07/27 continue tx. Reason for continued inpatient stay Substantial Risk for: inability to function Time Spent With Patient Time: Total time managing care of this patient today ____ minutes.
[2023-07-27] MEDS: Clotrimazole 1 % Cream 15 GM TUBE 1 APPL TOPICAL (20:34)
[2023-07-27] MEDS: HaloperidoL 5 MG TABLET 15 MG PO (20:34)
[2023-07-28 08:26] VITALS: BP 141/60; PULSE 56; RESP 16; O2SAT 92
[2023-07-28] MEDS: HaloperidoL 5 MG TABLET PO (08:30)
[2023-07-28] MEDS: Lurasidone HCl 80 MG TABLET 160 MG PO (08:30)
--- NOTE | 2023-07-28 10:52 | HO.PSYCHPN ---
Subjective Subjective Date of Service: 07/28/23 Reason For Visit: Schizophrenia Interim History: met with patient. Discussed with Nursing. Chart reviewed. Overall has been isolative. Reports not wanting to speak today. Did however state she had some right knee pain that has been there for a long time, but did not think there was anything that could be done about that. Again declined to further engage. Medication Compliance: Yes Side effects from medications: No Attending Groups: No Review of Systems Acute medical concerns: No Review of Systems Review of Systems Chronic right knee pain Mental Status Exam Mental Status Exam Patient Appearance: Appropriate (On hospital gowns) Patient Orientation: Person and Situation Level of Consciousness: Awake and Appropriate Patient Behavior: Guarded and Passive Mood Description: Withdrawn Affect Description: Constricted Patient Cognition Impaired: Yes Ability to Follow Directions: Good Speech Pattern: Clear Diagnostics Vital Signs (24Hr): Vital Signs - 24 hr 07/28/23 08:26 Pulse Rate 56 Respiratory Rate 16 Blood Pressure 141/60 H Pulse Oximetry 92 Oxygen Delivery Method Room Air BMI result Body Mass Index 28.5 Labs 07/05/23 08:20 07/05/23 08:20 Medications Medications Current Medications Al Hydroxide/Mg Hydroxide (Magnesium Hydrox/Alum Hydrox 30 Ml Oral.Susp) 30 ml PO Q6H PRN PRN Reason: Heartburn/Nausea Clotrimazole (Clotrimazole 1 % Cream 15 Gm Tube) 1 appl TOPICAL BID [facility]; Protocol Last Admin: 07/28/23 08:31 Dose: Not Given Haloperidol (Haloperidol 5 Mg Tablet) 5 mg PO Q4H PRN PRN Reason: agitation Haloperidol (Haloperidol 5 Mg Tablet) 5 mg PO DAILY [facility] Last Admin: 07/28/23 08:30 Dose: 5 mg Haloperidol (Haloperidol 5 Mg Tablet) 15 mg PO BEDTIME [facility] Last Admin: 07/27/23 20:34 Dose: 15 mg Haloperidol Decanoate (Haloperidol Decanoate 50 Mg/Ml Vial) 200 mg IM Q28D [facility] Last Admin: 07/17/23 11:42 Dose: 200 mg Haloperidol Lactate (Haloperidol Lactate 5 Mg/Ml Vial) 5 mg IM BID PRN PRN Reason: REFUSAL OF PO Last Admin: 05/20/23 08:43 Dose: 5 mg Hydrocortisone (Hydrocortisone 1 % Cream 28.35 Gm Tube) 1 appl TOPICAL BID PRN; Protocol PRN Reason: Rash Last Admin: 06/22/23 09:28 Dose: 1 appl Ibuprofen (Ibuprofen 400 Mg Tablet) 400 mg PO Q4H PRN PRN Reason: Pain, Mild (Pain Scale 1-3) Lurasidone HCl (Lurasidone Hcl 80 Mg Tablet) 160 mg PO DAILY [facility] Last Admin: 07/28/23 08:30 Dose: 160 mg Magnesium Hydroxide (Milk Of Magnesia 30 Ml Oral.Susp) 30 ml PO DAILY PRN PRN Reason: Constipation Trazodone HCl (Trazodone Hcl 25 Mg Halftab) 25 mg PO BEDTIME MRX1 PRN PRN Reason: Insomnia Allergies Allergies Allergy/AdvReac Type Severity Reaction Status Date / Time onion Allergy Unknown Unknown Verified 05/11/23 22:53 Assessment & Plan Assessment & Plan (1) Schizophrenia, chronic condition: Status: Acute Code(s): F20.9 - Schizophrenia, unspecified Plan Pt is a 72-year-old female with a PMH significant for?HTN, GERD, and schizophrenia who is admitted to [facility] for increased aggression after a non compliant her psychiatric medications. Patient lives [place] but has recently become disorganized with delusions and increased aggression after refusing to take her medications despite a [facility]iggins order. Medical consult for admission H&P. 06/09 continue current treatment plan 06/10 continue current tx plan 06/19 continue tx. 06/23 CTP 06/24 doesn't seem to be getting better with dec haldol in [place]- maybe inc ? haldol back up until [place] has chance to build up. 06/25/23 better with inc haldol to 15mg last pm ? or just further along on medications- CTP for another week continue haldol 15mg then dec back to 10mg Plan 06/30/2023: No changes to current treatment plan 07/01/2023: No changes to current 07/13/23- continue tx. 07/14 continue tx plan 07/15 continue tx plan 07/21: Continue current management and treatment plan. 07/22: Continue current management and treatment plan. 07/27 continue tx. 07/28: no changes Reason for continued inpatient stay Substantial Risk for: inability to function Time Spent With Patient Time: Total time managing care of this patient today ____ minutes.
[2023-07-28 20:00] VITALS: BP 119/56; PULSE 52; RESP 16; TEMP 35.9; O2SAT 92
[2023-07-28] MEDS: HaloperidoL 5 MG TABLET 15 MG PO (20:46)
[2023-07-28] MEDS: Clotrimazole 1 % Cream 15 GM TUBE 1 APPL TOPICAL (20:46)
[2023-07-29 08:23] VITALS: BP 156/69; PULSE 62; RESP 17; TEMP 36.2; O2SAT 92
[2023-07-29] MEDS: Lurasidone HCl 80 MG TABLET 160 MG PO (08:24)
[2023-07-29] MEDS: HaloperidoL 5 MG TABLET PO (08:25)
--- NOTE | 2023-07-29 09:53 | HO.PSYCHPN ---
Subjective Subjective Date of Service: 07/29/23 Reason For Visit: Schizophrenia Interim History: Met with patient. Discussed with Nursing. Remains isolative. Reports not wanting to speak again today. Medication Compliance: Yes Side effects from medications: No Attending Groups: No Review of Systems Acute medical concerns: No Review of Systems Review of Systems Chronic right knee pain Mental Status Exam Mental Status Exam Narrative: In room. Hospital clothing. Poor self-care. Paranoid and guarded. Would not engage in interview. Diagnostics Vital Signs (24Hr): Vital Signs - 24 hr 07/28/23 20:00 07/29/23 08:23 Temperature 96.7 F L 97.2 F Pulse Rate 52 62 Respiratory Rate 16 17 Blood Pressure 119/56 L 156/69 H Pulse Oximetry 92 92 Oxygen Delivery Method Room Air Room Air BMI result Body Mass Index 28.5 Labs 07/05/23 08:20 07/05/23 08:20 Medications Medications Current Medications Al Hydroxide/Mg Hydroxide (Magnesium Hydrox/Alum Hydrox 30 Ml Oral.Susp) 30 ml PO Q6H PRN PRN Reason: Heartburn/Nausea Clotrimazole (Clotrimazole 1 % Cream 15 Gm Tube) 1 appl TOPICAL BID [facility]; Protocol Last Admin: 07/29/23 08:26 Dose: Not Given Haloperidol (Haloperidol 5 Mg Tablet) 5 mg PO Q4H PRN PRN Reason: agitation Haloperidol (Haloperidol 5 Mg Tablet) 5 mg PO DAILY [facility] Last Admin: 07/29/23 08:25 Dose: 5 mg Haloperidol (Haloperidol 5 Mg Tablet) 15 mg PO BEDTIME [facility] Last Admin: 07/28/23 20:46 Dose: 15 mg Haloperidol Decanoate (Haloperidol Decanoate 50 Mg/Ml Vial) 200 mg IM Q28D [facility] Last Admin: 07/17/23 11:42 Dose: 200 mg Haloperidol Lactate (Haloperidol Lactate 5 Mg/Ml Vial) 5 mg IM BID PRN PRN Reason: REFUSAL OF PO Last Admin: 05/20/23 08:43 Dose: 5 mg Hydrocortisone (Hydrocortisone 1 % Cream 28.35 Gm Tube) 1 appl TOPICAL BID PRN; Protocol PRN Reason: Rash Last Admin: 06/22/23 09:28 Dose: 1 appl Ibuprofen (Ibuprofen 400 Mg Tablet) 400 mg PO Q4H PRN PRN Reason: Pain, Mild (Pain Scale 1-3) Lurasidone HCl (Lurasidone Hcl 80 Mg Tablet) 160 mg PO DAILY [facility] Last Admin: 07/29/23 08:24 Dose: 160 mg Magnesium Hydroxide (Milk Of Magnesia 30 Ml Oral.Susp) 30 ml PO DAILY PRN PRN Reason: Constipation Trazodone HCl (Trazodone Hcl 25 Mg Halftab) 25 mg PO BEDTIME MRX1 PRN PRN Reason: Insomnia Allergies Allergies Allergy/AdvReac Type Severity Reaction Status Date / Time onion Allergy Unknown Unknown Verified 05/11/23 22:53 Assessment & Plan Assessment & Plan (1) Schizophrenia, chronic condition: Status: Acute Code(s): F20.9 - Schizophrenia, unspecified Plan Pt is a 72-year-old female with a PMH significant for?HTN, GERD, and schizophrenia who is admitted to [facility] for increased aggression after a non compliant her psychiatric medications. Patient lives at a long-term but has recently become disorganized with delusions and increased aggression after refusing to take her medications despite a [facility]ins order. Medical consult for admission H&P. 06/09 continue current treatment plan 06/10 continue current tx plan 06/19 continue tx. 06/23 CTP 06/24 doesn't seem to be getting better with dec haldol in [place]- maybe inc ? haldol back up until [place] has chance to build up. 06/25/23 better with inc haldol to 15mg last pm ? or just further along on medications- CTP for another week continue haldol 15mg then dec back to 10mg Plan 06/30/2023: No changes to current treatment plan 07/01/2023: No changes to current 07/13/23- continue tx. 07/14 continue tx plan 07/15 continue tx plan 07/21: Continue current management and treatment plan. 07/22: Continue current management and treatment plan. 07/27 continue tx. 07/28: no changes 07/29: no changes Reason for continued inpatient stay Substantial Risk for: inability to function Time Spent With Patient Time: Total time managing care of this patient today ____ minutes.
[2023-07-29 18:00] VITALS: BP 149/66; PULSE 58; RESP 16; TEMP 35.7; O2SAT 94
[2023-07-29] MEDS: HaloperidoL 5 MG TABLET 15 MG PO (20:37)
[2023-07-29] MEDS: Clotrimazole 1 % Cream 15 GM TUBE 1 APPL TOPICAL (20:37)
[2023-07-30 06:00] VITALS: BP 116/56; PULSE 56; RESP 18; TEMP 36.4; O2SAT 92
--- NOTE | 2023-07-30 08:25 | HO.PSYCHPN ---
Subjective Subjective Date of Service: 07/30/23 Reason For Visit: Schizophrenia Subjective Notes: Conditional Voluntary Interim History: Pt slept through the night. She is taking medications as prescribed. She continues to report that she has to stay here on this unit because she has rat exterminator effects of medical conditions (which she was never diagnosed with). Pt hostile towards this fiction and nonfiction writer prose, screaming get out of my room, I am not talking with yoy anymore! Review of Systems Review of Systems Chronic right knee pain Yes Unobtainable due to mental status Mental Status Exam Mental Status Exam Patient Appearance: Appropriate (On hospital gowns) Patient Orientation: Person and Situation Level of Consciousness: Awake and Appropriate Patient Behavior: Guarded and Passive Mood Description: Withdrawn Affect Description: Constricted Patient Cognition Impaired: Yes Ability to Follow Directions: Good Speech Pattern: Clear Diagnostics Vital Signs (24Hr): Vital Signs - 24 hr 07/29/23 18:00 Temperature 96.3 F L Pulse Rate 58 Respiratory Rate 16 Blood Pressure 149/66 H Pulse Oximetry 94 Oxygen Delivery Method Room Air BMI result Body Mass Index 28.5 Labs 07/05/23 08:20 07/05/23 08:20 Medications Medications Current Medications Al Hydroxide/Mg Hydroxide (Magnesium Hydrox/Alum Hydrox 30 Ml Oral.Susp) 30 ml PO Q6H PRN PRN Reason: Heartburn/Nausea Clotrimazole (Clotrimazole 1 % Cream 15 Gm Tube) 1 appl TOPICAL BID [facility]; Protocol Last Admin: 07/29/23 20:37 Dose: 1 appl Haloperidol (Haloperidol 5 Mg Tablet) 5 mg PO Q4H PRN PRN Reason: agitation Haloperidol (Haloperidol 5 Mg Tablet) 5 mg PO DAILY [facility] Last Admin: 07/29/23 08:25 Dose: 5 mg Haloperidol (Haloperidol 5 Mg Tablet) 15 mg PO BEDTIME [facility] Last Admin: 07/29/23 20:37 Dose: 15 mg Haloperidol Decanoate (Haloperidol Decanoate 50 Mg/Ml Vial) 200 mg IM Q28D [facility] Last Admin: 07/17/23 11:42 Dose: 200 mg Haloperidol Lactate (Haloperidol Lactate 5 Mg/Ml Vial) 5 mg IM BID PRN PRN Reason: REFUSAL OF PO Last Admin: 05/20/23 08:43 Dose: 5 mg Hydrocortisone (Hydrocortisone 1 % Cream 28.35 Gm Tube) 1 appl TOPICAL BID PRN; Protocol PRN Reason: Rash Last Admin: 06/22/23 09:28 Dose: 1 appl Ibuprofen (Ibuprofen 400 Mg Tablet) 400 mg PO Q4H PRN PRN Reason: Pain, Mild (Pain Scale 1-3) Lurasidone HCl (Lurasidone Hcl 80 Mg Tablet) 160 mg PO DAILY [facility] Last Admin: 07/29/23 08:24 Dose: 160 mg Magnesium Hydroxide (Milk Of Magnesia 30 Ml Oral.Susp) 30 ml PO DAILY PRN PRN Reason: Constipation Trazodone HCl (Trazodone Hcl 25 Mg Halftab) 25 mg PO BEDTIME MRX1 PRN PRN Reason: Insomnia Allergies Allergies Allergy/AdvReac Type Severity Reaction Status Date / Time onion Allergy Unknown Unknown Verified 05/11/23 22:53 Assessment & Plan Assessment & Plan (1) Schizophrenia, chronic condition: Status: Acute Code(s): F20.9 - Schizophrenia, unspecified Plan Pt is a 72-year-old female with a PMH significant for?HTN, GERD, and schizophrenia who is admitted to [facility] for increased aggression after a non compliant her psychiatric medications. Patient lives at a shelter but has recently become disorganized with delusions and increased aggression after refusing to take her medications despite a Riggins order. Medical consult for admission H&P. 06/09 continue current treatment plan 06/10 continue current tx plan 06/19 continue tx. 06/23 CTP 06/24 doesn't seem to be getting better with dec haldol in [place]- maybe inc ? haldol back up until [place] has chance to build up. 06/25/23 better with inc haldol to 15mg last pm ? or just further along on medications- CTP for another week continue haldol 15mg then dec back to 10mg Plan 06/30/2023: No changes to current treatment plan 07/01/2023: No changes to current 07/13/23- continue tx. 07/14 continue tx plan 07/15 continue tx plan 07/21: Continue current management and treatment plan. 07/22: Continue current management and treatment plan. 07/27 continue tx. 07/28: no changes 07/29: no changes 07/30 hostile behavior, wanting to stay here on the unit for years. Reason for continued inpatient stay Substantial Risk for: inability to function Time Spent With Patient Time: Total time managing care of this patient today ____ minutes.
[2023-07-30] MEDS: HaloperidoL 5 MG TABLET PO (09:46)
[2023-07-30] MEDS: Lurasidone HCl 80 MG TABLET 160 MG PO (09:46)
[2023-07-30 18:00] VITALS: BP 168/74; PULSE 64; RESP 18; TEMP 36.6; O2SAT 94
[2023-07-30] MEDS: HaloperidoL 5 MG TABLET 15 MG PO (20:40)
[2023-07-30] MEDS: Clotrimazole 1 % Cream 15 GM TUBE 1 APPL TOPICAL (20:40)
[2023-07-31 06:00] VITALS: BP 130/66; PULSE 71; RESP 17; TEMP 35.7; O2SAT 94
[2023-07-31] MEDS: Lurasidone HCl 80 MG TABLET 160 MG PO (08:24)
[2023-07-31] MEDS: HaloperidoL 5 MG TABLET PO (08:53)
--- NOTE | 2023-07-31 10:00 | HO.PSYCHPN ---
Subjective Subjective Date of Service: 07/31/23 Reason For Visit: Schizophrenia Subjective Notes: Riggins Order and Conditional Voluntary Interim History: The nursing staff reported the patient remains most of the time in her room, she slept well and she was compliant with medications. She remains flat, internally preoccupied, no changes in her mental status. On interview the patient denies new symptoms. We will discuss with [facility] with the possibility of transferring her to a long-term hospitalization since we maximized [address] order with no improvement Mental Status Exam Mental Status Exam Patient Appearance: Appropriate and Unkempt Patient Orientation: Person and Situation Level of Consciousness: Awake Patient Behavior: Guarded and Passive Mood Description: Withdrawn and Blunted Affect Description: Calm Patient Cognition Impaired: Yes Ability to Follow Directions: Fair Speech Pattern: Clear Hallucinations: Auditory Delusions: Paranoid Ideation and Ideas of Reference Thought Process: Illogical, Distracted and Slowed Thinking Thought Content: positive for Ada and positive for Poverty of Content Judgement: Poor Diagnostics Vital Signs (24Hr): Vital Signs - 24 hr 07/30/23 18:00 07/31/23 06:00 Temperature 98 F 96.2 F L Pulse Rate 64 71 Respiratory Rate 18 17 Blood Pressure 168/74 H 130/66 Pulse Oximetry 94 94 Oxygen Delivery Method Room Air Room Air BMI result Body Mass Index 28.5 Labs 07/05/23 08:20 07/05/23 08:20 Medications Medications Current Medications Al Hydroxide/Mg Hydroxide (Magnesium Hydrox/Alum Hydrox 30 Ml Oral.Susp) 30 ml PO Q6H PRN PRN Reason: Heartburn/Nausea Clotrimazole (Clotrimazole 1 % Cream 15 Gm Tube) 1 appl TOPICAL BID [facility]; Protocol Last Admin: 07/31/23 08:31 Dose: Not Given Haloperidol (Haloperidol 5 Mg Tablet) 5 mg PO Q4H PRN PRN Reason: agitation Haloperidol (Haloperidol 5 Mg Tablet) 5 mg PO DAILY [facility] Last Admin: 07/31/23 08:53 Dose: 5 mg Haloperidol (Haloperidol 5 Mg Tablet) 15 mg PO BEDTIME [facility] Last Admin: 07/30/23 20:40 Dose: 15 mg Haloperidol Decanoate (Haloperidol Decanoate 50 Mg/Ml Vial) 200 mg IM Q28D [facility] Last Admin: 07/17/23 11:42 Dose: 200 mg Haloperidol Lactate (Haloperidol Lactate 5 Mg/Ml Vial) 5 mg IM BID PRN PRN Reason: REFUSAL OF PO Last Admin: 05/20/23 08:43 Dose: 5 mg Hydrocortisone (Hydrocortisone 1 % Cream 28.35 Gm Tube) 1 appl TOPICAL BID PRN; Protocol PRN Reason: Rash Last Admin: 06/22/23 09:28 Dose: 1 appl Ibuprofen (Ibuprofen 400 Mg Tablet) 400 mg PO Q4H PRN PRN Reason: Pain, Mild (Pain Scale 1-3) Lurasidone HCl (Lurasidone Hcl 80 Mg Tablet) 160 mg PO DAILY [facility] Last Admin: 07/31/23 08:24 Dose: 160 mg Magnesium Hydroxide (Milk Of Magnesia 30 Ml Oral.Susp) 30 ml PO DAILY PRN PRN Reason: Constipation Trazodone HCl (Trazodone Hcl 25 Mg Halftab) 25 mg PO BEDTIME MRX1 PRN PRN Reason: Insomnia Allergies Allergies Allergy/AdvReac Type Severity Reaction Status Date / Time onion Allergy Unknown Unknown Verified 05/11/23 22:53 Assessment & Plan Assessment & Plan (1) Schizophrenia, chronic condition: Status: Acute Code(s): F20.9 - Schizophrenia, unspecified Plan Pt is a 72-year-old female with a PMH significant for?HTN, GERD, and schizophrenia who is admitted to [facility] for increased aggression after a non compliant her psychiatric medications. Patient lives at a shelter but has recently become disorganized with delusions and increased aggression after refusing to take her medications despite a Riggins order. Medical consult for admission H&P. Plan 1. Continue with Haldol at maximum dose as per court order. 2. Continue with [place] at maximum dose as per court order. 3. We will try to coordinate with [facility] with the possibility to change her level of care to long-term hospitalization since the patient has not improved for several weeks. Reason for continued inpatient stay Substantial Risk for: inability to function, rapid decompensation and med/psych decompensation Time Spent With Patient Time: Total time managing care of this patient today __20__ minutes.
[2023-07-31 19:45] VITALS: BP 167/73; PULSE 61; RESP 16; TEMP 36.4; O2SAT 98
[2023-07-31] MEDS: HaloperidoL 5 MG TABLET 15 MG PO (20:31)
[2023-08-01 08:00] VITALS: BP 135/73; PULSE 61; RESP 16; TEMP 37.2; O2SAT 94
[2023-08-01] MEDS: HaloperidoL 5 MG TABLET PO (09:31)
[2023-08-01] MEDS: Lurasidone HCl 80 MG TABLET 160 MG PO (09:31)
--- NOTE | 2023-08-01 09:57 | HO.PSYCHPN ---
Subjective Subjective Date of Service: 08/01/23 Reason For Visit: Schizophrenia Subjective Notes: Conditional Voluntary Interim History: The nursing staff reported the patient is out in the milieu only for meals he remains flat withdrawn. The social media specialist will contact [facility] and we will probably will have to transfer to [facility] since the patient has not improved with a full trial of 2 antipsychotics at the maximum dose. On interview the patient denies new symptoms she is flat and withdrawn. Mental Status Exam Mental Status Exam Patient Appearance: Appropriate Patient Orientation: Person and Situation Level of Consciousness: Awake Patient Behavior: Guarded and Passive Mood Description: Withdrawn Affect Description: Constricted Patient Cognition Impaired: Yes Ability to Follow Directions: Good Speech Pattern: Clear Hallucinations: None Delusions: Paranoid Ideation and Ideas of Reference Thought Process: Illogical and Slowed Thinking Thought Content: positive for [place] and positive for Poverty of Content Judgement: Poor Diagnostics Vital Signs (24Hr): Vital Signs - 24 hr 07/31/23 19:45 Temperature 97.6 F Pulse Rate 61 Respiratory Rate 16 Blood Pressure 167/73 H Pulse Oximetry 98 Oxygen Delivery Method Room Air BMI result Body Mass Index 28.5 Labs 07/05/23 08:20 07/05/23 08:20 Medications Medications Current Medications Al Hydroxide/Mg Hydroxide (Magnesium Hydrox/Alum Hydrox 30 Ml Oral.Susp) 30 ml PO Q6H PRN PRN Reason: Heartburn/Nausea Clotrimazole (Clotrimazole 1 % Cream 15 Gm Tube) 1 appl TOPICAL BID JOSE GUADALUPE; Protocol Last Admin: 08/01/23 09:35 Dose: Not Given Haloperidol (Haloperidol 5 Mg Tablet) 5 mg PO Q4H PRN PRN Reason: agitation Haloperidol (Haloperidol 5 Mg Tablet) 5 mg PO DAILY JOSE GUADALUPE Last Admin: 08/01/23 09:31 Dose: 5 mg Haloperidol (Haloperidol 5 Mg Tablet) 15 mg PO BEDTIME JOSE GUADALU[facility] Last Admin: 07/31/23 20:31 Dose: 15 mg Haloperidol Decanoate (Haloperidol Decanoate 50 Mg/Ml Vial) 200 mg IM Q28D JOSE GUADALUPE Last Admin: 07/17/23 11:42 Dose: 200 mg Haloperidol Lactate (Haloperidol Lactate 5 Mg/Ml Vial) 5 mg IM BID PRN PRN Reason: REFUSAL OF PO Last Admin: 05/20/23 08:43 Dose: 5 mg Hydrocortisone (Hydrocortisone 1 % Cream 28.35 Gm Tube) 1 appl TOPICAL BID PRN; Protocol PRN Reason: Rash Last Admin: 06/22/23 09:28 Dose: 1 appl Ibuprofen (Ibuprofen 400 Mg Tablet) 400 mg PO Q4H PRN PRN Reason: Pain, Mild (Pain Scale 1-3) Lurasidone HCl (Lurasidone Hcl 80 Mg Tablet) 160 mg PO DAILY JOSE GUADALUPE Last Admin: 08/01/23 09:31 Dose: 160 mg Magnesium Hydroxide (Milk Of Magnesia 30 Ml Oral.Susp) 30 ml PO DAILY PRN PRN Reason: Constipation Trazodone HCl (Trazodone Hcl 25 Mg Halftab) 25 mg PO BEDTIME MRX1 PRN PRN Reason: Insomnia Allergies Allergies Allergy/AdvReac Type Severity Reaction Status Date / Time onion Allergy Unknown Unknown Verified 05/11/23 22:53 Assessment & Plan Assessment & Plan (1) Schizophrenia, chronic condition: Status: Acute Code(s): F20.9 - Schizophrenia, unspecified Plan Pt is a 72-year-old female with a PMH significant for?HTN, GERD, and schizophrenia who is admitted to [facility] for increased aggression after a non compliant her psychiatric medications. Patient lives [facility] a [facility] but has recently become disorganized with delusions and increased aggression after refusing to take her medications despite a Riggins order. Medical consult for admission H&P. Plan 1. Continue with Haldol at maximum dose as per court order. 2. Continue with Latuda at maximum dose as per court order. 3. We will try to coordinate with [facility] with the possibility to change her level of care to long-term hospitalization since the patient has not improved for several weeks. Reason for continued inpatient stay Substantial Risk for: inability to function, rapid decompensation and med/psych decompensation Time Spent With Patient Time: Total time managing care of this patient today __20__ minutes.
[2023-08-01 20:06] VITALS: BP 120/56; PULSE 55; RESP 15; TEMP 36.4; O2SAT 91
[2023-08-01] MEDS: HaloperidoL 5 MG TABLET 15 MG PO (20:08)
[2023-08-01] MEDS: Clotrimazole 1 % Cream 15 GM TUBE 1 APPL TOPICAL (20:08)
[2023-08-02 08:00] VITALS: BP 148/75; PULSE 64; RESP 18; TEMP 36.3; O2SAT 94
[2023-08-02] MEDS: Lurasidone HCl 80 MG TABLET 160 MG PO (08:25)
[2023-08-02] MEDS: HaloperidoL 5 MG TABLET PO (08:25)
[2023-08-02] MEDS: Clotrimazole 1 % Cream 15 GM TUBE 1 APPL TOPICAL (08:27)
--- NOTE | 2023-08-02 11:07 | P.PNPSI_ITS ---
Subjective Subjective Date of Service: 08/02/23 Reason For Visit: Schizophrenia Subjective Notes: Landa Warning, Riggins Order and Conditional Voluntary Interim History: The nursing staff reported the patient has no change in her behavior she remains most of the time in her room and comes out only for meals. Today we spoke and explained her that she has not improved even though that we titrated to antipsychotics as per her Riggins order to the maximum with no improvement and we will have to transfer her to [facility] on term facility. I offer her to sign a Section 3 but she refused. We are going to revoked the healthcare proxy filed for Section 7 and 8 and transferred to [facility] Mental Status Exam Mental Status Exam Patient Appearance: Unkempt Patient Orientation: Person Level of Consciousness: Awake Patient Behavior: Guarded and Passive Mood Description: Calm Affect Description: Constricted Patient Cognition Impaired: Yes Ability to Follow Directions: Good Speech Pattern: Clear Hallucinations: None Delusions: Paranoid Ideation and Ideas of Reference Thought Process: Distracted and Slowed Thinking Thought Content: positive for [place] and positive for Thought Blocking Judgement: Poor Diagnostics Vital Signs (24Hr): Vital Signs - 24 hr 08/01/23 20:06 08/02/23 08:00 Temperature 97.5 F 97.4 F Pulse Rate 55 64 Respiratory Rate 15 18 Blood Pressure 120/56 L 148/75 H Pulse Oximetry 91 L 94 Oxygen Delivery Method Room Air Room Air BMI result Body Mass Index 28.5 Labs 07/05/23 08:20 07/05/23 08:20 Medications Medications Current Medications Al Hydroxide/Mg Hydroxide (Magnesium Hydrox/Alum Hydrox 30 Ml Oral.Susp) 30 ml PO Q6H PRN PRN Reason: Heartburn/Nausea Clotrimazole (Clotrimazole 1 % Cream 15 Gm Tube) 1 appl TOPICAL BID [facility]; Protocol Last Admin: 08/02/23 08:27 Dose: 1 appl Haloperidol (Haloperidol 5 Mg Tablet) 5 mg PO Q4H PRN PRN Reason: agitation Haloperidol (Haloperidol 5 Mg Tablet) 5 mg PO DAILY [facility] Last Admin: 08/02/23 08:25 Dose: 5 mg Haloperidol (Haloperidol 5 Mg Tablet) 15 mg PO BEDTIME [facility] Last Admin: 08/01/23 20:08 Dose: 15 mg Haloperidol Decanoate (Haloperidol Decanoate 50 Mg/Ml Vial) 200 mg IM Q28D [facility] Last Admin: 07/17/23 11:42 Dose: 200 mg Haloperidol Lactate (Haloperidol Lactate 5 Mg/Ml Vial) 5 mg IM BID PRN PRN Reason: REFUSAL OF PO Last Admin: 05/20/23 08:43 Dose: 5 mg Hydrocortisone (Hydrocortisone 1 % Cream 28.35 Gm Tube) 1 appl TOPICAL BID PRN; Protocol PRN Reason: Rash Last Admin: 06/22/23 09:28 Dose: 1 appl Ibuprofen (Ibuprofen 400 Mg Tablet) 400 mg PO Q4H PRN PRN Reason: Pain, Mild (Pain Scale 1-3) Lurasidone HCl (Lurasidone Hcl 80 Mg Tablet) 160 mg PO DAILY JOSE GUADALUPE Last Admin: 08/02/23 08:25 Dose: 160 mg Magnesium Hydroxide (Milk Of Magnesia 30 Ml Oral.Susp) 30 ml PO DAILY PRN PRN Reason: Constipation Trazodone HCl (Trazodone Hcl 25 Mg Halftab) 25 mg PO BEDTIME MRX1 PRN PRN Reason: Insomnia Allergies Allergies Allergy/AdvReac Type Severity Reaction Status Date / Time onion Allergy Unknown Unknown Verified 05/11/23 22:53 Assessment & Plan Assessment & Plan (1) Schizophrenia, chronic condition: Status: Acute Code(s): F20.9 - Schizophrenia, unspecified Plan Pt is a 72-year-old female with a PMH significant for?HTN, GERD, and schizophrenia who is admitted to [facility] for increased aggression after a non compliant her psychiatric medications. [facility] but has recently become disorganized with delusions and increased aggression after refusing to take her medications despite a Riggins order. Medical consult for admission H&P. Plan 1. Continue with Haldol at maximum dose as per court order. 2. Continue with Latuda at maximum dose as per court order. 3. We will try to coordinate with [facility] with the possibility to change her level of care to long-term hospitalization since the patient has not improved for several weeks. Reason for continued inpatient stay Substantial Risk for: inability to function, rapid decompensation and med/psych decompensation Time Spent With Patient Time: Total time managing care of this patient today __20__ minutes.
[2023-08-02 18:00] VITALS: BP 140/65; PULSE 56; RESP 16; TEMP 36.9; O2SAT 96
[2023-08-02] MEDS: HaloperidoL 5 MG TABLET 15 MG PO (21:13)
--- NOTE | 2023-08-03 03:47 | PC.NURSE ---
At 0340, this short story writer responded to patient bed alarm sounding. Upon arrival to room, patient was greeted and explained that the bed alarm was sounding and we needed to reset the alarm. Patient did not respond to staff. Moments later, bed alarm set off again. Staff entered to shut off alarm. Patient abruptly stood from bed and raised voice ordering staff to get out. Staff members explained to patient that we needed to shut off alarm on bed and wall. Patient states You can't press that on the wall. That what makes the burglars come. Patient attempting to charge at [facility] with raised fist and proceeded to scream out for approx 2-3 minutes. Patient able to calm self down without intervention.
--- NOTE | 2023-08-03 10:35 | HO.PSYCHPN ---
Subjective Subjective Date of Service: 08/03/23 Reason For Visit: Schizophrenia Subjective Notes: Riggins Order and Conditional Voluntary Interim History: The nursing staff reported the patient had a rough night last night, she was screaming and been angry since the bed alarm went off. She slept 6 hours. On interview the patient remains seclusive in her room compliant with treatment. But overall poorly functional. Mental Status Exam Mental Status Exam Patient Appearance: Disheveled and Unkempt Patient Orientation: Person Level of Consciousness: Awake Patient Behavior: Guarded and Passive Mood Description: Withdrawn Affect Description: Constricted Patient Cognition Impaired: Yes Ability to Follow Directions: Fair Speech Pattern: Clear Hallucinations: Auditory Delusions: Paranoid Ideation and Ideas of Reference Thought Process: Illogical and Distracted Thought Content: positive for Loose Associations and positive for Thought Blocking Judgement: Fair Diagnostics Vital Signs (24Hr): Vital Signs - 24 hr 08/02/23 18:00 Temperature 98.5 F Pulse Rate 56 Respiratory Rate 16 Blood Pressure 140/65 H Pulse Oximetry 96 Oxygen Delivery Method Room Air BMI result Body Mass Index 28.5 Labs 07/05/23 08:20 07/05/23 08:20 Medications Medications Current Medications Al Hydroxide/Mg Hydroxide (Magnesium Hydrox/Alum Hydrox 30 Ml Oral.Susp) 30 ml PO Q6H PRN PRN Reason: Heartburn/Nausea Clotrimazole (Clotrimazole 1 % Cream 15 Gm Tube) 1 appl TOPICAL BID JOSE GUADALUPE; Protocol Last Admin: 08/02/23 21:16 Dose: Not Given Haloperidol (Haloperidol 5 Mg Tablet) 5 mg PO Q4H PRN PRN Reason: agitation Haloperidol (Haloperidol 5 Mg Tablet) 5 mg PO DAILY JOSE GUADALUPE Last Admin: 08/02/23 08:25 Dose: 5 mg Haloperidol (Haloperidol 5 Mg Tablet) 15 mg PO BEDTIME JOSE GUADALUPE Last Admin: 08/02/23 21:13 Dose: 15 mg Haloperidol Decanoate (Haloperidol Decanoate 50 Mg/Ml Vial) 200 mg IM Q28D JOSE GUADALUPE Last Admin: 07/17/23 11:42 Dose: 200 mg Haloperidol Lactate (Haloperidol Lactate 5 Mg/Ml Vial) 5 mg IM BID PRN PRN Reason: REFUSAL OF PO Last Admin: 05/20/23 08:43 Dose: 5 mg Hydrocortisone (Hydrocortisone 1 % Cream 28.35 Gm Tube) 1 appl TOPICAL BID PRN; Protocol PRN Reason: Rash Last Admin: 06/22/23 09:28 Dose: 1 appl Ibuprofen (Ibuprofen 400 Mg Tablet) 400 mg PO Q4H PRN PRN Reason: Pain, Mild (Pain Scale 1-3) Lurasidone HCl (Lurasidone Hcl 80 Mg Tablet) 160 mg PO DAILY JOSE GUADALUPE Last Admin: 08/02/23 08:25 Dose: 160 mg Magnesium Hydroxide (Milk Of Magnesia 30 Ml Oral.Susp) 30 ml PO DAILY PRN PRN Reason: Constipation Trazodone HCl (Trazodone Hcl 25 Mg Halftab) 25 mg PO BEDTIME MRX1 PRN PRN Reason: Insomnia Allergies Allergies Allergy/AdvReac Type Severity Reaction Status Date / Time onion Allergy Unknown Unknown Verified 05/11/23 22:53 Assessment & Plan Assessment & Plan (1) Schizophrenia, chronic condition: Status: Acute Code(s): F20.9 - Schizophrenia, unspecified Plan Pt is a 72-year-old female with a PMH significant for?HTN, GERD, and schizophrenia who is admitted to [facility] for increased aggression after a non compliant her psychiatric medications. Patient lives at a intermediate but has recently become disorganized with delusions and increased aggression after refusing to take her medications despite a Riggins order. Medical consult for admission H&P. Plan 1. Continue with Haldol at maximum dose as per court order. 2. Continue with Latuda at maximum dose as per court order. 3. We will try to coordinate with [facility] with the possibility to change her level of care to long-term hospitalization since the patient has not improved for several weeks. Reason for continued inpatient stay Substantial Risk for: inability to function, rapid decompensation and med/psych decompensation Time Spent With Patient Time: Total time managing care of this patient today __20__ minutes.
[2023-08-03] MEDS: HaloperidoL 5 MG TABLET PO (11:36)
[2023-08-03] MEDS: Lurasidone HCl 80 MG TABLET 160 MG PO (11:36)
[2023-08-03 18:00] VITALS: BP 135/75; PULSE 55; RESP 16; TEMP 36.3; O2SAT 95
[2023-08-03] MEDS: HaloperidoL 5 MG TABLET 15 MG PO (21:33)
--- NOTE | 2023-08-04 10:25 | HO.PSYCHPN ---
Subjective Subjective Date of Service: 08/04/23 Reason For Visit: Schizophrenia Interim History: Pt seen, discussed with the team. Plan of care reviewed. Team reports no change in presentation-out in milieu for meals, slept 4-5 hours last night, did spend some time watching TV yesterday which team reports is not common as she remains in her room much of the time. Awakens easily, spontaneous smile, offers a wave, yet non verbal and returns to resting. Team report no behavioral issues, medicine compliance, appetite and sleep are adequate and no endangering behaviors. Medication Compliance: Yes Side effects from medications: No Attending Groups: Intermittent Review of Systems Acute medical concerns: No Medical Review of Systems: unchanged Review of Systems Review of Systems Yes Unobtainable due to mental status Mental Status Exam Mental Status Exam Patient Appearance: Fatigued Patient Orientation: Person Level of Consciousness: Sedated and Alert Patient Behavior: Good Eye Contact Mood Description: Constricted Affect Description: Constricted Patient Cognition Impaired: Yes Ability to Follow Directions: Good Speech Pattern: Soft-Spoken and Delayed Memory Description: Remote Impaired, Immediate Impaired and Episodic Impaired Hallucinations: None Delusions: Not Present Thought Process: Confusion Judgement: Poor Diagnostics Vital Signs (24Hr): Vital Signs - 24 hr 08/03/23 18:00 Temperature 97.3 F Pulse Rate 55 Respiratory Rate 16 Blood Pressure 135/75 Pulse Oximetry 95 Oxygen Delivery Method Room Air BMI result Body Mass Index 28.5 Labs 07/05/23 08:20 07/05/23 08:20 Medications Medications Current Medications Al Hydroxide/Mg Hydroxide (Magnesium Hydrox/Alum Hydrox 30 Ml Oral.Susp) 30 ml PO Q6H PRN PRN Reason: Heartburn/Nausea Clotrimazole (Clotrimazole 1 % Cream 15 Gm Tube) 1 appl TOPICAL BID [facility]; Protocol Last Admin: 08/03/23 21:32 Dose: Not Given Haloperidol (Haloperidol 5 Mg Tablet) 5 mg PO Q4H PRN PRN Reason: agitation Haloperidol (Haloperidol 5 Mg Tablet) 5 mg PO DAILY [facility] Last Admin: 08/03/23 11:36 Dose: 5 mg Haloperidol (Haloperidol 5 Mg Tablet) 15 mg PO BEDTIME [facility] Last Admin: 08/03/23 21:33 Dose: 15 mg Haloperidol Decanoate (Haloperidol Decanoate 50 Mg/Ml Vial) 200 mg IM Q28D [facility] Last Admin: 01/23/24 11:42 Dose: 200 mg Haloperidol Lactate (Haloperidol Lactate 5 Mg/Ml Vial) 5 mg IM BID PRN PRN Reason: REFUSAL OF PO Last Admin: 05/20/23 08:43 Dose: 5 mg Hydrocortisone (Hydrocortisone 1 % Cream 28.35 Gm Tube) 1 appl TOPICAL BID PRN; Protocol PRN Reason: Rash Last Admin: 06/22/23 09:28 Dose: 1 appl Ibuprofen (Ibuprofen 400 Mg Tablet) 400 mg PO Q4H PRN PRN Reason: Pain, Mild (Pain Scale 1-3) Lurasidone HCl (Lurasidone Hcl 80 Mg Tablet) 160 mg PO DAILY JOSE GUADALUPE Last Admin: 08/03/23 11:36 Dose: 160 mg Magnesium Hydroxide (Milk Of Magnesia 30 Ml Oral.Susp) 30 ml PO DAILY PRN PRN Reason: Constipation Trazodone HCl (Trazodone Hcl 25 Mg Halftab) 25 mg PO BEDTIME MRX1 PRN PRN Reason: Insomnia Allergies Allergies Allergy/AdvReac Type Severity Reaction Status Date / Time onion Allergy Unknown Unknown Verified 05/11/23 22:53 Assessment & Plan Assessment & Plan (1) Schizophrenia, chronic condition: Status: Acute Code(s): F20.9 - Schizophrenia, unspecified Assessment and Plan: 08/04/23: Continue tx. Plan Pt is a 72-year-old female with a PMH significant for?HTN, GERD, and schizophrenia who is admitted to [facility] for increased aggression after a non compliant her psychiatric medications. Patient lives at a long term but has recently become disorganized with delusions and increased aggression after refusing to take her medications despite a Riggins order. Medical consult for admission H&P. Plan 1. Continue with Haldol at maximum dose as per court order. 2. Continue with Latuda at maximum dose as per court order. 3. We will try to coordinate with [facility] with the possibility to change her level of care to long-term hospitalization since the patient has not improved for several weeks. Informed Consent: does not understand Reason for continued inpatient stay Substantial Risk for: rapid decompensation Time Spent With Patient Time: Total time managing care of this patient today ____ minutes.
[2023-08-04] MEDS: HaloperidoL 5 MG TABLET PO (11:22)
[2023-08-04] MEDS: Lurasidone HCl 80 MG TABLET 160 MG PO (11:22)
[2023-08-04 18:00] VITALS: BP 131/64; PULSE 71; RESP 18; TEMP 36.8; O2SAT 94
[2023-08-04] MEDS: Ibuprofen 400 MG TABLET PO (21:09)
[2023-08-04] MEDS: HaloperidoL 5 MG TABLET 15 MG PO (21:09)
[2023-08-05] MEDS: Ibuprofen 400 MG TABLET PO (01:31)
[2023-08-05] MEDS: Lurasidone HCl 80 MG TABLET 160 MG PO (11:43)
[2023-08-05] MEDS: HaloperidoL 5 MG TABLET PO (11:43)
[2023-08-05] MEDS: Clotrimazole 1 % Cream 15 GM TUBE 1 APPL TOPICAL (11:44)
--- NOTE | 2023-08-05 17:22 | HO.PSYCHPN ---
Subjective Subjective Date of Service: 08/05/23 Reason For Visit: Schizophrenia Interim History: Pt seen, reviewed with team. Team report pt is more isolative during the day and is awake, in the milieu, and snacking at night with team. She is more interactive at night and prefers to sleep during the day. Pt is asleep when seen. She awakens easily, denies concerns, returns to resting. Medication Compliance: Yes Side effects from medications: No Attending Groups: No Review of Systems Acute medical concerns: No Medical Review of Systems: unchanged Review of Systems Review of Systems Yes all other systems are reviewed and are negative Mental Status Exam Mental Status Exam Patient Appearance: Fatigued Patient Orientation: Person Level of Consciousness: Sedated and Alert Patient Behavior: Good Eye Contact Mood Description: Constricted Affect Description: Constricted Patient Cognition Impaired: Yes Ability to Follow Directions: Good Speech Pattern: Soft-Spoken and Delayed Memory Description: Remote Impaired, Immediate Impaired and Episodic Impaired Hallucinations: None Delusions: Not Present Thought Process: Confusion Judgement: Poor Diagnostics Vital Signs (24Hr): Vital Signs - 24 hr 08/04/23 18:00 Temperature 98.3 F Pulse Rate 71 Respiratory Rate 18 Blood Pressure 131/64 Pulse Oximetry 94 Oxygen Delivery Method Room Air BMI result Body Mass Index 28.5 Labs 07/05/23 08:20 07/05/23 08:20 Medications Medications Current Medications Al Hydroxide/Mg Hydroxide (Magnesium Hydrox/Alum Hydrox 30 Ml Oral.Susp) 30 ml PO Q6H PRN PRN Reason: Heartburn/Nausea Clotrimazole (Clotrimazole 1 % Cream 15 Gm Tube) 1 appl TOPICAL BID JOSE GUADALUPE; Protocol Last Admin: 08/05/23 11:44 Dose: 1 appl Haloperidol (Haloperidol 5 Mg Tablet) 5 mg PO Q4H PRN PRN Reason: agitation Haloperidol (Haloperidol 5 Mg Tablet) 5 mg PO DAILY [facility] Last Admin: 08/05/23 11:43 Dose: 5 mg Haloperidol (Haloperidol 5 Mg Tablet) 15 mg PO BEDTIME JOSE GUADALUPE Last Admin: 08/04/23 21:09 Dose: 15 mg Haloperidol Decanoate (Haloperidol Decanoate 50 Mg/Ml Vial) 200 mg IM Q28D [facility] Last Admin: 07/17/23 11:42 Dose: 200 mg Haloperidol Lactate (Haloperidol Lactate 5 Mg/Ml Vial) 5 mg IM BID PRN PRN Reason: REFUSAL OF PO Last Admin: 05/20/23 08:43 Dose: 5 mg Hydrocortisone (Hydrocortisone 1 % Cream 28.35 Gm Tube) 1 appl TOPICAL BID PRN; Protocol PRN Reason: Rash Last Admin: 06/22/23 09:28 Dose: 1 appl Ibuprofen (Ibuprofen 400 Mg Tablet) 400 mg PO Q4H PRN PRN Reason: Pain, Mild (Pain Scale 1-3) Last Admin: 08/05/23 01:31 Dose: 400 mg Lurasidone HCl (Lurasidone Hcl 80 Mg Tablet) 160 mg PO DAILY JOSE GUADALUPE Last Admin: 08/05/23 11:43 Dose: 160 mg Magnesium Hydroxide (Milk Of Magnesia 30 Ml Oral.Susp) 30 ml PO DAILY PRN PRN Reason: Constipation Trazodone HCl (Trazodone Hcl 25 Mg Halftab) 25 mg PO BEDTIME MRX1 PRN PRN Reason: Insomnia Allergies Allergies Allergy/AdvReac Type Severity Reaction Status Date / Time onion Allergy Unknown Unknown Verified 05/11/23 22:53 Assessment & Plan Assessment & Plan (1) Schizophrenia, chronic condition: Status: Acute Code(s): F20.9 - Schizophrenia, unspecified Assessment and Plan: 08/04/23: Continue tx. 08/05/23: Continue tx. Plan Pt is a 72-year-old female with a PMH significant for?HTN, GERD, and schizophrenia who is admitted to [facility] for increased aggression after a non compliant her psychiatric medications. Patient lives at a retirement but has recently become disorganized with delusions and increased aggression after refusing to take her medications despite a Riggins order. Medical consult for admission H&P. Plan 1. Continue with Haldol at maximum dose as per court order. 2. Continue with Latuda at maximum dose as per court order. 3. We will try to coordinate with [facility] with the possibility to change her level of care to long-term hospitalization since the patient has not improved for several weeks. Reason for continued inpatient stay Substantial Risk for: rapid decompensation Time Spent With Patient Time: Total time managing care of this patient today ____ minutes.
[2023-08-05 18:00] VITALS: BP 130/80; PULSE 70; RESP 17; TEMP 36.3; O2SAT 95
[2023-08-05] MEDS: HaloperidoL 5 MG TABLET 15 MG PO (20:27)
[2023-08-06 08:44] VITALS: BP 137/62; PULSE 65; RESP 15; TEMP 37; O2SAT 92
[2023-08-06] MEDS: Lurasidone HCl 80 MG TABLET 160 MG PO (08:46)
[2023-08-06] MEDS: HaloperidoL 5 MG TABLET PO (08:46)
--- NOTE | 2023-08-06 12:33 | P.PNPSI_ITS ---
Subjective Subjective Date of Service: 08/06/23 Reason For Visit: Schizophrenia Subjective Notes: Riggins Order and Conditional Voluntary Interim History: The nursing staff reported no changes in her mental status, she slept 7 hours. She stated that she has problems with her adrenals and ovaries and requested blood work. The oncology social work reported that we are going to the [facility] meeting tomorrow or Sunday regarding disposition. On interview the patient remains delusional no changes in her mental status even though that we maximized to antipsychotics. Mental Status Exam Mental Status Exam Patient Appearance: Unkempt Patient Orientation: Person Level of Consciousness: Awake Patient Behavior: Guarded and Passive Mood Description: Withdrawn Affect Description: Constricted Patient Cognition Impaired: Yes Ability to Follow Directions: Good Speech Pattern: Clear Hallucinations: Auditory Delusions: Paranoid Ideation and Ideas of Reference Thought Process: Distracted and Evasive Thought Content: positive for [place], positive for Poverty of Content and positive for Thought Blocking Judgement: Fair Diagnostics Vital Signs (24Hr): Vital Signs - 24 hr 08/05/23 18:00 08/06/23 08:44 Temperature 97.4 F 98.6 F Pulse Rate 70 65 Respiratory Rate 17 15 Blood Pressure 130/80 137/62 Pulse Oximetry 95 92 Oxygen Delivery Method Room Air Room Air BMI result Body Mass Index 28.5 Labs 07/05/23 08:20 07/05/23 08:20 Medications Medications Current Medications Al Hydroxide/Mg Hydroxide (Magnesium Hydrox/Alum Hydrox 30 Ml Oral.Susp) 30 ml PO Q6H PRN PRN Reason: Heartburn/Nausea Clotrimazole (Clotrimazole 1 % Cream 15 Gm Tube) 1 appl TOPICAL BID [facility]; Protocol Last Admin: 08/06/23 08:46 Dose: Not Given Haloperidol (Haloperidol 5 Mg Tablet) 5 mg PO Q4H PRN PRN Reason: agitation Haloperidol (Haloperidol 5 Mg Tablet) 5 mg PO DAILY [facility] Last Admin: 08/06/23 08:46 Dose: 5 mg Haloperidol (Haloperidol 5 Mg Tablet) 15 mg PO BEDTIME [facility] Last Admin: 08/05/23 20:27 Dose: 15 mg Haloperidol Decanoate (Haloperidol Decanoate 50 Mg/Ml Vial) 200 mg IM Q28D [facility] Last Admin: 07/17/23 11:42 Dose: 200 mg Haloperidol Lactate (Haloperidol Lactate 5 Mg/Ml Vial) 5 mg IM BID PRN PRN Reason: REFUSAL OF PO Last Admin: 05/20/23 08:43 Dose: 5 mg Hydrocortisone (Hydrocortisone 1 % Cream 28.35 Gm Tube) 1 appl TOPICAL BID PRN; Protocol PRN Reason: Rash Last Admin: 06/22/23 09:28 Dose: 1 appl Ibuprofen (Ibuprofen 400 Mg Tablet) 400 mg PO Q4H PRN PRN Reason: Pain, Mild (Pain Scale 1-3) Last Admin: 08/05/23 01:31 Dose: 400 mg Lurasidone HCl (Lurasidone Hcl 80 Mg Tablet) 160 mg PO DAILY [facility] Last Admin: 08/06/23 08:46 Dose: 160 mg Magnesium Hydroxide (Milk Of Magnesia 30 Ml Oral.Susp) 30 ml PO DAILY PRN PRN Reason: Constipation Trazodone HCl (Trazodone Hcl 25 Mg Halftab) 25 mg PO BEDTIME MRX1 PRN PRN Reason: Insomnia Allergies Allergies Allergy/AdvReac Type Severity Reaction Status Date / Time onion Allergy Unknown Unknown Verified 05/11/23 22:53 Assessment & Plan Assessment & Plan (1) Schizophrenia, chronic condition: Status: Acute Code(s): F20.9 - Schizophrenia, unspecified Assessment and Plan: 08/04/23: Continue tx. 08/05/23: Continue tx. Plan Pt is a 72-year-old female with a PMH significant for?HTN, GERD, and schizophrenia who is admitted to [facility] for increased aggression after a non compliant her psychiatric medications. Patient lives [place] but has recently become disorganized with delusions and increased aggression after refusing to take her medications despite a Riggins order. Medical consult for admission H&P. Plan 1. Continue with Haldol at maximum dose as per court order. 2. Continue with Latuda at maximum dose as per court order. 3. We will try to coordinate with [facility] with the possibility to change her level of care to long-term hospitalization since the patient has not improved for several weeks. Reason for continued inpatient stay Substantial Risk for: inability to function, rapid decompensation and med/psych decompensation Time Spent With Patient Time: Total time managing care of this patient today __20__ minutes.
[2023-08-06 18:00] VITALS: BP 126/67; PULSE 57; RESP 18; TEMP 36.1; O2SAT 94
[2023-08-06] MEDS: HaloperidoL 5 MG TABLET 15 MG PO (20:23)
[2023-08-07 08:36] VITALS: BP 133/58; PULSE 60; RESP 15; TEMP 36.8; O2SAT 93
[2023-08-07] MEDS: Lurasidone HCl 80 MG TABLET 160 MG PO (08:38)
[2023-08-07] MEDS: HaloperidoL 5 MG TABLET PO (08:38)
--- NOTE | 2023-08-07 12:04 | P.PNPSI_ITS ---
Subjective Subjective Date of Service: 08/07/23 Reason For Visit: Schizophrenia Subjective Notes: Riggins Order and Conditional Voluntary Interim History: The nursing staff reported the patient had been less agitated quieter, isolative no changes in her mental status. She slept well last night. On interview the patient remains delusional but redirectable. Mental Status Exam Mental Status Exam Patient Appearance: Appropriate and Unkempt Patient Orientation: Person Level of Consciousness: Awake Patient Behavior: Guarded Mood Description: Withdrawn Affect Description: Blunted Patient Cognition Impaired: Yes Ability to Follow Directions: Good Speech Pattern: Clear Hallucinations: Auditory Delusions: Paranoid Ideation and Ideas of Reference Thought Process: Distracted and Slowed Thinking Thought Content: positive for [place] and positive for Poverty of Content Judgement: Fair Diagnostics Vital Signs (24Hr): Vital Signs - 24 hr 08/06/23 18:00 08/07/23 08:36 Temperature 97 F 98.2 F Pulse Rate 57 60 Respiratory Rate 18 15 Blood Pressure 126/67 133/58 L Pulse Oximetry 94 93 Oxygen Delivery Method Room Air Room Air BMI result Body Mass Index 28.5 Labs 07/05/23 08:20 07/05/23 08:20 Medications Medications Current Medications Al Hydroxide/Mg Hydroxide (Magnesium Hydrox/Alum Hydrox 30 Ml Oral.Susp) 30 ml PO Q6H PRN PRN Reason: Heartburn/Nausea Clotrimazole (Clotrimazole 1 % Cream 15 Gm Tube) 1 appl TOPICAL BID JO[facility] GUADALU[facility]; Protocol Last Admin: 08/07/23 08:38 Dose: Not Given Haloperidol (Haloperidol 5 Mg Tablet) 5 mg PO Q4H PRN PRN Reason: agitation Haloperidol (Haloperidol 5 Mg Tablet) 5 mg PO DAILY [facility] Last Admin: 08/07/23 08:38 Dose: 5 mg Haloperidol (Haloperidol 5 Mg Tablet) 15 mg PO BEDTIME [facility] Last Admin: 08/06/23 20:23 Dose: 15 mg Haloperidol Decanoate (Haloperidol Decanoate 50 Mg/Ml Vial) 200 mg IM Q28D [facility]ALU[facility] Last Admin: 07/17/23 11:42 Dose: 200 mg Haloperidol Lactate (Haloperidol Lactate 5 Mg/Ml Vial) 5 mg IM BID PRN PRN Reason: REFUSAL OF PO Last Admin: 05/20/23 08:43 Dose: 5 mg Hydrocortisone (Hydrocortisone 1 % Cream 28.35 Gm Tube) 1 appl TOPICAL BID PRN; Protocol PRN Reason: Rash Last Admin: 06/22/23 09:28 Dose: 1 appl Ibuprofen (Ibuprofen 400 Mg Tablet) 400 mg PO Q4H PRN PRN Reason: Pain, Mild (Pain Scale 1-3) Last Admin: 08/05/23 01:31 Dose: 400 mg Lurasidone HCl (Lurasidone Hcl 80 Mg Tablet) 160 mg PO DAILY [facility] Last Admin: 08/07/23 08:38 Dose: 160 mg Magnesium Hydroxide (Milk Of Magnesia 30 Ml Oral.Susp) 30 ml PO DAILY PRN PRN Reason: Constipation Trazodone HCl (Trazodone Hcl 25 Mg Halftab) 25 mg PO BEDTIME MRX1 PRN PRN Reason: Insomnia Allergies Allergies Allergy/AdvReac Type Severity Reaction Status Date / Time onion Allergy Unknown Unknown Verified 05/11/23 22:53 Assessment & Plan Assessment & Plan (1) Schizophrenia, chronic condition: Status: Acute Code(s): F20.9 - Schizophrenia, unspecified Assessment and Plan: 08/04/23: Continue tx. 08/05/23: Continue tx. Plan Pt is a 72-year-old female with a PMH significant for?HTN, GERD, and schizophrenia who is admitted to [facility] for increased aggression after a non compliant her psychiatric medications. Patient lives at a intermediate but has recently become disorganized with delusions and increased aggression after refusing to take her medications despite a Riggins order. Medical consult for admission H&P. Plan 1. Continue with Haldol at maximum dose as per court order. 2. Continue with Latuda at maximum dose as per court order. 3. We will try to coordinate with [facility] with the possibility to change her level of care to long-term hospitalization since the patient has not improved for several weeks. Reason for continued inpatient stay Substantial Risk for: inability to function, rapid decompensation and med/psych decompensation Time Spent With Patient Time: Total time managing care of this patient today __20__ minutes.
[2023-08-07 18:00] VITALS: BP 180/74; PULSE 63; RESP 16; TEMP 36.2; O2SAT 95
[2023-08-07] MEDS: HaloperidoL 5 MG TABLET 15 MG PO (20:10)
[2023-08-07 20:27] VITALS: BP 164/62; PULSE 62; RESP 16; O2SAT 94
[2023-08-08 06:26] LABS: MANUAL DIFF FLAG NO
[2023-08-08 06:33] LABS: Basophils Percent Auto 0.3 % (0-2); Eosinophils Absolute Auto 0.1 X10*3/uL (0.0-0.4); Eosinophils Percent Auto 1.9 % (0-4); Hematocrit 44.3 % (37.0-47.0); Hemoglobin 14.9 g/dl (12.0-16.0); Imm Gran Abs Auto 0.02 X10*3/uL (0.00-0.03); Imm Gran Pct Auto 0.3 % (0.0-0.4); Lymphocytes Absolute Auto 1.8 X10*3/uL (1.2-4.9); Lymphocytes Percent Auto 30.8 % (20-40); Mean Corpuscular HGB Conc 33.6 g/dl (31.0-35.0); Mean Corpuscular Hemoglobin 31.4 pg (27.0-33.0); Mean Corpuscular Volume 93.3 fL (80.0-98.0); Mean Platelet Volume 10.5 fL (9.4-12.3); Monocytes Absolute Auto 0.7 X10*3/uL (0.1-1.2); Monocytes Percent Auto 11.9 % (2-11); Neutrophils Absolute Auto 3.1 x10*3/uL (2.0-8.3); Neutrophils Percent Auto 54.8 % (45-73); Red Blood Count 4.75 X10*6/uL (4.20-5.50); Red Cell Distribution Width 13.7 % (11.0-16.0); White Blood Count 5.7 X10*3/uL (4.8-10.8)
[2023-08-08 06:34] LABS: Platelet Count 61 X10*3/uL (160-400)
[2023-08-08 06:47] LABS: Alanine Aminotransferase 91 U/L (0-31); Albumin Level 3.3 g/dL (3.5-5.0); Alkaline Phosphatase 65 U/L (39-117); Anion Gap 11 (12-20); Aspartate Amino Transferase 79 U/L (5-31); Bilirubin Total 0.7 mg/dL (0.0-1.0); Blood Urea Nitrogen 16 mg/dL (9-16); Calcium 9.1 mg/dL (8.4-10.2); Carbon Dioxide 26 mmol/L (22-29); Chloride 110 mmol/L (96-108); Creatinine Clr Calc Pharmacy 73.3; Estimated Glomerular Filt Rate > 60; Glucose Fasting 115 mg/dL (60-99); Potassium 3.9 mmol/L (3.3-5.1); Sodium 143 mmol/L (135-145); Total Protein 6.4 g/dL (6.5-8.0)
[2023-08-08 08:26] VITALS: RESP 18
[2023-08-08] MEDS: HaloperidoL 5 MG TABLET PO (09:04)
[2023-08-08] MEDS: Lurasidone HCl 80 MG TABLET 160 MG PO (09:04)
--- NOTE | 2023-08-08 11:24 | P.PNPSI_ITS ---
Subjective Subjective Date of Service: 08/08/23 Reason For Visit: Schizophrenia Subjective Notes: Riggins Order and Conditional Voluntary Interim History: The nursing staff reported the patient had been isolative, coming out of her room only for meals. She slept well and she had been compliant with treatment as per court order. The neonatal social worker reported that tomorrow we will have a meeting at 11:30 with [facility] regarding disposition and the possibility of transfer for a long-term state bed. On interview the patient denies new symptoms, internally preoccupied. Blood work came back within normal limits, the only concern is that ALT and AST are elevated mildly. Mental Status Exam Mental Status Exam Patient Appearance: Unkempt Patient Orientation: Person Level of Consciousness: Awake Patient Behavior: Guarded and Passive Mood Description: Withdrawn Affect Description: Blunted Patient Cognition Impaired: Yes Ability to Follow Directions: Fair Speech Pattern: Impoverished and Soft-Spoken Hallucinations: Auditory Delusions: Paranoid Ideation and Ideas of Reference Thought Process: Distracted and Evasive Thought Content: positive for [place] and positive for Poverty of Content Judgement: Poor Diagnostics Vital Signs (24Hr): Vital Signs - 24 hr 08/07/23 18:00 08/07/23 20:27 08/08/23 08:26 Temperature 97.1 F Pulse Rate 63 62 Respiratory Rate 16 16 18 Blood Pressure 180/74 H 164/62 H Pulse Oximetry 95 94 Oxygen Delivery Method Room Air Room Air BMI result Body Mass Index 28.5 Labs 08/08/23 05:51 08/08/23 05:51 Labs: Laboratory Results - last 48 hr 08/08/23 05:51 WBC 5.7 RBC 4.75 Hgb 14.9 Hct 44.3 MCV 93.3 MCH 31.4 MCHC 33.6 RDW 13.7 Plt Count 61 L MPV 10.5 Immature Gran % (Auto) 0.3 Neut % (Auto) 54.8 Lymph % (Auto) 30.8 [place] % (Auto) 11.9 H Eos % (Auto) 1.9 Baso % (Auto) 0.3 Lymph # (Auto) 1.8 [place] # (Auto) 0.7 Eos # (Auto) 0.1 Baso # (Auto) 0.0 Abs Immat Gran (auto) 0.02 Absolute Neuts (auto) 3.1 Absolute Nucleated RBC 0.000 Nucleated RBC % (auto) 0.0 Sodium 143 Potassium 3.9 Chloride 110 H Carbon Dioxide 26 Anion Gap 11 L BUN 16 Creatinine 0.71 Estim Creat Clear Calc 73.3 Estimated GFR > 60 Fasting Glucose 115 H Calcium 9.1 Total Bilirubin 0.7 AST 79 H ALT 91 H Alkaline Phosphatase 65 Total Protein 6.4 L Albumin 3.3 L Medications Medications Current Medications Al Hydroxide/Mg Hydroxide (Magnesium Hydrox/Alum Hydrox 30 Ml Oral.Susp) 30 ml PO Q6H PRN PRN Reason: Heartburn/Nausea Clotrimazole (Clotrimazole 1 % Cream 15 Gm Tube) 1 appl TOPICAL BID [facility]; Protocol Last Admin: 08/08/23 09:04 Dose: Not Given Haloperidol (Haloperidol 5 Mg Tablet) 5 mg PO Q4H PRN PRN Reason: agitation Haloperidol (Haloperidol 5 Mg Tablet) 5 mg PO DAILY [facility] Last Admin: 08/08/23 09:04 Dose: 5 mg Haloperidol (Haloperidol 5 Mg Tablet) 15 mg PO BEDTIME [facility] Last Admin: 08/07/23 20:10 Dose: 15 mg Haloperidol Decanoate (Haloperidol Decanoate 50 Mg/Ml Vial) 200 mg IM Q28D [facility] Last Admin: 07/17/23 11:42 Dose: 200 mg Haloperidol Lactate (Haloperidol Lactate 5 Mg/Ml Vial) 5 mg IM BID PRN PRN Reason: REFUSAL OF PO Last Admin: 05/20/23 08:43 Dose: 5 mg Hydrocortisone (Hydrocortisone 1 % Cream 28.35 Gm Tube) 1 appl TOPICAL BID PRN; Protocol PRN Reason: Rash Last Admin: 06/22/23 09:28 Dose: 1 appl Ibuprofen (Ibuprofen 400 Mg Tablet) 400 mg PO Q4H PRN PRN Reason: Pain, Mild (Pain Scale 1-3) Last Admin: 08/05/23 01:31 Dose: 400 mg Lurasidone HCl (Lurasidone Hcl 80 Mg Tablet) 160 mg PO DAILY [facility] Last Admin: 08/08/23 09:04 Dose: 160 mg Magnesium Hydroxide (Milk Of Magnesia 30 Ml Oral.Susp) 30 ml PO DAILY PRN PRN Reason: Constipation Trazodone HCl (Trazodone Hcl 25 Mg Halftab) 25 mg PO BEDTIME MRX1 PRN PRN Reason: Insomnia Allergies Allergies Allergy/AdvReac Type Severity Reaction Status Date / Time onion Allergy Unknown Unknown Verified 05/11/23 22:53 Assessment & Plan Assessment & Plan (1) Schizophrenia, chronic condition: Status: Acute Code(s): F20.9 - Schizophrenia, unspecified Assessment and Plan: 08/04/23: Continue tx. 08/05/23: Continue tx. Plan Pt is a 72-year-old female with a PMH significant for?HTN, GERD, and schizophrenia who is admitted to [facility] for increased aggression after a non compliant her psychiatric medications. Patient lives [place] but has recently become disorganized with delusions and increased aggression after refusing to take her medications despite a Riggins order. Medical consult for admission H&P. Plan 1. Continue with Haldol at maximum dose as per court order. 2. Continue with Latuda at maximum dose as per court order. 3. We will try to coordinate with [facility] with the possibility to change her level of care to long-term hospitalization since the patient has not improved for several weeks. 4. Blood work came back within normal limits the only concern is the increased of AST and LFT Reason for continued inpatient stay Substantial Risk for: inability to function, rapid decompensation and med/psych decompensation Time Spent With Patient Time: Total time managing care of this patient today __20__ minutes.
--- NOTE | 2023-08-08 14:59 | MHC.CLN ---
NUTRITION PER CONVERSATION WITH STAFF, PATIENT NOT TAKING SUPPLEMENT AND OK TO DISCONTINUE. DISCONTINUE ENSURE MAX TID.
[2023-08-08 18:00] VITALS: BP 151/87; PULSE 65; RESP 18; TEMP 35.7; O2SAT 91
[2023-08-08] MEDS: HaloperidoL 5 MG TABLET 15 MG PO (21:34)
[2023-08-09 07:00] VITALS: BMI 29.2
[2023-08-09 08:03] VITALS: BP 116/56; PULSE 81; RESP 16; TEMP 35.9; O2SAT 95
[2023-08-09] MEDS: HaloperidoL 5 MG TABLET PO (09:13)
[2023-08-09] MEDS: Lurasidone HCl 80 MG TABLET 160 MG PO (09:13)
--- NOTE | 2023-08-09 13:05 | HO.PSYCHPN ---
Subjective Subjective Date of Service: 08/09/23 Reason For Visit: Schizophrenia Subjective Notes: Riggins Order and Conditional Voluntary Interim History: The nursing staff reported that yesterday she was agitated yelling to staff but later on she was able to sleep and took medications with encouragement. The social science teacher reported we are going to have a meeting at 01:30 with the guardian, [facility] and social science teacher to discuss discharge planning since the patient has not improved and she will benefit of long-term hospitalization in state facility. Mental Status Exam Mental Status Exam Patient Appearance: Appropriate (On hospital gowns) and Unkempt Patient Orientation: Person and Situation Level of Consciousness: Awake Patient Behavior: Guarded and Suspicious Mood Description: Withdrawn Affect Description: Blunted Patient Cognition Impaired: Yes Ability to Follow Directions: Good Speech Pattern: Clear Hallucinations: Auditory Delusions: Paranoid Ideation and Ideas of Reference Thought Process: Distracted and Slowed Thinking Thought Content: positive for [place] and positive for Poverty of Content Judgement: Poor Diagnostics Vital Signs (24Hr): Vital Signs - 24 hr 08/08/23 18:00 08/09/23 08:03 Temperature 96.3 F L 96.7 F L Pulse Rate 65 81 Respiratory Rate 18 16 Blood Pressure 151/87 H 116/56 L Pulse Oximetry 91 L 95 Oxygen Delivery Method Room Air Room Air BMI result Body Mass Index 28.5 Labs 08/08/23 05:51 08/08/23 05:51 Labs: Laboratory Results - last 48 hr 08/08/23 05:51 WBC 5.7 RBC 4.75 Hgb 14.9 Hct 44.3 MCV 93.3 MCH 31.4 MCHC 33.6 RDW 13.7 Plt Count 61 L MPV 10.5 Immature Gran % (Auto) 0.3 Neut % (Auto) 54.8 Lymph % (Auto) 30.8 [place] % (Auto) 11.9 H Eos % (Auto) 1.9 Baso % (Auto) 0.3 Lymph # (Auto) 1.8 [place] # (Auto) 0.7 Eos # (Auto) 0.1 Baso # (Auto) 0.0 Abs Immat Gran (auto) 0.02 Absolute Neuts (auto) 3.1 Absolute Nucleated RBC 0.000 Nucleated RBC % (auto) 0.0 Sodium 143 Potassium 3.9 Chloride 110 H Carbon Dioxide 26 Anion Gap 11 L BUN 16 Creatinine 0.71 Estim Creat Clear Calc 73.3 Estimated GFR > 60 Fasting Glucose 115 H Calcium 9.1 Total Bilirubin 0.7 AST 79 H ALT 91 H Alkaline Phosphatase 65 Total Protein 6.4 L Albumin 3.3 L Medications Medications Current Medications Al Hydroxide/Mg Hydroxide (Magnesium Hydrox/Alum Hydrox 30 Ml Oral.Susp) 30 ml PO Q6H PRN PRN Reason: Heartburn/Nausea Clotrimazole (Clotrimazole 1 % Cream 15 Gm Tube) 1 appl TOPICAL BID [facility]ADALU[facility]; Protocol Last Admin: 08/09/23 09:15 Dose: Not Given Haloperidol (Haloperidol 5 Mg Tablet) 5 mg PO Q4H PRN PRN Reason: agitation Haloperidol (Haloperidol 5 Mg Tablet) 5 mg PO DAILY [facility] Last Admin: 08/09/23 09:13 Dose: 5 mg Haloperidol (Haloperidol 5 Mg Tablet) 15 mg PO BEDTIME [facility] Last Admin: 08/08/23 21:34 Dose: 15 mg Haloperidol Decanoate (Haloperidol Decanoate 50 Mg/Ml Vial) 200 mg IM Q28D [facility] Last Admin: 07/17/23 11:42 Dose: 200 mg Haloperidol Lactate (Haloperidol Lactate 5 Mg/Ml Vial) 5 mg IM BID PRN PRN Reason: REFUSAL OF PO Last Admin: 05/20/23 08:43 Dose: 5 mg Hydrocortisone (Hydrocortisone 1 % Cream 28.35 Gm Tube) 1 appl TOPICAL BID PRN; Protocol PRN Reason: Rash Last Admin: 06/22/23 09:28 Dose: 1 appl Ibuprofen (Ibuprofen 400 Mg Tablet) 400 mg PO Q4H PRN PRN Reason: Pain, Mild (Pain Scale 1-3) Last Admin: 08/05/23 01:31 Dose: 400 mg Lurasidone HCl (Lurasidone Hcl 80 Mg Tablet) 160 mg PO DAILY [facility] Last Admin: 08/09/23 09:13 Dose: 160 mg Magnesium Hydroxide (Milk Of Magnesia 30 Ml Oral.Susp) 30 ml PO DAILY PRN PRN Reason: Constipation Trazodone HCl (Trazodone Hcl 25 Mg Halftab) 25 mg PO BEDTIME MRX1 PRN PRN Reason: Insomnia Allergies Allergies Allergy/AdvReac Type Severity Reaction Status Date / Time onion Allergy Unknown Unknown Verified 05/11/23 22:53 Assessment & Plan Assessment & Plan (1) Schizophrenia, chronic condition: Status: Acute Code(s): F20.9 - Schizophrenia, unspecified Assessment and Plan: 08/04/23: Continue tx. 08/05/23: Continue tx. Plan Pt is a 72-year-old female with a PMH significant for?HTN, GERD, and schizophrenia who is admitted to [facility] for increased aggression after a non compliant her psychiatric medications. Patient lives [place] but has recently become disorganized with delusions and increased aggression after refusing to take her medications despite a Riggins order. Medical consult for admission H&P. Plan 1. Continue with Haldol at maximum dose as per court order. 2. Continue with Latuda at maximum dose as per court order. 3. We will try to coordinate with [facility] with the possibility to change her level of care to long-term hospitalization since the patient has not improved for several weeks. 4. Blood work came back within normal limits the only concern is the increased of AST and LFT Reason for continued inpatient stay Substantial Risk for: inability to function, rapid decompensation and med/psych decompensation Time Spent With Patient Time: Total time managing care of this patient today __20__ minutes.
[2023-08-09 18:00] VITALS: BP 145/83; PULSE 84; RESP 18; TEMP 36; O2SAT 96
[2023-08-09] MEDS: HaloperidoL 5 MG TABLET 15 MG PO (21:00)
[2023-08-10] MEDS: Lurasidone HCl 80 MG TABLET 160 MG PO (08:23)
[2023-08-10] MEDS: HaloperidoL 5 MG TABLET PO (08:23)
[2023-08-10 09:12] VITALS: RESP 16
--- NOTE | 2023-08-10 12:28 | HO.PSYCHPN ---
Subjective Subjective Date of Service: 08/10/23 Reason For Visit: Schizophrenia Subjective Notes: Riggins Order and Conditional Voluntary Healthcare Proxy: Yes Guardianship: Yes Interim History: The nursing staff reported that yesterday she showered and she was compliant with meds compliant a little more active after the visit with [facility]. On interview the patient was very paranoid against a peer. She remains chronically psychotic. Mental Status Exam Mental Status Exam Patient Appearance: Unkempt Patient Orientation: Person Level of Consciousness: Awake and Restless Patient Behavior: Guarded and Passive Mood Description: Withdrawn Affect Description: Blunted Patient Cognition Impaired: Yes Ability to Follow Directions: Good Speech Pattern: Clear Hallucinations: Auditory Delusions: Paranoid Ideation and Ideas of Reference Thought Process: Distracted and Slowed Thinking Thought Content: positive for [place], positive for Poverty of Content and positive for Thought Blocking Judgement: Poor Diagnostics Vital Signs (24Hr): Vital Signs - 24 hr 08/09/23 18:00 08/10/23 09:12 Temperature 96.8 F Pulse Rate 84 Respiratory Rate 18 16 Blood Pressure 145/83 H Pulse Oximetry 96 Oxygen Delivery Method Room Air BMI result Body Mass Index 29.2 Labs 08/08/23 05:51 08/08/23 05:51 Medications Medications Current Medications Al Hydroxide/Mg Hydroxide (Magnesium Hydrox/Alum Hydrox 30 Ml Oral.Susp) 30 ml PO Q6H PRN PRN Reason: Heartburn/Nausea Clotrimazole (Clotrimazole 1 % Cream 15 Gm Tube) 1 appl TOPICAL BID [facility]; Protocol Last Admin: 08/10/23 08:25 Dose: Not Given Haloperidol (Haloperidol 5 Mg Tablet) 5 mg PO Q4H PRN PRN Reason: agitation Haloperidol (Haloperidol 5 Mg Tablet) 5 mg PO DAILY [facility] Last Admin: 08/10/23 08:23 Dose: 5 mg Haloperidol (Haloperidol 5 Mg Tablet) 15 mg PO BEDTIME [facility] Last Admin: 08/09/23 21:00 Dose: 15 mg Haloperidol Decanoate (Haloperidol Decanoate 50 Mg/Ml Vial) 200 mg IM Q28D [facility] Last Admin: 07/17/23 11:42 Dose: 200 mg Haloperidol Lactate (Haloperidol Lactate 5 Mg/Ml Vial) 5 mg IM BID PRN PRN Reason: REFUSAL OF PO Last Admin: 05/20/23 08:43 Dose: 5 mg Hydrocortisone (Hydrocortisone 1 % Cream 28.35 Gm Tube) 1 appl TOPICAL BID PRN; Protocol PRN Reason: Rash Last Admin: 06/22/23 09:28 Dose: 1 appl Ibuprofen (Ibuprofen 400 Mg Tablet) 400 mg PO Q4H PRN PRN Reason: Pain, Mild (Pain Scale 1-3) Last Admin: 08/05/23 01:31 Dose: 400 mg Lurasidone HCl (Lurasidone Hcl 80 Mg Tablet) 160 mg PO DAILY [facility] Last Admin: 08/10/23 08:23 Dose: 160 mg Magnesium Hydroxide (Milk Of Magnesia 30 Ml Oral.Susp) 30 ml PO DAILY PRN PRN Reason: Constipation Trazodone HCl (Trazodone Hcl 25 Mg Halftab) 25 mg PO BEDTIME MRX1 PRN PRN Reason: Insomnia Allergies Allergies Allergy/AdvReac Type Severity Reaction Status Date / Time onion Allergy Unknown Unknown Verified 05/11/23 22:53 Assessment & Plan Assessment & Plan (1) Schizophrenia, chronic condition: Status: Acute Code(s): F20.9 - Schizophrenia, unspecified Assessment and Plan: 08/04/23: Continue tx. 08/05/23: Continue tx. Plan Pt is a 72-year-old female with a PMH significant for?HTN, GERD, and schizophrenia who is admitted to [facility] for increased aggression after a non compliant her psychiatric medications. Patient lives at a [facility] but has recently become disorganized with delusions and increased aggression after refusing to take her medications despite a Riggins order. Medical consult for admission H&P. Plan 1. Continue with Haldol at maximum dose as per court order. 2. Continue with Latuda at maximum dose as per court order. 3. We will try to coordinate with [facility] with the possibility to change her level of care to long-term hospitalization since the patient has not improved for several weeks. 4. Blood work came back within normal limits the only concern is the increased of AST and LFT Reason for continued inpatient stay Substantial Risk for: inability to function, rapid decompensation and med/psych decompensation Time Spent With Patient Time: Total time managing care of this patient today __20__ minutes.
[2023-08-10 21:01] VITALS: BP 143/66; PULSE 65; RESP 17; TEMP 36.3; O2SAT 94
[2023-08-10] MEDS: HaloperidoL 5 MG TABLET 15 MG PO (21:05)
[2023-08-11 08:05] VITALS: BP 142/65; PULSE 56; RESP 17; TEMP 36.3; O2SAT 94
[2023-08-11] MEDS: HaloperidoL 5 MG TABLET PO (09:21)
[2023-08-11] MEDS: Lurasidone HCl 80 MG TABLET 160 MG PO (09:21)
--- NOTE | 2023-08-11 17:17 | HO.PSYCHPN ---
Subjective Subjective Date of Service: 08/11/23 Reason For Visit: Schizophrenia Subjective Notes: Conditional Voluntary Interim History: Pt slept through the night. VS stable. She was out of her room for some time watching TV. She reports she now is dealing with bone cancer but leukemia is cured. All these are somatic delusions. Pt denies any other concern. taking medications as prescribed. Review of Systems Review of Systems Chronic right knee pain Yes all other systems are reviewed and are negative and Unobtainable due to mental status Mental Status Exam Mental Status Exam Patient Appearance: Unkempt Patient Orientation: Person Level of Consciousness: Awake and Restless Patient Behavior: Guarded and Passive Mood Description: Withdrawn Affect Description: Blunted Patient Cognition Impaired: Yes Ability to Follow Directions: Good Speech Pattern: Clear Memory Description: Remote Impaired, Immediate Impaired and Episodic Impaired Diagnostics Vital Signs (24Hr): Vital Signs - 24 hr 08/10/23 21:01 08/11/23 08:05 Temperature 97.3 F 97.3 F Pulse Rate 65 56 Respiratory Rate 17 17 Blood Pressure 143/66 H 142/65 H Pulse Oximetry 94 94 Oxygen Delivery Method Room Air Room Air BMI result Body Mass Index 29.2 Labs 08/08/23 05:51 08/08/23 05:51 Medications Medications Current Medications Al Hydroxide/Mg Hydroxide (Magnesium Hydrox/Alum Hydrox 30 Ml Oral.Susp) 30 ml PO Q6H PRN PRN Reason: Heartburn/Nausea Clotrimazole (Clotrimazole 1 % Cream 15 Gm Tube) 1 appl TOPICAL BID [facility]; Protocol Last Admin: 08/11/23 09:24 Dose: Not Given Haloperidol (Haloperidol 5 Mg Tablet) 5 mg PO Q4H PRN PRN Reason: agitation Haloperidol (Haloperidol 5 Mg Tablet) 5 mg PO DAILY [facility] Last Admin: 08/11/23 09:21 Dose: 5 mg Haloperidol (Haloperidol 5 Mg Tablet) 15 mg PO BEDTIME [facility] Last Admin: 08/10/23 21:05 Dose: 15 mg Haloperidol Decanoate (Haloperidol Decanoate 50 Mg/Ml Vial) 200 mg IM Q28D [facility] Last Admin: 07/17/23 11:42 Dose: 200 mg Haloperidol Lactate (Haloperidol Lactate 5 Mg/Ml Vial) 5 mg IM BID PRN PRN Reason: REFUSAL OF PO Last Admin: 05/20/23 08:43 Dose: 5 mg Hydrocortisone (Hydrocortisone 1 % Cream 28.35 Gm Tube) 1 appl TOPICAL BID PRN; Protocol PRN Reason: Rash Last Admin: 06/22/23 09:28 Dose: 1 appl Ibuprofen (Ibuprofen 400 Mg Tablet) 400 mg PO Q4H PRN PRN Reason: Pain, Mild (Pain Scale 1-3) Last Admin: 08/05/23 01:31 Dose: 400 mg Lurasidone HCl (Lurasidone Hcl 80 Mg Tablet) 160 mg PO DAILY [facility] Last Admin: 08/11/23 09:21 Dose: 160 mg Magnesium Hydroxide (Milk Of Magnesia 30 Ml Oral.Susp) 30 ml PO DAILY PRN PRN Reason: Constipation Trazodone HCl (Trazodone Hcl 25 Mg Halftab) 25 mg PO BEDTIME MRX1 PRN PRN Reason: Insomnia Allergies Allergies Allergy/AdvReac Type Severity Reaction Status Date / Time onion Allergy Unknown Unknown Verified 05/11/23 22:53 Assessment & Plan Assessment & Plan (1) Schizophrenia, chronic condition: Status: Acute Code(s): F20.9 - Schizophrenia, unspecified Assessment and Plan: 08/04/23: Continue tx. 08/05/23: Continue tx. Plan Pt is a 72-year-old female with a PMH significant for?HTN, GERD, and schizophrenia who is admitted to [facility] for increased aggression after a non compliant her psychiatric medications. Patient lives at a custodial but has recently become disorganized with delusions and increased aggression after refusing to take her medications despite a [facility] order. Medical consult for admission H&P. Plan 1. Continue with Haldol at maximum dose as per court order. 2. Continue with Latuda at maximum dose as per court order. 3. We will try to coordinate with [facility] with the possibility to change her level of care to long-term hospitalization since the patient has not improved for several weeks. 4. Blood work came back within normal limits the only concern is the increased of AST and LFT Reason for continued inpatient stay Substantial Risk for: inability to function Time Spent With Patient Time: Total time managing care of this patient today ____ minutes.
[2023-08-11 19:35] VITALS: BP 126/61; PULSE 67; RESP 18; TEMP 35.9; O2SAT 93
[2023-08-11] MEDS: HaloperidoL 5 MG TABLET 15 MG PO (21:08)
[2023-08-12] MEDS: HaloperidoL 5 MG TABLET PO ×2 (03:31→08:51)
[2023-08-12 06:00] VITALS: BP 133/78; PULSE 66; RESP 18; TEMP 36.2; O2SAT 94
[2023-08-12] MEDS: Lurasidone HCl 80 MG TABLET 160 MG PO (08:51)
--- NOTE | 2023-08-12 15:30 | P.PNPSI_ITS ---
Subjective Subjective Date of Service: 08/12/23 Reason For Visit: Schizophrenia Subjective Notes: Conditional Voluntary Interim History: Pt slept through the night. VS stable. Slightly improved hygiene, but hair unkempt. She was out of her room for some time watching TV. She reports she now is dealing with bone cancer but leukemia is cured. All these are somatic delusions. Pt denies any other concern. taking medications as prescribed. Review of Systems Review of Systems Chronic right knee pain Yes all other systems are reviewed and are negative and Unobtainable due to mental status Mental Status Exam Mental Status Exam Patient Appearance: Unkempt Patient Orientation: Person Level of Consciousness: Awake and Restless Patient Behavior: Guarded and Passive Mood Description: Withdrawn Affect Description: Blunted Patient Cognition Impaired: Yes Ability to Follow Directions: Good Speech Pattern: Clear Memory Description: Remote Impaired, Immediate Impaired and Episodic Impaired Diagnostics Vital Signs (24Hr): Vital Signs - 24 hr 08/11/23 19:35 08/12/23 06:00 Temperature 96.7 F L 97.2 F Pulse Rate 67 66 Respiratory Rate 18 18 Blood Pressure 126/61 133/78 Pulse Oximetry 93 94 Oxygen Delivery Method Room Air Room Air BMI result Body Mass Index 29.2 Labs 08/08/23 05:51 08/08/23 05:51 Medications Medications Current Medications Al Hydroxide/Mg Hydroxide (Magnesium Hydrox/Alum Hydrox 30 Ml Oral.Susp) 30 ml PO Q6H PRN PRN Reason: Heartburn/Nausea Clotrimazole (Clotrimazole 1 % Cream 15 Gm Tube) 1 appl TOPICAL BID [facility]; Protocol Last Admin: 08/12/23 08:52 Dose: Not Given Haloperidol (Haloperidol 5 Mg Tablet) 5 mg PO Q4H PRN PRN Reason: agitation Last Admin: 08/12/23 03:31 Dose: 5 mg Haloperidol (Haloperidol 5 Mg Tablet) 5 mg PO DAILY [facility] Last Admin: 08/12/23 08:51 Dose: 5 mg Haloperidol (Haloperidol 5 Mg Tablet) 15 mg PO BEDTIME [facility] Last Admin: 08/11/23 21:08 Dose: 15 mg Haloperidol Decanoate (Haloperidol Decanoate 50 Mg/Ml Vial) 200 mg IM Q28D [facility] Last Admin: 07/17/23 11:42 Dose: 200 mg Haloperidol Lactate (Haloperidol Lactate 5 Mg/Ml Vial) 5 mg IM BID PRN PRN Reason: REFUSAL OF PO Last Admin: 05/20/23 08:43 Dose: 5 mg Hydrocortisone (Hydrocortisone 1 % Cream 28.35 Gm Tube) 1 appl TOPICAL BID PRN; Protocol PRN Reason: Rash Last Admin: 06/22/23 09:28 Dose: 1 appl Ibuprofen (Ibuprofen 400 Mg Tablet) 400 mg PO Q4H PRN PRN Reason: Pain, Mild (Pain Scale 1-3) Last Admin: 08/05/23 01:31 Dose: 400 mg Lurasidone HCl (Lurasidone Hcl 80 Mg Tablet) 160 mg PO DAILY [facility] Last Admin: 08/12/23 08:51 Dose: 160 mg Magnesium Hydroxide (Milk Of Magnesia 30 Ml Oral.Susp) 30 ml PO DAILY PRN PRN Reason: Constipation Trazodone HCl (Trazodone Hcl 25 Mg Halftab) 25 mg PO BEDTIME MRX1 PRN PRN Reason: Insomnia Allergies Allergies Allergy/AdvReac Type Severity Reaction Status Date / Time onion Allergy Unknown Unknown Verified 05/11/23 22:53 Assessment & Plan Assessment & Plan (1) Schizophrenia, chronic condition: Status: Acute Code(s): F20.9 - Schizophrenia, unspecified Assessment and Plan: 08/04/23: Continue tx. 08/05/23: Continue tx. Plan Pt is a 72-year-old female with a PMH significant for?HTN, GERD, and schizophrenia who is admitted to [facility] for increased aggression after a non compliant her psychiatric medications. Patient lives at a intermediate but has recently become disorganized with delusions and increased aggression after refusing to take her medications despite a [facility] order. Medical consult for admission H&P. Plan 1. Continue with Haldol at maximum dose as per court order. 2. Continue with Latuda at maximum dose as per court order. 3. We will try to coordinate with [facility] with the possibility to change her level of care to long-term hospitalization since the patient has not improved for several weeks. 4. Blood work came back within normal limits the only concern is the increased of AST and LFT Reason for continued inpatient stay Substantial Risk for: inability to function Time Spent With Patient Time: Total time managing care of this patient today ____ minutes.
[2023-08-12 18:00] VITALS: BP 166/69; PULSE 67; RESP 16; TEMP 36.7; O2SAT 92
[2023-08-12] MEDS: HaloperidoL 5 MG TABLET 15 MG PO (19:36)
[2023-08-13] MEDS: Lurasidone HCl 80 MG TABLET 160 MG PO (08:11)
[2023-08-13] MEDS: HaloperidoL 5 MG TABLET PO (08:11)
[2023-08-13 08:32] VITALS: BP 118/59; PULSE 62; RESP 18; TEMP 36.2; O2SAT 94
[2023-08-13 18:00] VITALS: BP 154/74; PULSE 61; RESP 18; TEMP 36.2; O2SAT 97
--- NOTE | 2023-08-13 20:20 | P.PNPSI_ITS ---
Subjective Subjective Date of Service: 08/13/23 Reason For Visit: Schizophrenia Subjective Notes: Conditional Voluntary Interim History: Pt slept through the night. VS stable. Slightly improved hygiene, but hair unkempt. She reports doing well but avoids any further conversation. She reports she now is dealing with bone cancer but leukemia is cured. All these are somatic delusions. Pt denies any other concern. taking medications as prescribed. Review of Systems Review of Systems Chronic right knee pain Yes all other systems are reviewed and are negative and Unobtainable due to mental status Mental Status Exam Mental Status Exam Patient Appearance: Unkempt Patient Orientation: Person Level of Consciousness: Awake and Restless Patient Behavior: Guarded and Passive Mood Description: Withdrawn Affect Description: Blunted Patient Cognition Impaired: Yes Ability to Follow Directions: Good Speech Pattern: Clear Memory Description: Remote Impaired, Immediate Impaired and Episodic Impaired Diagnostics Vital Signs (24Hr): Vital Signs - 24 hr 08/13/23 08:32 Temperature 97.1 F Pulse Rate 62 Respiratory Rate 18 Blood Pressure 118/59 L Pulse Oximetry 94 Oxygen Delivery Method Room Air BMI result Body Mass Index 29.2 Labs 08/08/23 05:51 08/08/23 05:51 Medications Medications Current Medications Al Hydroxide/Mg Hydroxide (Magnesium Hydrox/Alum Hydrox 30 Ml Oral.Susp) 30 ml PO Q6H PRN PRN Reason: Heartburn/Nausea Clotrimazole (Clotrimazole 1 % Cream 15 Gm Tube) 1 appl TOPICAL BID [facility]; Protocol Last Admin: 08/13/23 08:13 Dose: Not Given Haloperidol (Haloperidol 5 Mg Tablet) 5 mg PO Q4H PRN PRN Reason: agitation Last Admin: 08/12/23 03:31 Dose: 5 mg Haloperidol (Haloperidol 5 Mg Tablet) 5 mg PO DAILY [facility] Last Admin: 08/13/23 08:11 Dose: 5 mg Haloperidol (Haloperidol 5 Mg Tablet) 15 mg PO BEDTIME [facility] Last Admin: 08/12/23 19:36 Dose: 15 mg Haloperidol Decanoate (Haloperidol Decanoate 50 Mg/Ml Vial) 200 mg IM Q28D [facility] Last Admin: 07/17/23 11:42 Dose: 200 mg Haloperidol Lactate (Haloperidol Lactate 5 Mg/Ml Vial) 5 mg IM BID PRN PRN Reason: REFUSAL OF PO Last Admin: 05/20/23 08:43 Dose: 5 mg Hydrocortisone (Hydrocortisone 1 % Cream 28.35 Gm Tube) 1 appl TOPICAL BID PRN; Protocol PRN Reason: Rash Last Admin: 06/22/23 09:28 Dose: 1 appl Ibuprofen (Ibuprofen 400 Mg Tablet) 400 mg PO Q4H PRN PRN Reason: Pain, Mild (Pain Scale 1-3) Last Admin: 08/05/23 01:31 Dose: 400 mg Lurasidone HCl (Lurasidone Hcl 80 Mg Tablet) 160 mg PO DAILY [facility] Last Admin: 08/13/23 08:11 Dose: 160 mg Magnesium Hydroxide (Milk Of Magnesia 30 Ml Oral.Susp) 30 ml PO DAILY PRN PRN Reason: Constipation Trazodone HCl (Trazodone Hcl 25 Mg Halftab) 25 mg PO BEDTIME MRX1 PRN PRN Reason: Insomnia Allergies Allergies Allergy/AdvReac Type Severity Reaction Status Date / Time onion Allergy Unknown Unknown Verified 05/11/23 22:53 Assessment & Plan Assessment & Plan (1) Schizophrenia, chronic condition: Status: Acute Code(s): F20.9 - Schizophrenia, unspecified Assessment and Plan: 08/04/23: Continue tx. 08/05/23: Continue tx. Plan Pt is a 72-year-old female with a PMH significant for?HTN, GERD, and schizophrenia who is admitted to [facility] for increased aggression after a non compliant her psychiatric medications. Patient lives at a snf but has recently become disorganized with delusions and increased aggression after refusing to take her medications despite a [facility] order. Medical consult for admission H&P. Plan 1. Continue with Haldol at maximum dose as per court order. 2. Continue with Latuda at maximum dose as per court order. 3. We will try to coordinate with [facility] with the possibility to change her level of care to long-term hospitalization since the patient has not improved for several weeks. 4. Blood work came back within normal limits the only concern is the increased of AST and LFT Reason for continued inpatient stay Substantial Risk for: inability to function Time Spent With Patient Time: Total time managing care of this patient today ____ minutes.
[2023-08-13] MEDS: HaloperidoL 5 MG TABLET 15 MG PO (21:29)
[2023-08-14 08:02] VITALS: BP 127/58; PULSE 65; RESP 16; TEMP 36.6; O2SAT 93
[2023-08-14] MEDS: HaloperidoL 5 MG TABLET PO (08:05)
[2023-08-14] MEDS: Lurasidone HCl 80 MG TABLET 160 MG PO (08:05)
[2023-08-14] MEDS: Haloperidol Decanoate 50 MG/ML VIAL 200 MG IM (09:39)
--- NOTE | 2023-08-14 13:30 | P.PNPSI_ITS ---
Subjective Subjective Date of Service: 08/14/23 Reason For Visit: Schizophrenia Subjective Notes: [facility] Order and Conditional Voluntary Interim History: The nursing staff reported no changes in her mental status she remains isolative flat. She slept 8 hours she is out of the her room only for meals. On interview the patient remains delusional, paranoid internally preoccupied. Mental Status Exam Mental Status Exam Patient Appearance: Unkempt Patient Orientation: Person Level of Consciousness: Restless Patient Behavior: Guarded and Passive Mood Description: Withdrawn Affect Description: Blunted Patient Cognition Impaired: Yes Ability to Follow Directions: Good Speech Pattern: Impoverished and Monotone Hallucinations: None Delusions: Ideas of Reference Thought Process: Illogical and Evasive Thought Content: positive for [place] and positive for Thought Blocking Judgement: Poor Diagnostics Vital Signs (24Hr): Vital Signs - 24 hr 08/13/23 18:00 08/14/23 08:02 Temperature 97.2 F 97.8 F Pulse Rate 61 65 Respiratory Rate 18 16 Blood Pressure 154/74 H 127/58 L Pulse Oximetry 97 93 Oxygen Delivery Method Room Air Room Air BMI result Body Mass Index 29.2 Labs 08/08/23 05:51 08/08/23 05:51 Medications Medications Current Medications Al Hydroxide/Mg Hydroxide (Magnesium Hydrox/Alum Hydrox 30 Ml Oral.Susp) 30 ml PO Q6H PRN PRN Reason: Heartburn/Nausea Clotrimazole (Clotrimazole 1 % Cream 15 Gm Tube) 1 appl TOPICAL BID [facility]; Protocol Last Admin: 08/14/23 08:06 Dose: Not Given Haloperidol (Haloperidol 5 Mg Tablet) 5 mg PO Q4H PRN PRN Reason: agitation Last Admin: 08/12/23 03:31 Dose: 5 mg Haloperidol (Haloperidol 5 Mg Tablet) 5 mg PO DAILY [facility] Last Admin: 08/14/23 08:05 Dose: 5 mg Haloperidol (Haloperidol 5 Mg Tablet) 15 mg PO BEDTIME [facility] Last Admin: 08/13/23 21:29 Dose: 15 mg Haloperidol Decanoate (Haloperidol Decanoate 50 Mg/Ml Vial) 200 mg IM Q28D [facility] Last Admin: 08/14/23 09:39 Dose: 200 mg Haloperidol Lactate (Haloperidol Lactate 5 Mg/Ml Vial) 5 mg IM BID PRN PRN Reason: REFUSAL OF PO Last Admin: 05/20/23 08:43 Dose: 5 mg Hydrocortisone (Hydrocortisone 1 % Cream 28.35 Gm Tube) 1 appl TOPICAL BID PRN; Protocol PRN Reason: Rash Last Admin: 06/22/23 09:28 Dose: 1 appl Ibuprofen (Ibuprofen 400 Mg Tablet) 400 mg PO Q4H PRN PRN Reason: Pain, Mild (Pain Scale 1-3) Last Admin: 08/05/23 01:31 Dose: 400 mg Lurasidone HCl (Lurasidone Hcl 80 Mg Tablet) 160 mg PO DAILY [facility] Last Admin: 08/14/23 08:05 Dose: 160 mg Magnesium Hydroxide (Milk Of Magnesia 30 Ml Oral.Susp) 30 ml PO DAILY PRN PRN Reason: Constipation Trazodone HCl (Trazodone Hcl 25 Mg Halftab) 25 mg PO BEDTIME MRX1 PRN PRN Reason: Insomnia Allergies Allergies Allergy/AdvReac Type Severity Reaction Status Date / Time onion Allergy Unknown Unknown Verified 05/11/23 22:53 Assessment & Plan Assessment & Plan (1) Schizophrenia, chronic condition: Status: Acute Code(s): F20.9 - Schizophrenia, unspecified Assessment and Plan: 08/04/23: Continue tx. 08/05/23: Continue tx. Plan Pt is a 72-year-old female with a PMH significant for?HTN, GERD, and schizophrenia who is admitted to [facility] for increased aggression after a non compliant her psychiatric medications. Patient lives at a assisted but has recently become disorganized with delusions and increased aggression after refusing to take her medications despite a [facility] order. Medical consult for admission H&P. Plan 1. Continue with Haldol at maximum dose as per court order. 2. Continue with Latuda at maximum dose as per court order. 3. We will try to coordinate with [facility] with the possibility to change her level of care to long-term hospitalization since the patient has not improved for several weeks. 4. Blood work came back within normal limits the only concern is the increased of AST and LFT Reason for continued inpatient stay Substantial Risk for: inability to function, rapid decompensation and med/psych decompensation Time Spent With Patient Time: Total time managing care of this patient today __20__ minutes.
[2023-08-14 18:00] VITALS: BP 147/62; PULSE 64; RESP 16; O2SAT 92
[2023-08-14] MEDS: HaloperidoL 5 MG TABLET 15 MG PO (22:14)
[2023-08-15 01:58] VITALS: BP 147/67; PULSE 64; RESP 16; O2SAT 92
[2023-08-15 08:00] VITALS: BP 138/63; PULSE 59; RESP 18; TEMP 36.3; O2SAT 92
[2023-08-15] MEDS: Lurasidone HCl 80 MG TABLET 160 MG PO (09:00)
[2023-08-15] MEDS: HaloperidoL 5 MG TABLET PO (09:01)
--- NOTE | 2023-08-15 12:15 | HO.PSYCHPN ---
Subjective Subjective Date of Service: 08/15/23 Reason For Visit: Schizophrenia Subjective Notes: Conditional Voluntary Interim History: The nursing staff reported no changes in her mental status she received her high IM Haldol Decanoate monthly yesterday. The social sciences department chair reported that the staff from the home should come once a week but they canceled yesterday. The occupational therapist reported that she was out for [employer] and she did very well. On interview the patient remains internally preoccupied, very paranoid, seclusive no changes in her mental status. Mental Status Exam Mental Status Exam Patient Appearance: Unkempt Patient Orientation: Person Level of Consciousness: Awake Patient Behavior: Guarded Mood Description: Withdrawn Affect Description: Constricted Patient Cognition Impaired: Yes Ability to Follow Directions: Good Speech Pattern: Clear Hallucinations: Auditory Delusions: Ideas of Reference Thought Process: Distracted and Slowed Thinking Thought Content: positive for Poverty of Content and positive for Loose Associations Judgement: Poor Diagnostics Vital Signs (24Hr): Vital Signs - 24 hr 08/14/23 18:00 08/15/23 01:58 08/15/23 08:00 Temperature 97.3 F Pulse Rate 64 64 59 Respiratory Rate 16 16 18 Blood Pressure 147/62 H 147/67 H 138/63 Pulse Oximetry 92 92 92 Oxygen Delivery Method Room Air Room Air Room Air BMI result Body Mass Index 29.2 Labs 08/08/23 05:51 08/08/23 05:51 Medications Medications Current Medications Al Hydroxide/Mg Hydroxide (Magnesium Hydrox/Alum Hydrox 30 Ml Oral.Susp) 30 ml PO Q6H PRN PRN Reason: Heartburn/Nausea Clotrimazole (Clotrimazole 1 % Cream 15 Gm Tube) 1 appl TOPICAL BID [facility]; Protocol Last Admin: 08/15/23 09:02 Dose: Not Given Haloperidol (Haloperidol 5 Mg Tablet) 5 mg PO Q4H PRN PRN Reason: agitation Last Admin: 08/12/23 03:31 Dose: 5 mg Haloperidol (Haloperidol 5 Mg Tablet) 5 mg PO DAILY [facility] Last Admin: 08/15/23 09:01 Dose: 5 mg Haloperidol (Haloperidol 5 Mg Tablet) 15 mg PO BEDTIME [facility] Last Admin: 08/14/23 22:14 Dose: 15 mg Haloperidol Decanoate (Haloperidol Decanoate 50 Mg/Ml Vial) 200 mg IM Q28D [facility] Last Admin: 08/14/23 09:39 Dose: 200 mg Haloperidol Lactate (Haloperidol Lactate 5 Mg/Ml Vial) 5 mg IM BID PRN PRN Reason: REFUSAL OF PO Last Admin: 05/20/23 08:43 Dose: 5 mg Hydrocortisone (Hydrocortisone 1 % Cream 28.35 Gm Tube) 1 appl TOPICAL BID PRN; Protocol PRN Reason: Rash Last Admin: 06/22/23 09:28 Dose: 1 appl Ibuprofen (Ibuprofen 400 Mg Tablet) 400 mg PO Q4H PRN PRN Reason: Pain, Mild (Pain Scale 1-3) Last Admin: 08/05/23 01:31 Dose: 400 mg Lurasidone HCl (Lurasidone Hcl 80 Mg Tablet) 160 mg PO DAILY [facility] Last Admin: 08/15/23 09:00 Dose: 160 mg Magnesium Hydroxide (Milk Of Magnesia 30 Ml Oral.Susp) 30 ml PO DAILY PRN PRN Reason: Constipation Trazodone HCl (Trazodone Hcl 25 Mg Halftab) 25 mg PO BEDTIME MRX1 PRN PRN Reason: Insomnia Allergies Allergies Allergy/AdvReac Type Severity Reaction Status Date / Time onion Allergy Unknown Unknown Verified 05/11/23 22:53 Assessment & Plan Assessment & Plan (1) Schizophrenia, chronic condition: Status: Acute Code(s): F20.9 - Schizophrenia, unspecified Assessment and Plan: 08/04/23: Continue tx. 08/05/23: Continue tx. Plan Pt is a 72-year-old female with a PMH significant for?HTN, GERD, and schizophrenia who is admitted to [facility] for increased aggression after a non compliant her psychiatric medications. Patient lives at a long term but has recently become disorganized with delusions and increased aggression after refusing to take her medications despite a [facility] order. Medical consult for admission H&P. Plan 1. Continue with Haldol at maximum dose as per court order. 2. Continue with Latuda at maximum dose as per court order. 3. We will try to coordinate with [facility] with the possibility to change her level of care to long-term hospitalization since the patient has not improved for several weeks. 4. Blood work came back within normal limits the only concern is the increased of AST and LFT Reason for continued inpatient stay Substantial Risk for: inability to function, rapid decompensation and med/psych decompensation Time Spent With Patient Time: Total time managing care of this patient today __20__ minutes.
[2023-08-15 18:00] VITALS: BP 155/72; PULSE 61; RESP 18; TEMP 36.3; O2SAT 94
[2023-08-15] MEDS: HaloperidoL 5 MG TABLET 15 MG PO (20:38)
[2023-08-16 08:00] VITALS: BP 132/60; PULSE 64; RESP 18; TEMP 36.1; O2SAT 93
[2023-08-16] MEDS: HaloperidoL 5 MG TABLET PO (08:44)
[2023-08-16] MEDS: Lurasidone HCl 80 MG TABLET 160 MG PO (08:44)
--- NOTE | 2023-08-16 11:41 | P.PNPSI_ITS ---
Subjective Subjective Date of Service: 08/16/23 Reason For Visit: Schizophrenia Subjective Notes: Riggins Order and Conditional Voluntary Interim History: The nursing staff reported the patient remains isolative flat and guarded in her room, she comes out only for meals. The social media community manager reported that her team will come once a week to meet her and transitioning into the community. On interview the patient remains paranoid had baseline. Mental Status Exam Mental Status Exam Patient Appearance: Unkempt Patient Orientation: Person Level of Consciousness: Awake Patient Behavior: Guarded and Passive Mood Description: Withdrawn Affect Description: Blunted Patient Cognition Impaired: Yes Ability to Follow Directions: Fair Speech Pattern: Clear and Impoverished Hallucinations: None Delusions: Paranoid Ideation and Ideas of Reference Thought Process: Distracted and Slowed Thinking Thought Content: positive for Poverty of Content, positive for Loose Associations and positive for Thought Blocking Judgement: Poor Diagnostics Vital Signs (24Hr): Vital Signs - 24 hr 08/15/23 18:00 08/16/23 08:00 Temperature 97.3 F 96.9 F Pulse Rate 61 64 Respiratory Rate 18 18 Blood Pressure 155/72 H 132/60 Pulse Oximetry 94 93 Oxygen Delivery Method Room Air Room Air BMI result Body Mass Index 29.2 Labs 08/08/23 05:51 08/08/23 05:51 Medications Medications Current Medications Al Hydroxide/Mg Hydroxide (Magnesium Hydrox/Alum Hydrox 30 Ml Oral.Susp) 30 ml PO Q6H PRN PRN Reason: Heartburn/Nausea Clotrimazole (Clotrimazole 1 % Cream 15 Gm Tube) 1 appl TOPICAL BID [facility]; Protocol Last Admin: 08/16/23 08:58 Dose: Not Given Haloperidol (Haloperidol 5 Mg Tablet) 5 mg PO Q4H PRN PRN Reason: agitation Last Admin: 08/12/23 03:31 Dose: 5 mg Haloperidol (Haloperidol 5 Mg Tablet) 5 mg PO DAILY [facility] Last Admin: 08/16/23 08:44 Dose: 5 mg Haloperidol (Haloperidol 5 Mg Tablet) 15 mg PO BEDTIME JOSE GUADALUPE Last Admin: 08/15/23 20:38 Dose: 15 mg Haloperidol Decanoate (Haloperidol Decanoate 50 Mg/Ml Vial) 200 mg IM Q28D [facility] Last Admin: 08/14/23 09:39 Dose: 200 mg Haloperidol Lactate (Haloperidol Lactate 5 Mg/Ml Vial) 5 mg IM BID PRN PRN Reason: REFUSAL OF PO Last Admin: 05/20/23 08:43 Dose: 5 mg Hydrocortisone (Hydrocortisone 1 % Cream 28.35 Gm Tube) 1 appl TOPICAL BID PRN; Protocol PRN Reason: Rash Last Admin: 06/22/23 09:28 Dose: 1 appl Ibuprofen (Ibuprofen 400 Mg Tablet) 400 mg PO Q4H PRN PRN Reason: Pain, Mild (Pain Scale 1-3) Last Admin: 08/05/23 01:31 Dose: 400 mg Lurasidone HCl (Lurasidone Hcl 80 Mg Tablet) 160 mg PO DAILY JOSE GUADALUPE Last Admin: 08/16/23 08:44 Dose: 160 mg Magnesium Hydroxide (Milk Of Magnesia 30 Ml Oral.Susp) 30 ml PO DAILY PRN PRN Reason: Constipation Trazodone HCl (Trazodone Hcl 25 Mg Halftab) 25 mg PO BEDTIME MRX1 PRN PRN Reason: Insomnia Allergies Allergies Allergy/AdvReac Type Severity Reaction Status Date / Time onion Allergy Unknown Unknown Verified 05/11/23 22:53 Assessment & Plan Assessment & Plan (1) Schizophrenia, chronic condition: Status: Acute Code(s): F20.9 - Schizophrenia, unspecified Assessment and Plan: 08/04/23: Continue tx. 08/05/23: Continue tx. Plan Pt is a 72-year-old female with a PMH significant for?HTN, GERD, and schizophrenia who is admitted to [facility] for increased aggression after a non compliant her psychiatric medications. Patient lives at a skilled nursing but has recently become disorganized with delusions and increased aggression after refusing to take her medications despite a Riggins order. Medical consult for admission H&P. Plan 1. Continue with Haldol at maximum dose as per court order. 2. Continue with Latuda at maximum dose as per court order. 3. We will try to coordinate with [facility] with the possibility to change her level of care to long-term hospitalization since the patient has not improved for several weeks. 4. Blood work came back within normal limits the only concern is the increased of AST and LFT Reason for continued inpatient stay Substantial Risk for: inability to function, rapid decompensation and med/psych decompensation Time Spent With Patient Time: Total time managing care of this patient today __20__ minutes.
[2023-08-16 18:00] VITALS: BP 134/77; PULSE 57; RESP 12; TEMP 35.7; O2SAT 92
[2023-08-16] MEDS: HaloperidoL 5 MG TABLET 15 MG PO (20:31)
[2023-08-17 08:15] VITALS: BP 118/56; PULSE 59; RESP 18; TEMP 36.1; O2SAT 93
[2023-08-17] MEDS: HaloperidoL 5 MG TABLET PO (08:34)
[2023-08-17] MEDS: Lurasidone HCl 80 MG TABLET 160 MG PO (08:34)
--- NOTE | 2023-08-17 13:48 | HO.PSYCHPN ---
Subjective Subjective Date of Service: 08/17/23 Reason For Visit: Schizophrenia Subjective Notes: Riggins Order and Conditional Voluntary Interim History: The nursing staff reported that she had not been not engageable self dialogue in and paranoid no changes in her mental status. On interview the patient denies new symptoms chronically paranoid. Mental Status Exam Mental Status Exam Patient Appearance: Appropriate and Unkempt Patient Orientation: Person and Situation Level of Consciousness: Awake Patient Behavior: Guarded and Passive Mood Description: Withdrawn Affect Description: Blunted Patient Cognition Impaired: Yes Ability to Follow Directions: Good Speech Pattern: Clear Hallucinations: Auditory Delusions: Paranoid Ideation and Ideas of Reference Thought Process: Distracted and Evasive Thought Content: positive for [place] and positive for Poverty of Content Judgement: Poor Diagnostics Vital Signs (24Hr): Vital Signs - 24 hr 08/16/23 18:00 08/17/23 08:15 Temperature 96.2 F L 97.0 F Pulse Rate 57 59 Respiratory Rate 12 18 Blood Pressure 134/77 118/56 L Pulse Oximetry 92 93 Oxygen Delivery Method Room Air Room Air BMI result Body Mass Index 29.2 Labs 08/08/23 05:51 08/08/23 05:51 Medications Medications Current Medications Al Hydroxide/Mg Hydroxide (Magnesium Hydrox/Alum Hydrox 30 Ml Oral.Susp) 30 ml PO Q6H PRN PRN Reason: Heartburn/Nausea Clotrimazole (Clotrimazole 1 % Cream 15 Gm Tube) 1 appl TOPICAL BID [facility]; Protocol Last Admin: 08/17/23 08:33 Dose: Not Given Haloperidol (Haloperidol 5 Mg Tablet) 5 mg PO Q4H PRN PRN Reason: agitation Last Admin: 08/12/23 03:31 Dose: 5 mg Haloperidol (Haloperidol 5 Mg Tablet) 5 mg PO DAILY [facility] Last Admin: 08/17/23 08:34 Dose: 5 mg Haloperidol (Haloperidol 5 Mg Tablet) 15 mg PO BEDTIME JOSE GUADALUPE Last Admin: 08/16/23 20:31 Dose: 15 mg Haloperidol Decanoate (Haloperidol Decanoate 50 Mg/Ml Vial) 200 mg IM Q28D [facility] Last Admin: 08/14/23 09:39 Dose: 200 mg Haloperidol Lactate (Haloperidol Lactate 5 Mg/Ml Vial) 5 mg IM BID PRN PRN Reason: REFUSAL OF PO Last Admin: 05/20/23 08:43 Dose: 5 mg Hydrocortisone (Hydrocortisone 1 % Cream 28.35 Gm Tube) 1 appl TOPICAL BID PRN; Protocol PRN Reason: Rash Last Admin: 06/22/23 09:28 Dose: 1 appl Ibuprofen (Ibuprofen 400 Mg Tablet) 400 mg PO Q4H PRN PRN Reason: Pain, Mild (Pain Scale 1-3) Last Admin: 08/05/23 01:31 Dose: 400 mg Lurasidone HCl (Lurasidone Hcl 80 Mg Tablet) 160 mg PO DAILY JOSE GUADALUPE Last Admin: 08/17/23 08:34 Dose: 160 mg Magnesium Hydroxide (Milk Of Magnesia 30 Ml Oral.Susp) 30 ml PO DAILY PRN PRN Reason: Constipation Trazodone HCl (Trazodone Hcl 25 Mg Halftab) 25 mg PO BEDTIME MRX1 PRN PRN Reason: Insomnia Allergies Allergies Allergy/AdvReac Type Severity Reaction Status Date / Time onion Allergy Unknown Unknown Verified 05/11/23 22:53 Assessment & Plan Assessment & Plan (1) Schizophrenia, chronic condition: Status: Acute Code(s): F20.9 - Schizophrenia, unspecified Assessment and Plan: 08/04/23: Continue tx. 08/05/23: Continue tx. Plan Pt is a 72-year-old female with a PMH significant for?HTN, GERD, and schizophrenia who is admitted to [facility] for increased aggression after a non compliant her psychiatric medications. Patient lives at a alf but has recently become disorganized with delusions and increased aggression after refusing to take her medications despite a Riggins order. Medical consult for admission H&P. Plan 1. Continue with Haldol at maximum dose as per court order. 2. Continue with Latuda at maximum dose as per court order. 3. We will try to coordinate with [facility] with the possibility to change her level of care to long-term hospitalization since the patient has not improved for several weeks. 4. Blood work came back within normal limits the only concern is the increased of AST and LFT Reason for continued inpatient stay Substantial Risk for: inability to function, rapid decompensation and med/psych decompensation Time Spent With Patient Time: Total time managing care of this patient today __20__ minutes.
[2023-08-17] MEDS: HaloperidoL 5 MG TABLET 15 MG PO (19:57)
[2023-08-17 20:26] VITALS: BP 148/68; PULSE 63; RESP 16; TEMP 36.3; O2SAT 93
--- NOTE | 2023-08-18 07:39 | P.PNPSI_ITS ---
Subjective Subjective Date of Service: 08/18/23 Reason For Visit: Schizophrenia Subjective Notes: Riggins Order and Conditional Voluntary Interim History: The nursing staff reported no changes in her mental status she remains isolative seclusive in her room. She slept well last night. On interview the patient denies new symptoms she looks paranoid fully compliant with treatment. Mental Status Exam Mental Status Exam Patient Appearance: Unkempt Patient Orientation: Person and Situation Level of Consciousness: Awake Patient Behavior: Guarded and Passive Mood Description: Withdrawn Affect Description: Constricted Patient Cognition Impaired: Yes Ability to Follow Directions: Good Speech Pattern: Impoverished Hallucinations: None Delusions: Paranoid Ideation and Ideas of Reference Thought Process: Distracted and Slowed Thinking Thought Content: positive for [place] and positive for Poverty of Content Judgement: Poor Diagnostics Vital Signs (24Hr): Vital Signs - 24 hr 08/17/23 08:15 08/17/23 20:26 Temperature 97.0 F 97.3 F Pulse Rate 59 63 Respiratory Rate 18 16 Blood Pressure 118/56 L 148/68 H Pulse Oximetry 93 93 Oxygen Delivery Method Room Air Room Air BMI result Body Mass Index 29.2 Labs 08/08/23 05:51 08/08/23 05:51 Medications Medications Current Medications Al Hydroxide/Mg Hydroxide (Magnesium Hydrox/Alum Hydrox 30 Ml Oral.Susp) 30 ml PO Q6H PRN PRN Reason: Heartburn/Nausea Clotrimazole (Clotrimazole 1 % Cream 15 Gm Tube) 1 appl TOPICAL BID JOSE GUADALUPE; Protocol Last Admin: 08/17/23 20:25 Dose: Not Given Haloperidol (Haloperidol 5 Mg Tablet) 5 mg PO Q4H PRN PRN Reason: agitation Last Admin: 08/12/23 03:31 Dose: 5 mg Haloperidol (Haloperidol 5 Mg Tablet) 5 mg PO DAILY JOSE GUADALUPE Last Admin: 08/17/23 08:34 Dose: 5 mg Haloperidol (Haloperidol 5 Mg Tablet) 15 mg PO BEDTIME JOSE GUADALUPE Last Admin: 08/17/23 19:57 Dose: 15 mg Haloperidol Decanoate (Haloperidol Decanoate 50 Mg/Ml Vial) 200 mg IM Q28D JOSE GUADALUPE Last Admin: 08/14/23 09:39 Dose: 200 mg Haloperidol Lactate (Haloperidol Lactate 5 Mg/Ml Vial) 5 mg IM BID PRN PRN Reason: REFUSAL OF PO Last Admin: 05/20/23 08:43 Dose: 5 mg Hydrocortisone (Hydrocortisone 1 % Cream 28.35 Gm Tube) 1 appl TOPICAL BID PRN; Protocol PRN Reason: Rash Last Admin: 06/22/23 09:28 Dose: 1 appl Ibuprofen (Ibuprofen 400 Mg Tablet) 400 mg PO Q4H PRN PRN Reason: Pain, Mild (Pain Scale 1-3) Last Admin: 08/05/23 01:31 Dose: 400 mg Lurasidone HCl (Lurasidone Hcl 80 Mg Tablet) 160 mg PO DAILY JOSE GUADALUPE Last Admin: 08/17/23 08:34 Dose: 160 mg Magnesium Hydroxide (Milk Of Magnesia 30 Ml Oral.Susp) 30 ml PO DAILY PRN PRN Reason: Constipation Trazodone HCl (Trazodone Hcl 25 Mg Halftab) 25 mg PO BEDTIME MRX1 PRN PRN Reason: Insomnia Allergies Allergies Allergy/AdvReac Type Severity Reaction Status Date / Time onion Allergy Unknown Unknown Verified 05/11/23 22:53 Assessment & Plan Assessment & Plan (1) Schizophrenia, chronic condition: Status: Acute Code(s): F20.9 - Schizophrenia, unspecified Assessment and Plan: 08/04/23: Continue tx. 08/05/23: Continue tx. Plan Pt is a 72-year-old female with a PMH significant for?HTN, GERD, and schizophrenia who is admitted to [facility] for increased aggression after a non compliant her psychiatric medications. Patient lives at a intermediate but has recently become disorganized with delusions and increased aggression after refusing to take her medications despite a Riggins order. Medical consult for admission H&P. Plan 1. Continue with Haldol at maximum dose as per court order. 2. Continue with Latuda at maximum dose as per court order. 3. We will try to coordinate with [facility] with the possibility to change her level of care to long-term hospitalization since the patient has not improved for several weeks. 4. Blood work came back within normal limits the only concern is the increased of AST and LFT Reason for continued inpatient stay Substantial Risk for: inability to function, rapid decompensation and med/psych decompensation Time Spent With Patient Time: Total time managing care of this patient today __20__ minutes.
[2023-08-18] MEDS: Lurasidone HCl 80 MG TABLET 160 MG PO (11:25)
[2023-08-18] MEDS: HaloperidoL 5 MG TABLET PO (11:26)
[2023-08-18 20:02] VITALS: BP 133/81; PULSE 59; RESP 16; TEMP 36.6; O2SAT 93
[2023-08-18] MEDS: HaloperidoL 5 MG TABLET 15 MG PO (20:04)
[2023-08-19] MEDS: Lurasidone HCl 80 MG TABLET 160 MG PO (08:36)
[2023-08-19] MEDS: HaloperidoL 5 MG TABLET PO (08:36)
--- NOTE | 2023-08-19 09:51 | HO.PSYCHPN ---
Subjective Subjective Date of Service: 08/19/23 Reason For Visit: Schizophrenia Subjective Notes: Riggins Order and Conditional Voluntary Interim History: The nursing staff reported the patient slept poorly last night she woke up 3 times. On interview the patient denies new symptoms seclusive in her room. Mental Status Exam Mental Status Exam Patient Appearance: Appropriate and Unkempt Patient Orientation: Person Level of Consciousness: Awake Patient Behavior: Guarded and Passive Mood Description: Withdrawn Affect Description: Blunted Patient Cognition Impaired: Yes Ability to Follow Directions: Good Speech Pattern: Clear Hallucinations: None Delusions: Paranoid Ideation and Ideas of Reference Thought Process: Illogical and Distracted Thought Content: positive for Loose Associations and positive for Thought Blocking Judgement: Fair Diagnostics Vital Signs (24Hr): Vital Signs - 24 hr 08/18/23 20:02 Temperature 98 F Pulse Rate 59 Respiratory Rate 16 Blood Pressure 133/81 Pulse Oximetry 93 Oxygen Delivery Method Room Air BMI result Body Mass Index 29.2 Labs 08/08/23 05:51 08/08/23 05:51 Medications Medications Current Medications Al Hydroxide/Mg Hydroxide (Magnesium Hydrox/Alum Hydrox 30 Ml Oral.Susp) 30 ml PO Q6H PRN PRN Reason: Heartburn/Nausea Clotrimazole (Clotrimazole 1 % Cream 15 Gm Tube) 1 appl TOPICAL BID JOSE GUADALUPE; Protocol Last Admin: 08/19/23 08:35 Dose: Not Given Haloperidol (Haloperidol 5 Mg Tablet) 5 mg PO Q4H PRN PRN Reason: agitation Last Admin: 08/12/23 03:31 Dose: 5 mg Haloperidol (Haloperidol 5 Mg Tablet) 5 mg PO DAILY JOSE GUADALUPE Last Admin: 08/19/23 08:36 Dose: 5 mg Haloperidol (Haloperidol 5 Mg Tablet) 15 mg PO BEDTIME JOSE GUADALUPE Last Admin: 08/18/23 20:04 Dose: 15 mg Haloperidol Decanoate (Haloperidol Decanoate 50 Mg/Ml Vial) 200 mg IM Q28D JOSE GUADALUPE Last Admin: 08/14/23 09:39 Dose: 200 mg Haloperidol Lactate (Haloperidol Lactate 5 Mg/Ml Vial) 5 mg IM BID PRN PRN Reason: REFUSAL OF PO Last Admin: 05/20/23 08:43 Dose: 5 mg Hydrocortisone (Hydrocortisone 1 % Cream 28.35 Gm Tube) 1 appl TOPICAL BID PRN; Protocol PRN Reason: Rash Last Admin: 06/22/23 09:28 Dose: 1 appl Ibuprofen (Ibuprofen 400 Mg Tablet) 400 mg PO Q4H PRN PRN Reason: Pain, Mild (Pain Scale 1-3) Last Admin: 08/05/23 01:31 Dose: 400 mg Lurasidone HCl (Lurasidone Hcl 80 Mg Tablet) 160 mg PO DAILY JOSE GUADALUPE Last Admin: 08/19/23 08:36 Dose: 160 mg Magnesium Hydroxide (Milk Of Magnesia 30 Ml Oral.Susp) 30 ml PO DAILY PRN PRN Reason: Constipation Trazodone HCl (Trazodone Hcl 25 Mg Halftab) 25 mg PO BEDTIME MRX1 PRN PRN Reason: Insomnia Allergies Allergies Allergy/AdvReac Type Severity Reaction Status Date / Time onion Allergy Unknown Unknown Verified 05/11/23 22:53 Assessment & Plan Assessment & Plan (1) Schizophrenia, chronic condition: Status: Acute Code(s): F20.9 - Schizophrenia, unspecified Assessment and Plan: 08/04/23: Continue tx. 08/05/23: Continue tx. Plan Pt is a 72-year-old female with a PMH significant for?HTN, GERD, and schizophrenia who is admitted to [facility] for increased aggression after a non compliant her psychiatric medications. Patient lives at a skilled nursing but has recently become disorganized with delusions and increased aggression after refusing to take her medications despite a Riggins order. Medical consult for admission H&P. Plan 1. Continue with Haldol at maximum dose as per court order. 2. Continue with Latuda at maximum dose as per court order. 3. We will try to coordinate with [facility] with the possibility to change her level of care to long-term hospitalization since the patient has not improved for several weeks. 4. Blood work came back within normal limits the only concern is the increased of AST and LFT Reason for continued inpatient stay Substantial Risk for: inability to function, rapid decompensation and med/psych decompensation Time Spent With Patient Time: Total time managing care of this patient today ___20_ minutes.
[2023-08-19 19:35] VITALS: BP 126/65; PULSE 65; RESP 16; TEMP 36.4; O2SAT 94
[2023-08-19] MEDS: HaloperidoL 5 MG TABLET 15 MG PO (20:27)
[2023-08-20 08:00] VITALS: BP 125/60; PULSE 57; RESP 16; TEMP 36.6; O2SAT 94
[2023-08-20] MEDS: Hydrocortisone 1 % Cream 28.35 GM TUBE 1 APPL TOPICAL (09:13)
[2023-08-20] MEDS: HaloperidoL 5 MG TABLET PO (09:13)
[2023-08-20] MEDS: Lurasidone HCl 80 MG TABLET 160 MG PO (09:13)
--- NOTE | 2023-08-20 09:44 | HO.PSYCHPN ---
Subjective Subjective Date of Service: 08/20/23 Reason For Visit: Schizophrenia Subjective Notes: Riggins Order and Conditional Voluntary Interim History: The nursing staff reported the patient had been visible only for meals and she slept 6 hours. On interview the patient remains chronically psychotic Mental Status Exam Mental Status Exam Patient Appearance: Appropriate and Unkempt Patient Orientation: Person and Situation Level of Consciousness: Awake Patient Behavior: Guarded and Passive Mood Description: Withdrawn Affect Description: Blunted Patient Cognition Impaired: Yes Ability to Follow Directions: Good Speech Pattern: Clear Hallucinations: Auditory Delusions: Paranoid Ideation and Ideas of Reference Thought Process: Distracted and Slowed Thinking Thought Content: positive for [place], positive for [place] and positive for Thought Blocking Judgement: Poor Diagnostics Vital Signs (24Hr): Vital Signs - 24 hr 08/19/23 19:35 Temperature 97.6 F Pulse Rate 65 Respiratory Rate 16 Blood Pressure 126/65 Pulse Oximetry 94 Oxygen Delivery Method Room Air BMI result Body Mass Index 29.2 Labs 08/08/23 05:51 08/08/23 05:51 Medications Medications Current Medications Al Hydroxide/Mg Hydroxide (Magnesium Hydrox/Alum Hydrox 30 Ml Oral.Susp) 30 ml PO Q6H PRN PRN Reason: Heartburn/Nausea Clotrimazole (Clotrimazole 1 % Cream 15 Gm Tube) 1 appl TOPICAL BID JOSE GUADALUPE; Protocol Last Admin: 08/20/23 09:16 Dose: Not Given Haloperidol (Haloperidol 5 Mg Tablet) 5 mg PO Q4H PRN PRN Reason: agitation Last Admin: 08/12/23 03:31 Dose: 5 mg Haloperidol (Haloperidol 5 Mg Tablet) 5 mg PO DAILY JOSE GUADALUPE Last Admin: 08/20/23 09:13 Dose: 5 mg Haloperidol (Haloperidol 5 Mg Tablet) 15 mg PO BEDTIME JOSE GUADALUPE Last Admin: 08/19/23 20:27 Dose: 15 mg Haloperidol Decanoate (Haloperidol Decanoate 50 Mg/Ml Vial) 200 mg IM Q28D JOSE GUADALUPE Last Admin: 08/14/23 09:39 Dose: 200 mg Haloperidol Lactate (Haloperidol Lactate 5 Mg/Ml Vial) 5 mg IM BID PRN PRN Reason: REFUSAL OF PO Last Admin: 05/20/23 08:43 Dose: 5 mg Hydrocortisone (Hydrocortisone 1 % Cream 28.35 Gm Tube) 1 appl TOPICAL BID PRN; Protocol PRN Reason: Rash Last Admin: 08/20/23 09:13 Dose: 1 appl Ibuprofen (Ibuprofen 400 Mg Tablet) 400 mg PO Q4H PRN PRN Reason: Pain, Mild (Pain Scale 1-3) Last Admin: 08/05/23 01:31 Dose: 400 mg Lurasidone HCl (Lurasidone Hcl 80 Mg Tablet) 160 mg PO DAILY JOSE GUADALUPE Last Admin: 08/20/23 09:13 Dose: 160 mg Magnesium Hydroxide (Milk Of Magnesia 30 Ml Oral.Susp) 30 ml PO DAILY PRN PRN Reason: Constipation Trazodone HCl (Trazodone Hcl 25 Mg Halftab) 25 mg PO BEDTIME MRX1 PRN PRN Reason: Insomnia Allergies Allergies Allergy/AdvReac Type Severity Reaction Status Date / Time onion Allergy Unknown Unknown Verified 05/11/23 22:53 Assessment & Plan Assessment & Plan (1) Schizophrenia, chronic condition: Status: Acute Code(s): F20.9 - Schizophrenia, unspecified Assessment and Plan: 08/04/23: Continue tx. 08/05/23: Continue tx. Plan Pt is a 72-year-old female with a PMH significant for?HTN, GERD, and schizophrenia who is admitted to [facility] for increased aggression after a non compliant her psychiatric medications. Patient lives at a snf but has recently become disorganized with delusions and increased aggression after refusing to take her medications despite a Riggins order. Medical consult for admission H&P. Plan 1. Continue with Haldol at maximum dose as per court order. 2. Continue with Latuda at maximum dose as per court order. 3. We will try to coordinate with [facility] with the possibility to change her level of care to long-term hospitalization since the patient has not improved for several weeks. 4. Blood work came back within normal limits the only concern is the increased of AST and LFT Reason for continued inpatient stay Substantial Risk for: inability to function, rapid decompensation and med/psych decompensation Time Spent With Patient Time: Total time managing care of this patient today __20__ minutes.
[2023-08-20 18:00] VITALS: BP 116/74; PULSE 59; RESP 16; TEMP 36; O2SAT 93
[2023-08-20] MEDS: HaloperidoL 5 MG TABLET 15 MG PO (20:01)
[2023-08-20] MEDS: Clotrimazole 1 % Cream 15 GM TUBE 1 APPL TOPICAL (20:15)
[2023-08-21 08:00] VITALS: BP 138/60; PULSE 54; RESP 18; TEMP 36.3; O2SAT 93
[2023-08-21] MEDS: HaloperidoL 5 MG TABLET PO (08:38)
[2023-08-21] MEDS: Lurasidone HCl 80 MG TABLET 160 MG PO (08:38)
--- NOTE | 2023-08-21 11:30 | HO.PSYCHPN ---
Subjective Subjective Date of Service: 08/21/23 Reason For Visit: Schizophrenia Subjective Notes: Riggins Order and Conditional Voluntary Interim History: The nursing staff reported the patient slept well she had been compliant with treatment. She remains isolative in her room coming out only for meals. On interview the patient is minimally interactive stating that she is doing fine looks internally preoccupied. Mental Status Exam Mental Status Exam Patient Appearance: Appropriate and Unkempt Patient Orientation: Person and Situation Level of Consciousness: Awake and Appropriate Patient Behavior: Guarded and Passive Mood Description: Withdrawn Affect Description: Constricted Patient Cognition Impaired: Yes Ability to Follow Directions: Good Speech Pattern: Clear Hallucinations: Auditory Delusions: Paranoid Ideation and Ideas of Reference Thought Process: Distracted and Slowed Thinking Thought Content: positive for [place] and positive for Poverty of Content Judgement: Poor Diagnostics Vital Signs (24Hr): Vital Signs - 24 hr 08/20/23 18:00 08/21/23 08:00 Temperature 96.8 F 97.4 F Pulse Rate 59 54 Respiratory Rate 16 18 Blood Pressure 116/74 138/60 Pulse Oximetry 93 93 Oxygen Delivery Method Room Air Room Air BMI result Body Mass Index 29.2 Labs 08/08/23 05:51 08/08/23 05:51 Medications Medications Current Medications Al Hydroxide/Mg Hydroxide (Magnesium Hydrox/Alum Hydrox 30 Ml Oral.Susp) 30 ml PO Q6H PRN PRN Reason: Heartburn/Nausea Clotrimazole (Clotrimazole 1 % Cream 15 Gm Tube) 1 appl TOPICAL BID JOSE GUADALUPE; Protocol Last Admin: 08/21/23 08:46 Dose: Not Given Haloperidol (Haloperidol 5 Mg Tablet) 5 mg PO Q4H PRN PRN Reason: agitation Last Admin: 08/12/23 03:31 Dose: 5 mg Haloperidol (Haloperidol 5 Mg Tablet) 5 mg PO DAILY JOSE GUADALUPE Last Admin: 08/21/23 08:38 Dose: 5 mg Haloperidol (Haloperidol 5 Mg Tablet) 15 mg PO BEDTIME JOSE GUADALUPE Last Admin: 08/20/23 20:01 Dose: 15 mg Haloperidol Decanoate (Haloperidol Decanoate 50 Mg/Ml Vial) 200 mg IM Q28D JOSE GUADALUPE Last Admin: 08/14/23 09:39 Dose: 200 mg Haloperidol Lactate (Haloperidol Lactate 5 Mg/Ml Vial) 5 mg IM BID PRN PRN Reason: REFUSAL OF PO Last Admin: 05/20/23 08:43 Dose: 5 mg Hydrocortisone (Hydrocortisone 1 % Cream 28.35 Gm Tube) 1 appl TOPICAL BID PRN; Protocol PRN Reason: Rash Last Admin: 08/20/23 09:13 Dose: 1 appl Ibuprofen (Ibuprofen 400 Mg Tablet) 400 mg PO Q4H PRN PRN Reason: Pain, Mild (Pain Scale 1-3) Last Admin: 08/05/23 01:31 Dose: 400 mg Lurasidone HCl (Lurasidone Hcl 80 Mg Tablet) 160 mg PO DAILY JOSE GUADALUPE Last Admin: 08/21/23 08:38 Dose: 160 mg Magnesium Hydroxide (Milk Of Magnesia 30 Ml Oral.Susp) 30 ml PO DAILY PRN PRN Reason: Constipation Trazodone HCl (Trazodone Hcl 25 Mg Halftab) 25 mg PO BEDTIME MRX1 PRN PRN Reason: Insomnia Allergies Allergies Allergy/AdvReac Type Severity Reaction Status Date / Time onion Allergy Unknown Unknown Verified 05/11/23 22:53 Assessment & Plan Assessment & Plan (1) Schizophrenia, chronic condition: Status: Acute Code(s): F20.9 - Schizophrenia, unspecified Assessment and Plan: 08/04/23: Continue tx. 08/05/23: Continue tx. Plan Pt is a 72-year-old female with a PMH significant for?HTN, GERD, and schizophrenia who is admitted to [facility] for increased aggression after a non compliant her psychiatric medications. Patient lives at a skilled nursing but has recently become disorganized with delusions and increased aggression after refusing to take her medications despite a Riggins order. Medical consult for admission H&P. Plan 1. Continue with Haldol at maximum dose as per court order. 2. Continue with Latuda at maximum dose as per court order. 3. We will try to coordinate with [facility] with the possibility to change her level of care to long-term hospitalization since the patient has not improved for several weeks. 4. Blood work came back within normal limits the only concern is the increased of AST and LFT Reason for continued inpatient stay Substantial Risk for: inability to function, rapid decompensation and med/psych decompensation Time Spent With Patient Time: Total time managing care of this patient today ___20_ minutes.
[2023-08-21 18:00] VITALS: BP 169/72; PULSE 61; RESP 18; TEMP 36.6; O2SAT 92
[2023-08-21] MEDS: HaloperidoL 5 MG TABLET 15 MG PO (21:48)
[2023-08-22 08:00] VITALS: BP 159/70; PULSE 60; RESP 18; TEMP 36.3; O2SAT 94
[2023-08-22] MEDS: HaloperidoL 5 MG TABLET PO (08:47)
[2023-08-22] MEDS: Lurasidone HCl 80 MG TABLET 160 MG PO (08:47)
--- NOTE | 2023-08-22 12:18 | HO.PSYCHPN ---
Subjective Subjective Date of Service: 08/22/23 Reason For Visit: Schizophrenia Subjective Notes: Riggins Order and Conditional Voluntary Interim History: The nursing staff reported the patient had being most of the time isolative in her room, she was angry because someone stole her trash she. She slept 6 hours. The social media assistant contacted [facility] nurse case management and they have not visited her yet. On interview the patient remains seclusive, paranoid at baseline mostly isolative. Chronically psychotic stating that she has bone cancer Mental Status Exam Mental Status Exam Patient Appearance: Unkempt Patient Orientation: Person and Situation Level of Consciousness: Awake Patient Behavior: Guarded and Passive Mood Description: Withdrawn Affect Description: Constricted Patient Cognition Impaired: Yes Ability to Follow Directions: Good Speech Pattern: Clear Hallucinations: Auditory Delusions: Paranoid Ideation and Ideas of Reference Thought Process: Distracted and Slowed Thinking Thought Content: positive for [place], positive for Poverty of Content and positive for Thought Blocking Judgement: Poor Diagnostics Vital Signs (24Hr): Vital Signs - 24 hr 08/21/23 18:00 08/22/23 08:00 Temperature 97.8 F 97.3 F Pulse Rate 61 60 Respiratory Rate 18 18 Blood Pressure 169/72 H 159/70 H Pulse Oximetry 92 94 Oxygen Delivery Method Room Air Room Air BMI result Body Mass Index 29.2 Labs 08/08/23 05:51 08/08/23 05:51 Medications Medications Current Medications Al Hydroxide/Mg Hydroxide (Magnesium Hydrox/Alum Hydrox 30 Ml Oral.Susp) 30 ml PO Q6H PRN PRN Reason: Heartburn/Nausea Clotrimazole (Clotrimazole 1 % Cream 15 Gm Tube) 1 appl TOPICAL BID [facility]; Protocol Last Admin: 08/22/23 08:48 Dose: Not Given Haloperidol (Haloperidol 5 Mg Tablet) 5 mg PO Q4H PRN PRN Reason: agitation Last Admin: 08/12/23 03:31 Dose: 5 mg Haloperidol (Haloperidol 5 Mg Tablet) 5 mg PO DAILY [facility] Last Admin: 08/22/23 08:47 Dose: 5 mg Haloperidol (Haloperidol 5 Mg Tablet) 15 mg PO BEDTIME [facility] Last Admin: 08/21/23 21:48 Dose: 15 mg Haloperidol Decanoate (Haloperidol Decanoate 50 Mg/Ml Vial) 200 mg IM Q28D [facility] Last Admin: 08/14/23 09:39 Dose: 200 mg Haloperidol Lactate (Haloperidol Lactate 5 Mg/Ml Vial) 5 mg IM BID PRN PRN Reason: REFUSAL OF PO Last Admin: 05/20/23 08:43 Dose: 5 mg Hydrocortisone (Hydrocortisone 1 % Cream 28.35 Gm Tube) 1 appl TOPICAL BID PRN; Protocol PRN Reason: Rash Last Admin: 08/20/23 09:13 Dose: 1 appl Ibuprofen (Ibuprofen 400 Mg Tablet) 400 mg PO Q4H PRN PRN Reason: Pain, Mild (Pain Scale 1-3) Last Admin: 08/05/23 01:31 Dose: 400 mg Lurasidone HCl (Lurasidone Hcl 80 Mg Tablet) 160 mg PO DAILY JOSE GUADALUPE Last Admin: 08/22/23 08:47 Dose: 160 mg Magnesium Hydroxide (Milk Of Magnesia 30 Ml Oral.Susp) 30 ml PO DAILY PRN PRN Reason: Constipation Trazodone HCl (Trazodone Hcl 25 Mg Halftab) 25 mg PO BEDTIME MRX1 PRN PRN Reason: Insomnia Allergies Allergies Allergy/AdvReac Type Severity Reaction Status Date / Time onion Allergy Unknown Unknown Verified 05/11/23 22:53 Assessment & Plan Assessment & Plan (1) Schizophrenia, chronic condition: Status: Acute Code(s): F20.9 - Schizophrenia, unspecified Assessment and Plan: 08/04/23: Continue tx. 08/05/23: Continue tx. Plan Pt is a 72-year-old female with a PMH significant for?HTN, GERD, and schizophrenia who is admitted to [facility] for increased aggression after a non compliant her psychiatric medications. Patient lives at a shelter but has recently become disorganized with delusions and increased aggression after refusing to take her medications despite a Riggins order. Medical consult for admission H&P. Plan 1. Continue with Haldol at maximum dose as per court order. 2. Continue with Latuda at maximum dose as per court order. 3. We will try to coordinate with [facility] with the possibility to change her level of care to long-term hospitalization since the patient has not improved for several weeks. 4. Blood work came back within normal limits the only concern is the increased of AST and LFT Reason for continued inpatient stay Substantial Risk for: inability to function, rapid decompensation and med/psych decompensation Time Spent With Patient Time: Total time managing care of this patient today __20__ minutes.
[2023-08-22 20:53] VITALS: BP 155/70; PULSE 58; RESP 18; TEMP 36.1; O2SAT 94
[2023-08-22] MEDS: HaloperidoL 5 MG TABLET 15 MG PO (21:10)
[2023-08-23] MEDS: Lurasidone HCl 80 MG TABLET 160 MG PO (09:01)
[2023-08-23] MEDS: HaloperidoL 5 MG TABLET PO (09:02)
--- NOTE | 2023-08-23 11:03 | HO.PSYCHPN ---
Subjective Subjective Date of Service: 08/23/23 Reason For Visit: Schizophrenia Subjective Notes: Riggins Order and Conditional Voluntary Interim History: The nursing staff reported no changes in her mental status, she had been compliant with treatment. The director social welfare reported that the [facility] will visit her next Sunday. On interview the patient reports that she is having cancer chronic elusive thoughts. Mental Status Exam Mental Status Exam Patient Appearance: Unkempt Patient Orientation: Person and Situation Level of Consciousness: Awake Patient Behavior: Guarded and Passive Mood Description: Withdrawn Affect Description: Blunted Patient Cognition Impaired: Yes Ability to Follow Directions: Fair Speech Pattern: Clear Hallucinations: None Delusions: Paranoid Ideation and Ideas of Reference Thought Process: Distracted and Slowed Thinking Thought Content: positive for [place], positive for [place] and positive for Thought Blocking Judgement: Poor Diagnostics Vital Signs (24Hr): Vital Signs - 24 hr 08/22/23 20:53 Temperature 97 F Pulse Rate 58 Respiratory Rate 18 Blood Pressure 155/70 H Pulse Oximetry 94 Oxygen Delivery Method Room Air BMI result Body Mass Index 29.2 Labs 08/08/23 05:51 08/08/23 05:51 Medications Medications Current Medications Al Hydroxide/Mg Hydroxide (Magnesium Hydrox/Alum Hydrox 30 Ml Oral.Susp) 30 ml PO Q6H PRN PRN Reason: Heartburn/Nausea Clotrimazole (Clotrimazole 1 % Cream 15 Gm Tube) 1 appl TOPICAL BID JOSE GUADALUPE; Protocol Last Admin: 08/23/23 09:02 Dose: Not Given Haloperidol (Haloperidol 5 Mg Tablet) 5 mg PO Q4H PRN PRN Reason: agitation Last Admin: 08/12/23 03:31 Dose: 5 mg Haloperidol (Haloperidol 5 Mg Tablet) 5 mg PO DAILY JOSE GUADALUPE Last Admin: 08/23/23 09:02 Dose: 5 mg Haloperidol (Haloperidol 5 Mg Tablet) 15 mg PO BEDTIME JOSE GUADALUPE Last Admin: 08/22/23 21:10 Dose: 15 mg Haloperidol Decanoate (Haloperidol Decanoate 50 Mg/Ml Vial) 200 mg IM Q28D JOSE GUADALUPE Last Admin: 08/14/23 09:39 Dose: 200 mg Haloperidol Lactate (Haloperidol Lactate 5 Mg/Ml Vial) 5 mg IM BID PRN PRN Reason: REFUSAL OF PO Last Admin: 05/20/23 08:43 Dose: 5 mg Hydrocortisone (Hydrocortisone 1 % Cream 28.35 Gm Tube) 1 appl TOPICAL BID PRN; Protocol PRN Reason: Rash Last Admin: 08/20/23 09:13 Dose: 1 appl Ibuprofen (Ibuprofen 400 Mg Tablet) 400 mg PO Q4H PRN PRN Reason: Pain, Mild (Pain Scale 1-3) Last Admin: 08/05/23 01:31 Dose: 400 mg Lurasidone HCl (Lurasidone Hcl 80 Mg Tablet) 160 mg PO DAILY JOSE GUADALUPE Last Admin: 08/23/23 09:01 Dose: 160 mg Magnesium Hydroxide (Milk Of Magnesia 30 Ml Oral.Susp) 30 ml PO DAILY PRN PRN Reason: Constipation Trazodone HCl (Trazodone Hcl 25 Mg Halftab) 25 mg PO BEDTIME MRX1 PRN PRN Reason: Insomnia Allergies Allergies Allergy/AdvReac Type Severity Reaction Status Date / Time onion Allergy Unknown Unknown Verified 05/11/23 22:53 Assessment & Plan Assessment & Plan (1) Schizophrenia, chronic condition: Status: Acute Code(s): F20.9 - Schizophrenia, unspecified Assessment and Plan: 08/04/23: Continue tx. 08/05/23: Continue tx. Plan Pt is a 72-year-old female with a PMH significant for?HTN, GERD, and schizophrenia who is admitted to [facility] for increased aggression after a non compliant her psychiatric medications. Patient lives at a [facility] but has recently become disorganized with delusions and increased aggression after refusing to take her medications despite a Riggins order. Medical consult for admission H&P. Plan 1. Continue with Haldol at maximum dose as per court order. 2. Continue with Latuda at maximum dose as per court order. 3. We will try to coordinate with [facility] with the possibility to change her level of care to long-term hospitalization since the patient has not improved for several weeks. 4. Blood work came back within normal limits the only concern is the increased of AST and LFT Reason for continued inpatient stay Substantial Risk for: inability to function, rapid decompensation and med/psych decompensation Time Spent With Patient Time: Total time managing care of this patient today __20__ minutes.
[2023-08-23] MEDS: HaloperidoL 5 MG TABLET 15 MG PO (21:14)
[2023-08-23 21:34] VITALS: BP 133/64; PULSE 74; RESP 18; TEMP 36.4; O2SAT 91
--- NOTE | 2023-08-24 08:29 | P.PNPSI_ITS ---
Subjective Subjective Date of Service: 08/24/23 Reason For Visit: Schizophrenia Interim History: Pt slept through the night. She is visible at times, hair unkempt. She was in her room, told this keno writer/runner she does not want to talk. She is taking medications as prescribed. no behavioral concerns. visible for meals. Review of Systems Review of Systems Chronic right knee pain Yes all other systems are reviewed and are negative and Unobtainable due to mental status Mental Status Exam Mental Status Exam Patient Appearance: Unkempt Patient Orientation: Person and Situation Level of Consciousness: Awake Patient Behavior: Guarded and Passive Mood Description: Withdrawn Affect Description: Blunted Patient Cognition Impaired: Yes Ability to Follow Directions: Fair Speech Pattern: Clear Memory Description: Remote Impaired, Immediate Impaired and Episodic Impaired Diagnostics Vital Signs (24Hr): Vital Signs - 24 hr 08/23/23 21:34 Temperature 97.5 F Pulse Rate 74 Respiratory Rate 18 Blood Pressure 133/64 Pulse Oximetry 91 L Oxygen Delivery Method Room Air BMI result Body Mass Index 29.2 Labs 08/08/23 05:51 08/08/23 05:51 Medications Medications Current Medications Al Hydroxide/Mg Hydroxide (Magnesium Hydrox/Alum Hydrox 30 Ml Oral.Susp) 30 ml PO Q6H PRN PRN Reason: Heartburn/Nausea Clotrimazole (Clotrimazole 1 % Cream 15 Gm Tube) 1 appl TOPICAL BID JOSE GUADALUPE; Protocol Last Admin: 08/23/23 21:17 Dose: Not Given Haloperidol (Haloperidol 5 Mg Tablet) 5 mg PO Q4H PRN PRN Reason: agitation Last Admin: 08/12/23 03:31 Dose: 5 mg Haloperidol (Haloperidol 5 Mg Tablet) 5 mg PO DAILY JOSE GUADALUPE Last Admin: 08/23/23 09:02 Dose: 5 mg Haloperidol (Haloperidol 5 Mg Tablet) 15 mg PO BEDTIME JOSE GUADALUPE Last Admin: 08/23/23 21:14 Dose: 15 mg Haloperidol Decanoate (Haloperidol Decanoate 50 Mg/Ml Vial) 200 mg IM Q28D JOSE GUADALUPE Last Admin: 08/14/23 09:39 Dose: 200 mg Haloperidol Lactate (Haloperidol Lactate 5 Mg/Ml Vial) 5 mg IM BID PRN PRN Reason: REFUSAL OF PO Last Admin: 05/20/23 08:43 Dose: 5 mg Hydrocortisone (Hydrocortisone 1 % Cream 28.35 Gm Tube) 1 appl TOPICAL BID PRN; Protocol PRN Reason: Rash Last Admin: 08/20/23 09:13 Dose: 1 appl Ibuprofen (Ibuprofen 400 Mg Tablet) 400 mg PO Q4H PRN PRN Reason: Pain, Mild (Pain Scale 1-3) Last Admin: 08/05/23 01:31 Dose: 400 mg Lurasidone HCl (Lurasidone Hcl 80 Mg Tablet) 160 mg PO DAILY JOSE GUADALUPE Last Admin: 08/23/23 09:01 Dose: 160 mg Magnesium Hydroxide (Milk Of Magnesia 30 Ml Oral.Susp) 30 ml PO DAILY PRN PRN Reason: Constipation Trazodone HCl (Trazodone Hcl 25 Mg Halftab) 25 mg PO BEDTIME MRX1 PRN PRN Reason: Insomnia Allergies Allergies Allergy/AdvReac Type Severity Reaction Status Date / Time onion Allergy Unknown Unknown Verified 05/11/23 22:53 Assessment & Plan Assessment & Plan (1) Schizophrenia, chronic condition: Status: Acute Code(s): F20.9 - Schizophrenia, unspecified Assessment and Plan: 08/04/23: Continue tx. 08/05/23: Continue tx. Plan Pt is a 72-year-old female with a PMH significant for?HTN, GERD, and schizophrenia who is admitted to [facility] for increased aggression after a non compliant her psychiatric medications. Patient lives at a long-term but has recently become disorganized with delusions and increased aggression after refusing to take her medications despite a Riggins order. Medical consult for admission H&P. Plan 1. Continue with Haldol at maximum dose as per court order. 2. Continue with Latuda at maximum dose as per court order. 3. We will try to coordinate with [facility] with the possibility to change her level of care to long-term hospitalization since the patient has not improved for several weeks. 4. Blood work came back within normal limits the only concern is the increased of AST and LFT 3/ continue tx. Reason for continued inpatient stay Substantial Risk for: inability to function Time Spent With Patient Time: Total time managing care of this patient today ____ minutes.
[2023-08-24] MEDS: Lurasidone HCl 80 MG TABLET 160 MG PO (09:27)
[2023-08-24] MEDS: HaloperidoL 5 MG TABLET PO (09:27)
[2023-08-24 18:00] VITALS: BP 146/68; PULSE 67; RESP 16; TEMP 36.1; O2SAT 91
[2023-08-24] MEDS: HaloperidoL 5 MG TABLET 15 MG PO (20:01)
[2023-08-25 07:50] VITALS: BP 126/59; PULSE 66; RESP 18; TEMP 36.1; O2SAT 94
[2023-08-25] MEDS: Lurasidone HCl 80 MG TABLET 160 MG PO (08:55)
[2023-08-25] MEDS: HaloperidoL 5 MG TABLET PO (08:55)
--- NOTE | 2023-08-25 10:28 | P.PNPSI_ITS ---
Subjective Subjective Date of Service: 08/25/23 Reason For Visit: Schizophrenia Interim History: lying in bed, apparently asleep. rousable to voice. states she is just tired and wants to rest. no questions, complaints, or requests. per staff, stable, no change in presentation. Mental Status Exam Mental Status Exam Patient Appearance: Unkempt Patient Orientation: Person and Situation Level of Consciousness: Awake Patient Behavior: Guarded and Passive Mood Description: Withdrawn Affect Description: Blunted Patient Cognition Impaired: Yes Ability to Follow Directions: Fair Speech Pattern: Clear Memory Description: Remote Impaired, Immediate Impaired and Episodic Impaired Diagnostics Vital Signs (24Hr): Vital Signs - 24 hr 08/24/23 18:00 Temperature 97 F Pulse Rate 67 Respiratory Rate 16 Blood Pressure 146/68 H Pulse Oximetry 91 L Oxygen Delivery Method Room Air BMI result Body Mass Index 29.2 Labs 08/08/23 05:51 08/08/23 05:51 Medications Medications Current Medications Al Hydroxide/Mg Hydroxide (Magnesium Hydrox/Alum Hydrox 30 Ml Oral.Susp) 30 ml PO Q6H PRN PRN Reason: Heartburn/Nausea Clotrimazole (Clotrimazole 1 % Cream 15 Gm Tube) 1 appl TOPICAL BID JOSE GUADALUPE; Protocol Last Admin: 08/25/23 08:57 Dose: Not Given Haloperidol (Haloperidol 5 Mg Tablet) 5 mg PO Q4H PRN PRN Reason: agitation Last Admin: 08/12/23 03:31 Dose: 5 mg Haloperidol (Haloperidol 5 Mg Tablet) 5 mg PO DAILY JOSE GUADALUPE Last Admin: 08/25/23 08:55 Dose: 5 mg Haloperidol (Haloperidol 5 Mg Tablet) 15 mg PO BEDTIME [facility] Last Admin: 08/24/23 20:01 Dose: 15 mg Haloperidol Decanoate (Haloperidol Decanoate 50 Mg/Ml Vial) 200 mg IM Q28D JOSE GUADALUPE Last Admin: 08/14/23 09:39 Dose: 200 mg Haloperidol Lactate (Haloperidol Lactate 5 Mg/Ml Vial) 5 mg IM BID PRN PRN Reason: REFUSAL OF PO Last Admin: 05/20/23 08:43 Dose: 5 mg Hydrocortisone (Hydrocortisone 1 % Cream 28.35 Gm Tube) 1 appl TOPICAL BID PRN; Protocol PRN Reason: Rash Last Admin: 08/20/23 09:13 Dose: 1 appl Ibuprofen (Ibuprofen 400 Mg Tablet) 400 mg PO Q4H PRN PRN Reason: Pain, Mild (Pain Scale 1-3) Last Admin: 08/05/23 01:31 Dose: 400 mg Lurasidone HCl (Lurasidone Hcl 80 Mg Tablet) 160 mg PO DAILY JOSE GUADALUPE Last Admin: 08/25/23 08:55 Dose: 160 mg Magnesium Hydroxide (Milk Of Magnesia 30 Ml Oral.Susp) 30 ml PO DAILY PRN PRN Reason: Constipation Trazodone HCl (Trazodone Hcl 25 Mg Halftab) 25 mg PO BEDTIME MRX1 PRN PRN Reason: Insomnia Allergies Allergies Allergy/AdvReac Type Severity Reaction Status Date / Time onion Allergy Unknown Unknown Verified 05/11/23 22:53 Assessment & Plan Assessment & Plan (1) Schizophrenia, chronic condition: Status: Acute Code(s): F20.9 - Schizophrenia, unspecified Assessment and Plan: 08/04/23: Continue tx. 08/05/23: Continue tx. Plan Pt is a 72-year-old female with a PMH significant for?HTN, GERD, and schizophrenia who is admitted to [facility] for increased aggression after a non compliant her psychiatric medications. Patient lives at a custodial but has recently become disorganized with delusions and increased aggression after refusing to take her medications despite a Riggins order. Medical consult for admission H&P. Plan 1. Continue with Haldol at maximum dose as per court order. 2. Continue with Latuda at maximum dose as per court order. 3. We will try to coordinate with [facility] with the possibility to change her level of care to long-term hospitalization since the patient has not improved for several weeks. 4. Blood work came back within normal limits the only concern is the increased of AST and LFT 08/23 continue tx. 3: stable presentation. appears depressed. states she is tired and wants to rest, otherwise no questions, requests, or complaints. continue current mgmt. Reason for continued inpatient stay Substantial Risk for: inability to function and rapid decompensation Time Spent With Patient Time: Total time managing care of this patient today ____ minutes.
[2023-08-25 18:00] VITALS: BP 133/63; PULSE 64; RESP 16; TEMP 36.1; O2SAT 90
[2023-08-25] MEDS: HaloperidoL 5 MG TABLET 15 MG PO (21:03)
[2023-08-26 07:45] VITALS: BP 132/68; PULSE 66; RESP 18; TEMP 36.4; O2SAT 94
[2023-08-26] MEDS: HaloperidoL 5 MG TABLET PO (08:40)
[2023-08-26] MEDS: Lurasidone HCl 80 MG TABLET 160 MG PO (08:40)
[2023-08-26] MEDS: Clotrimazole 1 % Cream 15 GM TUBE 1 APPL TOPICAL ×2 (08:41→20:46)
--- NOTE | 2023-08-26 10:49 | P.PNPSI_ITS ---
Subjective Subjective Date of Service: 08/26/23 Reason For Visit: Schizophrenia Interim History: found sleeping in her bed late morning. initially slow, says she is just tired, not well. asks for MD to just let me rest. then becomes agitated and verbally aggressive, reacting as if MD had been criticizing her for being in bed for a rest. per staff, no change in presentation. Mental Status Exam Mental Status Exam Patient Appearance: Unkempt Patient Orientation: Person and Situation Level of Consciousness: Awake Patient Behavior: Guarded and Passive Mood Description: Withdrawn Affect Description: Hostile and Labile Patient Cognition Impaired: Yes Ability to Follow Directions: Fair Speech Pattern: Clear Memory Description: Remote Impaired, Immediate Impaired and Episodic Impaired Diagnostics Vital Signs (24Hr): Vital Signs - 24 hr 08/25/23 18:00 08/26/23 07:45 Temperature 96.9 F 97.6 F Pulse Rate 64 66 Respiratory Rate 16 18 Blood Pressure 133/63 132/68 Pulse Oximetry 90 L 94 Oxygen Delivery Method Room Air Room Air BMI result Body Mass Index 29.2 Labs 08/08/23 05:51 08/08/23 05:51 Medications Medications Current Medications Al Hydroxide/Mg Hydroxide (Magnesium Hydrox/Alum Hydrox 30 Ml Oral.Susp) 30 ml PO Q6H PRN PRN Reason: Heartburn/Nausea Clotrimazole (Clotrimazole 1 % Cream 15 Gm Tube) 1 appl TOPICAL BID [facility]SE [facility]ALU[facility]; Protocol Last Admin: 08/26/23 08:41 Dose: 1 appl Haloperidol (Haloperidol 5 Mg Tablet) 5 mg PO Q4H PRN PRN Reason: agitation Last Admin: 08/12/23 03:31 Dose: 5 mg Haloperidol (Haloperidol 5 Mg Tablet) 5 mg PO DAILY [facility] Last Admin: 08/26/23 08:40 Dose: 5 mg Haloperidol (Haloperidol 5 Mg Tablet) 15 mg PO BEDTIME [facility] Last Admin: 08/25/23 21:03 Dose: 15 mg Haloperidol Decanoate (Haloperidol Decanoate 50 Mg/Ml Vial) 200 mg IM Q28D [facility] Last Admin: 08/14/23 09:39 Dose: 200 mg Haloperidol Lactate (Haloperidol Lactate 5 Mg/Ml Vial) 5 mg IM BID PRN PRN Reason: REFUSAL OF PO Last Admin: 05/20/23 08:43 Dose: 5 mg Hydrocortisone (Hydrocortisone 1 % Cream 28.35 Gm Tube) 1 appl TOPICAL BID PRN; Protocol PRN Reason: Rash Last Admin: 08/20/23 09:13 Dose: 1 appl Ibuprofen (Ibuprofen 400 Mg Tablet) 400 mg PO Q4H PRN PRN Reason: Pain, Mild (Pain Scale 1-3) Last Admin: 08/05/23 01:31 Dose: 400 mg Lurasidone HCl (Lurasidone Hcl 80 Mg Tablet) 160 mg PO DAILY [facility] Last Admin: 08/26/23 08:40 Dose: 160 mg Magnesium Hydroxide (Milk Of Magnesia 30 Ml Oral.Susp) 30 ml PO DAILY PRN PRN Reason: Constipation Trazodone HCl (Trazodone Hcl 25 Mg Halftab) 25 mg PO BEDTIME MRX1 PRN PRN Reason: Insomnia Allergies Allergies Allergy/AdvReac Type Severity Reaction Status Date / Time onion Allergy Unknown Unknown Verified 05/11/23 22:53 Assessment & Plan Assessment & Plan (1) Schizophrenia, chronic condition: Status: Acute Code(s): F20.9 - Schizophrenia, unspecified Assessment and Plan: 08/04/23: Continue tx. 08/05/23: Continue tx. Plan Pt is a 72-year-old female with a PMH significant for?HTN, GERD, and schizophrenia who is admitted to [facility] for increased aggression after a non compliant her psychiatric medications. Patient lives at a detention but has recently become disorganized with delusions and increased aggression after refusing to take her medications despite a [facility] order. Medical consult for admission H&P. Plan 1. Continue with Haldol at maximum dose as per court order. 2. Continue with Latuda at maximum dose as per court order. 3. We will try to coordinate with [facility] with the possibility to change her level of care to long-term hospitalization since the patient has not improved for several weeks. 4. Blood work came back within normal limits the only concern is the increased of AST and LFT / continue tx. 32: stable presentation. appears depressed. states she is tired and wants to rest, otherwise no questions, requests, or complaints. continue current mgmt. 3/3: initially same presentation as yesterday, then suddenly agitated, angry, and verbally aggressive. continue current mgmt. Reason for continued inpatient stay Substantial Risk for: inability to function Time Spent With Patient Time: Total time managing care of this patient today ____ minutes.
[2023-08-26 18:00] VITALS: BP 163/79; PULSE 78; RESP 16; TEMP 35.7; O2SAT 93
[2023-08-26] MEDS: HaloperidoL 5 MG TABLET 15 MG PO (20:44)
[2023-08-27 06:00] VITALS: BP 128/62; PULSE 67; TEMP 35.8; O2SAT 93
[2023-08-27] MEDS: Lurasidone HCl 80 MG TABLET 160 MG PO (08:45)
[2023-08-27] MEDS: HaloperidoL 5 MG TABLET PO (08:45)
--- NOTE | 2023-08-27 12:14 | HO.PSYCHPN ---
Subjective Subjective Date of Service: 08/27/23 Reason For Visit: Schizophrenia Subjective Notes: Conditional Voluntary Interim History: The nursing staff reported the patient had been medication compliant no changes in her mental status isolative in her room. The occupational therapist reported that she was showered with help and apparently she disclosed on delusive thinking stated that she was cursed. On interview the patient denies new symptoms with chronic delusions of being sick. She went to one group today AM for a short time. Mental Status Exam Mental Status Exam Patient Appearance: Unkempt Patient Orientation: Person Level of Consciousness: Awake Patient Behavior: Guarded and Passive Mood Description: Withdrawn Affect Description: Constricted Patient Cognition Impaired: Yes Ability to Follow Directions: Good Speech Pattern: Clear Hallucinations: Auditory Delusions: Paranoid Ideation and Ideas of Reference Thought Process: Distracted and Slowed Thinking Thought Content: positive for [place] and positive for Poverty of Content Judgement: Fair Diagnostics Vital Signs (24Hr): Vital Signs - 24 hr 08/26/23 18:00 08/27/23 06:00 Temperature 96.3 F L 96.4 F L Pulse Rate 78 67 Respiratory Rate 16 Blood Pressure 163/79 H 128/62 Pulse Oximetry 93 93 Oxygen Delivery Method Room Air Room Air BMI result Body Mass Index 29.2 Labs 08/08/23 05:51 08/08/23 05:51 Medications Medications Current Medications Al Hydroxide/Mg Hydroxide (Magnesium Hydrox/Alum Hydrox 30 Ml Oral.Susp) 30 ml PO Q6H PRN PRN Reason: Heartburn/Nausea Clotrimazole (Clotrimazole 1 % Cream 15 Gm Tube) 1 appl TOPICAL BID [facility]; Protocol Last Admin: 08/27/23 08:43 Dose: Not Given Haloperidol (Haloperidol 5 Mg Tablet) 5 mg PO Q4H PRN PRN Reason: agitation Last Admin: 08/12/23 03:31 Dose: 5 mg Haloperidol (Haloperidol 5 Mg Tablet) 5 mg PO DAILY [facility] Last Admin: 08/27/23 08:45 Dose: 5 mg Haloperidol (Haloperidol 5 Mg Tablet) 15 mg PO BEDTIME JOSE GUADALU[facility] Last Admin: 08/26/23 20:44 Dose: 15 mg Haloperidol Decanoate (Haloperidol Decanoate 50 Mg/Ml Vial) 200 mg IM Q28D [facility] Last Admin: 08/14/23 09:39 Dose: 200 mg Haloperidol Lactate (Haloperidol Lactate 5 Mg/Ml Vial) 5 mg IM BID PRN PRN Reason: REFUSAL OF PO Last Admin: 05/20/23 08:43 Dose: 5 mg Hydrocortisone (Hydrocortisone 1 % Cream 28.35 Gm Tube) 1 appl TOPICAL BID PRN; Protocol PRN Reason: Rash Last Admin: 08/20/23 09:13 Dose: 1 appl Ibuprofen (Ibuprofen 400 Mg Tablet) 400 mg PO Q4H PRN PRN Reason: Pain, Mild (Pain Scale 1-3) Last Admin: 08/05/23 01:31 Dose: 400 mg Lurasidone HCl (Lurasidone Hcl 80 Mg Tablet) 160 mg PO DAILY JOSE [facility]ADALU[facility] Last Admin: 08/27/23 08:45 Dose: 160 mg Magnesium Hydroxide (Milk Of Magnesia 30 Ml Oral.Susp) 30 ml PO DAILY PRN PRN Reason: Constipation Trazodone HCl (Trazodone Hcl 25 Mg Halftab) 25 mg PO BEDTIME MRX1 PRN PRN Reason: Insomnia Allergies Allergies Allergy/AdvReac Type Severity Reaction Status Date / Time onion Allergy Unknown Unknown Verified 05/11/23 22:53 Assessment & Plan Assessment & Plan (1) Schizophrenia, chronic condition: Status: Acute Code(s): F20.9 - Schizophrenia, unspecified Assessment and Plan: 08/04/23: Continue tx. 08/05/23: Continue tx. Plan Pt is a 72-year-old female with a PMH significant for?HTN, GERD, and schizophrenia who is admitted to [facility] for increased aggression after a non compliant her psychiatric medications. Patient lives at a retirement but has recently become disorganized with delusions and increased aggression after refusing to take her medications despite a [facility] order. Medical consult for admission H&P. Plan 1. Continue with Haldol at maximum dose as per court order. 2. Continue with Latuda at maximum dose as per court order. 3. We will try to coordinate with [facility] with the possibility to change her level of care to long-term hospitalization since the patient has not improved for several weeks. 4. Blood work came back within normal limits the only concern is the increased of AST and LFT Reason for continued inpatient stay Substantial Risk for: inability to function, rapid decompensation and med/psych decompensation Time Spent With Patient Time: Total time managing care of this patient today ___20_ minutes.
[2023-08-27 18:00] VITALS: BP 148/70; PULSE 66; RESP 16; TEMP 36.2; O2SAT 92
[2023-08-27] MEDS: HaloperidoL 5 MG TABLET 15 MG PO (21:03)
[2023-08-27] MEDS: Clotrimazole 1 % Cream 15 GM TUBE 1 APPL TOPICAL (21:04)
[2023-08-28 06:00] VITALS: BP 123/66; PULSE 52; RESP 16; TEMP 36.7; O2SAT 92
--- NOTE | 2023-08-28 08:19 | P.PNPSI_ITS ---
Subjective Subjective Date of Service: 08/28/23 Reason For Visit: Schizophrenia Subjective Notes: [facility] Order and Conditional Voluntary Interim History: The nursing staff reported the patient had been seclusive in her room, compliant with treatment. Yesterday she attended for a very short time to group. On interview the patient denies new symptoms looks internally preoccupied, chronically psychotic. Mental Status Exam Mental Status Exam Patient Appearance: Appropriate and Unkempt Patient Orientation: Person and Situation Level of Consciousness: Awake and Appropriate Patient Behavior: Guarded and Passive Mood Description: Withdrawn Affect Description: Blunted Patient Cognition Impaired: Yes Ability to Follow Directions: Good Speech Pattern: Clear Hallucinations: None Delusions: Paranoid Ideation and Ideas of Reference Thought Process: Illogical, Distracted and Slowed Thinking Thought Content: positive for [place], positive for Poverty of Content and positive for Thought Blocking Judgement: Poor Diagnostics Vital Signs (24Hr): Vital Signs - 24 hr 08/27/23 18:00 Temperature 97.2 F Pulse Rate 66 Respiratory Rate 16 Blood Pressure 148/70 H Pulse Oximetry 92 Oxygen Delivery Method Room Air BMI result Body Mass Index 29.2 Labs 08/08/23 05:51 08/08/23 05:51 Medications Medications Current Medications Al Hydroxide/Mg Hydroxide (Magnesium Hydrox/Alum Hydrox 30 Ml Oral.Susp) 30 ml PO Q6H PRN PRN Reason: Heartburn/Nausea Clotrimazole (Clotrimazole 1 % Cream 15 Gm Tube) 1 appl TOPICAL BID JOSE GUADALU[facility]; Protocol Last Admin: 08/27/23 21:04 Dose: 1 appl Haloperidol (Haloperidol 5 Mg Tablet) 5 mg PO Q4H PRN PRN Reason: agitation Last Admin: 08/12/23 03:31 Dose: 5 mg Haloperidol (Haloperidol 5 Mg Tablet) 5 mg PO DAILY [facility] Last Admin: 08/27/23 08:45 Dose: 5 mg Haloperidol (Haloperidol 5 Mg Tablet) 15 mg PO BEDTIME [facility]ALU[facility] Last Admin: 08/27/23 21:03 Dose: 15 mg Haloperidol Decanoate (Haloperidol Decanoate 50 Mg/Ml Vial) 200 mg IM Q28D [facility] Last Admin: 08/14/23 09:39 Dose: 200 mg Haloperidol Lactate (Haloperidol Lactate 5 Mg/Ml Vial) 5 mg IM BID PRN PRN Reason: REFUSAL OF PO Last Admin: 05/20/23 08:43 Dose: 5 mg Hydrocortisone (Hydrocortisone 1 % Cream 28.35 Gm Tube) 1 appl TOPICAL BID PRN; Protocol PRN Reason: Rash Last Admin: 08/20/23 09:13 Dose: 1 appl Ibuprofen (Ibuprofen 400 Mg Tablet) 400 mg PO Q4H PRN PRN Reason: Pain, Mild (Pain Scale 1-3) Last Admin: 08/05/23 01:31 Dose: 400 mg Lurasidone HCl (Lurasidone Hcl 80 Mg Tablet) 160 mg PO DAILY [facility] GUADALU[facility] Last Admin: 08/27/23 08:45 Dose: 160 mg Magnesium Hydroxide (Milk Of Magnesia 30 Ml Oral.Susp) 30 ml PO DAILY PRN PRN Reason: Constipation Trazodone HCl (Trazodone Hcl 25 Mg Halftab) 25 mg PO BEDTIME MRX1 PRN PRN Reason: Insomnia Allergies Allergies Allergy/AdvReac Type Severity Reaction Status Date / Time onion Allergy Unknown Unknown Verified 05/11/23 22:53 Assessment & Plan Assessment & Plan (1) Schizophrenia, chronic condition: Status: Acute Code(s): F20.9 - Schizophrenia, unspecified Assessment and Plan: 08/04/23: Continue tx. 08/05/23: Continue tx. Plan Pt is a 72-year-old female with a PMH significant for?HTN, GERD, and schizophrenia who is admitted to [facility] for increased aggression after a non compliant her psychiatric medications. Patient lives at a skilled nursing but has recently become disorganized with delusions and increased aggression after refusing to take her medications despite a [facility] order. Medical consult for admission H&P. Plan 1. Continue with Haldol at maximum dose as per court order. 2. Continue with Latuda at maximum dose as per court order. 3. We will try to coordinate with [facility] with the possibility to change her level of care to long-term hospitalization since the patient has not improved for several weeks. 4. Blood work came back within normal limits the only concern is the increased of AST and LFT Reason for continued inpatient stay Substantial Risk for: inability to function, rapid decompensation and med/psych decompensation Time Spent With Patient Time: Total time managing care of this patient today _20___ minutes.
[2023-08-28] MEDS: Lurasidone HCl 80 MG TABLET 160 MG PO (08:54)
[2023-08-28] MEDS: HaloperidoL 5 MG TABLET PO (08:54)
[2023-08-28] MEDS: HaloperidoL 5 MG TABLET 15 MG PO (20:04)
[2023-08-28 20:34] VITALS: BP 155/70; PULSE 55; RESP 16; TEMP 36.5; O2SAT 95
[2023-08-29 07:55] VITALS: BP 132/66; PULSE 64; RESP 16; TEMP 36.7; O2SAT 96
[2023-08-29] MEDS: HaloperidoL 5 MG TABLET PO (09:02)
[2023-08-29] MEDS: Lurasidone HCl 80 MG TABLET 160 MG PO (09:02)
--- NOTE | 2023-08-29 13:07 | HO.PSYCHPN ---
Subjective Subjective Date of Service: 08/29/23 Reason For Visit: Schizophrenia Subjective Notes: Conditional Voluntary Interim History: The nursing staff reported the patient has been isolative, most of the time on her bed. The social media sr strategy manager reported the imaging [facility] visited her and she was fixed on some delusions stating that she has been here for 7 years and the mcc does not exist that is her baseline. The occupational therapist reported the patient was more engaged and even apologized to staff. There is the possibility that we can discharge her September 09. On interview the patient denies new symptoms seclusive but a little more brighter affect. Mental Status Exam Mental Status Exam Patient Appearance: Appropriate Patient Orientation: Person and Situation Level of Consciousness: Awake and Appropriate Patient Behavior: Guarded and Passive Mood Description: Withdrawn Affect Description: Blunted Patient Cognition Impaired: Yes Ability to Follow Directions: Good Speech Pattern: Clear Hallucinations: None Delusions: Paranoid Ideation, Present and Ideas of Reference Thought Process: Incoherent, Distracted and Evasive Thought Content: positive for [place] and positive for Loose Associations Judgement: Poor Diagnostics Vital Signs (24Hr): Vital Signs - 24 hr 08/28/23 20:34 08/29/23 07:55 Temperature 97.7 F 98.1 F Pulse Rate 55 64 Respiratory Rate 16 16 Blood Pressure 155/70 H 132/66 Pulse Oximetry 95 96 Oxygen Delivery Method Room Air Room Air BMI result Body Mass Index 29.2 Labs 08/08/23 05:51 08/08/23 05:51 Medications Medications Current Medications Al Hydroxide/Mg Hydroxide (Magnesium Hydrox/Alum Hydrox 30 Ml Oral.Susp) 30 ml PO Q6H PRN PRN Reason: Heartburn/Nausea Clotrimazole (Clotrimazole 1 % Cream 15 Gm Tube) 1 appl TOPICAL BID [facility]ADALU[facility]; Protocol Last Admin: 08/29/23 09:05 Dose: Not Given Haloperidol (Haloperidol 5 Mg Tablet) 5 mg PO Q4H PRN PRN Reason: agitation Last Admin: 08/12/23 03:31 Dose: 5 mg Haloperidol (Haloperidol 5 Mg Tablet) 5 mg PO DAILY [facility] Last Admin: 08/29/23 09:02 Dose: 5 mg Haloperidol (Haloperidol 5 Mg Tablet) 15 mg PO BEDTIME [facility]ADALU[facility] Last Admin: 08/28/23 20:04 Dose: 15 mg Haloperidol Decanoate (Haloperidol Decanoate 50 Mg/Ml Vial) 200 mg IM Q28D [facility] Last Admin: 08/14/23 09:39 Dose: 200 mg Haloperidol Lactate (Haloperidol Lactate 5 Mg/Ml Vial) 5 mg IM BID PRN PRN Reason: REFUSAL OF PO Last Admin: 05/20/23 08:43 Dose: 5 mg Hydrocortisone (Hydrocortisone 1 % Cream 28.35 Gm Tube) 1 appl TOPICAL BID PRN; Protocol PRN Reason: Rash Last Admin: 08/20/23 09:13 Dose: 1 appl Ibuprofen (Ibuprofen 400 Mg Tablet) 400 mg PO Q4H PRN PRN Reason: Pain, Mild (Pain Scale 1-3) Last Admin: 08/05/23 01:31 Dose: 400 mg Lurasidone HCl (Lurasidone Hcl 80 Mg Tablet) 160 mg PO DAILY [facility] Last Admin: 08/29/23 09:02 Dose: 160 mg Magnesium Hydroxide (Milk Of Magnesia 30 Ml Oral.Susp) 30 ml PO DAILY PRN PRN Reason: Constipation Trazodone HCl (Trazodone Hcl 25 Mg Halftab) 25 mg PO BEDTIME MRX1 PRN PRN Reason: Insomnia Allergies Allergies Allergy/AdvReac Type Severity Reaction Status Date / Time onion Allergy Unknown Unknown Verified 05/11/23 22:53 Assessment & Plan Assessment & Plan (1) Schizophrenia, chronic condition: Status: Acute Code(s): F20.9 - Schizophrenia, unspecified Assessment and Plan: 08/04/23: Continue tx. 08/05/23: Continue tx. Plan Pt is a 72-year-old female with a PMH significant for?HTN, GERD, and schizophrenia who is admitted to [facility] for increased aggression after a non compliant her psychiatric medications. Patient lives at a [facility]cc but has recently become disorganized with delusions and increased aggression after refusing to take her medications despite a [facility] order. Medical consult for admission H&P. Plan 1. Continue with Haldol at maximum dose as per court order. 2. Continue with Latuda at maximum dose as per court order. 3. We will try to coordinate with [facility] with the possibility to change her level of care to long-term hospitalization since the patient has not improved for several weeks. 4. Blood work came back within normal limits the only concern is the increased of AST and LFT Reason for continued inpatient stay Substantial Risk for: inability to function, rapid decompensation and med/psych decompensation Time Spent With Patient Time: Total time managing care of this patient today _20___ minutes.
[2023-08-29] MEDS: Clotrimazole 1 % Cream 15 GM TUBE 1 APPL TOPICAL (20:56)
[2023-08-29] MEDS: HaloperidoL 5 MG TABLET 15 MG PO (20:56)
[2023-08-29 21:00] VITALS: BP 152/68; PULSE 60; RESP 16; TEMP 36.4; O2SAT 93
[2023-08-30] MEDS: HaloperidoL 5 MG TABLET PO ×2 (04:11→09:01)
[2023-08-30 07:00] VITALS: BMI 28.5
[2023-08-30 08:05] VITALS: BP 154/62; PULSE 66; RESP 18; TEMP 36.6; O2SAT 94
[2023-08-30] MEDS: Lurasidone HCl 80 MG TABLET 160 MG PO (09:01)
--- NOTE | 2023-08-30 12:51 | P.PNPSI_ITS ---
Subjective Subjective Date of Service: 08/30/23 Reason For Visit: Schizophrenia Subjective Notes: [facility] Order and Conditional Voluntary Interim History: The nursing staff reported no changes in her mental status seclusive in her room most of the time she is out only for meals. On interview the patient remains chronically delusional regarding having medical problems. Refused any new interventions. Mental Status Exam Mental Status Exam Patient Appearance: Appropriate and Unkempt Patient Orientation: Person and Situation Level of Consciousness: Awake and Appropriate Patient Behavior: Guarded and Passive Mood Description: Suspicious Affect Description: Blunted Patient Cognition Impaired: Yes Ability to Follow Directions: Fair Speech Pattern: Clear Hallucinations: None Delusions: Paranoid Ideation and Ideas of Reference Thought Process: Distracted and Slowed Thinking Thought Content: positive for [place] and positive for Poverty of Content Judgement: Poor Diagnostics Vital Signs (24Hr): Vital Signs - 24 hr 08/29/23 21:00 Temperature 97.6 F Pulse Rate 60 Respiratory Rate 16 Blood Pressure 152/68 H Pulse Oximetry 93 Oxygen Delivery Method Room Air BMI result Body Mass Index 29.2 Labs 08/08/23 05:51 08/08/23 05:51 Medications Medications Current Medications Al Hydroxide/Mg Hydroxide (Magnesium Hydrox/Alum Hydrox 30 Ml Oral.Susp) 30 ml PO Q6H PRN PRN Reason: Heartburn/Nausea Clotrimazole (Clotrimazole 1 % Cream 15 Gm Tube) 1 appl TOPICAL BID [facility] GUADALU[facility]; Protocol Last Admin: 08/30/23 09:04 Dose: Not Given Haloperidol (Haloperidol 5 Mg Tablet) 5 mg PO Q4H PRN PRN Reason: agitation Last Admin: 08/30/23 04:11 Dose: 5 mg Haloperidol (Haloperidol 5 Mg Tablet) 5 mg PO DAILY [facility] Last Admin: 08/30/23 09:01 Dose: 5 mg Haloperidol (Haloperidol 5 Mg Tablet) 15 mg PO BEDTIME [facility] Last Admin: 08/29/23 20:56 Dose: 15 mg Haloperidol Decanoate (Haloperidol Decanoate 50 Mg/Ml Vial) 200 mg IM Q28D [facility] Last Admin: 08/14/23 09:39 Dose: 200 mg Haloperidol Lactate (Haloperidol Lactate 5 Mg/Ml Vial) 5 mg IM BID PRN PRN Reason: REFUSAL OF PO Last Admin: 05/20/23 08:43 Dose: 5 mg Hydrocortisone (Hydrocortisone 1 % Cream 28.35 Gm Tube) 1 appl TOPICAL BID PRN; Protocol PRN Reason: Rash Last Admin: 08/20/23 09:13 Dose: 1 appl Ibuprofen (Ibuprofen 400 Mg Tablet) 400 mg PO Q4H PRN PRN Reason: Pain, Mild (Pain Scale 1-3) Last Admin: 08/05/23 01:31 Dose: 400 mg Lurasidone HCl (Lurasidone Hcl 80 Mg Tablet) 160 mg PO DAILY [facility] Last Admin: 08/30/23 09:01 Dose: 160 mg Magnesium Hydroxide (Milk Of Magnesia 30 Ml Oral.Susp) 30 ml PO DAILY PRN PRN Reason: Constipation Trazodone HCl (Trazodone Hcl 25 Mg Halftab) 25 mg PO BEDTIME MRX1 PRN PRN Reason: Insomnia Allergies Allergies Allergy/AdvReac Type Severity Reaction Status Date / Time onion Allergy Unknown Unknown Verified 05/11/23 22:53 Assessment & Plan Assessment & Plan (1) Schizophrenia, chronic condition: Status: Acute Code(s): F20.9 - Schizophrenia, unspecified Assessment and Plan: 08/04/23: Continue tx. 08/05/23: Continue tx. Plan Pt is a 72-year-old female with a PMH significant for?HTN, GERD, and schizophrenia who is admitted to [facility] for increased aggression after a non compliant her psychiatric medications. Patient lives at a custodial but has recently become disorganized with delusions and increased aggression after refusing to take her medications despite a [facility]ins order. Medical consult for admission H&P. Plan 1. Continue with Haldol at maximum dose as per court order. 2. Continue with Latuda at maximum dose as per court order. 3. We will try to coordinate with [facility] with the possibility to change her level of care to long-term hospitalization since the patient has not improved for several weeks. 4. Blood work came back within normal limits the only concern is the increased of AST and LFT Reason for continued inpatient stay Substantial Risk for: inability to function, rapid decompensation and med/psych decompensation Time Spent With Patient Time: Total time managing care of this patient today __20__ minutes.
[2023-08-30] MEDS: HaloperidoL 5 MG TABLET 15 MG PO (20:48)
[2023-08-30] MEDS: Clotrimazole 1 % Cream 15 GM TUBE 1 APPL TOPICAL (20:49)
[2023-08-31 08:19] VITALS: BP 145/65; PULSE 86; RESP 17; TEMP 36.4; O2SAT 93
[2023-08-31] MEDS: HaloperidoL 5 MG TABLET PO (08:22)
[2023-08-31] MEDS: Lurasidone HCl 80 MG TABLET 160 MG PO (08:22)
--- NOTE | 2023-08-31 18:05 | P.PNPSI_ITS ---
Subjective Subjective Date of Service: 08/31/23 Reason For Visit: Schizophrenia Interim History: Met with patient; discussed with team; reviewed chart Patient remains isolated to her room all of the day. On approach she says she is sort of okay. She denies any complaints or requests. Difficult with which to engage Mental Status Exam Mental Status Exam Patient Appearance: Appropriate and Unkempt Patient Orientation: Person and Situation Level of Consciousness: Awake and Appropriate Patient Behavior: Guarded and Passive Mood Description: Suspicious Affect Description: Blunted Patient Cognition Impaired: Yes Ability to Follow Directions: Fair Speech Pattern: Clear Hallucinations: None Delusions: Paranoid Ideation and Ideas of Reference Thought Process: Distracted and Slowed Thinking Thought Content: positive for [place] and positive for Poverty of Content Judgement: Poor Diagnostics Vital Signs (24Hr): Vital Signs - 24 hr 08/31/23 08:19 Temperature 97.5 F Pulse Rate 86 Respiratory Rate 17 Blood Pressure 145/65 H Pulse Oximetry 93 Oxygen Delivery Method Room Air BMI result Body Mass Index 28.5 Labs 08/08/23 05:51 08/08/23 05:51 Medications Medications Current Medications Al Hydroxide/Mg Hydroxide (Magnesium Hydrox/Alum Hydrox 30 Ml Oral.Susp) 30 ml PO Q6H PRN PRN Reason: Heartburn/Nausea Clotrimazole (Clotrimazole 1 % Cream 15 Gm Tube) 1 appl TOPICAL BID JOSE GUADALUPE; Protocol Last Admin: 08/31/23 08:24 Dose: Not Given Haloperidol (Haloperidol 5 Mg Tablet) 5 mg PO Q4H PRN PRN Reason: agitation Last Admin: 08/30/23 04:11 Dose: 5 mg Haloperidol (Haloperidol 5 Mg Tablet) 5 mg PO DAILY JOSE GUADALUPE Last Admin: 08/31/23 08:22 Dose: 5 mg Haloperidol (Haloperidol 5 Mg Tablet) 15 mg PO BEDTIME JOSE GUADALUPE Last Admin: 08/30/23 20:48 Dose: 15 mg Haloperidol Decanoate (Haloperidol Decanoate 50 Mg/Ml Vial) 200 mg IM Q28D JOSE GUADALUPE Last Admin: 08/14/23 09:39 Dose: 200 mg Haloperidol Lactate (Haloperidol Lactate 5 Mg/Ml Vial) 5 mg IM BID PRN PRN Reason: REFUSAL OF PO Last Admin: 05/20/23 08:43 Dose: 5 mg Hydrocortisone (Hydrocortisone 1 % Cream 28.35 Gm Tube) 1 appl TOPICAL BID PRN; Protocol PRN Reason: Rash Last Admin: 08/20/23 09:13 Dose: 1 appl Ibuprofen (Ibuprofen 400 Mg Tablet) 400 mg PO Q4H PRN PRN Reason: Pain, Mild (Pain Scale 1-3) Last Admin: 08/05/23 01:31 Dose: 400 mg Lurasidone HCl (Lurasidone Hcl 80 Mg Tablet) 160 mg PO DAILY JOSE GUADALUPE Last Admin: 08/31/23 08:22 Dose: 160 mg Magnesium Hydroxide (Milk Of Magnesia 30 Ml Oral.Susp) 30 ml PO DAILY PRN PRN Reason: Constipation Trazodone HCl (Trazodone Hcl 25 Mg Halftab) 25 mg PO BEDTIME MRX1 PRN PRN Reason: Insomnia Allergies Allergies Allergy/AdvReac Type Severity Reaction Status Date / Time onion Allergy Unknown Unknown Verified 05/11/23 22:53 Assessment & Plan Assessment & Plan (1) Schizophrenia, chronic condition: Status: Acute Code(s): F20.9 - Schizophrenia, unspecified Assessment and Plan: 08/04/23: Continue tx. 08/05/23: Continue tx. Plan Pt is a 72-year-old female with a PMH significant for?HTN, GERD, and schizophrenia who is admitted to [facility] for increased aggression after a non compliant her psychiatric medications. Patient [place] [facility] but has recently become disorganized with delusions and increased aggression after refusing to take her medications despite a [facility] order. Medical consult for admission H&P. 08/31 continue current treatment plan Plan 1. Continue with Haldol at maximum dose as per court order. 2. Continue with Latuda at maximum dose as per court order. 3. We will try to coordinate with [facility] with the possibility to change her level of care to long-term hospitalization since the patient has not improved for several weeks. 4. Blood work came back within normal limits the only concern is the increased of AST and LFT Patient educated on: diagnosis Informed Consent: does not understand Reason for continued inpatient stay Substantial Risk for: inability to function Time Spent With Patient Time: Total time managing care of this patient today ____ minutes.
[2023-08-31] MEDS: HaloperidoL 5 MG TABLET 15 MG PO (20:00)
[2023-08-31 20:21] VITALS: BP 158/69; PULSE 56; RESP 16; TEMP 36.1; O2SAT 95
[2023-09-01] MEDS: HaloperidoL 5 MG TABLET PO ×2 (01:44→09:27)
[2023-09-01 08:29] VITALS: BP 118/61; PULSE 80; RESP 18; TEMP 36.1; O2SAT 94
[2023-09-01] MEDS: Lurasidone HCl 80 MG TABLET 160 MG PO (09:28)
--- NOTE | 2023-09-01 17:45 | P.PNPSI_ITS ---
Subjective Subjective Date of Service: 09/01/23 Reason For Visit: Schizophrenia Interim History: Met with patient; discussed with team Patient in bed, awake, alert but difficult with which to engage. She says she is all right; denies any complaints and has no requests Mental Status Exam Mental Status Exam Patient Appearance: Appropriate and Unkempt Patient Orientation: Person and Situation Level of Consciousness: Awake and Appropriate Patient Behavior: Guarded and Passive Mood Description: Suspicious Affect Description: Blunted Patient Cognition Impaired: Yes Ability to Follow Directions: Fair Speech Pattern: Clear Memory Description: Remote Impaired, Immediate Impaired and Episodic Impaired Diagnostics Vital Signs (24Hr): Vital Signs - 24 hr 08/31/23 20:21 09/01/23 08:29 Temperature 97 F 97.0 F Pulse Rate 56 80 Respiratory Rate 16 18 Blood Pressure 158/69 H 118/61 Pulse Oximetry 95 94 Oxygen Delivery Method Room Air Room Air BMI result Body Mass Index 28.5 Labs 08/08/23 05:51 08/08/23 05:51 Medications Medications Current Medications Al Hydroxide/Mg Hydroxide (Magnesium Hydrox/Alum Hydrox 30 Ml Oral.Susp) 30 ml PO Q6H PRN PRN Reason: Heartburn/Nausea Clotrimazole (Clotrimazole 1 % Cream 15 Gm Tube) 1 appl TOPICAL BID JOSE GUADALUPE; Protocol Last Admin: 09/01/23 09:30 Dose: Not Given Haloperidol (Haloperidol 5 Mg Tablet) 5 mg PO Q4H PRN PRN Reason: agitation Last Admin: 09/01/23 01:44 Dose: 5 mg Haloperidol (Haloperidol 5 Mg Tablet) 5 mg PO DAILY JOSE GUADALUPE Last Admin: 09/01/23 09:27 Dose: 5 mg Haloperidol (Haloperidol 5 Mg Tablet) 15 mg PO BEDTIME JOSE GUADALUPE Last Admin: 08/31/23 20:00 Dose: 15 mg Haloperidol Decanoate (Haloperidol Decanoate 50 Mg/Ml Vial) 200 mg IM Q28D JOSE GUADALUPE Last Admin: 08/14/23 09:39 Dose: 200 mg Haloperidol Lactate (Haloperidol Lactate 5 Mg/Ml Vial) 5 mg IM BID PRN PRN Reason: REFUSAL OF PO Last Admin: 05/20/23 08:43 Dose: 5 mg Hydrocortisone (Hydrocortisone 1 % Cream 28.35 Gm Tube) 1 appl TOPICAL BID PRN; Protocol PRN Reason: Rash Last Admin: 08/20/23 09:13 Dose: 1 appl Ibuprofen (Ibuprofen 400 Mg Tablet) 400 mg PO Q4H PRN PRN Reason: Pain, Mild (Pain Scale 1-3) Last Admin: 08/05/23 01:31 Dose: 400 mg Lurasidone HCl (Lurasidone Hcl 80 Mg Tablet) 160 mg PO DAILY JOSE GUADALUPE Last Admin: 09/01/23 09:28 Dose: 160 mg Magnesium Hydroxide (Milk Of Magnesia 30 Ml Oral.Susp) 30 ml PO DAILY PRN PRN Reason: Constipation Trazodone HCl (Trazodone Hcl 25 Mg Halftab) 25 mg PO BEDTIME MRX1 PRN PRN Reason: Insomnia Allergies Allergies Allergy/AdvReac Type Severity Reaction Status Date / Time onion Allergy Unknown Unknown Verified 05/11/23 22:53 Assessment & Plan Assessment & Plan (1) Schizophrenia, chronic condition: Status: Acute Code(s): F20.9 - Schizophrenia, unspecified Assessment and Plan: 08/04/23: Continue tx. 08/05/23: Continue tx. Plan Pt is a 72-year-old female with a PMH significant for?HTN, GERD, and schizophrenia who is admitted to [facility] for increased aggression after a non compliant her psychiatric medications. Patient lives at a residential but has recently become disorganized with delusions and increased aggression after refusing to take her medications despite a [facility] order. Medical consult for admission H&P. 08/31 continue current treatment plan Plan 1. Continue with Haldol at maximum dose as per court order. 2. Continue with Latuda at maximum dose as per court order. 3. We will try to coordinate with [facility] with the possibility to change her level of care to long-term hospitalization since the patient has not improved for several weeks. 4. Blood work came back within normal limits the only concern is the increased of AST and LFT Reason for continued inpatient stay Substantial Risk for: inability to function Time Spent With Patient Time: Total time managing care of this patient today ____ minutes.
[2023-09-01] MEDS: HaloperidoL 5 MG TABLET 15 MG PO (20:00)
[2023-09-01 20:33] VITALS: BP 172/77; PULSE 66; RESP 19; TEMP 36.6; O2SAT 93
[2023-09-02 08:10] VITALS: RESP 16
[2023-09-02] MEDS: Lurasidone HCl 80 MG TABLET 160 MG PO (08:40)
[2023-09-02] MEDS: HaloperidoL 5 MG TABLET PO (08:41)
[2023-09-02 18:16] VITALS: BP 136/63; PULSE 69; RESP 16; TEMP 36.6; O2SAT 94
[2023-09-02] MEDS: HaloperidoL 5 MG TABLET 15 MG PO (20:12)
[2023-09-02] MEDS: Clotrimazole 1 % Cream 15 GM TUBE 1 APPL TOPICAL (20:16)
--- NOTE | 2023-09-03 08:59 | HO.PSYCHPN ---
Subjective Subjective Date of Service: 09/03/23 Reason For Visit: Schizophrenia Interim History: Pt walking from group room to her room. This quality analyst/technical writer approached her to meet with her, she said hi, kept walking, no eye contact not interest in engaging. She has been taking medications as prescribed. No aggression towards self or others. Review of Systems Review of Systems Chronic right knee pain Yes all other systems are reviewed and are negative and Unobtainable due to mental status Mental Status Exam Mental Status Exam Patient Appearance: Appropriate and Unkempt Patient Orientation: Person and Situation Level of Consciousness: Awake and Appropriate Patient Behavior: Guarded and Passive Mood Description: Suspicious Affect Description: Blunted Patient Cognition Impaired: Yes Ability to Follow Directions: Fair Speech Pattern: Clear Memory Description: Remote Impaired, Immediate Impaired and Episodic Impaired Diagnostics Vital Signs (24Hr): Vital Signs - 24 hr 09/02/23 18:16 Temperature 97.9 F Pulse Rate 69 Respiratory Rate 16 Blood Pressure 136/63 Pulse Oximetry 94 Oxygen Delivery Method Room Air BMI result Body Mass Index 28.5 Labs 08/08/23 05:51 08/08/23 05:51 Medications Medications Current Medications Al Hydroxide/Mg Hydroxide (Magnesium Hydrox/Alum Hydrox 30 Ml Oral.Susp) 30 ml PO Q6H PRN PRN Reason: Heartburn/Nausea Clotrimazole (Clotrimazole 1 % Cream 15 Gm Tube) 1 appl TOPICAL BID JOSE GUADALUPE; Protocol Last Admin: 09/02/23 20:16 Dose: 1 appl Haloperidol (Haloperidol 5 Mg Tablet) 5 mg PO Q4H PRN PRN Reason: agitation Last Admin: 09/01/23 01:44 Dose: 5 mg Haloperidol (Haloperidol 5 Mg Tablet) 5 mg PO DAILY JOSE GUADALUPE Last Admin: 09/02/23 08:41 Dose: 5 mg Haloperidol (Haloperidol 5 Mg Tablet) 15 mg PO BEDTIME JOSE GUADALUPE Last Admin: 09/02/23 20:12 Dose: 15 mg Haloperidol Decanoate (Haloperidol Decanoate 50 Mg/Ml Vial) 200 mg IM Q28D JOSE GUADALUPE Last Admin: 08/14/23 09:39 Dose: 200 mg Haloperidol Lactate (Haloperidol Lactate 5 Mg/Ml Vial) 5 mg IM BID PRN PRN Reason: REFUSAL OF PO Last Admin: 05/20/23 08:43 Dose: 5 mg Hydrocortisone (Hydrocortisone 1 % Cream 28.35 Gm Tube) 1 appl TOPICAL BID PRN; Protocol PRN Reason: Rash Last Admin: 08/20/23 09:13 Dose: 1 appl Ibuprofen (Ibuprofen 400 Mg Tablet) 400 mg PO Q4H PRN PRN Reason: Pain, Mild (Pain Scale 1-3) Last Admin: 08/05/23 01:31 Dose: 400 mg Lurasidone HCl (Lurasidone Hcl 80 Mg Tablet) 160 mg PO DAILY JOSE GUADALUPE Last Admin: 09/02/23 08:40 Dose: 160 mg Magnesium Hydroxide (Milk Of Magnesia 30 Ml Oral.Susp) 30 ml PO DAILY PRN PRN Reason: Constipation Trazodone HCl (Trazodone Hcl 25 Mg Halftab) 25 mg PO BEDTIME MRX1 PRN PRN Reason: Insomnia Allergies Allergies Allergy/AdvReac Type Severity Reaction Status Date / Time onion Allergy Unknown Unknown Verified 05/11/23 22:53 Assessment & Plan Assessment & Plan (1) Schizophrenia, chronic condition: Status: Acute Code(s): F20.9 - Schizophrenia, unspecified Assessment and Plan: 08/04/23: Continue tx. 08/05/23: Continue tx. Plan Pt is a 72-year-old female with a PMH significant for?HTN, GERD, and schizophrenia who is admitted to [facility] for increased aggression after a non compliant her psychiatric medications. Patient lives at a longterm but has recently become disorganized with delusions and increased aggression after refusing to take her medications despite a [facility] order. Medical consult for admission H&P. 08/31 continue current treatment plan 09/02 continue tx. plan for d/c this week. Plan 1. Continue with Haldol at maximum dose as per court order. 2. Continue with Latuda at maximum dose as per court order. 3. We will try to coordinate with [facility] with the possibility to change her level of care to long-term hospitalization since the patient has not improved for several weeks. 4. Blood work came back within normal limits the only concern is the increased of AST and LFT Reason for continued inpatient stay Substantial Risk for: inability to function Time Spent With Patient Time: Total time managing care of this patient today ____ minutes.
[2023-09-03 09:42] VITALS: BP 123/81; PULSE 66; RESP 15; TEMP 36.4; O2SAT 92
[2023-09-03] MEDS: Lurasidone HCl 80 MG TABLET 160 MG PO (09:43)
[2023-09-03] MEDS: HaloperidoL 5 MG TABLET PO (09:43)
--- NOTE | 2023-09-03 17:04 | P.PNPSI_ITS ---
Subjective Subjective Date of Service: 09/02/23 Reason For Visit: Schizophrenia Interim History: Late entry note for patient seen on 09/01 Met with patient; discussed with team Patient out of her room today, sitting in the milieu. She said she is out to watch some TV. To which fiction and nonfiction writer prose expressed encouragement Mental Status Exam Mental Status Exam Patient Appearance: Appropriate and Unkempt Patient Orientation: Person and Place Level of Consciousness: Awake and Appropriate Patient Behavior: Guarded and Passive Mood Description: Suspicious Affect Description: Blunted Patient Cognition Impaired: Yes Ability to Follow Directions: Fair Speech Pattern: Clear Memory Description: Remote Impaired, Immediate Impaired and Episodic Impaired Diagnostics Vital Signs (24Hr): Vital Signs - 24 hr 09/02/23 18:16 09/03/23 09:42 Temperature 97.9 F 97.5 F Pulse Rate 69 66 Respiratory Rate 16 15 Blood Pressure 136/63 123/81 Pulse Oximetry 94 92 Oxygen Delivery Method Room Air Room Air BMI result Body Mass Index 28.5 Labs 08/08/23 05:51 08/08/23 05:51 Medications Medications Current Medications Al Hydroxide/Mg Hydroxide (Magnesium Hydrox/Alum Hydrox 30 Ml Oral.Susp) 30 ml PO Q6H PRN PRN Reason: Heartburn/Nausea Clotrimazole (Clotrimazole 1 % Cream 15 Gm Tube) 1 appl TOPICAL BID JOSE GUADALUPE; Protocol Last Admin: 09/03/23 09:44 Dose: Not Given Haloperidol (Haloperidol 5 Mg Tablet) 5 mg PO Q4H PRN PRN Reason: agitation Last Admin: 09/01/23 01:44 Dose: 5 mg Haloperidol (Haloperidol 5 Mg Tablet) 5 mg PO DAILY JOSE GUADALUPE Last Admin: 09/03/23 09:43 Dose: 5 mg Haloperidol (Haloperidol 5 Mg Tablet) 15 mg PO BEDTIME JOSE GUADALUPE Last Admin: 09/02/23 20:12 Dose: 15 mg Haloperidol Decanoate (Haloperidol Decanoate 50 Mg/Ml Vial) 200 mg IM Q28D JOSE GUADALUPE Last Admin: 08/14/23 09:39 Dose: 200 mg Haloperidol Lactate (Haloperidol Lactate 5 Mg/Ml Vial) 5 mg IM BID PRN PRN Reason: REFUSAL OF PO Last Admin: 05/20/23 08:43 Dose: 5 mg Hydrocortisone (Hydrocortisone 1 % Cream 28.35 Gm Tube) 1 appl TOPICAL BID PRN; Protocol PRN Reason: Rash Last Admin: 08/20/23 09:13 Dose: 1 appl Ibuprofen (Ibuprofen 400 Mg Tablet) 400 mg PO Q4H PRN PRN Reason: Pain, Mild (Pain Scale 1-3) Last Admin: 08/05/23 01:31 Dose: 400 mg Lurasidone HCl (Lurasidone Hcl 80 Mg Tablet) 160 mg PO DAILY JOSE GUADALUPE Last Admin: 09/03/23 09:43 Dose: 160 mg Magnesium Hydroxide (Milk Of Magnesia 30 Ml Oral.Susp) 30 ml PO DAILY PRN PRN Reason: Constipation Trazodone HCl (Trazodone Hcl 25 Mg Halftab) 25 mg PO BEDTIME MRX1 PRN PRN Reason: Insomnia Allergies Allergies Allergy/AdvReac Type Severity Reaction Status Date / Time onion Allergy Unknown Unknown Verified 05/11/23 22:53 Assessment & Plan Assessment & Plan (1) Schizophrenia, chronic condition: Status: Acute Code(s): F20.9 - Schizophrenia, unspecified Assessment and Plan: 08/04/23: Continue tx. 08/05/23: Continue tx. Plan Pt is a 72-year-old female with a PMH significant for?HTN, GERD, and schizophrenia who is admitted to [facility] for increased aggression after a non compliant her psychiatric medications. Patient lives at a residential but has recently become disorganized with delusions and increased aggression after refusing to take her medications despite a [facility] order. Medical consult for admission H&P. 08/31 continue current treatment plan Plan 1. Continue with Haldol at maximum dose as per court order. 2. Continue with Latuda at maximum dose as per court order. 3. We will try to coordinate with [facility] with the possibility to change her level of care to long-term hospitalization since the patient has not improved for several weeks. 4. Blood work came back within normal limits the only concern is the increased of AST and LFT Reason for continued inpatient stay Substantial Risk for: inability to function Time Spent With Patient Time: Total time managing care of this patient today ____ minutes.
[2023-09-03 19:30] VITALS: BP 144/66; PULSE 56; RESP 18; TEMP 36.9; O2SAT 94
[2023-09-03] MEDS: HaloperidoL 5 MG TABLET 15 MG PO (20:33)
[2023-09-03] MEDS: Clotrimazole 1 % Cream 15 GM TUBE 1 APPL TOPICAL (20:36)
[2023-09-03] MEDS: traZODone HCL 25 MG HALFTAB PO ×2 (20:36→23:27)
[2023-09-04] MEDS: Lurasidone HCl 80 MG TABLET 160 MG PO (08:21)
[2023-09-04] MEDS: HaloperidoL 5 MG TABLET PO (08:21)
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
[2023-09-04 19:30] VITALS: BP 123/61; PULSE 67; RESP 18; TEMP 36.3; O2SAT 94
[2023-09-04] MEDS: HaloperidoL 5 MG TABLET 15 MG PO (20:25)
[2023-09-04] MEDS: Clotrimazole 1 % Cream 15 GM TUBE 1 APPL TOPICAL (20:26)
[2023-09-04] MEDS: traZODone HCL 25 MG HALFTAB PO (20:29)
[2023-09-05 08:00] VITALS: BP 126/60; PULSE 62; RESP 18; TEMP 36.4; O2SAT 95
[2023-09-05] MEDS: Lurasidone HCl 80 MG TABLET 160 MG PO (08:13)
[2023-09-05] MEDS: HaloperidoL 5 MG TABLET PO (08:13)
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
[2023-09-05] MEDS: HaloperidoL 5 MG TABLET 15 MG PO (19:50)
[2023-09-05 20:24] VITALS: BP 111/60; PULSE 52; RESP 17; O2SAT 95
[2023-09-05] MEDS: traZODone HCL 25 MG HALFTAB PO ×2 (20:47→23:17)
[2023-09-06 07:50] VITALS: BP 124/56; PULSE 65; RESP 16; TEMP 36.8; O2SAT 94
[2023-09-06] MEDS: HaloperidoL 5 MG TABLET PO (08:19)
[2023-09-06] MEDS: Lurasidone HCl 80 MG TABLET 160 MG PO (08:19)
[2023-09-06 13:13] VITALS: BMI 29.2
[2023-09-06 18:00] VITALS: BP 125/65; PULSE 50; RESP 16; TEMP 35.9; O2SAT 93
[2023-09-06] MEDS: traZODone HCL 25 MG HALFTAB PO ×2 (20:22→23:01)
--- NOTE | 2023-09-06 21:35 | P.PNPSI_ITS ---
Subjective Subjective Date of Service: 09/06/23 Reason For Visit: Schizophrenia Subjective Notes: Conditional Voluntary Interim History: Pt sleeping through the night. No SI/HI. Minimally interactive with peers or staff. Dismissive at times. She is taking medications as prescribed. No side effects noted or reported. Medication Compliance: Yes Diagnostics Vital Signs (24Hr): Vital Signs - 24 hr 09/06/23 07:50 Temperature 98.2 F Pulse Rate 65 Respiratory Rate 16 Blood Pressure 124/56 L Pulse Oximetry 94 Oxygen Delivery Method Room Air BMI result Body Mass Index 29.2 Labs 08/08/23 05:51 08/08/23 05:51 Medications Medications Current Medications Al Hydroxide/Mg Hydroxide (Magnesium Hydrox/Alum Hydrox 30 Ml Oral.Susp) 30 ml PO Q6H PRN PRN Reason: Heartburn/Nausea Clotrimazole (Clotrimazole 1 % Cream 15 Gm Tube) 1 appl TOPICAL BID JOSE GUADALUPE; Protocol Last Admin: 09/06/23 08:19 Dose: Not Given Haloperidol (Haloperidol 5 Mg Tablet) 5 mg PO Q4H PRN PRN Reason: agitation Last Admin: 09/01/23 01:44 Dose: 5 mg Haloperidol (Haloperidol 5 Mg Tablet) 5 mg PO DAILY [facility] Last Admin: 09/06/23 08:19 Dose: 5 mg Haloperidol (Haloperidol 5 Mg Tablet) 15 mg PO BEDTIME [facility] Last Admin: 09/05/23 19:50 Dose: 15 mg Haloperidol Decanoate (Haloperidol Decanoate 50 Mg/Ml Vial) 200 mg IM Q28D [facility] Last Admin: 08/14/23 09:39 Dose: 200 mg Haloperidol Lactate (Haloperidol Lactate 5 Mg/Ml Vial) 5 mg IM BID PRN PRN Reason: REFUSAL OF PO Last Admin: 05/20/23 08:43 Dose: 5 mg Hydrocortisone (Hydrocortisone 1 % Cream 28.35 Gm Tube) 1 appl TOPICAL BID PRN; Protocol PRN Reason: Rash Last Admin: 08/20/23 09:13 Dose: 1 appl Ibuprofen (Ibuprofen 400 Mg Tablet) 400 mg PO Q4H PRN PRN Reason: Pain, Mild (Pain Scale 1-3) Last Admin: 08/05/23 01:31 Dose: 400 mg Lurasidone HCl (Lurasidone Hcl 80 Mg Tablet) 160 mg PO DAILY [facility] Last Admin: 09/06/23 08:19 Dose: 160 mg Magnesium Hydroxide (Milk Of Magnesia 30 Ml Oral.Susp) 30 ml PO DAILY PRN PRN Reason: Constipation Trazodone HCl (Trazodone Hcl 25 Mg Halftab) 25 mg PO BEDTIME MRX1 PRN PRN Reason: Insomnia Last Admin: 09/06/23 20:22 Dose: 25 mg Allergies Allergies Allergy/AdvReac Type Severity Reaction Status Date / Time onion Allergy Unknown Unknown Verified 05/11/23 22:53 Assessment & Plan Assessment & Plan (1) Schizophrenia, chronic condition: Status: Acute Code(s): F20.9 - Schizophrenia, unspecified Assessment and Plan: 08/04/23: Continue tx. 08/05/23: Continue tx. Plan Pt is a 72-year-old female with a PMH significant for?HTN, GERD, and schizophrenia who is admitted to [facility] for increased aggression after a non compliant her psychiatric medications. [facility] but has recently become disorganized with delusions and increased aggression after refusing to take her medications despite a Riggins order. Medical consult for admission H&P. 08/31 continue current treatment plan Plan 09/04 continue tx. 09/05 continue tx. Reason for continued inpatient stay Substantial Risk for: inability to function Time Spent With Patient Time: Total time managing care of this patient today ____ minutes.
[2023-09-06] MEDS: HaloperidoL 5 MG TABLET 15 MG PO (23:00)
[2023-09-07 06:00] VITALS: BP 158/71; PULSE 55; RESP 16; TEMP 36.5; O2SAT 94
[2023-09-07] MEDS: Lurasidone HCl 80 MG TABLET 160 MG PO (08:43)
[2023-09-07] MEDS: HaloperidoL 5 MG TABLET PO (08:43)
--- NOTE | 2023-09-07 15:59 | HO.PSYCHPN ---
Subjective Subjective Date of Service: 09/07/23 Reason For Visit: Schizophrenia Interim History: Pt sleeping through the night. No SI/HI. Minimally interactive with peers or staff. Dismissive at times. She is taking medications as prescribed. No side effects noted or reported. Review of Systems Review of Systems Chronic right knee pain Yes all other systems are reviewed and are negative and Unobtainable due to mental status Mental Status Exam Mental Status Exam Patient Appearance: Appropriate and Unkempt Patient Orientation: Person and Place Level of Consciousness: Awake and Appropriate Patient Behavior: Guarded and Passive Mood Description: Suspicious Affect Description: Blunted Patient Cognition Impaired: Yes Ability to Follow Directions: Fair Speech Pattern: Clear Memory Description: Remote Impaired, Immediate Impaired and Episodic Impaired Diagnostics Vital Signs (24Hr): Vital Signs - 24 hr 09/06/23 18:00 09/07/23 06:00 Temperature 96.7 F L 97.7 F Pulse Rate 50 55 Respiratory Rate 16 16 Blood Pressure 125/65 158/71 H Pulse Oximetry 93 94 Oxygen Delivery Method Room Air BMI result Body Mass Index 29.2 Labs 08/08/23 05:51 08/08/23 05:51 Medications Medications Current Medications Al Hydroxide/Mg Hydroxide (Magnesium Hydrox/Alum Hydrox 30 Ml Oral.Susp) 30 ml PO Q6H PRN PRN Reason: Heartburn/Nausea Clotrimazole (Clotrimazole 1 % Cream 15 Gm Tube) 1 appl TOPICAL BID JOSE GUADALUPE; Protocol Last Admin: 09/07/23 08:44 Dose: Not Given Haloperidol (Haloperidol 5 Mg Tablet) 5 mg PO Q4H PRN PRN Reason: agitation Last Admin: 09/01/23 01:44 Dose: 5 mg Haloperidol (Haloperidol 5 Mg Tablet) 5 mg PO DAILY JOSE GUADALUPE Last Admin: 09/07/23 08:43 Dose: 5 mg Haloperidol (Haloperidol 5 Mg Tablet) 15 mg PO BEDTIME JOSE GUADALUPE Last Admin: 09/06/23 23:00 Dose: 15 mg Haloperidol Decanoate (Haloperidol Decanoate 50 Mg/Ml Vial) 200 mg IM Q28D JOSE GUADALUPE Last Admin: 08/14/23 09:39 Dose: 200 mg Haloperidol Lactate (Haloperidol Lactate 5 Mg/Ml Vial) 5 mg IM BID PRN PRN Reason: REFUSAL OF PO Last Admin: 05/20/23 08:43 Dose: 5 mg Hydrocortisone (Hydrocortisone 1 % Cream 28.35 Gm Tube) 1 appl TOPICAL BID PRN; Protocol PRN Reason: Rash Last Admin: 08/20/23 09:13 Dose: 1 appl Ibuprofen (Ibuprofen 400 Mg Tablet) 400 mg PO Q4H PRN PRN Reason: Pain, Mild (Pain Scale 1-3) Last Admin: 08/05/23 01:31 Dose: 400 mg Lurasidone HCl (Lurasidone Hcl 80 Mg Tablet) 160 mg PO DAILY JOSE GUADALUPE Last Admin: 09/07/23 08:43 Dose: 160 mg Magnesium Hydroxide (Milk Of Magnesia 30 Ml Oral.Susp) 30 ml PO DAILY PRN PRN Reason: Constipation Trazodone HCl (Trazodone Hcl 25 Mg Halftab) 25 mg PO BEDTIME MRX1 PRN PRN Reason: Insomnia Last Admin: 09/06/23 23:01 Dose: 25 mg Allergies Allergies Allergy/AdvReac Type Severity Reaction Status Date / Time onion Allergy Unknown Unknown Verified 05/11/23 22:53 Assessment & Plan Assessment & Plan (1) Schizophrenia, chronic condition: Status: Acute Code(s): F20.9 - Schizophrenia, unspecified Assessment and Plan: 08/04/23: Continue tx. 08/05/23: Continue tx. Plan Pt is a 72-year-old female with a PMH significant for?HTN, GERD, and schizophrenia who is admitted to [facility] for increased aggression after a non compliant her psychiatric medications. Patient lives at a skilled nursing but has recently become disorganized with delusions and increased aggression after refusing to take her medications despite a Riggins order. Medical consult for admission H&P. Plan 09/04 continue tx. 09/05 continue tx. 09/06 continue tx. d/c next week. Reason for continued inpatient stay Substantial Risk for: inability to function Time Spent With Patient Time: Total time managing care of this patient today ____ minutes.
[2023-09-07 18:00] VITALS: BP 133/64; PULSE 62; RESP 18; TEMP 36.3; O2SAT 90
[2023-09-07] MEDS: HaloperidoL 5 MG TABLET 15 MG PO (20:44)
[2023-09-07] MEDS: traZODone HCL 50 MG TABLET PO (21:05)
[2023-09-08 07:50] VITALS: BP 126/60; PULSE 54; RESP 18; TEMP 36.6; O2SAT 99
[2023-09-08] MEDS: Lurasidone HCl 80 MG TABLET 160 MG PO (08:11)
[2023-09-08] MEDS: HaloperidoL 5 MG TABLET PO (08:11)
--- NOTE | 2023-09-08 11:08 | P.PNPSI_ITS ---
Subjective Subjective Date of Service: 09/08/23 Reason For Visit: Schizophrenia Subjective Notes: Conditional Voluntary Interim History: Patient was seen and discussed in rounds today. Records and plans were reviewed. She continues to be isolative. Discharge is being planned for 09/10. She is med compliant. No complaints or side effects. Minimal interaction others. No changes were made today Review of Systems Review of Systems Yes Unobtainable due to mental status Mental Status Exam Mental Status Exam Narrative: In today's visit she is alert and oriented to place and person. Soft-spoken. Little eye contact. No acute signs of psychosis. Cognitive impairments present. No dangerous behaviors. Judgment is marginal. Diagnostics Vital Signs (24Hr): Vital Signs - 24 hr 09/07/23 18:00 09/08/23 07:50 Temperature 97.4 F 97.9 F Pulse Rate 62 54 Respiratory Rate 18 18 Blood Pressure 133/64 126/60 Pulse Oximetry 90 L 99 Oxygen Delivery Method Room Air Room Air BMI result Body Mass Index 29.2 Labs 08/08/23 05:51 08/08/23 05:51 Medications Medications Current Medications Al Hydroxide/Mg Hydroxide (Magnesium Hydrox/Alum Hydrox 30 Ml Oral.Susp) 30 ml PO Q6H PRN PRN Reason: Heartburn/Nausea Clotrimazole (Clotrimazole 1 % Cream 15 Gm Tube) 1 appl TOPICAL BID JOSE GUADALUPE; Protocol Last Admin: 09/08/23 08:31 Dose: Not Given Haloperidol (Haloperidol 5 Mg Tablet) 5 mg PO Q4H PRN PRN Reason: agitation Last Admin: 09/01/23 01:44 Dose: 5 mg Haloperidol (Haloperidol 5 Mg Tablet) 5 mg PO DAILY JOSE GUADALUPE Last Admin: 09/08/23 08:11 Dose: 5 mg Haloperidol (Haloperidol 5 Mg Tablet) 15 mg PO BEDTIME JOSE GUADALUPE Last Admin: 09/07/23 20:44 Dose: 15 mg Haloperidol Decanoate (Haloperidol Decanoate 50 Mg/Ml Vial) 200 mg IM Q28D JOSE GUADALUPE Last Admin: 08/14/23 09:39 Dose: 200 mg Haloperidol Lactate (Haloperidol Lactate 5 Mg/Ml Vial) 5 mg IM BID PRN PRN Reason: REFUSAL OF PO Last Admin: 05/20/23 08:43 Dose: 5 mg Hydrocortisone (Hydrocortisone 1 % Cream 28.35 Gm Tube) 1 appl TOPICAL BID PRN; Protocol PRN Reason: Rash Last Admin: 08/20/23 09:13 Dose: 1 appl Ibuprofen (Ibuprofen 400 Mg Tablet) 400 mg PO Q4H PRN PRN Reason: Pain, Mild (Pain Scale 1-3) Last Admin: 08/05/23 01:31 Dose: 400 mg Lurasidone HCl (Lurasidone Hcl 80 Mg Tablet) 160 mg PO DAILY JOSE GUADALUPE Last Admin: 09/08/23 08:11 Dose: 160 mg Magnesium Hydroxide (Milk Of Magnesia 30 Ml Oral.Susp) 30 ml PO DAILY PRN PRN Reason: Constipation Trazodone HCl (Trazodone Hcl 25 Mg Halftab) 25 mg PO BEDTIME MRX1 PRN PRN Reason: Insomnia Last Admin: 09/06/23 23:01 Dose: 25 mg Allergies Allergies Allergy/AdvReac Type Severity Reaction Status Date / Time onion Allergy Unknown Unknown Verified 05/11/23 22:53 Assessment & Plan Assessment & Plan (1) Schizophrenia, chronic condition: Status: Acute Code(s): F20.9 - Schizophrenia, unspecified Assessment and Plan: 08/04/23: Continue tx. 08/05/23: Continue tx. Plan Pt is a 72-year-old female with a PMH significant for?HTN, GERD, and schizophrenia who is admitted to [facility] for increased aggression after a non compliant her psychiatric medications. Patient lives at a [facility]way but has recently become disorganized with delusions and increased aggression after refusing to take her medications despite a [facility]ins order. Medical consult for admission H&P. Plan 09/04 continue tx. 09/05 continue tx. 09/06 continue tx. d/c next week. 09/08/2023: Continue current regimen and plans Reason for continued inpatient stay Substantial Risk for: inability to function and med/psych decompensation Time Spent With Patient Time: Total time managing care of this patient today ____ minutes.
[2023-09-08 18:00] VITALS: BP 143/67; PULSE 54; RESP 16; TEMP 36.2; O2SAT 92
[2023-09-08] MEDS: HaloperidoL 5 MG TABLET 15 MG PO (19:58)
[2023-09-08] MEDS: traZODone HCL 25 MG HALFTAB PO (19:59)
[2023-09-09] MEDS: Lurasidone HCl 80 MG TABLET 160 MG PO (08:29)
[2023-09-09] MEDS: HaloperidoL 5 MG TABLET PO (08:29)
[2023-09-09 08:46] VITALS: BP 122/58; PULSE 63; RESP 16; TEMP 36.2; O2SAT 94
--- NOTE | 2023-09-09 10:56 | P.PNPSI_ITS ---
Subjective Subjective Date of Service: 09/09/23 Reason For Visit: Schizophrenia Subjective Notes: Conditional Voluntary Interim History: Patient was seen and discussed in rounds today. Records and plans were reviewed. She has been stable and is preparing for discharge tomorrow to [facility]. She is med compliant, eating and sleeping adequately. No complaints or side effects. No changes were made today Review of Systems Review of Systems Yes all other systems are reviewed and are negative Mental Status Exam Mental Status Exam Narrative: In today's visit she is alert and oriented to place and person. Soft-spoken. Little eye contact. No acute signs of psychosis. Cognitive impairments present. No dangerous behaviors. Judgment is marginal. Diagnostics Vital Signs (24Hr): Vital Signs - 24 hr 09/08/23 18:00 09/09/23 08:46 Temperature 97.2 F 97.1 F Pulse Rate 54 63 Respiratory Rate 16 16 Blood Pressure 143/67 H 122/58 L Pulse Oximetry 92 94 Oxygen Delivery Method Room Air Room Air BMI result Body Mass Index 29.2 Labs 08/08/23 05:51 08/08/23 05:51 Medications Medications Current Medications Al Hydroxide/Mg Hydroxide (Magnesium Hydrox/Alum Hydrox 30 Ml Oral.Susp) 30 ml PO Q6H PRN PRN Reason: Heartburn/Nausea Clotrimazole (Clotrimazole 1 % Cream 15 Gm Tube) 1 appl TOPICAL BID JOSE GUADALUPE; Protocol Last Admin: 09/09/23 08:31 Dose: Not Given Haloperidol (Haloperidol 5 Mg Tablet) 5 mg PO Q4H PRN PRN Reason: agitation Last Admin: 09/01/23 01:44 Dose: 5 mg Haloperidol (Haloperidol 5 Mg Tablet) 5 mg PO DAILY JOSE GUADALUPE Last Admin: 09/09/23 08:29 Dose: 5 mg Haloperidol (Haloperidol 5 Mg Tablet) 15 mg PO BEDTIME JOSE GUADALUPE Last Admin: 09/08/23 19:58 Dose: 15 mg Haloperidol Decanoate (Haloperidol Decanoate 50 Mg/Ml Vial) 200 mg IM Q28D JOSE GUADALUPE Last Admin: 08/14/23 09:39 Dose: 200 mg Haloperidol Lactate (Haloperidol Lactate 5 Mg/Ml Vial) 5 mg IM BID PRN PRN Reason: REFUSAL OF PO Last Admin: 05/20/23 08:43 Dose: 5 mg Hydrocortisone (Hydrocortisone 1 % Cream 28.35 Gm Tube) 1 appl TOPICAL BID PRN; Protocol PRN Reason: Rash Last Admin: 08/20/23 09:13 Dose: 1 appl Ibuprofen (Ibuprofen 400 Mg Tablet) 400 mg PO Q4H PRN PRN Reason: Pain, Mild (Pain Scale 1-3) Last Admin: 08/05/23 01:31 Dose: 400 mg Lurasidone HCl (Lurasidone Hcl 80 Mg Tablet) 160 mg PO DAILY JOSE GUADALUPE Last Admin: 09/09/23 08:29 Dose: 160 mg Magnesium Hydroxide (Milk Of Magnesia 30 Ml Oral.Susp) 30 ml PO DAILY PRN PRN Reason: Constipation Trazodone HCl (Trazodone Hcl 25 Mg Halftab) 25 mg PO BEDTIME MRX1 PRN PRN Reason: Insomnia Last Admin: 09/08/23 19:59 Dose: 25 mg Allergies Allergies Allergy/AdvReac Type Severity Reaction Status Date / Time onion Allergy Unknown Unknown Verified 05/11/23 22:53 Assessment & Plan Assessment & Plan (1) Schizophrenia, chronic condition: Status: Acute Code(s): F20.9 - Schizophrenia, unspecified Assessment and Plan: 08/04/23: Continue tx. 08/05/23: Continue tx. Plan Pt is a 72-year-old female with a PMH significant for?HTN, GERD, and schizophrenia who is admitted to [facility] for increased aggression after a non compliant her psychiatric medications. Patient lives at a [place] [facility] but has recently become disorganized with delusions and increased aggression after refusing to take her medications despite a [facility]iggins order. Medical consult for admission H&P. Plan 09/04 continue tx. 09/05 continue tx. 09/06 continue tx. d/c next week. 09/08/2023: Continue current regimen and plans 09/09/2023: Continue current regimen and plans Reason for continued inpatient stay Substantial Risk for: med/psych decompensation Time Spent With Patient Time: Total time managing care of this patient today ____ minutes.
[2023-09-09 18:00] VITALS: BP 140/67; PULSE 64; RESP 18; TEMP 36.6; O2SAT 93
[2023-09-09] MEDS: HaloperidoL 5 MG TABLET 15 MG PO (20:44)
[2023-09-10 07:45] VITALS: BP 106/65; PULSE 58; RESP 16; TEMP 36.3; O2SAT 58
[2023-09-10] MEDS: HaloperidoL 5 MG TABLET PO (08:34)
[2023-09-10] MEDS: Lurasidone HCl 80 MG TABLET 160 MG PO (08:34)
--- NOTE | 2023-09-10 11:19 | HO.PSYCHPN ---
Subjective Subjective Date of Service: 09/10/23 Reason For Visit: Schizophrenia Subjective Notes: Conditional Voluntary Interim History: Pt slept through the night. No behavioral concerns. She is in bed. She continues to report she has to stay here and would not engage in any conversation about discharge to . Review of Systems Review of Systems Chronic right knee pain Yes all other systems are reviewed and are negative and Unobtainable due to mental status Mental Status Exam Mental Status Exam Patient Appearance: Appropriate and Unkempt Patient Orientation: Person and Place Level of Consciousness: Awake and Appropriate Patient Behavior: Guarded and Passive Mood Description: Suspicious Affect Description: Blunted Patient Cognition Impaired: Yes Ability to Follow Directions: Fair Speech Pattern: Clear Memory Description: Remote Impaired, Immediate Impaired and Episodic Impaired Diagnostics Vital Signs (24Hr): Vital Signs - 24 hr 09/09/23 18:00 09/10/23 07:45 Temperature 97.8 F 97.3 F Pulse Rate 64 58 Respiratory Rate 18 16 Blood Pressure 140/67 H 106/65 Pulse Oximetry 93 58 L Oxygen Delivery Method Room Air BMI result Body Mass Index 29.2 Labs 08/08/23 05:51 08/08/23 05:51 Medications Medications Current Medications Al Hydroxide/Mg Hydroxide (Magnesium Hydrox/Alum Hydrox 30 Ml Oral.Susp) 30 ml PO Q6H PRN PRN Reason: Heartburn/Nausea Clotrimazole (Clotrimazole 1 % Cream 15 Gm Tube) 1 appl TOPICAL BID JOSE GUADALUPE; Protocol Last Admin: 09/09/23 20:45 Dose: Not Given Haloperidol (Haloperidol 5 Mg Tablet) 5 mg PO Q4H PRN PRN Reason: agitation Last Admin: 09/01/23 01:44 Dose: 5 mg Haloperidol (Haloperidol 5 Mg Tablet) 5 mg PO DAILY [facility] Last Admin: 09/10/23 08:34 Dose: 5 mg Haloperidol (Haloperidol 5 Mg Tablet) 15 mg PO BEDTIME JOSE GUADALUPE Last Admin: 09/09/23 20:44 Dose: 15 mg Haloperidol Decanoate (Haloperidol Decanoate 50 Mg/Ml Vial) 200 mg IM Q28D [facility] Last Admin: 08/14/23 09:39 Dose: 200 mg Haloperidol Lactate (Haloperidol Lactate 5 Mg/Ml Vial) 5 mg IM BID PRN PRN Reason: REFUSAL OF PO Last Admin: 05/20/23 08:43 Dose: 5 mg Hydrocortisone (Hydrocortisone 1 % Cream 28.35 Gm Tube) 1 appl TOPICAL BID PRN; Protocol PRN Reason: Rash Last Admin: 08/20/23 09:13 Dose: 1 appl Ibuprofen (Ibuprofen 400 Mg Tablet) 400 mg PO Q4H PRN PRN Reason: Pain, Mild (Pain Scale 1-3) Last Admin: 08/05/23 01:31 Dose: 400 mg Lurasidone HCl (Lurasidone Hcl 80 Mg Tablet) 160 mg PO DAILY JOSE GUADALUPE Last Admin: 09/10/23 08:34 Dose: 160 mg Magnesium Hydroxide (Milk Of Magnesia 30 Ml Oral.Susp) 30 ml PO DAILY PRN PRN Reason: Constipation Trazodone HCl (Trazodone Hcl 25 Mg Halftab) 25 mg PO BEDTIME MRX1 PRN PRN Reason: Insomnia Last Admin: 09/08/23 19:59 Dose: 25 mg Allergies Allergies Allergy/AdvReac Type Severity Reaction Status Date / Time onion Allergy Unknown Unknown Verified 05/11/23 22:53 Assessment & Plan Assessment & Plan (1) Schizophrenia, chronic condition: Status: Acute Code(s): F20.9 - Schizophrenia, unspecified Assessment and Plan: 08/04/23: Continue tx. 08/05/23: Continue tx. Plan Pt is a 72-year-old female with a PMH significant for?HTN, GERD, and schizophrenia who is admitted to [facility] for increased aggression after a non compliant her psychiatric medications. Patient lives at a long term but has recently become disorganized with delusions and increased aggression after refusing to take her medications despite a Riggins order. Medical consult for admission H&P. Plan 09/04 continue tx. 09/05 continue tx. 09/06 continue tx. d/c next week. 09/08/2023: Continue current regimen and plans 09/09/2023: Continue current regimen and plans 09/09 continue tx. d/c tomorrow. Reason for continued inpatient stay Substantial Risk for: inability to function Time Spent With Patient Time: Total time managing care of this patient today ____ minutes.
[2023-09-10 18:00] VITALS: BP 131/63; PULSE 54; RESP 16; TEMP 35.9; O2SAT 94
[2023-09-10] MEDS: HaloperidoL 5 MG TABLET 15 MG PO (20:14)
[2023-09-10] MEDS: traZODone HCL 25 MG HALFTAB PO ×2 (20:28→21:54)
[2023-09-11 06:00] VITALS: BP 150/70; PULSE 59; RESP 16; TEMP 36.3; O2SAT 97
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
[2023-09-11] MEDS: Lurasidone HCl 80 MG TABLET 160 MG PO (09:20)
[2023-09-11] MEDS: LORazepam 1 MG TABLET 2 MG PO (09:20)
[2023-09-11] MEDS: HaloperidoL 5 MG TABLET PO (09:20)
[2023-09-11] MEDS: Haloperidol Decanoate 50 MG/ML VIAL 200 MG IM (09:24)
--- NOTE | 2023-09-11 09:40 | PC.NURSE ---
Haldol Deconate administered 200mg IM R deltoid. Patient tolerated well. Next administration due September.
== END 2023-09-11 11:35 | disposition home or self-care (01) | DRG 885 ==
PROVIDERS: Psychiatry & Neurology Psychiatry; Social Worker; Student in an Organized Health Care Education/Training Program; Admitting Provider Psychiatry & Neurology Psychiatry; Visit Provider Psychiatry & Neurology Psychiatry
DX: F20.9 Schizophrenia, unspecified (principal); F03.92 Unspecified dementia, unspecified severity, with psychotic disturbance; K21.9 Gastro-esophageal reflux disease without esophagitis; L21.9 Seborrheic dermatitis, unspecified; I10 Essential (primary) hypertension; Z20.822 Contact with and (suspected) exposure to COVID-19; Z91.148 Patient's other noncompliance with medication regimen for other reason; Z79.899 Other long term (current) drug therapy
CPT/HCPCS: 36415; 80048; 80053; 80061; 80076; 81001; 81003; 83036; 85025; 87086; 87635; J1630; J1631

== ENCOUNTER → 2023-05-11 21:28 | Outpatient (BNV) | payer SELFPAY | PROVIDERS: Admitting Provider Psychiatry & Neurology Psychiatry; Visit Provider Psychiatry & Neurology Psychiatry | DX: F20.0 Paranoid schizophrenia (principal) | CPT/HCPCS: 99231; 99232 ==

== ENCOUNTER → 2023-05-11 21:28 | Outpatient (BNV) | payer SELFPAY | PROVIDERS: Admitting Provider Psychiatry & Neurology Psychiatry; Visit Provider Student in an Organized Health Care Education/Training Program | DX: Z02.2 Encounter for examination for admission to residential institution (principal) | CPT/HCPCS: 99429 ==

== ENCOUNTER → 2023-05-11 21:28 | Outpatient (BNV) | payer SELFPAY | PROVIDERS: Admitting Provider Psychiatry & Neurology Psychiatry; Visit Provider Psychiatry & Neurology Psychiatry | DX: F20.0 Paranoid schizophrenia (principal) | CPT/HCPCS: 90792; 99231; 99232; 99239 ==

== ENCOUNTER 2023-09-12 14:46 | Emergency (ER) | payer OTHER, SELFPAY ==
--- NOTE | ~2023-09-12 | XR_ITS ---
EXAMINATION: XR CHEST CLINICAL INFORMATION: Reason for Exam weakness COMPARISON: None TECHNIQUE: One view of the chest FINDINGS: Lines and tubes: None. Clear lungs. No pleural effusion. No pneumothorax. Unchanged cardiomediastinal silhouette. Dilated or ectatic thoracic aorta. Normal cardiac silhouette. XR/XR chest 1V IMPRESSION: 1. Clear lungs. 2. Dilated or ectatic thoracic aorta.
--- NOTE | 2023-09-12 14:56 | ED_ITS ---
HPI - Weakness General Chief complaint: Psychiatric Symptoms Stated complaint: WEAKNESS Time Seen by Provider: 09/12/23 14:50 Source: EMS, RN notes reviewed and old records reviewed Mode of arrival: EMS Limitations: altered mental status History of Present Illness HPI Narrative: 72 year old female with pmhx significant for GERD, HTN, chronic schizophrenia and dementia with psychosis presents to the ED today via EMS for evaluation of weakness . Per EMS, patient was recently admitted to our facility and discharged yesterday. She was [facility] to her jail however staff called EMS this morning stating that this is not an appropriate fit as she cannot care for herself. She has no complaints at present however patient poor historian. History limited to patient's mental status. On chart review, patient was admitted to [facility] at this facility 05/12/23 and was discharged less than 24 hours ago (4 mos of admission). Related Data Previous Rx's Medication Instructions Recorded clotrimazole 1 % topical cream 1 appl topical BID #45 grams 09/11/23 haloperidol 5 mg tablet 5 mg PO DAILY #30 tabs 09/11/23 haloperidol 5 mg tablet 15 mg (3 x 5 mg) PO BEDTIME #30 09/11/23 tabs haloperidol decanoate 100 mg/mL 200 mg (2 mL) IM Q4W #10 mL 09/11/23 intramuscular solution hydrocortisone 1 % topical cream 1 appl topical BID PRN allergic 09/11/23 reaction #28.4 grams lurasidone 80 mg tablet (Latuda) 160 mg (2 x 80 mg) PO DAILY #60 09/11/23 tabs Allergies Allergy/AdvReac Type Severity Reaction Status Date / Time onion Allergy Unknown Unknown Verified 05/11/23 22:53 Review of Systems 2 Review of Systems: Yes Unobtainable due to mental status (dementia) [facility] Past Medical History Attestation statement: The following information was validated with the patient. Source: old records reviewed and nursing notes reviewed Medical History GERD (gastroesophageal reflux disease) Schizophrenia HTN (hypertension) Social History Social History Household Members: Caregiver and Friend(s) Household Members Other:: group facility with caretakers. Housing: House Do you presently have visiting nurse or other home services: No Patient Tobacco Use Status: Never used Tobacco Advance Directives: No Advance Directives Information Provided: No service: No Physical Exam 2 Vital Signs: Vital Signs: Last Vital Signs Temp 98.5 F 09/12/23 19:14 Pulse 62 09/12/23 19:14 Resp 18 09/12/23 19:14 BP 145/81 H 09/12/23 19:14 Pulse Ox 93 09/12/23 19:14 O2 Del Method Room Air 09/12/23 19:14 BMI result Body Mass Index 25.6 Vitals wnl Const: General: no acute distress and awake; No cooperative HEENT: Head: Yes normal to inspection, Yes No palpable skull fracture present, Yes normocephalic and Yes atraumatic General nose exam: Normal external nose present Face and sinus: Yes normal facial exam Eyes: General: appearance normal, both eyes and all related structures C onjunctivae: conjunctivae normal Sclerae: sclerae normal Pupils: Equal, round and reactive pupils present Neck: Neck: Yes normal visual inspection, Yes full ROM, Yes no lymphadenopathy and Yes no JVD Chest: Chest palpation & inspection: normal inspection of the chest, normal palpation of entire chest wall, no crepitus and no tenderness Resp: Effort & Inspection: normal respiratory effort and able to speak in complete sentences Auscultation: clear to auscultation bilaterally Cardio: Jugular venous distension: no JVD Rate: regular rate Rhythm: r egular rhythm GI: Inspection: Yes normal to inspection Palpation (GI): Soft to palpation and nontender Back/Spine/Pelvis: Other: No midline spinous tenderness or step off deformity. No paraspinal muscle tenderness. Skin: General skin exam: no rashes or lesions noted Neuro: General: moves all extremities Cranial nerves: Yes CN's II-XII intact bilaterally and Yes Equal, round and reactive pupils present Extrem: General: Yes normal to inspection and Yes capillary refill normal Course Course Course Narrative: 1450-- Patient is noncooperative on initial evaluation. Tracks me with eyes however unwilling to answer questions. Endorses paranoid thoughts and is often caught talking to herself while I'm in the room. Physical exam is otherwise benign and vitals are wnl, no evidence to suggest acute pain or febrile illness. Basic labs, UA ordered. > all information obtained from EMS and previous records 1630-- CBC without leukocytosis or left shift. No anemia. H&H stable. Chemistry without acute electrolyte abnormality requiring intervention. Chronically elevated liver enzymes when compared to priors. BUN slightly elevated however creatinine wnl. TSH wnl. Ammonia wnl. Glucose wnl. CXR without evidence of pneumonia. > Sign out given to my colleague Trudi FLORES pending UA and care team consult. Patient stable at the end of my shift. Reevaluation(s) Reevaluation #1: UA w/o evidence of infection trace bacteria likely secondary to contaminaiton. At this time physician observation will be initiated. This will allow more time for patient to be evaluated by care team. At time observation was started patient calm cooperative no acute distress, stable vital signs. Will continue to monitor. Time: 19:55 Medical Decision Making Medical Decision Making [facility] Narrative: 72 year old female with pmhx significant for GERD, HTN, chronic schizophrenia and dementia with psychosis presents to the ED today via EMS for evaluation of weakness . Vital signs stable. Patient is nontoxic appearing and in NAD. Unwilling to answer questions or cooperate during exam. Verbalizing paranoid delusions and speaking to herself when I am turned away. Lying in bed comfortably. PERRLA. Moving extremities. Abd soft, ND/NT. Normoactive BS. Lungs CTA b/l. RRR. Differential diagnosis includes FTT, schizophrenia, dementia, psychosis Plan for labs, UA, CXR, and care team evaluation. Differential Diagnosis Differential Diagnoses: The differential diagnosis associated with the presentation includes as above. Admission/Observation Consideration of admission/observation: Escalation of care including admission/observation considered Lab Data [facility] Lab Attestation statement: I reviewed the patient's lab results. as above. 09/12/23 15:33 09/12/23 15:33 Labs: Lab Results 09/12/23 09/12/23 Range/Units 15:33 19:27 WBC 5.4 (4.8-10.8) X10*3/uL RBC 4.50 (4.20-5.50) X10*6/uL Hgb 14.7 (12.0-16.0) g/dl Hct 42.0 (37.0-47.0) % MCV 93.3 (80.0-98.0) fL MCH 32.7 (27.0-33.0) pg MCHC 35.0 (31.0-35.0) g/dl RDW 13.6 (11.0-16.0) % Plt Count 57 L (160-400) X10*3/uL MPV 10.8 (9.4-12.3) fL Immature Gran % (Auto) 0.2 (0.0-0.4) % Neut % (Auto) 68.0 (45-73) % Lymph % (Auto) 19.1 L (20-40) % [place] % (Auto) 11.2 H (2-11) % Eos % (Auto) 1.1 (0-4) % Baso % (Auto) 0.4 (0-2) % Lymph # (Auto) 1.0 L (1.2-4.9) X10*3/uL [place] # (Auto) 0.6 (0.1-1.2) X10*3/uL Eos # (Auto) 0.1 (0.0-0.4) X10*3/uL Baso # (Auto) 0.0 (0.0-0.2) X10*3/uL Abs Immat Gran (auto) 0.01 (0.00-0.03) X10*3/uL Absolute Neuts (auto) 3.6 (2.0-8.3) x10*3/uL Absolute Nucleated RBC 0.000 (0.0-0.012) X10*3/uL Nucleated RBC % (auto) 0.0 (0.0-0.2) /100WBC Sodium 140 (135-145) mmol/L Potassium 4.2 (3.3-5.1) mmol/L Chloride 109 H (96-108) mmol/L Carbon Dioxide 26 (22-29) mmol/L Anion Gap 9 L (12-20) BUN 17 H (9-16) mg/dL Creatinine 0.72 (0.5-1.4) mg/dL Estim Creat Clear Calc 68.7 Estimated GFR > 60 Random Glucose 127 H (60-115) mg/dL Calcium 8.6 (8.4-10.2) mg/dL Magnesium 2.0 (1.6-2.6) mg/dL Total Bilirubin 0.5 (0.0-1.0) mg/dL AST 60 H (5-31) U/L ALT 66 H (0-31) U/L Alkaline Phosphatase 63 (39-117) U/L Ammonia 46 (13-55) umol/L Total Protein 6.1 L (6.5-8.0) g/dL Albumin 3.2 L (3.5-5.0) g/dL Lipase 15 (8-78) U/L TSH 0.87 (0.32-4.0) uIU/mL Urine Color Dark Yellow Urine Appearance Clear Urine pH 5.5 (5.0-9.0) Ur Specific [place] >= 1.030 H (1.005-1.025) Urine Protein Negative (Neg-Trace) mg/dL Urine Glucose (UA) Negative (Negative) mg/dL Urine Ketones Negative (Negative) mg/dL Urine Blood Negative (Negative) Urine Nitrite Negative (Negative) Ur Leukocyte Esterase Small (1+) H (Negative) Urine RBC 0-2 (0-2) /HPF Urine WBC 11-20 H (0-5) /HPF Ur Squamous Epith Cells 3-5 (0-2) /HPF Urine Bacteria Trace (None Seen) Hyaline Casts 0-2 (0-2) /LPF Independent Interpretation I performed an independent interpretation of an: Plain X-Ray Interpretation: I have personally reviewed chest xray and agree with radiologist's interpretation. Radiology Impression Discussion of test interpretation with radiology: I have reviewed the radiologist's reading. Radiologist Impression: EXAMINATION: XR CHEST CLINICAL INFORMATION: Reason for Exam weakness COMPARISON: None TECHNIQUE: One view of the chest FINDINGS: Lines and tubes: None. Clear lungs. No pleural effusion. No pneumothorax. Unchanged cardiomediastinal silhouette. Dilated or ectatic thoracic aorta. Normal cardiac silhouette. XR/XR chest 1V IMPRESSION: 1. Clear lungs. 2. Dilated or ectatic thoracic aorta. Independent Historian Clinical information obtained from an independent historian. History obtained from or confirmed by: EMS External Record Review External record reviewed: Inpatient record, Office record, Outpatient record, Prior outpatient labs, Prior outpatient radiology, Primary care record and Outside ED record Chronic Conditions Patient?s care impacted by: Other (Schizophrenia, dementia, psychosis) Social Determinants Patient?s care significantly limited by Social Determinants of Health including: Other Social Determinant of Health Critical Care Time Critical Care Time Critical Care Time: No Discharge Plan Discharge Clinical Impression: Generalized weakness, Acute paranoia Patient Disposition: Still a Patient Prescriptions: No Action haloperidol 5 mg Tablet 5 mg PO DAILY Qty: 30 0RF haloperidol 5 mg Tablet 15 mg PO BEDTIME Qty: 30 0RF lurasidone [Latuda] 80 mg Tablet 160 mg PO DAILY Qty: 60 0RF haloperidol decanoate 100 mg/mL solution 200 mg IM Q4W Qty: 10 0RF clotrimazole 1 % cream 1 appl topical BID Qty: 45 0RF hydrocortisone 1 % cream 1 appl topical BID PRN (Reason: allergic reaction) Qty: 28.4 0RF
[2023-09-12 15:03] VITALS: BP 126/64; BP 136/66; PULSE 60; PULSE 68; RESP 18; TEMP 36.8; O2SAT 91; BMI 25.6
--- NOTE | 2023-09-12 15:13 | PHA.MEDREC ---
Pharmacy Consult ? Medication Reconciliation Pharmacy has completed the medication reconciliation. Patient just discharge from inpatient psych yesterday 09/10, utilized discharge summary for [employer] Confirm Haldol Injection was administer on 09/11/23 prior to discharge. Jessica Us, PharmD
[2023-09-12 15:52] LABS: MANUAL DIFF FLAG NO
[2023-09-12 15:57] LABS: Basophils Percent Auto 0.4 % (0-2); Eosinophils Absolute Auto 0.1 X10*3/uL (0.0-0.4); Eosinophils Percent Auto 1.1 % (0-4); Hemoglobin 14.7 g/dl (12.0-16.0); Imm Gran Abs Auto 0.01 X10*3/uL (0.00-0.03); Imm Gran Pct Auto 0.2 % (0.0-0.4); Lymphocytes Percent Auto 19.1 % (20-40); Mean Corpuscular Hemoglobin 32.7 pg (27.0-33.0); Mean Corpuscular Volume 93.3 fL (80.0-98.0); Mean Platelet Volume 10.8 fL (9.4-12.3); Monocytes Absolute Auto 0.6 X10*3/uL (0.1-1.2); Monocytes Percent Auto 11.2 % (2-11); Neutrophils Absolute Auto 3.6 x10*3/uL (2.0-8.3); Red Cell Distribution Width 13.6 % (11.0-16.0); White Blood Count 5.4 X10*3/uL (4.8-10.8)
[2023-09-12 15:58] LABS: Platelet Count 57 X10*3/uL (160-400)
[2023-09-12 16:00] LABS: Ammonia 46 umol/L (13-55)
[2023-09-12 16:15] LABS: Alanine Aminotransferase 66 U/L (0-31); Albumin Level 3.2 g/dL (3.5-5.0); Alkaline Phosphatase 63 U/L (39-117); Anion Gap 9 (12-20); Aspartate Amino Transferase 60 U/L (5-31); Bilirubin Total 0.5 mg/dL (0.0-1.0); Blood Urea Nitrogen 17 mg/dL (9-16); Calcium 8.6 mg/dL (8.4-10.2); Carbon Dioxide 26 mmol/L (22-29); Chloride 109 mmol/L (96-108); Creatinine Clr Calc Pharmacy 68.7; Estimated Glomerular Filt Rate > 60; Glucose Random 127 mg/dL (60-115); Lipase 15 U/L (8-78); Potassium 4.2 mmol/L (3.3-5.1); Sodium 140 mmol/L (135-145); Total Protein 6.1 g/dL (6.5-8.0)
[2023-09-12 16:31] LABS: TSH reflex Free T4 0.87 uIU/mL (0.32-4.0)
[2023-09-12 19:14] VITALS: BP 145/81; PULSE 62; RESP 18; TEMP 36.9; O2SAT 93
--- NOTE | 2023-09-12 19:27 | MHC.EDTECH ---
Patient used bedpan
--- NOTE | 2023-09-12 19:41 | PC.NURSE ---
pt changed over to hospital clothes belongings secured. calm/cooperative at this time nadMariah chahal sent to lab. call hernandez within reach.
[2023-09-12 19:45] LABS: Appearance Urine Clear; Color Urine Dark Yellow; Glucose Urine UA Negative (Negative); Leukocyte Esterase Urine Small (1+) (Negative); Nitrite Urine Negative (Negative); PH 5.5 (5.0-9.0); Specific Gravity - Urine >= 1.030 (1.005-1.025); UMIC TRIGGER UACC YES; Urine Blood Negative (Negative); Urine Ketones Negative (Negative); Urine Protein Negative (Neg-Trace)
[2023-09-12 19:49] LABS: Bacteria Urine Trace (None Seen); Hyaline Casts Urine 0-2 /LPF (0-2); RBC Urine 0-2 /HPF (0-2); UACC Culture Trigger YES
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
[2023-09-12 22:49] VITALS: BP 114/53; PULSE 57; RESP 16; TEMP 36.2; O2SAT 94
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
--- NOTE | 2023-09-13 05:43 | MHC.EDTECH ---
This tech went to do PT's vitals. PT's Refused stating I can't have it done now, I haven't ate and I won't have Oxygen in my heart This tech tried to explain to her that we will do vitals before and after Breakfast. PT stated No, I don't want them right now . This tech informed PT's that I would have to tell the nurse, and left her to rest. RN Aware.
[2023-09-13 05:51] VITALS: RESP 15
--- NOTE | 2023-09-13 05:51 | PC.NURSE ---
pt refused vitals. pt states can obtain vitals after pt eats breakfast. resp even and unlabored. nad.
[2023-09-13 08:17] VITALS: BP 137/82; PULSE 51; RESP 16; O2SAT 97
--- NOTE | 2023-09-13 08:31 | MHC.CARE ---
CARE Team spoke with Tonya Diaz NP Pt does not require further psychiatric intervention at this time. Pt should return to current providers and home . CARE Team updated Dr. Lewis who is aware of behavioral treatment recommendations at this time.
--- NOTE | 2023-09-13 11:39 | PC.NURSE ---
attempted to call patient jail managers number, and jail number, no answer.
--- NOTE | 2023-09-13 13:32 | PC.NURSE ---
spoke to tito yard manager, she states that patient can not go back to longterm due to they are not able to care of her, patient is medically cleared and care team cleared. patient supervisor then stated that they will send patient back via ems if the patient arrives at longterm. patient has been d/c waiting to go home for 5 hours. phone number is [phone] for Adrienne yard manager. case escalated to case management and supervision due to longterm refusing to take patient back.
--- NOTE | 2023-09-13 14:22 | MHC.CM.PN ---
This junior copywriter placed call to group home manager- had long conversation. They are unable to take the patient back @ this time. The level of care they are able to provide in the home does not meet the patient's needs. They are open to reviewing once patient demonstrates ability to ambulate to BR, self toilet and show independence with ADLs. Call placed to [facility] supervisor for [facility]. Over next day she will pull a team together w/ [facility] to assist with a plan for the patient. To note patient has health safety net w/ no skilled benefit. She is alos not participating in PT therefore wouls not skill in for short term rehab. The group home manager has been attempting to assist w/ [employer] application w/ lack of response from guardian Odell Barrios in completing documentation.
--- NOTE | 2023-09-13 19:40 | MHC.EDTECH ---
This specification writer placed pure wick on patient at 194. Patient then requesting snacks . Cheese sticks and water given. Patient now resting quietly.
--- NOTE | 2023-09-13 19:44 | PC.NURSE ---
this RN resumed care of pt at 1900. pt alert and oriented to self only. pt currently resting in bed in no apparent distress. pt has no complaints. denies pain. no sob/wob noted. respirations even and unlabored. purewick placed by [employer] as previous RN states that she was continuously incontinent. pt requesting a snack - provided w/ cheesesticks. pt calm/cooperative. plan of care ongoing. call hernandez placed within reach.
[2023-09-13 20:38] VITALS: BP 147/63; PULSE 67; RESP 16; TEMP 36.6; O2SAT 90
[2023-09-14 06:11] VITALS: BP 181/80; PULSE 54; RESP 16; TEMP 36.2; O2SAT 92
--- NOTE | 2023-09-14 06:44 | PC.NURSE ---
Assumed care of patient at 23:30 (09/12). Pt seen in ED overflow as PT/CM pt, pending disposition/placement to LTC. Pt is A&Ox1 to self only. Breathing is even and unlabored without distress on RA. Purewick in place for incontinence patent of cyu, changed this morning. No n/v, pt tolerating snacks as requested without issue. Pt denies pain and offers no acute complaints. Patient observed resting in bed in no apparent distress on hourly rounds. Pt hypertensive 181/80 with HR 54 this morning on vitals. Other than HTN, vitals are stable. Application Performance Engineer and aid attempted to obtain manual BP for accuracy though pt refused, became agitated and yelled at staff. Pt has a PMhx of chronic schizophrenia per chart review. Pt becomes easily agitated with any care staff attempts to provide, though self-dialogues calmly in bed when left to rest. Pt does have HTN but does not appear to take any home medications when chart was reviewed. Covering Dr. Desi Gray notified. No new orders at this time. Patient is resting in bed, appearing comfortable and in no apparent distress. Bed alarm on and safety measures in place. Handoff report given to oncoming RN at 06:45.
--- NOTE | 2023-09-14 09:12 | PC.NURSE ---
this RN resumed care of pt at 0645. no acute events noted by previous RN aside from when manual BP should have been taken, the pt then became agitated/yelling at staff. pt currently alert and oriented to self only. pt incontinent of urine despite purewick being in place. incontinence care performed/bedding changed. fresh purewick applied/placed to wall suction. pt originally found laying off to the right side in bed. when attempting to reposition - pt refused and became agitated w/ this RN as well as OLIVE GRADER. a few moments later, pt then became increasingly agitated while screaming across ED overflow for us to move her. pt repositioned to comfort. pillow placed on right side to prevent pt slipping to the right side. while administering medications to the pt next door - pt then started screaming at this RN stating that she was going to punch this writer editor in the face and called this writer editor a stupid bitch multiple times. excessive foul language pursued x a few minutes until pt fell asleep. this RN also noted that medication reconciliation was completed on 09/11 but pt has not received medication since presenting to the ED. TOBIN Gibson notified that pt's medications need to be ordered so that they can be administered. will administer when able. pt now currently asleep/in no apparent distress. no sob/wob noted. respirations even and unlabored. bed alarm turned on/safety precautions in place. call hernandez placed within reach.
--- NOTE | 2023-09-14 13:00 | PC.NURSE ---
pt becoming agitated w/ this RN and tech when asked if she wanted to be repositioned. pt continuously refusing to be repositioned. when asking the pt if she wants to ambulate around the room w/ the walker, pt attempted to get out of bed while slapping and kicking this RN. pt then threw herself onto the ground - refusing to get up. no trauma noted. when attempting to get pt up - pt continuously kicking this RN. security called by tech. security bedside. 4:[address] pt back in bed. pt calm/cooperative once repositioned back into bed. safety precautions in place. call hernandez placed within reach/
[2023-09-14 14:00] VITALS: BP 142/67; PULSE 60; RESP 20; TEMP 36.4; O2SAT 92
[2023-09-14] MEDS: HaloperidoL 5 MG TABLET PO (14:16)
[2023-09-14] MEDS: Lurasidone HCl 80 MG TABLET 160 MG PO (14:16)
--- NOTE | 2023-09-14 14:18 | PC.NURSE ---
medication ordered by covering ED provider, TOBIN Gibson. pt medicated per provider order at this time. pt took pills whole w/ water - no difficulties noted. pt resting in bed in no apparent distress at this time. respirations remain even and unlabored. safety precautions remain in place. call hernandez placed within reach.
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
--- NOTE | 2023-09-14 19:30 | PC.NURSE ---
Assumed care of pt. Pt lying on stretcher, no acute distress at this time. Continuing plan of care.
[2023-09-14] MEDS: HaloperidoL 5 MG TABLET 15 MG PO (20:50)
--- NOTE | 2023-09-14 20:56 | PC.NURSE ---
pt took oral medications without complication. Currently refusing to stand and ambulate to bathroom stating the cancer is all in my hips and legs, and they took away the sponge [purewik] and should have left it because I can't walk . During medication pass, it was noted by this RN that she was moving her legs freely on the bed with no endorsed pain during motion. Pt is currently dry, no incontinence noted. Continuing plan of care.
--- NOTE | 2023-09-14 23:00 | MHC.CM.ED ---
Nursing staff is documenting patient kicking, hitting, spitting, refusing to ambulate to BR, yelling at staff, and swearing. Pt threw herself on the floor and need 4 assist to get back to bed. Pt is convinced that her cancer in her bones is limiting her abiltiy to walk. CM spoke with provider about ordering a psych consult for medication management. Order placed. RN aware.
[2023-09-14 23:08] VITALS: BP 138/72; PULSE 86; RESP 16; TEMP 36.4; O2SAT 91
[2023-09-15 06:29] VITALS: BP 113/62; PULSE 58; RESP 16; TEMP 36.4; O2SAT 90
[2023-09-15] MEDS: HaloperidoL 5 MG TABLET PO (09:41)
[2023-09-15] MEDS: Lurasidone HCl 80 MG TABLET 160 MG PO (09:41)
--- NOTE | 2023-09-15 09:43 | PC.NURSE ---
Patient sleeping, woken up to give morning meds. Patient reports no pain/further needs at this time.
[2023-09-15 14:00] VITALS: BP 121/60; PULSE 72; RESP 20; TEMP 36.4; O2SAT 94
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
[2023-09-15] MEDS: HaloperidoL 5 MG TABLET 15 MG PO (20:36)
[2023-09-15 20:40] VITALS: BP 133/71; PULSE 65; RESP 16; TEMP 36.5; O2SAT 92
--- NOTE | 2023-09-16 05:06 | PC.NURSE ---
Assumed care of patient. Patient slept throughout night.
[2023-09-16 05:52] VITALS: BP 150/60; PULSE 56; RESP 18; TEMP 36; O2SAT 92
[2023-09-16] MEDS: HaloperidoL 5 MG TABLET PO (09:23)
[2023-09-16] MEDS: Lurasidone HCl 80 MG TABLET 160 MG PO (09:23)
--- NOTE | 2023-09-16 10:25 | PC.NURSE ---
PT ASK FOR BEDPAN, THIS RN OFFERED TO ESCORT HER TO THE BATHROOM, PT STATED I CAN'T WALK . THIS RN ENCOURAGED PT TO TRY AND SHE GOT UPSET. BEDSIDE COMMODE OFFERED, PT INDEPENDENTLY GOT OUT OF BED AND USED BEDSIDE COMMODE, WIPED HERSELF AND GOT BACK INTO BED. NO COMPLAINTS. WILL CONTINUE TO OBSERVE.
--- NOTE | 2023-09-16 11:09 | PC.NURSE ---
PT INDEPENDENTLY GOT UP OUT OF BED, WALKED TO THE BATHROOM THEN BACK INTO BED. NO COMPLAINTS RESTING QUIETLY AT THIS TIME. WILL CONTINUE TO OBSERVE.
[2023-09-16 13:54] VITALS: BP 189/77; PULSE 73; RESP 18; TEMP 36.6; O2SAT 93
--- NOTE | 2023-09-16 17:22 | MHC.EDTECH ---
THIS PCT ASSUMED CARE OF PATIENT AT 1500 ,PATIENT RESTING IN BED ,FOR DINNER PATIENT ATE 100 % OF MEAL DRANK 120 ML FLUIDS .
[2023-09-16 19:42] VITALS: BP 138/84; PULSE 72; RESP 16; TEMP 36.8; O2SAT 97
[2023-09-16] MEDS: HaloperidoL 5 MG TABLET 15 MG PO (20:36)
[2023-09-16] MEDS: Clotrimazole 1 % Cream 15 GM TUBE 1 APPL TOPICAL (20:38)
--- NOTE | 2023-09-17 05:45 | MHC.EDTECH ---
patient refusing vital signs.
[2023-09-17] MEDS: HaloperidoL 5 MG TABLET PO (08:52)
[2023-09-17] MEDS: Lurasidone HCl 80 MG TABLET 160 MG PO (08:52)
--- NOTE | 2023-09-17 13:37 | MHC.CM.ED ---
Patient remains in ER overflow. Nursing staff has documented that patient has independently ambulated to the bathroom. Nataliia Brady CM director aware. Nataliia is working with [facility] and [facility] mold yard supervisor to get patient back to [facility]. Continue to monitor for d/c needs.
[2023-09-17 14:00] VITALS: BP 153/71; PULSE 68; RESP 18; TEMP 36.4; O2SAT 93
--- NOTE | 2023-09-17 16:41 | PC.NURSE ---
Gave report to ED POD RN, patient to transport with security as patient is a flight risk.
[2023-09-17] MEDS: HaloperidoL 5 MG TABLET 15 MG PO (20:51)
--- NOTE | 2023-09-17 23:03 | MHC.EDTECH ---
pt ambulated independently to the bathroom where she took a shower without staff assistance. RN MADE AWARE.
[2023-09-17 23:23] VITALS: BP 121/75; PULSE 63; RESP 16; TEMP 36.9; O2SAT 92
[2023-09-18] MEDS: HaloperidoL 5 MG TABLET PO (10:28)
--- NOTE | 2023-09-18 10:31 | PC.NURSE ---
Assisted to BR to shower/brush teeth/change clothes. Following ED RN prompts appropriately at this time.
--- NOTE | 2023-09-18 13:56 | MHC.CM.ED ---
Patient remains in ER BH pod. Nataliia Brady CM Director has been in communication with [facility] and long-term in order to facilitate d/c. [facility] staff apparently on-site to visit with patient already. Case management was not aware of this. Nataliia Brady aware. Continue to monitor for d/c needs.
[2023-09-18] MEDS: Lurasidone HCl 80 MG TABLET 160 MG PO (14:16)
[2023-09-18 19:33] VITALS: BP 138/60; PULSE 68; RESP 16; TEMP 37; O2SAT 92
[2023-09-18] MEDS: HaloperidoL 5 MG TABLET 15 MG PO (20:02)
[2023-09-18] MEDS: Clotrimazole 1 % Cream 15 GM TUBE 1 APPL TOPICAL (20:06)
[2023-09-19 00:05] VITALS: BP 184/80; PULSE 68; RESP 16; TEMP 36.3; O2SAT 97
--- NOTE | 2023-09-19 06:35 | PC.NURSE ---
Patient slept through the night, no distress observed/reported, medication compliant, no behavior issues, disposition per case management is pending placement, VSS, will continue to monitor
[2023-09-19 08:00] VITALS: BP 155/71; PULSE 76; RESP 16; TEMP 35.7; O2SAT 91
--- NOTE | 2023-09-19 08:23 | ECG_ITS ---
Test Reason : Monitor medication Blood Pressure : / mmHG Vent. Rate : 078 BPM Atrial Rate : 078 BPM P-R Int : 176 ms QRS Dur : 088 ms QT Int : 392 ms P-R-T Axes : 064 -04 034 degrees QTc Int : 446 ms Normal sinus rhythm Septal infarct , age undetermined Abnormal ECG No previous ECGs available Referred By: Generic ED Physician Electronically Signed By:Vinicius Kiran
[2023-09-19] MEDS: Clotrimazole 1 % Cream 15 GM TUBE 1 APPL TOPICAL (10:17)
[2023-09-19] MEDS: Lurasidone HCl 80 MG TABLET 160 MG PO (10:17)
[2023-09-19] MEDS: HaloperidoL 5 MG TABLET PO (10:17)
--- NOTE | 2023-09-19 12:37 | MHC.CM.ED ---
Patient remains in ER BH pod. Meeting between director, Nataliia Brady, [place] [facility] and [facility] via conference call was completed. Per Nataliia, patient's [place] [facility] will pick patient up tomorrow 09/19 at 3pm to transport her back to her [place] [facility]. Dr Thomas and Ivana VILLALBA made aware. Continue to monitor for d/c needs.
--- NOTE | 2023-09-19 14:52 | PC.NURSE ---
PT MOVED TO [facility]RET[facility] IN MAIN ED FOR STAFFING PURPOSES. IN NAD, JENNIFER PCT AT BEDSIDE ON 1:1 FOR PT SAFETY.
[2023-09-19 18:35] VITALS: BP 180/86; PULSE 69; RESP 17; TEMP 36.4; O2SAT 93
--- NOTE | 2023-09-19 18:50 | PC.NURSE ---
PT B/P (MANUAL) 180/86-69, MLP (LAKISHA) AWARE. PT APPEARS TO BE ASYMPTOMATIC. WILL CONTINUE TO MONITOR.
--- NOTE | 2023-09-19 19:29 | MHC.EDTECH ---
Total bed change. Pt changed and washed up.
--- NOTE | 2023-09-19 21:46 | MHC.EDTECH ---
Full bed change and kerry changed.
[2023-09-19 22:00] VITALS: BP 182/87; PULSE 65; RESP 18; TEMP 36.8; O2SAT 93
[2023-09-19] MEDS: HaloperidoL 5 MG TABLET 15 MG PO (22:12)
[2023-09-19] MEDS: amLODIPine Besylate 10 MG TABLET PO (22:49)
--- NOTE | 2023-09-20 06:33 | PC.NURSE ---
Pt. refusing vital signs and blood pressure to be taken. States she has a right to refuse. Attempted to reason with her multiple times. States her arm is broken. Denies headache or any other symptoms at this time.
--- NOTE | 2023-09-20 06:37 | MHC.EDTECH ---
This tech approached Pt with morning vitals, asking if OK to do so. Pt responds the last person who took my pressure broke my arm, so no. I reassured Pt that I wouldn't hurt her and Pt still refused, pushing t/w hand away. I also asked Pt if I could make sure she was clean and dry and told me to get out, go away. RN aware.
--- NOTE | 2023-09-20 08:27 | PC.NURSE ---
ASSUMED CARE AT 0700. PT A+O x4, SHE DENIES PAIN. VSS. CLEAR LIQUID DIET GIVEN ORDERED, ATE 75% OF BREAKFAST. SHE WAS SEEN BY DR. PARSONS, PHYSICAL THERAPIST AT BEDSIDE AT THIS TIME.
[2023-09-20] MEDS: Lurasidone HCl 80 MG TABLET 160 MG PO (08:50)
[2023-09-20] MEDS: HaloperidoL 5 MG TABLET PO (08:50)
--- NOTE | 2023-09-20 08:52 | PC.NURSE ---
ASSUMED CARE AT 0700. PT AWAKE IN BED SELF DIALOGUING. SHE REFUSED TO ANSWER QUESTIONS ASKED BY THIS RN, I DON'T WANT TO TALK ABOUT IT RIGHT NOW . PT COMPLIANT WITH TAKING MEDS, SHE REFUSED CLOTRIMAZOL CREAM. PT CONTINENT. REFUSED BREAKFAST WELL, I'M NOT HUNGRY , BUT ASKED TO LEAVE THE TRAY AT BEDSIDE. PT RESTING QUIETLY AT THIS TIME, WILL CONTINUE TO OBSERVE.
--- NOTE | 2023-09-20 10:14 | PC.NURSE ---
PT UP TO USE BATHROOM INDEPENDENTLY. SHE REFUSED TO LET STAFF DO HER VITALS. RESTING QUIETLY IN BED AT THIS TIME. WILL CONTINUE TO OBSERVE.
--- NOTE | 2023-09-20 10:29 | MHC.EDTECH ---
pt doesn't want to wash up or eat will try again later
--- NOTE | 2023-09-20 10:43 | MHC.EDTECH ---
pt was given a pitcher of water
--- NOTE | 2023-09-20 12:09 | MHC.EDTECH ---
pt ate 50% her lunch
[2023-09-20 13:59] VITALS: BP 136/61; PULSE 63; RESP 20; TEMP 36.3; O2SAT 90
[2023-09-20 16:13] VITALS: BP 136/61; PULSE 63; RESP 20; TEMP 36.3; O2SAT 90
--- NOTE | 2023-09-20 16:15 | PC.NURSE ---
patient refused vitals at discharge
== END 2023-09-20 16:15 | disposition home or self-care (01) ==
PROVIDERS: Physician Assistant; Physician Assistant Medical; Emergency Provider Emergency Medicine Emergency Medical Services
DX: R53.1 Weakness (principal); F22 Delusional disorders; I10 Essential (primary) hypertension; F20.9 Schizophrenia, unspecified; F03.90 Unspecified dementia, unspecified severity, without behavioral disturbance, psychotic disturbance, mood disturbance, and anxiety
CPT/HCPCS: 36415; 71045; 80053; 81001; 82140; 83690; 83735; 84443; 85025; 87086; 93005; 99285

== ENCOUNTER → 2023-09-19 08:23 | Outpatient (BNV) | payer SELFPAY | PROVIDERS: Emergency Provider Emergency Medicine Emergency Medical Services; Visit Provider Internal Medicine Cardiovascular Disease | DX: R94.31 Abnormal electrocardiogram [ECG] [EKG] (principal) | CPT/HCPCS: 93010 ==